=== PATIENT | male | born 1955 | race Caucasian/White ===

== ENCOUNTER → 2018-08-29 | Outpatient (CLI) | payer MEDICARE ==
[~2018-08-29] MED LIST: ASPI1TAB PO; ESCI20TA PO; FOLI400T PO; IRON50TA PO; ISOVUE-370 76% 100ML VIAL (Q9967) As Ordered ONE; LEVO125T4 PO; SIMV20TA2 PO
--- NOTE | 2018-08-29 13:23 | REP ---
Clinical: Chest pain. Pulmonary embolism. Technique: Axial contrast enhanced images from the thoracic inlet to the upper abdomen using pulmonary embolus protocol. 100 ml Isovue 370 intravenous contrast material administered without complication. Findings: Satisfactory enhancement of the pulmonary vasculature is achieved and no filling defects are identified to suggest pulmonary embolus. There is evidence for prior surgery at the right lung base suggesting right lower lobe pneumonectomy and a small loculated right pleural effusion is identified. No acute consolidation, obvious nodule or mass lesion appreciated. No pneumothorax. Mediastinum demonstrates postsurgical changes at the right hilum along with atherosclerotic changes to the thoracic aorta and coronary arteries without aortic aneurysm, dissection or cardiomegaly. No pericardial effusion. No obvious adenopathy. Limited upper abdomen demonstrates normal bilateral adrenal glands. Multiple healed right rib fractures identified. Impression: 1. Evidence for prior right lower lobe resection with postsurgical changes. 2. Small loculated right basilar pleural effusion. 3. No evidence for pulmonary embolus. 4. No adenopathy, consolidation, nodule or mass lesion appreciated. Electronically Signed by Naveen Maldonado MD 08/29/2018 01:14 P
== END ==
LOC: M RAD 12:28
PROVIDERS: ATTEND Internal Medicine Hematology & Oncology
DX: I26.99 Other pulmonary embolism without acute cor pulmonale (principal)
CPT/HCPCS: 71275; Q9967

== ENCOUNTER → 2018-11-20 | Outpatient (REF) | payer MEDICARE ==
[~2018-11-20] MED LIST changes: -ASPI1TAB PO; +ASPI81TA26 PO; -ISOVUE-370 76% 100ML VIAL (Q9967) As Ordered ONE
[2018-11-20 12:57] LABS: BASO # 0.1 10^3/uL (0.0-0.2); EOS # 0.6 10^3/uL (0.0-0.50); EOS % 7.6 % (0.0-3.0); HEMATOCRIT 39.7 % (42.0-52.0); HEMOGLOBIN 13.4 g/dl (13.5-17.5); LYMPH % 25.2 % (24.0-44.0); MEAN CORPUSCULAR HEMOGLOBIN 31.8 pg (27.0-33.0); MEAN CORPUSCULAR HGB CONC 33.8 g/dl (32.0-36.5); MEAN CORPUSCULAR VOLUME 94.1 fl (80.0-96.0); MONO # 0.9 10^3/uL (0.0-0.8); MONO % 11.2 % (0.0-5.0); NEUTROPHILS # 4.3 10^3/uL (1.8-7.7); NEUTROPHILS % 54.5 % (36.0-66.0); PLATELET COUNT, AUTOMATED 273 10^3/uL (150-450); RED BLOOD COUNT 4.22 10^6/uL (4.30-6.10); WHITE BLOOD COUNT 7.9 10^3/uL (4.0-10.0)
[2018-11-20 13:13] LABS: ALBUMIN 3.8 GM/DL (3.2-5.2); ALT/SGPT 33 U/L (12-78); BILIRUBIN,TOTAL 0.3 MG/DL (0.2-1.0); BLOOD UREA NITROGEN 21 MG/DL (7-18); CALCIUM LEVEL 8.6 MG/DL (8.8-10.2); CARBON DIOXIDE LEVEL 28 MEQ/L (21-32); CHLORIDE LEVEL 105 MEQ/L (98-107); CREATININE FOR GFR 1.08 MG/DL (0.70-1.30); GLOMERULAR FILTRATION RATE > 60.0 (>49); GLUCOSE, FASTING 133 MG/DL (70-100); POTASSIUM SERUM 4.3 MEQ/L (3.5-5.1); SODIUM LEVEL 138 MEQ/L (136-145); TOTAL PROTEIN 6.6 GM/DL (6.4-8.2)
== END ==
LOC: M SFHCADAM 10:46
PROVIDERS: ATTEND Physician Assistant
DX: D64.9 Anemia, unspecified (principal); E78.5 Hyperlipidemia, unspecified

== ENCOUNTER → 2018-11-27 | Outpatient (REF) | payer MEDICARE ==
[2018-11-27 13:01] LABS: FOLATE 23.2 NG/ML; FREE T4 1.04 NG/DL (0.76-1.46); PERCENT SATURATION 31.8 % (19.7-50.0); THYROID STIMULATING HORMONE 3.85 uIU/ML (0.358-3.740)
[2018-11-27 14:10] LABS: HEMOGLOBIN A1c 6.4 %
== END ==
LOC: M SFHCADAM 08:06
PROVIDERS: ATTEND Physician Assistant
DX: R73.01 Impaired fasting glucose (principal); E03.9 Hypothyroidism, unspecified; D64.9 Anemia, unspecified
CPT/HCPCS: 82607; 82728; 82746; 83036; 83550; 84439; 84443; G0463

== ENCOUNTER → 2019-03-18 | Outpatient (CLI) | payer MEDICARE ==
[~2019-03-18] MED LIST changes: +ISOVUE-370 76% 100ML VIAL (Q9967) As Ordered ONE
--- NOTE | 2019-03-19 08:22 | REP ---
REASON FOR EXAM: Lung carcinoma. COMPARISON: 08/29/2018 the only prior. CONTRAST: 100 mL Isovue 370. There is right hilar adenopathy status quo. Right hilar postoperative changes are noted status quo. There is a prominent unchanged superior pericardial recess. There are no pleural or pericardial effusions. There is no significant change in the appearance of the imaged upper abdomen. Bone window technique throughout the examination shows no significant change in the appearance of the imaged osseous structures. Evaluation of the lung barone show lung field hyperexpansion with emphysematous changes status quo. There is cylindrical bronchiectasis status quo. Postoperative changes from previous right upper lobe resection noted status quo. No new abnormal nodules, mass, or opacities have developed. IMPRESSION: Essentially stable CT findings as described above. Chronic right basilar changes status quo. No acute disease has developed since the last exam. Electronically Signed by Wyatt Chavez DO 03/19/2019 11:25 A
== END ==
LOC: M RAD 12:18
PROVIDERS: ATTEND Internal Medicine Hematology & Oncology
DX: C34.91 Malignant neoplasm of unspecified part of right bronchus or lung (principal)
CPT/HCPCS: 71260; Q9967

== ENCOUNTER → 2019-04-12 | Outpatient (REF) | payer MEDICARE ==
[~2019-04-12] MED LIST changes: +GABA-843 PO; +IBUP-1022 PO; -ISOVUE-370 76% 100ML VIAL (Q9967) As Ordered ONE; +NEUR100C PO; +PERC5TAB12 PO; -SIMV20TA2 PO; +SIMV20TA22 PO
== END ==
LOC: M SFHCADAM 09:50
DX: R73.01 Impaired fasting glucose (principal); Z53.8 Procedure and treatment not carried out for other reasons

== ENCOUNTER → 2019-04-13 | Outpatient (REF) | payer MEDICARE ==
[~2019-04-13] MED LIST changes: -GABA-843 PO; -IBUP-1022 PO; -NEUR100C PO; -PERC5TAB12 PO; +SIMV20TA2 PO; -SIMV20TA22 PO
[2019-04-13 18:36] LABS: HEMOGLOBIN A1c 4.8 %
== END ==
LOC: M SFHCADAM 12:58
DX: F32.2 Major depressive disorder, single episode, severe without psychotic features (principal); Z79.899 Other long term (current) drug therapy; Z79.82 Long term (current) use of aspirin

== ENCOUNTER 2019-06-13 14:00 | Emergency (ER) | payer MEDICARE ==
[~2019-06-13] VITALS: Ht 172.7 cm; Wt 82.0 kg
[2019-06-13] MEDS ORDERED: NEUR100C PO (14:33)
[2019-06-13 14:41] LABS: BASO # 0.1 10^3/uL (0.0-0.2); BASO % 0.9 % (0.0-1.0); EOS # 0.7 10^3/uL (0.0-0.5); EOS % 8.5 % (0.0-3.0); HEMATOCRIT 42.5 % (42.0-52.0); HEMOGLOBIN 13.7 g/dl (13.5-17.5); LYMPH # 2.2 10^3/uL (1.5-5.0); LYMPH % 28.3 % (24.0-44.0); MEAN CORPUSCULAR HEMOGLOBIN 33.5 pg (27.0-33.0); MEAN CORPUSCULAR HGB CONC 32.2 g/dl (32.0-36.5); MEAN CORPUSCULAR VOLUME 103.9 fl (80.0-96.0); MONO # 0.8 10^3/uL (0.0-0.8); MONO % 10.4 % (0.0-5.0); NEUTROPHILS # 4.1 10^3/uL (1.5-8.5); NEUTROPHILS % 51.5 % (36.0-66.0); PLATELET COUNT, AUTOMATED 264 10^3/uL (150-450); RED BLOOD COUNT 4.09 10^6/uL (4.30-6.10); WHITE BLOOD COUNT 7.9 10^3/uL (4.0-10.0)
[2019-06-13 14:53] LABS: PROTHROMBIN TIME 12.9 SECONDS (11.8-14.0)
[2019-06-13 15:01] LABS: BLOOD UREA NITROGEN 22 MG/DL (7-18); CARBON DIOXIDE LEVEL 28 MEQ/L (21-32); CHLORIDE LEVEL 106 MEQ/L (98-107); CREATININE FOR GFR 1.04 MG/DL (0.70-1.30); GLOMERULAR FILTRATION RATE > 60.0 (>49); GLUCOSE, FASTING 85 MG/DL (70-100); POTASSIUM SERUM 4.1 MEQ/L (3.5-5.1); SODIUM LEVEL 139 MEQ/L (136-145)
[2019-06-13 15:08] LABS: ALBUMIN 4.2 GM/DL (3.2-5.2); ALT/SGPT 29 U/L (12-78); BILIRUBIN,DIRECT < 0.1 MG/DL (0.0-0.2); BILIRUBIN,TOTAL 0.4 MG/DL (0.2-1.0); CK-MB VALUE MASS 1.2 NG/ML (<3.6); CPK CREATINE PHOSPHOKINASE 59 U/L (39-308); LIPASE 109 U/L (73-393); MB/CK RELATIVE INDEX 2.03 (< OR =4); TOTAL PROTEIN 7.3 GM/DL (6.4-8.2); TROPONIN I < 0.02 NG/ML (< 0.10)
[2019-06-13] MEDS ORDERED: ISOVUE-370 76% 100ML VIAL (Q9967) As Ordered ONE (15:09)
--- NOTE | 2019-06-13 16:03 | REP ---
CT pulmonary angiogram: With IV contrast. History: Chest pain. History of lung carcinoma. Comparison studies: Comparison chest CT study March 18, 2019. Contrast dose: 100 mL of Isovue [address] technique: Helical scanning is acquired and overlapping 1.5 mm and contiguous 3 mm axial images are reformatted. In addition, maximum intensity projection and multiplanar re-formation images are generated in sagittal and coronal imaging projections. CT pulmonary angiographic findings: There is good opacification of the pulmonary arterial tree. There is no CT evidence of pulmonary embolus. There is no evidence of filling defect or vessel cutoff. Thoracic aorta shows vascular calcification but no evidence of aneurysm or dissection. There is volume loss in the right hemithorax and the patient is apparently status post right lower lobectomy. There is a tiny quantity of a stable right pleural fluid posteriorly. No hilar or mediastinal mass or adenopathy is observed. No pulmonary nodule or mass lesion is observed. There are post-traumatic changes in the right rib cage. However, in addition, there is a slightly expansile radiolucent lesion in the right posterolateral 9th rib which is a new finding. In addition, there is a 1 cm radiolucent lesion in the lamina of T4 vertebral body. There is a larger lytic destructive lesion in the left transverse process, left pedicle and left lamina at T5. There is a 1 cm lytic lesion in the left pedicle at T6. These lytic bony lesions are consistent with metastatic disease. Impression: No CT evidence of pulmonary embolus. Status post right lower lobectomy. New bony destructive lytic lesions in the skeleton suggestive of skeletal metastasis. These are noted in the T4, T5, T6, and in the right posterolateral 9th rib. Radionuclide bone scan suggested. Electronically Signed by Morales Ba MD 06/13/2019 04:07 P
[2019-06-13] MEDS ORDERED: IBUP-1022 PO (16:53)
[2019-06-13 17:15] VITALS: BP 156/91
--- NOTE | 2019-06-13 18:33 | ECGEPIP ---
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
--- NOTE | 2019-06-17 17:13 | ED PDOC ---
Post-Departure Follow-Up brittany lewis faxed formal report of cta for fu rovertog Meghan Bains MD Jun 17, 2019 17:12
== END 2019-06-13 17:42 | disposition home or self-care (01) ==
LOC: M ED 14:00
DX: M89.9 Disorder of bone, unspecified (principal); Z85.118 Personal history of other malignant neoplasm of bronchus and lung; Z90.2 Acquired absence of lung [part of]; R94.31 Abnormal electrocardiogram [ECG] [EKG]; I10 Essential (primary) hypertension; Z87.891 Personal history of nicotine dependence; Z79.02 Long term (current) use of antithrombotics/antiplatelets; Z79.899 Other long term (current) drug therapy
CPT/HCPCS: 36415; 71275; 80048; 80076; 82550; 82553; 83690; 84484; 85025; 85610; 93005; 93041; 94760; 99285; Q9967

== ENCOUNTER → 2019-06-20 | Outpatient (REF) | payer MEDICARE ==
[~2019-06-20] MED LIST changes: +IBUP-1022 PO; +NEUR100C PO
[2019-06-20 18:15] LABS: FOLATE 9.3 NG/ML
== END ==
LOC: M SFHCADAM 16:00
PROVIDERS: ATTEND Physician Assistant
DX: M89.8X8 Other specified disorders of bone, other site (principal); D75.89 Other specified diseases of blood and blood-forming organs

== ENCOUNTER → 2019-06-26 | Outpatient (CLI) | payer MEDICARE ==
--- NOTE | 2019-06-26 13:58 | REP ---
WHOLE BODY BONE SCAN: Following the administration of 21.9 millicuries of technetium 99m MDP, patient's whole body is administered in the anterior and posterior projections with additional oblique and lateral views obtained. Correlation made with CT angiogram of the chest 05/13/2019. There is focal increased uptake in the region of the posterior elements of T5 on the left consistent with metastatic lesion seen on recent CT exam. Focal increased uptake is seen in the posterolateral right 9th rib consistent with the metastatic lesion seen on the recent CT exam. There is no other compelling scintigraphic evidence of osseous metastases. There is very mild focal increased uptake in the posterolateral right 6th and 7th ribs. Compatible with old rib fractures. Very mild uptake in the region of the left cervical facet joints is compatible with mild arthritic uptake. There also appears to be mild arthritic uptake in the shoulders bilaterally and at the right wrist. Mild linear uptake along the greater trochanter of the proximal right femur likely indicates some degree of tendinobursitis at that location. IMPRESSION: Focal increased uptake in the region of the posterior elements of T5 on the left and in the posterolateral right 9th rib, compatible with metastatic lesions. No other compelling scintigraphic evidence of osseous metastases. Electronically Signed by Marshall Gaffney MD 06/26/2019 02:07 P
== END ==
LOC: M RAD 09:26
PROVIDERS: ATTEND Physician Assistant
DX: M89.8X8 Other specified disorders of bone, other site (principal)
CPT/HCPCS: 78306; A9503

== ENCOUNTER → 2019-07-04 | Outpatient (CLI) | payer MEDICARE ==
[~2019-07-04] MED LIST changes: -SIMV20TA2 PO; +SIMV20TA22 PO
--- NOTE | 2019-07-04 11:37 | RADONC ---
RADIATION ONCOLOGY CONSULTATION NOTE DATE OF SERVICE: 07/04/2019 Mr. Moore is a 63-year-old very pleasant gentleman that is a smoker who initially presented to the emergency room with left flank pain in August of 2017. The concern was that he may have a kidney stone. A CT scan was performed and he was found to have a right lower lung nodule. Biopsy of the lung lesion was consistent with carcinoma of the lung. Subsequently, on January 01, 2018 her underwent right lower lobe lobectomy and right middle lobe lobectomy, and mediastinal lymph node dissection. Pathology showed moderately differentiated adenocarcinoma and pathologically staged [id number], stage IIIA. The patient started chemotherapy with carboplatin and ALIMTA, four cycles every 3 weeks. He did well until recently when he developed pain in the back and the posterior chest. The patient had a CT angio on 06/13/2019 with concern he may have pulmonary embolism (PE) because he has history of PE. CT angio showed no pulmonary embolism status post right lower lobectomy and showed new bony destructive lytic lesion in the skeleton suggestive of skeletal metastases that are noted in the T4, 5, 6 and in the right posterolateral 9th rib. The bone scan was performed on 06/26/2019 which reported focal increased uptake in the region of the posterior element of T5 on the left and in the posterolateral right 9th rib compatible with metastatic lesions. No other evidence of osseous metastasis. PAST MEDICAL HISTORY: Pulmonary embolism (PE) December 2017, s/p Eliquis for 6 months. Hypothyroidism. Anemia. Hyperlipidemia. Depression and anxiety. Chronic back pain. He has been disabled since 2013. Calcific tendinitis of the left shoulder. SURGICAL HISTORY: Includes: Kidney stone removal and stent placement August 2017. Right lower lobe and middle lobe lobectomy January 01, 2018. Carpal tunnel release on the left in 2007. FAMILY HISTORY: The patient was adopted. Patient has one daughter. SOCIAL HISTORY: He is an ex-smoker, quit 35 years ago. He is after 35 years of marriage. Denies alcohol abuse. CURRENT MEDICATIONS:: - simvastatin 20 mg once a day - iron - folic acid - gabapentin 100 mg three capsules twice a day - escitalopram oxalate 20 mg by mouth every morning - levothyroxine sodium 125 mg by mouth daily Medication list reviewed and reconciled. ALLERGIES: He has no known drug allergies. HEALTH MAINTENANCE: He had a colonoscopy and upper endoscopy in 2018. IMAGING STUDIES: See HPI PATHOLOGY: See HPI REVIEW OF SYSTEMS: CONSTITUTIONAL: He denies any recent weight changes, fevers, chills or night sweats. EYES/ENT: Denies blurry vision. No hearing loss. No tinnitus. No sinusitis. Denies dysphagia or mouth sores. RESPIRATORY: Denies wheezing, cough, sputum production or shortness of breath. CARDIOVASCULAR: No chest pain. Denies palpitations, lightheadedness. GASTROINTESTINAL (GI): Denies nausea, vomiting, diarrhea, constipation. No rectal bleeding. GENITOURINARY (): Denies hematuria, dysuria or frequency. MUSCULOSKELETAL: He complains of pain in the back, mostly in the low back. He said he had injections in 2013. PSYCHIATRIC: He said he has some depression with his recent divorce after 35 years of marriage. SKIN: Denies rash or dryness. PHYSICAL EXAMINATION: ECOG 0. HEENT: No thrush. No facial abnormalities. NECK: There are no palpable nodes or masses. CHEST: Clear. No rhonchi, rales or wheezing. CARDIOVASCULAR: No murmurs. Regular rhythm and rate. ABDOMEN: Obese, soft, nontender, nondistended without any palpable masses or organomegaly. : Not examined. EXTREMITIES: There is no swelling or cyanosis or clubbing. However, has nail bites. NEUROLOGICAL: No focal deficits. MUSCULOSKELETAL: There is some tenderness on the right side ribcage, tenderness of the thoracic spine. There is no limitation of movement. ASSESSMENT/RECOMMENDATIONS: Mr. 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 He was treated with right lower lobe and middle lobe lobectomy and followed by chemotherapy with carboplatin and ALIMTA. He has been doing well until recently when he developed pain in the left flank which he thought was a pulmonary embolism (PE). CT angio of the chest was performed and did not show pulmonary embolism (PE), however showed some lytic lesions suspicious for skeletal metastases. A bone scan followed which showed increased uptake in the T5 and the posterolateral right 9th rib. I have discussed with the patient regarding nature of the disease and treatment options. He understands he has metastatic disease most likely lung and his main treatment will be systemic treatment which includes chemotherapy and immunotherapy and radiation therapy has palliative role. Indication of radiation therapy for bone mets include relief of pain,and to prevent cord compression and impending fractures. He has no neurological symptoms and pain is mostly chronic low back with pain scale of 4. Before we proceed I would like to have PET CT and also MRI of T spine and these have been scheduled. MTDD
== END ==
LOC: M ONCR 08:50
PROVIDERS: ATTEND Radiology Radiation Oncology
DX: C79.51 Secondary malignant neoplasm of bone (principal); C34.91 Malignant neoplasm of unspecified part of right bronchus or lung; Z92.21 Personal history of antineoplastic chemotherapy

== ENCOUNTER → 2019-07-08 | Outpatient (CLI) | payer MEDICARE ==
[~2019-07-08] MED LIST changes: +PROHANCE 279.3MG/ML 15ML VIAL (A9576) As Ordered ONE
--- NOTE | 2019-07-08 11:21 | REP ---
MRI thoracic spine: 07/08/2019. Indication: Metastatic lung carcinoma. Comparison: None. Technique: Multiplanar short and long TR sequences of the thoracic spine were performed including post-gadolinium new imaging. New 16 ml IV ProHance were administered. Findings: There is abnormal signal and pathologic gadolinium enhancement within the T4, T5, T6 and T7 vertebral bodies, particularly within the posterior elements on the left. There is minimal tumor extension into the left lateral aspect of the spinal canal without compression of the cord. Recent Schmorl's node is noted within the inferior aspect of T8. There are no pathologic compression fractures. No disc herniations or areas of significant spinal canal / neural foraminal narrowing are present. Please see recent CT report for description of paraspinal soft tissues. There are incompletely evaluated areas of elevated CT signal within C7 and throughout the lumbosacral spine. Metastases are not excluded. Impression: Multifocal metastases of the mid thoracic spine, most prominent at T6 on the left with minimal tumor extension into the spinal canal. There is no cord compression. No pathologic compression fractures. Electronically Signed by Shree Vuong DO 07/08/2019 11:13 A
== END ==
LOC: M RAD 07:03
PROVIDERS: ATTEND Radiology Radiation Oncology
DX: C34.91 Malignant neoplasm of unspecified part of right bronchus or lung (principal)
CPT/HCPCS: 72157; A9576

== ENCOUNTER → 2019-07-10 | Outpatient (CLI) | payer MEDICARE ==
[~2019-07-10] MED LIST changes: -PROHANCE 279.3MG/ML 15ML VIAL (A9576) As Ordered ONE
--- NOTE | 2019-07-11 11:00 | REP ---
PET/CT: History: Restaging right lower lung malignancy. Status post right lower and middle lobectomy 02/2018. Comparisons: Comparison chest CT June 13, 2019. Comparison bone scan June 26, 2019. No comparison PET-CT scan is available. TECHNIQUE: 57 minutes following the intravenous injection of a 8.66 mCi dose of F-18 FDG, three-dimensional PET scintigraphy is acquired from the skull base to the proximal thighs. Triplanar noncontrast CT scanning is acquired through the same anatomic range for attenuation correction, and image registration with scan parameters optimized to minimize radiation exposure to the patient. PET scintigraphy and CT datasets were fused and displayed on a workstation with multiplanar and projection display capability. PET/CT Findings: There is equivocal uptake in normal-sized right subclavicular lymph nodes, maximum S U V 3.06. A right superior mediastinal lymph node shows mildly hypermetabolic uptake, 3.38. This is a 1 cm node. There is a right hilar lymph node which is hypermetabolic with maximum standard uptake value 9.82. There is mildly hypermetabolic uptake in the right pleural space inferiorly and medially in the pleural angle with maximum standard uptake value 4.17. No other thoracic or samia hypermetabolic uptake is seen. No abnormal uptake is seen below the diaphragms. There is metastatic skeletal hypermetabolic uptake in the previously identified skeletal foci as follows with corresponding S U V values: Right T4 lamina, 12.71 Left T5 pedicle and posterior elements, 11.17 Left T6 pedicle, 16.08 The right 9th posterolateral rib, 18.85. No other abnormal skeletal sites are seen. Impression: There is hypermetabolic uptake in the right hilar, right superior mediastinal, and right subclavicular lymph node foci along with an area of increased uptake in the pleural space on the right. In addition there is markedly hypermetabolic skeletal metastatic uptake as previously identified and listed above. Electronically Signed by Morales Ba MD 07/11/2019 10:51 A
== END ==
LOC: M PLARAD 12:59
PROVIDERS: ATTEND Radiology Radiation Oncology
DX: C34.31 Malignant neoplasm of lower lobe, right bronchus or lung (principal)
CPT/HCPCS: 78815; A9552

== ENCOUNTER → 2019-07-30 | Outpatient (RCR) | payer MEDICARE | LOC: M ONCR 07-18 13:48 | PROVIDERS: ATTEND Radiology Radiation Oncology | DX: C79.51 Secondary malignant neoplasm of bone (principal); C34.91 Malignant neoplasm of unspecified part of right bronchus or lung ==

== ENCOUNTER → 2019-08-16 | Outpatient (CLI) | payer MEDICARE ==
[~2019-08-16] MED LIST changes: +GABA-843 PO; +GASTROGRAFIN SOLUTION 30ML (Q9963) As Ordered ONE; +ISOVUE-370 76% 100ML VIAL (Q9967) As Ordered ONE; +PERC5TAB12 PO
--- NOTE | 2019-08-17 11:16 | REP ---
CT CHEST WITH IV CONTRAST: HISTORY: Lung cancer. COMPARISON: Chest CT study, June 13, 2019. Comparison studies from August 29, 2018 and March 18, 2019 are also reviewed. PET-CT, July 10, 2019 is also reviewed. Most recent prior studies demonstrated evidence of skeletal metastatic disease, right hilar and superior mediastinal samia disease. CT CONTRAST DOSE: 100 mL of intravenous Isovue-[address] FINDINGS: The patient is status post right thoracotomy and partial pneumonectomy, apparently right lower lobectomy. There is stable pleural fluid and somewhat irregular pleural thickening and enhancement in the right posterior pleural space where recent PET-CT showed hypermetabolic activity. No ethan mass lesion is observed. No left pleural effusion is noted. No new pulmonary nodule or pulmonary parenchymal mass lesion is observed. There is right hilar adenopathy noted with a 14 x 12 mm node in the right hilus which appears slightly larger than on the August 19, 2018 study. There are scattered small normal-sized mediastinal lymph nodes which appear largely unchanged in size from the prior exam. There is an 8 mm lymph node at the thoracic inlet to the right of the esophagus which showed metabolic uptake on recent PET-CT. No axillary adenopathy is seen. Metastatic skeletal disease again noted. There is an expansile 2.1 cm destructive lesion in the right posterolateral 9th rib which has enlarged since June 13, 2019. There are multiple metastatic foci of varying size in the upper thoracic spine involving T3, T4, T5, and T6. The most extensive disease is at T5 where there is a destructive lesion involving the left lamina, left transverse process, and left pedicle. No definite spinal canal compression. There is involvement of the adjacent posterior rib end, and a very small lesion is seen in the right pedicle at T5. These changes are slightly more prominent. There are new small lesions along the left lateral contour of T4 and the anterior edge of T3. There is a lesion in the right lamina at T4 which has enlarged since the prior study. No other new lesion is seen. IMPRESSION: Some progression seen in skeletal metastatic disease since the most recent prior CT study. Stable lymph nodes size. No significant change in the pleural thickening at the right base. No adrenal lesion. Electronically Signed by Morales Ba MD 08/20/2019 09:54 A
--- NOTE | 2019-08-17 11:18 | REP ---
SOFT-TISSUE CT STUDY OF THE NECK WITH IV CONTRAST: HISTORY: Lung cancer. CT CONTRAST DOSE: 100 mL of intravenous Isovue-370. Comparison is made with PET-CT imaging from 06/19/2019. CT FINDINGS: Parotid and submandibular glands are normal and symmetric. Visualized paranasal sinuses are clear. No intracranial abnormality or intraorbital abnormality is appreciated. There is no evidence of suprahyoid adenopathy. Corresponding with the PET-CT, there are two or three normal-sized right supraclavicular lymph nodes in the area where the PET-CT showed some avidity. The largest of these measures only 5 mm in short-axis dimension. No larger lymph nodes are appreciated. No focal skeletal destructive lesion is appreciated. IMPRESSION: No evidence of mass or adenopathy by CT criteria. Normal-size lymph nodes in the right supraclavicular soft tissues. Electronically Signed by Morales Ba MD 08/17/2019 11:33 A
--- NOTE | 2019-08-17 11:27 | REP ---
CT abdomen with IV and oral contrast: History: Lung cancer. Comparison is made with PET/CT imaging July 10, 2019. CT contrast dose: 100 mL of intravenous Isovue [address] findings: The liver and the spleen are normal in size and homogeneous in texture. There is minimal pleural fluid and moderate pleural thickening in the right posterior pleural space as described on chest CT. No abnormalities noted in the gallbladder or the pancreas. The spleen is homogeneous in texture. Normal adrenal glands are seen bilaterally. The kidneys enhance symmetrically and are morphologically intact. No hydronephrosis or mass lesion is seen. There is evidence of intrarenal nephrolithiasis a lower pole of the left kidney. No retroperitoneal mass is seen. Small normal-sized periaortic lymph nodes are observed. There is left colonic diverticulosis. A right 9th expansile rib metastasis is observed. No other bony destructive skeletal lesion is seen in the field of view of the abdomen CT. Impression: No evidence of intra-abdominal metastatic disease seen. Intrarenal nephrolithiasis left kidney. Electronically Signed by Morales Ba MD 08/17/2019 11:34 A
== END ==
LOC: M RAD 15:39
PROVIDERS: ATTEND Internal Medicine Hematology & Oncology
DX: C34.90 Malignant neoplasm of unspecified part of unspecified bronchus or lung (principal)
CPT/HCPCS: 70491; 71260; 74178; Q9963; Q9967

== ENCOUNTER 2019-08-19 09:42 | Outpatient (RCR) | payer MEDICARE ==
--- NOTE | 2019-08-06 06:52 | RADONC ---
RADIATION ONCOLOGY PROGRESS NOTE DATE: 08/05/2019 CHART #: [id number] Mr. Moore is presently at a dose of 1500 cGy to his thoracic spine from the levels of T3-T8 and is tolerating treatments quite well at this point with no complaints related to his radiation therapy. REVIEW OF SYSTEMS: The patient's review of systems is positive for continued right posterior rib pain as well as some back pain. He is almost out of his Percocet. The patient's review of systems is otherwise noncontributory. Denies nausea, vomiting, fevers, chills, night sweats, diplopia, headaches, anxiety or depression, anorexia, weight loss, visual disturbances, chest pain, urinary or bowel difficulties, bone pain, or neurological problems. PHYSICAL EXAMINATION: The patient's skin is in good condition with no evidence of radiation change present. There is acute tenderness to pressure over the posterior right rib, but otherwise the physical exam is unchanged. I have sent a renewed prescription for Percocet for this patient of 5/325 for 30 pills. I-STOP was checked. I am scheduling the patient for an electron setup for rib treatment as well. In the meantime, radiation to the spine will continue.
--- NOTE | 2019-08-09 08:47 | RADONC ---
RADIATION ONCOLOGY SIMULATION NOTE DATE: 08/08/2019 CHART NUMBER: [id number] Mr. Moore was taken to the linear accelerator today for clinical setup of his right posterior rib field. Setup was accomplished without difficulty or discomfort. Radiation treatment planning is underway and radiation treatments will begin subsequently. An immobilization device was created and will be used throughout the course of treatment. It was created without difficulty or discomfort. I was physically present throughout the course of clinical setup simulation.
--- NOTE | 2019-08-13 08:43 | RADONC ---
RADIATION ONCOLOGY PROGRESS NOTE DATE: 08/12/2019 CHART NUMBER: [id number] PROGRESS NOTE: Mr. Moore has completed his radiation to the spine for a dose of 3000 cGy. He is scheduled to start radiation to his right ribs tomorrow and we are planning 5 fractions of 400 cGy each to the right posterior ribs. The patient presents today reporting that he is doing quite well with no complaints at this time related to his radiation therapy. He continues to have some rib pain, which has not yet been treated. REVIEW OF SYSTEMS: The patient's review of systems is positive for his rib pain and some residual back pain but is otherwise noncontributory. Denies nausea, vomiting, fevers, chills, night sweats, diplopia, headaches, anxiety or depression, anorexia, weight loss, visual disturbances, chest pain, urinary or bowel difficulties, bone pain, or neurological problems. PHYSICAL EXAMINATION: The patient's skin is in good condition with no evidence of radiation change present. There is no moist or dry desquamation. The remainder of his physical exam remains unchanged. Mr. Moore has tolerated his spinal radiation quite well and radiation to the ribs should begin without difficulty.
[~2019-08-19 09:42] MED LIST changes: -GASTROGRAFIN SOLUTION 30ML (Q9963) As Ordered ONE; -ISOVUE-370 76% 100ML VIAL (Q9967) As Ordered ONE
--- NOTE | 2019-08-19 11:48 | RADONC ---
RADIATION ONCOLOGY TREATMENT SUMMARY DATE: 08/19/2019 CHART NUMBER: [id number] DIAGNOSIS: Adenocarcinoma of the right lung. STAGE: IV, metastatic. ECOG PERFORMANCE STATUS: 0. TREATMENT SUMMARY: Mr. Moore is a very pleasant 63-year-old white male with the diagnosis of metastatic adenocarcinoma of the lung who presented to us for consideration of palliative radiation therapy to his thoracic spine and right ribs. We treated the patient to his spine from the levels of T3-T8 for a total dose of 3000 cGy delivered in 10 fractions of 300 cGy each over 14 elapsed days from 07/29/2019 through 08/12/2019. The patient's ribs were treated on the linear accelerator utilizing a 15 MV photon beam via a single posterior field. In addition, we treated the patient to his right posterior ribs for a dose of 2000 cGy delivered in five fractions of 400 cGy each over 6 elapsed days from 08/13/2019 through 08/19/2019. The patient's ribs were treated on a linear accelerator utilizing a 9 MeV electron beam prescribed to the 90% isodose line via en face technique. Mr. Moore tolerated his treatments quite well and was able complete therapy as prescribed without interruption. I have scheduled the patient see me again in 1 month for further followup. He will also continue be followed by his other physicians as well. cc: MD Wei Rucker MD
[2019-08-29] MEDS ORDERED: GABA-1171 PO (08:42)
== END 2019-08-30 ==
LOC: M ONCR 09:42
PROVIDERS: ATTEND Radiology Radiation Oncology
DX: C79.51 Secondary malignant neoplasm of bone (principal); C34.91 Malignant neoplasm of unspecified part of right bronchus or lung

== ENCOUNTER → 2019-08-21 | Outpatient (CLI) | payer MEDICARE ==
--- NOTE | 2019-08-21 19:46 | REPVR ---
PROCEDURE INFORMATION: Exam: MR Head Without and With Contrast Exam date and time: 08/21/2019 7:00 PM Age: 64 years old Clinical indication: Condition or disease; History of cancer (specify primary cancer site): ; Patient HX: H/a, HX lung CA; Additional info: Lung CA; Restaging TECHNIQUE: Imaging protocol: MR of the head without and with intravenous contrast. Contrast material: PROHANCE; Contrast volume: 15 ml; Contrast route: 22G ANGIO; COMPARISON: No relevant prior studies available. FINDINGS: Brain: There is hyperintense signal within the periventricular white matter. There are additional hyperintense foci scattered throughout the white matter and within the violette highly consistent with chronic microvascular disease. DWI images demonstrate no evidence of acute infarct. There is no hemorrhage or extra-axial collection. There is no mass or abnormal enhancement. Ventricles: Normal. No ventriculomegaly. Bones/joints: Unremarkable. Soft tissues: Unremarkable. Sinuses: Normal as visualized. No acute sinusitis. Mastoid air cells: Normal as visualized. No mastoid effusion. Orbits: Unremarkable. IMPRESSION: 1. There is chronic microvascular disease. 2. No evidence of metastatic disease. 3. No acute intracranial lesion or injury. Electronically signed by: Geoff Voss On 08/21/2019 19:45:54 PM
== END ==
LOC: M RAD 17:16
PROVIDERS: ATTEND Internal Medicine Hematology & Oncology
DX: C34.91 Malignant neoplasm of unspecified part of right bronchus or lung (principal)

== ENCOUNTER → 2019-08-26 | Outpatient (CLI) | payer MEDICARE ==
[~2019-08-26] MED LIST changes: +GABA-1171 PO; +LIDOCAINE 1% MDV 20ML VIAL As Ordered ONE
[2019-08-26 13:13] VITALS: BP 162/84
--- NOTE | 2019-08-28 22:27 | REP ---
CT-guided thoracic vertebrae biopsy The procedure is performed by CASPER Steward, under the direct supervision of Dr. Gaffney. The risks and benefits of the procedure were explained to the patient and informed consent was obtained both orally and written. Directly prior to the start of the procedure, a formal timeout was done in the exam room. The T4 vertebral body was localized using CT guidance. Skin was prepped and draped in the usual sterile fashion. 4 ml of 1% lidocaine 10 mg/ml was used as a local anesthetic. Using CT guidance a 19/20 gauge coaxial needle biopsy system was inserted and advanced into the T4 a vertebral mass . 7 core biopsy samples were obtained and sent to the lab. CT images obtained directly after the biopsy show no evidence of hematoma. After the appropriate amount of monitored convalescence the patient was discharged from the department. Reviewed by CASPER Capone 08/26/2019 02:17 P Electronically Signed by Marshall Gaffney MD 08/28/2019 10:18 P
== END ==
LOC: M IRPRO 11:46
PROVIDERS: ATTEND Internal Medicine Hematology & Oncology
DX: C79.89 Secondary malignant neoplasm of other specified sites (principal); C34.90 Malignant neoplasm of unspecified part of unspecified bronchus or lung; F32.9 Major depressive disorder, single episode, unspecified

== ENCOUNTER → 2019-09-18 | Outpatient (CLI) | payer MEDICARE ==
[~2019-09-18] MED LIST changes: -LIDOCAINE 1% MDV 20ML VIAL As Ordered ONE
== END ==
LOC: M ONCR 09:51
PROVIDERS: ATTEND Radiology Radiation Oncology
DX: C34.91 Malignant neoplasm of unspecified part of right bronchus or lung (principal); C79.51 Secondary malignant neoplasm of bone

== ENCOUNTER → 2019-11-01 | Outpatient (REF) | payer MEDICARE ==
[2019-11-01 16:48] LABS: BASO # 0.1 10^3/uL (0.0-0.2); BASO % 0.8 % (0.0-1.0); EOS # 0.8 10^3/uL (0.0-0.5); EOS % 9.6 % (0.0-3.0); HEMATOCRIT 40.8 % (42.0-52.0); HEMOGLOBIN 13.6 g/dl (13.5-17.5); LYMPH % 12.2 % (24.0-44.0); MEAN CORPUSCULAR HEMOGLOBIN 33.3 pg (27.0-33.0); MEAN CORPUSCULAR HGB CONC 33.3 g/dl (32.0-36.5); MEAN CORPUSCULAR VOLUME 99.8 fl (80.0-96.0); MONO # 1.1 10^3/uL (0.0-0.8); MONO % 14.4 % (0.0-5.0); NEUTROPHILS # 4.9 10^3/uL (1.5-8.5); NEUTROPHILS % 62.6 % (36.0-66.0); PLATELET COUNT, AUTOMATED 323 10^3/uL (150-450); RED BLOOD COUNT 4.09 10^6/uL (4.30-6.10); WHITE BLOOD COUNT 7.9 10^3/uL (4.0-10.0)
[2019-11-01 17:08] LABS: ERYTHROCYTE SEDIMENTATION RATE 59 mm/hr (0-20)
[2019-11-01 17:20] LABS: ALT/SGPT 21 U/L (12-78); BILIRUBIN,TOTAL 0.6 MG/DL (0.2-1.0); BLOOD UREA NITROGEN 21 MG/DL (7-18); C REACTIVE PROTEIN QUANTITATIV 0.88 MG/DL (0.00-0.30); CALCIUM LEVEL 9.3 MG/DL (8.8-10.2); CARBON DIOXIDE LEVEL 29 MEQ/L (21-32); CHLORIDE LEVEL 107 MEQ/L (98-107); CREATININE FOR GFR 1.37 MG/DL (0.70-1.30); GLOMERULAR FILTRATION RATE 55.3 (>49); GLUCOSE, FASTING 80 MG/DL (70-100); POTASSIUM SERUM 4.9 MEQ/L (3.5-5.1); RHEUMATOID FACTOR QUANT < 10.0 IU/ML (<15.0); SODIUM LEVEL 138 MEQ/L (136-145); TOTAL PROTEIN 7.5 GM/DL (6.4-8.2); URIC ACID 4.9 MG/DL (3.5-7.2)
[2019-11-05 00:09] LABS: ANA (HEP2) Negative (.)
[2019-11-05 00:09] LABS: Lyme Disease IgG/IgM Antibodie <0.91 ISR (0.00-0.90); Lyme Disease IgM Ab Quantitati <0.80 index (0.00-0.79)
== END ==
LOC: M SFHCADAM 14:50
PROVIDERS: ATTEND Physician Assistant
DX: M25.561 Pain in right knee (principal)

== ENCOUNTER → 2019-11-01 | Outpatient (REF) | payer MEDICARE ==
[2019-11-01 17:37] LABS: MUCIN CLOT TEST 4+ (4+); SOURCE, BODY FLUID GLUCOSE RT KNEE; SOURCE, BODY FLUID URIC ACID RT KNEE; URIC ACID, BODY FLUID 5.5 MG/DL (NOT ESTABLISHED)
[2019-11-01 18:05] LABS: SOURCE, BODY FLUID RT KNEE; SYNOVIAL FLUID COLOR YELLOW (YELLOW)
[2019-11-02 08:14] LABS: CRYSTALS, BODY FLUID CA PYROPHOSPHATE (NONE SEEN); SOURCE, BODY FLUID CRYSTALS RT KNEE
[2019-11-04 08:38] LABS: BODY FLUID RHEUMATOID SCREEN NEGATIVE (NEGATIVE)
== END ==
LOC: M LAB REF 17:05
PROVIDERS: ATTEND Physician Assistant
DX: M25.461 Effusion, right knee (principal)

== ENCOUNTER → 2019-11-01 | Outpatient (CLI) | payer MEDICARE ==
--- NOTE | 2019-11-01 16:19 | REP ---
Right knee series: Five views. History: Acute pain in the right knee. Findings: Five views of the right knee demonstrate vascular calcification and diffuse osteopenia. Clothing artifact is seen over the mid thigh. There is nonarticular spurring at the superior pole of the patella at the quadriceps tendon insertion. Some lateral osteoarthritic patellar spurring is seen on sunrise view. There is subcortical cyst formation in the posterior aspect of the lateral tibial plateau. Chondrocalcinosis is seen in the lateral compartment of the joint. Impression: Mild osteoarthritic changes. Chondrocalcinosis. Diffuse osteoporosis and vascular calcification. No acute bony abnormality. Electronically Signed by Morales Ba MD 11/04/2019 07:50 A
== END ==
LOC: M ADAMS 14:58
PROVIDERS: ATTEND Physician Assistant
DX: M17.11 Unilateral primary osteoarthritis, right knee (principal); M81.0 Age-related osteoporosis without current pathological fracture; M25.461 Effusion, right knee; M25.561 Pain in right knee

== ENCOUNTER → 2019-11-27 | Outpatient (CLI) | payer MEDICARE ==
[~2019-11-27] MED LIST changes: +ISOVUE-370 76% 100ML VIAL As Ordered ONE; +PRED20TA PO; +TRIA0.027 TOP
--- NOTE | 2019-11-27 11:01 | REP ---
CT CHEST WITH IV CONTRAST: TECHNIQUE: Axial contrast enhanced images from the thoracic inlet to the upper abdomen using 100 mL Isovue-370 intravenous contrast material with multiplanar reformations. COMPARISON: 08/16/2019 No new parenchymal opacity is seen bilaterally. There is pleural and parenchymal scarring again seen inferiorly on the right, status post right partial pneumonectomy. There is mild elevation of the right hemidiaphragm and mild shift of the heart and mediastinal structures to the right. No significant axillary, mediastinal or hilar adenopathy is seen. There is a right hilar lymph node which has a short axis dimension of 1 cm which has decreased in size since the prior study, at which time, the short axis dimension was 1.2 cm. The heart is normal in size. There is no pericardial effusion. There is no thoracic aortic aneurysm or dissection. The visualized upper abdominal structures are unchanged. There are diffuse degenerative changes of the spine. There is again evidence of metastatic lesions involving various portions of T3 through T6 vertebral bodies. Since the prior study, there is increased sclerosis and remineralization indicating interval treatment. Similar findings are seen in a lytic lesion in the posterolateral aspect of the right 9th rib and in the left 4th rib near the costovertebral junction. IMPRESSION: A right hilar lymph node has decreased in size since the prior study, currently 10 mm in short axis, previously 12 mm. Otherwise no new lung lesion or evidence of new adenopathy. The previously noted metastatic bone lesions involving T3 through T6, left 4th rib near the costovertebral junction and the right posterolateral 9th rib all demonstrate interval sclerotic change and remineralization indicating interval treatment. No new bone lesion is seen. Electronically Signed by Marshall Gaffney MD 11/27/2019 11:11 A
== END ==
LOC: M RAD 09:00
PROVIDERS: ATTEND Internal Medicine Hematology & Oncology
DX: C34.91 Malignant neoplasm of unspecified part of right bronchus or lung (principal); C79.51 Secondary malignant neoplasm of bone; Z90.2 Acquired absence of lung [part of]
CPT/HCPCS: 71260; Q9967

== ENCOUNTER → 2019-11-29 | Outpatient (CLI) | payer MEDICARE ==
[~2019-11-29] MED LIST changes: -ISOVUE-370 76% 100ML VIAL As Ordered ONE; +PROHANCE 279.3MG/ML 15ML VIAL As Ordered ONE
--- NOTE | 2019-11-29 14:18 | REP ---
MRI BRAIN WITHOUT AND WITH IV CONTRAST: HISTORY: Restaging lung carcinoma. Headaches. Comparison brain MRI study August 26, 2019. The gadolinium enhancement dose is 15 mL of intravenous ProHance. TECHNIQUE: Axial and sagittal imaging planes are utilized for T1- and T2-weighted scans. Sequences include spin-echo, fast spin echo, FLAIR, and diffusion weighted sequences. MRI FINDINGS: No bony calvarial lesion is seen. Craniocervical junction and upper cervical cord are normal in appearance. There is no MR evidence of significant paranasal sinus disease. No intraorbital abnormality is seen. There is a stable subarachnoid cyst in the middle cranial fossa on the left anteriorly unchanged. Diffusion weighted scans show no evidence to suggest acute ischemia or other cause of restricted diffusion. There is multifocal periventricular white matter T2 hyperintense foci consistent with microvascular atherosclerotic change. This is unchanged as well. Postcontrast images show enhancement in normal vasculature. No abnormal intracranial contrast enhancement is seen. There is no evidence of mass, extra-axial fluid collection, infarction or midline shift. IMPRESSION: Small vessel changes again noted. No acute intracranial abnormality. There is no evidence of intracranial metastatic disease. Electronically Signed by Morales Ba MD 11/29/2019 04:17 P
== END ==
LOC: M RAD 10:55
PROVIDERS: ATTEND Internal Medicine Hematology & Oncology
DX: C34.91 Malignant neoplasm of unspecified part of right bronchus or lung (principal); R51 Headache
CPT/HCPCS: 70553; A9576

== ENCOUNTER → 2019-12-03 | Outpatient (CLI) | payer MEDICARE ==
[~2019-12-03] MED LIST changes: -PROHANCE 279.3MG/ML 15ML VIAL As Ordered ONE
[2019-12-03 12:43] LABS: BASO % 0.2 % (0.0-1.0); EOS # 0.2 10^3/uL (0.0-0.5); EOS % 1.8 % (0.0-3.0); HEMATOCRIT 34.2 % (42.0-52.0); HEMOGLOBIN 10.9 g/dl (13.5-17.5); LYMPH # 0.6 10^3/uL (1.5-5.0); LYMPH % 7.7 % (24.0-44.0); MEAN CORPUSCULAR HEMOGLOBIN 34.6 pg (27.0-33.0); MEAN CORPUSCULAR HGB CONC 31.9 g/dl (32.0-36.5); MEAN CORPUSCULAR VOLUME 108.6 fl (80.0-96.0); MONO # 0.6 10^3/uL (0.0-0.8); MONO % 7.5 % (0.0-5.0); NEUTROPHILS # 6.6 10^3/uL (1.5-8.5); NEUTROPHILS % 80.7 % (36.0-66.0); PLATELET COUNT, AUTOMATED 241 10^3/uL (150-450); RED BLOOD COUNT 3.15 10^6/uL (4.30-6.10); WHITE BLOOD COUNT 8.2 10^3/uL (4.0-10.0)
[2019-12-03 13:18] LABS: ALBUMIN 3.1 GM/DL (3.2-5.2); ALT/SGPT 21 U/L (12-78); BILIRUBIN,TOTAL 0.3 MG/DL (0.2-1.0); BLOOD UREA NITROGEN 21 MG/DL (7-18); CALCIUM LEVEL 8.8 MG/DL (8.8-10.2); CARBON DIOXIDE LEVEL 29 MEQ/L (21-32); CHLORIDE LEVEL 105 MEQ/L (98-107); CREATININE FOR GFR 0.79 MG/DL (0.70-1.30); FREE T4 1.27 NG/DL (0.76-1.46); GLOMERULAR FILTRATION RATE > 60.0 (>49); GLUCOSE, FASTING 92 MG/DL (70-100); POTASSIUM SERUM 4.1 MEQ/L (3.5-5.1); SODIUM LEVEL 140 MEQ/L (136-145); THYROID STIMULATING HORMONE 0.144 uIU/ML (0.358-3.740); TOTAL PROTEIN 5.8 GM/DL (6.4-8.2)
== END ==
LOC: M LAB 11:51
PROVIDERS: ATTEND Internal Medicine Hematology & Oncology
DX: C34.91 Malignant neoplasm of unspecified part of right bronchus or lung (principal); C79.51 Secondary malignant neoplasm of bone

== ENCOUNTER → 2019-12-31 | Outpatient (CLI) | payer MEDICARE ==
[~2019-12-31] MED LIST changes: +PRED5PAK2 PO
[2019-12-31 13:49] LABS: BASO # 0.1 10^3/uL (0.0-0.2); BASO % 1.2 % (0.0-1.0); EOS # 0.2 10^3/uL (0.0-0.5); EOS % 2.7 % (0.0-3.0); HEMATOCRIT 40.7 % (42.0-52.0); HEMOGLOBIN 13.5 g/dl (13.5-17.5); LYMPH % 17.5 % (24.0-44.0); MEAN CORPUSCULAR HEMOGLOBIN 34.4 pg (27.0-33.0); MEAN CORPUSCULAR HGB CONC 33.2 g/dl (32.0-36.5); MEAN CORPUSCULAR VOLUME 103.8 fl (80.0-96.0); MONO # 0.7 10^3/uL (0.0-0.8); MONO % 11.4 % (0.0-5.0); NEUTROPHILS # 3.8 10^3/uL (1.5-8.5); NEUTROPHILS % 64.1 % (36.0-66.0); PLATELET COUNT, AUTOMATED 274 10^3/uL (150-450); RED BLOOD COUNT 3.92 10^6/uL (4.30-6.10); WHITE BLOOD COUNT 5.9 10^3/uL (4.0-10.0)
[2019-12-31 14:23] LABS: ALBUMIN 3.3 GM/DL (3.2-5.2); ALT/SGPT 28 U/L (12-78); BILIRUBIN,TOTAL 0.1 MG/DL (0.2-1.0); BLOOD UREA NITROGEN 17 MG/DL (7-18); CALCIUM LEVEL 8.6 MG/DL (8.8-10.2); CARBON DIOXIDE LEVEL 28 MEQ/L (21-32); CHLORIDE LEVEL 109 MEQ/L (98-107); CREATININE FOR GFR 0.86 MG/DL (0.70-1.30); FREE T4 1.62 NG/DL (0.76-1.46); GLOMERULAR FILTRATION RATE > 60.0 (>49); GLUCOSE, FASTING 111 MG/DL (70-100); POTASSIUM SERUM 4.3 MEQ/L (3.5-5.1); SODIUM LEVEL 143 MEQ/L (136-145); THYROID STIMULATING HORMONE 0.237 uIU/ML (0.358-3.740); TOTAL PROTEIN 6.3 GM/DL (6.4-8.2)
== END ==
LOC: M LAB 12:35
PROVIDERS: ATTEND Internal Medicine Hematology & Oncology
DX: C34.90 Malignant neoplasm of unspecified part of unspecified bronchus or lung (principal); Z79.899 Other long term (current) drug therapy

== ENCOUNTER → 2020-01-06 | Outpatient (REF) | payer MEDICARE | LOC: M LAB REF 18:16 | PROVIDERS: ATTEND Dermatology | DX: L30.9 Dermatitis, unspecified (principal) ==

== ENCOUNTER → 2020-01-21 | Outpatient (CLI) | payer MEDICARE ==
[2020-01-21 12:12] LABS: BASO % 0.3 % (0.0-1.0); EOS # 0.1 10^3/uL (0.0-0.5); EOS % 0.8 % (0.0-3.0); HEMATOCRIT 31.5 % (42.0-52.0); HEMOGLOBIN 10.4 g/dl (13.5-17.5); LYMPH # 1.4 10^3/uL (1.5-5.0); LYMPH % 13.5 % (24.0-44.0); MEAN CORPUSCULAR HEMOGLOBIN 36.6 pg (27.0-33.0); MEAN CORPUSCULAR VOLUME 110.9 fl (80.0-96.0); MONO # 0.9 10^3/uL (0.0-0.8); MONO % 8.9 % (0.0-5.0); NEUTROPHILS % 69.5 % (36.0-66.0); PLATELET COUNT, AUTOMATED 253 10^3/uL (150-450); RED BLOOD COUNT 2.84 10^6/uL (4.30-6.10); WHITE BLOOD COUNT 10.1 10^3/uL (4.0-10.0)
[2020-01-21 12:53] LABS: ALBUMIN 3.2 GM/DL (3.2-5.2); ALT/SGPT 20 U/L (12-78); BILIRUBIN,TOTAL 0.8 MG/DL (0.2-1.0); BLOOD UREA NITROGEN 28 MG/DL (7-18); CALCIUM LEVEL 8.1 MG/DL (8.8-10.2); CARBON DIOXIDE LEVEL 28 MEQ/L (21-32); CHLORIDE LEVEL 107 MEQ/L (98-107); CREATININE FOR GFR 0.83 MG/DL (0.70-1.30); FREE T4 1.32 NG/DL (0.76-1.46); GLOMERULAR FILTRATION RATE > 60.0 (>49); GLUCOSE, FASTING 91 MG/DL (70-100); POTASSIUM SERUM 4.1 MEQ/L (3.5-5.1); SODIUM LEVEL 140 MEQ/L (136-145); THYROID STIMULATING HORMONE 0.427 uIU/ML (0.358-3.740); TOTAL PROTEIN 5.7 GM/DL (6.4-8.2)
== END ==
LOC: M LAB 10:59
PROVIDERS: ATTEND Internal Medicine Hematology & Oncology
DX: C34.90 Malignant neoplasm of unspecified part of unspecified bronchus or lung (principal)

== ENCOUNTER → 2020-01-21 | Outpatient (CLI) | payer MEDICARE ==
[2020-01-22 23:07] LABS: ANA (HEP2) Negative (.)
== END ==
LOC: M LAB 11:02
PROVIDERS: ATTEND Dermatology
DX: L27.0 Generalized skin eruption due to drugs and medicaments taken internally (principal)

== ENCOUNTER → 2020-02-03 | Outpatient (REF) | payer MEDICARE ==
[~2020-02-03] MED LIST changes: +AUGM0.05 TOP; +PRED10PA PO; +PRED10TA2 PO; +SYNT100T PO
[2020-02-03 13:00] LABS: BASO % 0.4 % (0.0-1.0); EOS # 0.1 10^3/uL (0.0-0.5); EOS % 0.5 % (0.0-3.0); HEMATOCRIT 30.8 % (42.0-52.0); HEMOGLOBIN 9.8 g/dl (13.5-17.5); LYMPH # 0.8 10^3/uL (1.5-5.0); LYMPH % 8.3 % (24.0-44.0); MEAN CORPUSCULAR HEMOGLOBIN 39.5 pg (27.0-33.0); MEAN CORPUSCULAR HGB CONC 31.8 g/dl (32.0-36.5); MONO % 10.7 % (0.0-5.0); NEUTROPHILS # 7.2 10^3/uL (1.5-8.5); NEUTROPHILS % 78.4 % (36.0-66.0); PLATELET COUNT, AUTOMATED 231 10^3/uL (150-450); RED BLOOD COUNT 2.48 10^6/uL (4.30-6.10); WHITE BLOOD COUNT 9.2 10^3/uL (4.0-10.0)
[2020-02-03 13:12] LABS: MEAN CORPUSCULAR VOLUME 124.2 fl (80.0-96.0)
[2020-02-03 14:36] LABS: ALBUMIN 3.6 GM/DL (3.2-5.2); ALT/SGPT 22 U/L (12-78); BILIRUBIN,TOTAL 0.6 MG/DL (0.2-1.0); BLOOD UREA NITROGEN 20 MG/DL (7-18); CALCIUM LEVEL 9.5 MG/DL (8.8-10.2); CARBON DIOXIDE LEVEL 27 MEQ/L (21-32); CHLORIDE LEVEL 107 MEQ/L (98-107); CREATININE FOR GFR 0.98 MG/DL (0.70-1.30); GLOMERULAR FILTRATION RATE > 60.0 (>49); GLUCOSE, FASTING 94 MG/DL (70-100); POTASSIUM SERUM 4.9 MEQ/L (3.5-5.1); SODIUM LEVEL 140 MEQ/L (136-145); TOTAL PROTEIN 6.4 GM/DL (6.4-8.2)
== END ==
LOC: M LABDRWAD 12:18
PROVIDERS: ATTEND Internal Medicine Medical Oncology
DX: C34.91 Malignant neoplasm of unspecified part of right bronchus or lung (principal)

== ENCOUNTER → 2020-02-05 | Outpatient (CLI) | payer MEDICARE ==
[2020-02-05 13:56] LABS: CORTISOL AM 14.6 UG/DL (4.3-22.4); FREE T4 1.51 NG/DL (0.76-1.46); PERCENT SATURATION 41.8 % (19.7-50.0); THYROID STIMULATING HORMONE 0.282 uIU/ML (0.358-3.740)
== END ==
LOC: M LAB 12:34
PROVIDERS: ATTEND Internal Medicine Medical Oncology
DX: C34.90 Malignant neoplasm of unspecified part of unspecified bronchus or lung (principal); Z79.899 Other long term (current) drug therapy

== ENCOUNTER → 2020-02-28 | Outpatient (CLI) | payer MEDICARE ==
[~2020-02-28] MED LIST changes: +ISOVUE-370 76% 100ML VIAL As Ordered ONE
--- NOTE | 2020-05-05 07:49 | REP ---
Delay in reporting results from hospital computer system malfunction from malware/ ransomware. HISTORY: Restaging of lung carcinoma. COMPARISON: 11/27/19 and 08/29/18 FINDINGS: The patient has a known right lower lobectomy. This is unchanged from both prior studies. There are no lung nodules or masses. This is unchanged. There is a chronic, small loculated pleural effusion in the deep posterior sulcus on the right. This is unchanged. There are no other pleural effusions. There are no infiltrates. There is no interval mediastinal or hilar lymph node enlargement. There is a right hilar node measuring 7.6 mm short axis. This measured 1 cm short axis on 11/27/19. The thoracic aorta is unremarkable. The cardiac size appears normal. There is abundant pericardial mediastinal fat. This is unchanged. In the upper abdomen, there is no mediastinal nodule or mass. The visualized areas of the liver, gallbladder, pancreas and spleen are unremarkable. I suspect there is mild renal cortical scarring of the visualized renal upper poles bilaterally. This is unchanged. Metastatic lesions involving the T3 through T6 vertebral bodies are again identified. There are also skeletal metastases and an expansile lesion of the right 9th rib posterolaterally and in the left 4th rib and 4th vertebral left transverse process. All of these lesions again, demonstrate increasing sclerosis and remineralization compatible with treatment. IMPRESSION: There is a normal size right hilar lymph node that has continued to decrease in size. There are no lung masses or nodules. There are no infiltrates. There is a chronic, stable loculated right pleural effusion in the deep posterior sulcus, unchanged. The metastatic bone lesions again demonstrate sclerosis and mineralization compatible with treatment. No new skeletal lesions are identified. MTDD
== END ==
LOC: M RAD 08:45
PROVIDERS: ATTEND Internal Medicine Hematology & Oncology
DX: C34.90 Malignant neoplasm of unspecified part of unspecified bronchus or lung (principal)
CPT/HCPCS: 71250; Q9967

== ENCOUNTER → 2020-06-02 | Outpatient (CLI) | payer MEDICARE ==
--- NOTE | 2020-06-02 14:06 | REP ---
INDICATION: METASTATIC LUNG CA. COMPARISON: Comparison chest CT study February 28, 2020.. TECHNIQUE: Helical scanning is acquired and 3 mm axial images are re-formatted. Coronal and sagittal MPR images are generated. FINDINGS: There is a small quantity of right pleural fluid at the posterior lung and sulcus with parietal pleural thickening unchanged. There are postoperative changes with volume loss the right hemithorax as before. No lung nodule or mass lesion has developed. There are healed rib fractures noted on the right. There is an expansile sclerotic lesion in the right posterior 9th rib. This is unchanged from comparison study. There are sclerotic metastatic foci in the thoracic spine as previously noted. These are unchanged. No new sclerotic or lytic lesion is seen in the skeleton. Thoracic vertebral body heights are preserved. No hilar or mediastinal mass or adenopathy is observed. No pleural or pericardial effusion is seen. There are however new low-density lesions in the liver which were not seen previously. These range in size up to 12 mm. There 5-6 in number. IMPRESSION: The no evidence of new intrathoracic metastasis. Stable skeletal metastatic foci in the thoracic spine and right ribcage. Postoperative changes right hemithorax. Multiple new liver lesions are seen however. <Electronically signed by Wilber Ba > 06/02/20 [id number]
--- NOTE | 2020-06-02 14:12 | REP ---
INDICATION: METASTATIC LUNG CA. COMPARISON: Comparison CT study abdomen without and with IV contrast August 16, 2019.. TECHNIQUE: Helical scanning is acquired and 3 mm axial images re-formatted. Coronal and sagittal MPR images are generated. The CT contrast enhancement dose is 100 mL of intravenous Isovue 370. FINDINGS: Pleuroparenchymal changes are noted at the right lung base as described in chest CT report. Contrast enhanced CT study of the abdomen and pelvis shows multiple new small low-density nodules in the liver scattered in the left and right lobe compatible with new metastatic lesions. These range in size up to 12 mm. There are 5-6 in number. There is a celiac axis lymph node which is normal in size but a little larger than on the prior CT study of August 16, 2019. This has a 6 mm short axis dimension. No other abnormal upper abdominal at an lymph node is seen. No pancreatic or adrenal lesion is observed. No focal splenic lesion is seen. There are 2 intrarenal calculi in the lower pole of the left kidney without hydronephrosis. The kidneys enhance symmetrically. No renal mass lesion is observed. Vascular calcification is seen in a normal caliber aorta and its branches. There is left colonic diverticulosis without CT evidence of diverticulitis. Seminal vesicles and prostate are unremarkable. Normal appendix is seen in the right lower quadrant. No abdominal wall defect is seen. Bone window settings demonstrate no bony destructive or blastic lesion. IMPRESSION: There are new multifocal liver lesions suggestive of early metastatic disease in the liver. <Electronically signed by Wilber Ba > 06/02/20 [id number]
== END ==
LOC: M RAD 11:10
PROVIDERS: ATTEND Internal Medicine Medical Oncology
DX: C34.90 Malignant neoplasm of unspecified part of unspecified bronchus or lung (principal); K76.89 Other specified diseases of liver; C79.51 Secondary malignant neoplasm of bone
CPT/HCPCS: 71260; 74177; Q9967

== ENCOUNTER 2020-07-29 10:00 | Outpatient (RCR) | payer MEDICARE ==
[~2020-07-29 10:00] MED LIST changes: -ISOVUE-370 76% 100ML VIAL As Ordered ONE; +ONDA8TAB10 PO; +PRED5CON PO; +PROC10TA4 PO
[2020-07-29] MEDS ORDERED: PERC5TAB12 PO (18:13)
[2020-07-29] MEDS ORDERED: XALA0.007 OU (18:13)
[2020-07-29] MEDS ORDERED: GABA-843 PO (18:13)
[2020-07-29] MEDS ORDERED: PRED5TA PO (18:13)
[2020-07-29] MEDS ORDERED: AUGM0.0534 TOP (18:14)
--- NOTE | 2020-08-01 10:53 | IPN ---
PROGRESS NOTE DATE: 08/01/2020 SUBJECTIVE: Morales slowly feels better. He has health care-associated pneumonia, day three of Vancomycin/Meropenem. History of lung cancer for which he sees oncology. He has an appointment on August 03. We have ____ that morning. Overall feels a little stronger than yesterday though he is discouraged about feeling generally weak which I explained to him often occurs with pneumonia as well as the effects of his cancer. PHYSICAL EXAMINATION: VITAL SIGNS: He is afebrile. Blood pressure 130/77. O2 saturation 95% on room air. GENERAL: Alert and conversant, no distress. LUNGS: Clear. HEART: Regular rhythm. ABDOMEN: Soft, nontender. EXTREMITIES: No peripheral edema. IMPRESSION: Healthcare associated pneumonia. PLAN: Continue his current regimen. I expect that he will be stable for discharge on August 03. I will put the orders in for discharge that date tomorrow so that he can be out in time for his oncology appointment.
== END 2020-07-30 ==
LOC: M PT 10:00
PROVIDERS: ATTEND Family Medicine
DX: M54.5 Low back pain (principal)

== ENCOUNTER 2020-07-29 10:38 | Inpatient (IN) | payer MEDICARE ==
[~2020-07-29] VITALS: Ht 172.7 cm; Wt 84.0 kg
[2020-07-29 12:30] LABS: VENOUS BASE EXCESS -0.5 (-2.0-2.0); VENOUS O2 SATURATION 51.9 % (60.0-80.0); VENOUS PARTIAL PRESSURE CO2 33.9 mmHg (38.0-50.0); VENOUS PARTIAL PRESSURE O2 29.1 mmHg (30.0-50.0); VENOUS PH 7.449 UNITS (7.330-7.430); VENOUS STANDARD HCO3 23.1 MEQ/L
[2020-07-29 12:30] LABS: HEMATOCRIT 33.5 % (42.0-52.0); HEMOGLOBIN 10.9 g/dl (13.5-17.5); MEAN CORPUSCULAR HEMOGLOBIN 35.3 pg (27.0-33.0); MEAN CORPUSCULAR HGB CONC 32.5 g/dl (32.0-36.5); MEAN CORPUSCULAR VOLUME 108.4 fl (80.0-96.0); PLATELET COUNT, AUTOMATED 197 10^3/uL (150-450); RED BLOOD COUNT 3.09 10^6/uL (4.30-6.10); WHITE BLOOD COUNT 24.6 10^3/uL (4.0-10.0)
[2020-07-29 12:46] LABS: INR 0.95; PROTHROMBIN TIME 12.9 SECONDS (12.5-14.3)
[2020-07-29 12:47] LABS: ATYPICAL LYMPH 1 % (0-5); LYMPHOCYTES 3 % (16-44); METAMYELOCYTES 4 % (0-0); MONOCYTES 3 % (0-5); MYELOCYTES 2 % (0-0); NEUTROPHILS 86 % (28-66)
[2020-07-29 12:48] LABS: ANISOCYTOSIS 1+; PLATELET ESTIMATE NORMAL (NORMAL)
[2020-07-29 13:11] LABS: ALBUMIN 3.7 GM/DL (3.2-5.2); ALT/SGPT 48 U/L (12-78); BILIRUBIN,DIRECT < 0.1 MG/DL (0.0-0.2); BILIRUBIN,TOTAL 0.2 MG/DL (0.2-1.0); BLOOD UREA NITROGEN 20 MG/DL (7-18); CALCIUM LEVEL 8.9 MG/DL (8.8-10.2); CARBON DIOXIDE LEVEL 24 MEQ/L (21-32); CHLORIDE LEVEL 107 MEQ/L (98-107); CK-MB VALUE MASS < 1.0 NG/ML (<3.6); CPK CREATINE PHOSPHOKINASE 27 U/L (39-308); CREATININE FOR GFR 1.03 MG/DL (0.70-1.30); GLOMERULAR FILTRATION RATE > 60.0 (>49); GLUCOSE, FASTING 116 MG/DL (70-100); NT-PRO BNP 147 PG/ML (<125); POTASSIUM SERUM 3.7 MEQ/L (3.5-5.1); SODIUM LEVEL 141 MEQ/L (136-145); TROPONIN I < 0.02 NG/ML (< 0.10)
--- NOTE | 2020-07-29 14:38 | REP ---
INDICATION: DYSPNEA/COUGH COMPARISON: Chest CT dated 06/02/2020 TECHNIQUE: Portable AP view of the chest FINDINGS: The mediastinum and cardiac silhouette are stable and within normal limits for portable technique. A large right-sided cardiac fat pad is consistent with findings on CT. Chronic changes at the right base along with old right rib fractures are suggested. Subtle superimposed right lower lobe infiltrate cannot be excluded. IMPRESSION: Chronic stable changes. Subtle superimposed right lower lobe infiltrate cannot be excluded. <Electronically signed by Naveen Maldonado > 07/29/20 [id number]
[2020-07-29] MEDS ORDERED: ISOVUE-370 76% 100ML VIAL As Ordered ONE (14:47)
--- NOTE | 2020-07-29 15:19 | REP ---
INDICATION: chest pain, leukocytosis COMPARISON: None. TECHNIQUE: Axial contrast enhanced images from the thoracic inlet to the upper abdomen using pulmonary embolus technique with multiplanar re-formations. 100 ml Isovue 370 intravenous contrast material administered without complication. This CT examination was performed using the following dose reduction techniques: Automated exposure control, adjustment of mA and/or kv according to the patient's size, and use of iterative reconstruction technique. FINDINGS: Satisfactory enhancement of the pulmonary vasculature is achieved and no filling defects are identified to suggest pulmonary embolus. Further evaluation of the mediastinum demonstrates atherosclerotic changes to the thoracic aorta and coronary arteries without aortic aneurysm or dissection. No cardiomegaly or pericardial effusion. Evidence for prior right lobectomy with chronic postsurgical and pleuroparenchymal changes involving the right hemithorax including small right pleural effusion. Diffuse chronic emphysematous changes are also appreciated. Superimposed airspace disease at the right base consistent with acute pneumonia and requires correlation. IMPRESSION: 1. No evidence for pulmonary embolus. 2. Early acute right basilar infiltrate compatible with pneumonia. Correlation and follow-up to resolution recommended. <Electronically signed by Naveen Maldonado > 07/29/20 [id number]
--- NOTE | 2020-07-29 15:28 | REP ---
INDICATION: chest pain, leukocytosis, ruq pain. Patient has a history of metastatic lung carcinoma as well. COMPARISON: Comparison CT study June 02, 2020.. TECHNIQUE: Helical scanning was acquired and 4 mm axial images are re-formatted. Coronal and sagittal MPR images were generated and reviewed. The contrast enhancement dose is 100 mL of intravenous Isovue 370. FINDINGS: Digital preliminary naturopathic doctor radiograph of the abdomen is noncontributory. There is some pleural thickening and a small amount of pleural fluid at the right base. There are 3 or 4 small low-density lesions again noted in the left and right lobes of the liver consistent with early metastatic disease. These are less conspicuous than on the June 02, 2020 study may be improved. No progressive change or new lesion is seen. No abnormality is noted in the gallbladder. Normal adrenal glands are seen. No abnormality is noted in the pancreas. The kidneys enhance symmetrically and appear morphologically intact. There is an intrarenal calculus in the lower pole of the left kidney 4 mm in diameter. This is unchanged. No hydronephrosis is seen. No retroperitoneal mass or adenopathy is observed. Small and large intestinal bowel loops are unremarkable in the upper abdomen. Pelvic CT images demonstrate a normal appendix in the right lower quadrant. There is left colonic diverticulosis in the sigmoid and descending segments of the colon without CT evidence of diverticulitis. Seminal vesicles and prostate and urinary bladder are intact. There is evidence of a small right-sided hydrocele. No abdominal wall defect is appreciated. No bony destructive lesion is seen. IMPRESSION: Recently identified small liver nodules are appears somewhat less conspicuous, question improved. No new lesion is seen. Intrarenal calculus lower pole left kidney 4 mm in diameter without evidence hydronephrosis. Left colonic diverticulosis without CT evidence of diverticulitis. No acute abdominal or pelvic abnormality seen. <Electronically signed by Wilber Ba > 07/29/20 [id number]
[2020-07-29] MEDS ORDERED: AZITHROMYCIN INJ 500 MG, VIAL MATE ADAPTER 1 EACH in D5W 250 ML IV ONE (16:45)
[2020-07-29] MEDS ORDERED: cefTRIAXone SOD 2 GM in D5W MINI-BAG PLUS 50 ML IV ONE (16:45)
--- NOTE | 2020-07-29 17:04 | HPEPDOC ---
[facility] Medical History & Physical Date of Admission Jul 29, 2020 Date of Service: Jul 29, 2020 History and Physical CHIEF COMPLAINT: cough HISTORY OF PRESENT ILLNESS: 65M presents for several day history of worsening cough. States his symptoms initially started with nasal congestion, and progressed to cough productive of clear sputum. He also notes poor appetite. He is currently receiving carboplatin therapy for lung adeno CA, with recent new mets to the liver. His next dose is due next week August 03. He denies chest pain, but notes chest 'discomfort' at the right posterolateral chest. He also notes general malaise and fatigue. PAST MEDICAL HISTORY: adeno CA of the lung with mets to T-spine, ribs s/p RT and currently receiving carboplatin anemia hyperlipidemia PE after lung resection s/p 6 months Eliquis therapy anxiety/depression Graves disease? as per patient PAST SURGICAL HISTORY: right lower lung lobectomy ALLERGIES: Please see below. REVIEW OF SYSTEMS: Negative except as per HPI HOME MEDICATIONS: Please see below. PHYSICAL EXAMINATION: VITAL SIGNS: See below General: NAD, lying comfortably in bed HEENT: NC/AT, EOMI Lungs: CTA B/L Heart: +S1S2, RRR Abd: soft, obese, NT, +BS Ext: trace edema LABORATORY DATA: See below. MICROBIOLOGY: Please see below. ASSESSMENT/PLAN: 65 yo male with PMHx including pulmonary embolism and lung adenoca currently receiving chemotherapy, present for right chest pain, admitted for PNA. #PNA - sputum cx/gram stain pending - IV antibiotics - respiratory panel negative (COVID negative) - IS/acapella #lactic acidosis - as above, secondary to pneumonia #adeno CA of the lung - with mets to T-spine, ribs s/p RT and new mets to the liver as patient - currently receiving carboplatin - next dose due Aug 03 #anemia #hyperlipidemia - simvastatin #PE after lung resection s/p 6 months Eliquis therapy #anxiety/depression #Graves disease? as per patient - synthroid #DVT prophylaxis - lovenox Vital Signs Vital Signs Date Time Temp Pulse Resp B/P (MAP) Pulse Ox O2 Delivery O2 Flow Rate FiO2 07/29/20 15:47 Room Air 07/29/20 15:47 72 97 07/29/20 15:45 129/77 (94) 07/29/20 12:36 18 07/29/20 10:38 98.7 Laboratory Data Labs 24H Laboratory Tests 2 07/29/20 11:43: Immature Granulocyte % (Auto) , Neutrophils (%) (Auto) , Nucleated Red Blood Cells % (auto) 0.6H, Neutrophils 86H, Band Neutrophils 1, Lymphocytes (Manual) 3L, Monocytes (Manual) 3, Metamyelocytes 4H, Myelocytes 2H, Atypical Lymphocytes 1, Anisocytosis 1+, Macrocytosis 2+, Platelet Estimate NORMAL, Prothrombin Time 12.9, Prothromb Time International Ratio 0.95, Anion Gap 10, Glomerular Filtration Rate > 60.0, Lactic Acid Level 3.1*H, Calcium Level 8.9, Total Bilirubin 0.2, Direct Bilirubin < 0.1, Aspartate Amino Transf (AST/SGOT) 22, Alanine Aminotransferase (ALT/SGPT) 48, Alkaline Phosphatase 119H, Total Creatine Kinase 27L, Creatine Kinase MB < 1.0, Creatine Kinase MB Relative Index 3.70, Troponin I < 0.02, KK-Uyr-B-Type Natriuretic Peptide 147H, Total Protein 7.0, Albumin 3.7, Albumin/Globulin Ratio 1.1, Thyroid Stimulating Hormone (TSH) 10.700H 07/29/20 12:00: Blood Gas Bicarbonate Standard 23.1, Venous Blood pH 7.449H, Venous Blood Partial Pressure CO2 33.9L, Venous Blood Partial Pressure O2 29.1L, Venous Blood Total Carbon Dioxide 24.0, Venous Blood HCO3 23.0, Venous Blood Oxygen Saturation 51.9L, Venous Blood Base Excess -0.5 CBC/BMP Laboratory Tests 07/29/20 11:43 Microbiology Microbiology 07/29/20 Respiratory Virus Panel (PCR) ([facility]) - Final, Complete 07/29/20 Blood Culture, Received Pending 07/29/20 Blood Culture, Received Pending Home Medications Scheduled Escitalopram Oxalate (Escitalopram Oxalate) 20 Mg Tab, 20 MG PO DAILY Folic Acid (Folic Acid) 400 Mcg Tab, 400 MCG PO QPM Gabapentin (Gabapentin) 300 Mg Capsule, 300 MG PO BID Latanoprost (Xalatan) 0.005% 2.5ML Drops, 1 DROP OU QHS Levothyroxine Sodium (Synthroid) 100 Mcg Tablet, 100 MCG PO DAILY Prednisone (Prednisone) 5 Mg Tablet, 5 MG PO DAILY Simvastatin (Simvastatin) 20 Mg Tab, 20 MG PO QPM Scheduled PRN Betamethasone/Propylene Glyc (Betamethasone Dp Aug 0.05% Oin) 15 Gm Oint...g., 1 APLCT TOP DAILY PRN for RASH APPLY TO AFFECTED AREAS Ondansetron HCl (Ondansetron HCl) 8 Mg Tablet, 8 MG PO Q12HP PRN for NAUSEA OR VOMITING TAKE ONE TAB BY MOUTH NEEDED FOR NAUSEA/VOMITING Oxycodone HCl/Acetaminophen (Percocet 5-325 mg Tablet) 1 Each Tablet, 1 TAB PO Q6H PRN for PAIN Prochlorperazine Maleate (Prochlorperazine Maleate) 10 Mg Tablet, 10 MG PO Q6H PRN for NAUSEA OR VOMITING TAKE ONE TAB BY MOUTH NEEDED FOR NAUSEA/VOMITING Allergies Coded Allergies: pembrolizumab (Verified Allergy, Intermediate, RASH, 07/29/20) A-FIB/CHADSVASC A-FIB History Current/History of A-Fib/PAF?: No ANGEL BOLANOS MD Jul 29, 2020 17:04
[2020-07-29] MEDS ORDERED: VANCOMYCIN HCL 1,000 MG, VIAL MATE ADAPTER 1 EACH in D5W 250 ML IV SCH (17:45)
[2020-07-29] MEDS ORDERED: GABA-843 PO (18:13)
[2020-07-29] MEDS ORDERED: XALA0.007 OU (18:13)
[2020-07-29] MEDS ORDERED: PRED5TA PO (18:13)
[2020-07-29] MEDS ORDERED: PERC5TAB12 PO (18:13)
[2020-07-29] MEDS ORDERED: AUGM0.0534 TOP (18:14)
[2020-07-29] MEDS ORDERED: ONDANSETRON 4 MG TAB PO PRN (18:30)
[2020-07-29] MEDS ORDERED: PROCHLORPERAZINE 5 MG TAB (S0183) PO PRN (18:30)
[2020-07-29] MEDS ORDERED: NS 1,000 ML IV SCH (19:30)
[2020-07-29] MEDS ORDERED: MEROPENEM INJ 1 GM in IV 1 EA IV ONE (20:30)
[2020-07-29] MEDS: GABAPENTIN 300 MG CAP PO SCH (22:09)
[2020-07-29] MEDS: SIMVASTATIN 20 MG TAB PO SCH (22:09)
[2020-07-29 23:24] VITALS: BP 162/99
[2020-07-29] MEDS: PERCOCET 5MG/325MG TAB PO PRN (23:48)
[2020-07-30 01:09] VITALS: BP 106/58
[2020-07-30] MEDS: LATANOPROST 0.005% OPHTH SOLN 2.5 ML OU SCH ×2 (01:29→21:04)
[2020-07-30] MEDS ORDERED: VANCOMYCIN HCL 750 MG, VIAL MATE ADAPTER 1 EACH in D5W 250 ML IV ONE ×2 (02:00→03:00)
[2020-07-30] MEDS: LEVOTHYROXINE 100MCG TABLET (0.1MG) PO SCH (05:37)
[2020-07-30] MEDS: MEROPENEM INJ 1 GM in IV 1 EA IV SCH ×3 (05:37→21:04)
[2020-07-30 06:00] VITALS: BP 103/56
[2020-07-30] MEDS: PERCOCET 5MG/325MG TAB PO PRN ×2 (06:20→15:51)
[2020-07-30 06:52] LABS: HEMATOCRIT 29.3 % (42.0-52.0); HEMOGLOBIN 9.4 g/dl (13.5-17.5); MEAN CORPUSCULAR HEMOGLOBIN 35.9 pg (27.0-33.0); MEAN CORPUSCULAR HGB CONC 32.1 g/dl (32.0-36.5); MEAN CORPUSCULAR VOLUME 111.8 fl (80.0-96.0); PLATELET COUNT, AUTOMATED 169 10^3/uL (150-450); RED BLOOD COUNT 2.62 10^6/uL (4.30-6.10); WHITE BLOOD COUNT 21.6 10^3/uL (4.0-10.0)
[2020-07-30 07:23] LABS: BLOOD UREA NITROGEN 19 MG/DL (7-18); CALCIUM LEVEL 7.8 MG/DL (8.8-10.2); CARBON DIOXIDE LEVEL 26 MEQ/L (21-32); CHLORIDE LEVEL 108 MEQ/L (98-107); CREATININE FOR GFR 0.88 MG/DL (0.70-1.30); GLOMERULAR FILTRATION RATE > 60.0 (>49); GLUCOSE, FASTING 88 MG/DL (70-100); POTASSIUM SERUM 3.5 MEQ/L (3.5-5.1); SODIUM LEVEL 140 MEQ/L (136-145)
[2020-07-30] MEDS: GABAPENTIN 300 MG CAP PO SCH ×2 (07:59→21:04)
[2020-07-30] MEDS: ESCITALOPRAM OXALATE 10 MG TAB (LEXAPRO) PO SCH (08:00)
[2020-07-30] MEDS: ENOXAPARIN 40MG/0.4ML SYRINGE (J1650 PER 10MG) SC SCH (08:00)
[2020-07-30] MEDS: predniSONE 5 MG TAB PO SCH (08:00)
--- NOTE | 2020-07-30 10:50 | IPN ---
PROGRESS NOTE DATE: 07/29/2020 SUBJECTIVE: Morales is a patient of Viviana Owens in the [place] office admitted with pneumonia. He has a history of lung cancer with metastatic disease on active chemotherapy, PE for which he is on Eliquis, and past history of Grave's disease. He still feels short of breath, weak, and tired. He does not feel much better than he did on admission. OBJECTIVE: VITAL SIGNS: Blood pressure 103/60, pulse rate 85, respiratory rate 18, O2 saturation 98%, temperature 98 degrees. GENERAL APPEARANCE: Alert and conversant, in no distress. HEENT: Unremarkable. LUNGS: Scattered rhonchi and wheezes. HEART: Regular rhythm. ABDOMEN: Soft and nontender. EXTREMITIES: No peripheral edema. LABORATORY DATA: White count 21,000, hemoglobin 9.4, platelets 169,000. Sodium 140, potassium 3.5, BUN 19, creatinine 0.8, glucose 88. Lactic acid is down to 1.8. Respiratory panel was negative for COVID. IMAGING: Angiographic CT of the chest showed right basilar infiltrate. CT of the abdomen and pelvis showed liver nodules are less conspicuous than previous. IMPRESSION AND PLAN: 1. Health care-associated pneumonia. Continue his current antibiotic therapy, which is vancomycin and meropenem. We will follow his white count on a daily basis. He is on his first 24 hours of treatment and I do not think his current fatigue is beyond what would be expected. Continue his prednisone 5 mg daily. 2. Hypothyroidism status post prior treatment for Grave's disease. Continue levothyroxine 100 mcg daily. 3. Hyperlipidemia. Continue simvastatin 20 mg daily. 4. Lung cancer. Continue follow-up with his oncologist. He has metastases to the thoracic spine and ribs. Next chemotherapy dose is due August 03.
[2020-07-30] MEDS: VANCOMYCIN HCL 750 MG, VIAL MATE ADAPTER 1 EACH in D5W 250 ML IV SCH ×2 (10:53→22:44)
--- NOTE | 2020-07-30 10:55 | IPN ---
PROGRESS NOTE ADDENDUM DATE: 07/29/2020 ADDENDUM TO IMPRESSION AND PLAN: Lactic acidosis. This has resolved. Lactic acid is back to normal with antibiotic therapy and fluids.
[2020-07-30] MEDS: VANCOMYCIN HCL 500 MG in D5W MINI-BAG PLUS 100 ML IV SCH ×2 (12:18→23:56)
--- NOTE | 2020-07-30 13:30 | ECGEPIP ---
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
[2020-07-30 14:00] VITALS: BP 107/56
[2020-07-30] MEDS: SIMVASTATIN 20 MG TAB PO SCH (21:04)
[2020-07-30 22:00] VITALS: BP 123/76
[2020-07-31 06:00] VITALS: BP 148/91
[2020-07-31] MEDS: MEROPENEM INJ 1 GM in IV 1 EA IV SCH ×3 (06:39→21:00)
[2020-07-31] MEDS: LEVOTHYROXINE 100MCG TABLET (0.1MG) PO SCH (06:39)
[2020-07-31] MEDS: PERCOCET 5MG/325MG TAB PO PRN ×2 (06:39→20:57)
[2020-07-31] MEDS: ENOXAPARIN 40MG/0.4ML SYRINGE (J1650 PER 10MG) SC SCH (08:15)
[2020-07-31] MEDS: ESCITALOPRAM OXALATE 10 MG TAB (LEXAPRO) PO SCH (08:16)
[2020-07-31] MEDS: predniSONE 5 MG TAB PO SCH (08:16)
[2020-07-31] MEDS: GABAPENTIN 300 MG CAP PO SCH ×2 (08:16→20:57)
--- NOTE | 2020-07-31 09:33 | IPN ---
PROGRESS NOTE DATE: 07/31/2020 SUBJECTIVE: Morales feels better, says he can breathe deeper, is less short of breath, less cough. PHYSICAL EXAMINATION: VITAL SIGNS: Afebrile. Vital signs are stable. GENERAL: Alert and conversant, in no distress. LUNGS: Clear. HEART: Regular rhythm. ABDOMEN: Soft, nontender. EXTREMITIES: No peripheral edema. LABS: White count is 21,000 on steroids, hemoglobin 9.4, platelets 169,000. Electrolytes are still pending. IMPRESSION: 1. Healthcare associated pneumonia, continue Vancomycin and Meropenem, this is day #2 of antibiotics. 2. Hypothyroidism, on levothyroxine. 3. Lung cancer, continue follow-up with Oncology, his next appointment is August 03. I anticipate discharge that morning.
[2020-07-31] MEDS: VANCOMYCIN HCL 750 MG, VIAL MATE ADAPTER 1 EACH in D5W 250 ML IV SCH (11:28)
[2020-07-31 14:00] VITALS: BP 122/75
[2020-07-31] MEDS: SIMVASTATIN 20 MG TAB PO SCH (20:56)
[2020-07-31] MEDS: LATANOPROST 0.005% OPHTH SOLN 2.5 ML OU SCH (20:57)
[2020-07-31 22:00] VITALS: BP 132/77
[2020-08-01] MEDS: LEVOTHYROXINE 100MCG TABLET (0.1MG) PO SCH (05:51)
[2020-08-01] MEDS: MEROPENEM INJ 1 GM in IV 1 EA IV SCH ×3 (05:51→21:05)
[2020-08-01 06:00] VITALS: BP 130/77
[2020-08-01] MEDS: ESCITALOPRAM OXALATE 10 MG TAB (LEXAPRO) PO SCH (08:58)
[2020-08-01] MEDS: predniSONE 5 MG TAB PO SCH (08:58)
[2020-08-01] MEDS: ENOXAPARIN 40MG/0.4ML SYRINGE (J1650 PER 10MG) SC SCH (08:58)
[2020-08-01] MEDS: GABAPENTIN 300 MG CAP PO SCH ×2 (08:58→21:05)
[2020-08-01] MEDS: PERCOCET 5MG/325MG TAB PO PRN ×2 (08:59→16:09)
[2020-08-01 14:00] VITALS: BP 128/71
[2020-08-01] MEDS: SIMVASTATIN 20 MG TAB PO SCH (21:05)
[2020-08-01] MEDS: LATANOPROST 0.005% OPHTH SOLN 2.5 ML OU SCH (21:05)
[2020-08-01 22:00] VITALS: BP 117/77
[2020-08-02] MEDS: PERCOCET 5MG/325MG TAB PO PRN ×3 (03:52→21:58)
[2020-08-02 06:00] VITALS: BP 96/67
[2020-08-02] MEDS: MEROPENEM INJ 1 GM in IV 1 EA IV SCH ×3 (06:04→21:59)
[2020-08-02] MEDS: LEVOTHYROXINE 100MCG TABLET (0.1MG) PO SCH (06:04)
[2020-08-02 06:53] LABS: HEMATOCRIT 32.6 % (42.0-52.0); HEMOGLOBIN 10.5 g/dl (13.5-17.5); MEAN CORPUSCULAR HEMOGLOBIN 35.6 pg (27.0-33.0); MEAN CORPUSCULAR HGB CONC 32.2 g/dl (32.0-36.5); MEAN CORPUSCULAR VOLUME 110.5 fl (80.0-96.0); PLATELET COUNT, AUTOMATED 207 10^3/uL (150-450); RED BLOOD COUNT 2.95 10^6/uL (4.30-6.10); WHITE BLOOD COUNT 14.8 10^3/uL (4.0-10.0)
[2020-08-02 07:21] LABS: BLOOD UREA NITROGEN 14 MG/DL (7-18); CALCIUM LEVEL 8.4 MG/DL (8.8-10.2); CARBON DIOXIDE LEVEL 25 MEQ/L (21-32); CHLORIDE LEVEL 107 MEQ/L (98-107); CREATININE FOR GFR 0.79 MG/DL (0.70-1.30); GLOMERULAR FILTRATION RATE > 60.0 (>49); GLUCOSE, FASTING 89 MG/DL (70-100); SODIUM LEVEL 139 MEQ/L (136-145)
[2020-08-02] MEDS: ESCITALOPRAM OXALATE 10 MG TAB (LEXAPRO) PO SCH (08:45)
[2020-08-02] MEDS: ENOXAPARIN 40MG/0.4ML SYRINGE (J1650 PER 10MG) SC SCH (08:45)
[2020-08-02] MEDS: GABAPENTIN 300 MG CAP PO SCH ×2 (08:45→21:58)
[2020-08-02] MEDS: predniSONE 5 MG TAB PO SCH (08:45)
[2020-08-02] MEDS: predniSONE 20 MG TAB PO SCH (11:02)
[2020-08-02 14:00] VITALS: BP 121/73
--- NOTE | 2020-08-02 16:53 | IPN ---
PROGRESS NOTE DATE: 08/02/2020 SUBJECTIVE: Morales feels well. Blood pressure a little low today. He has not got of bed or done much yet. No chest pain or shortness of breath. He still feels generalized weakness, but feels his pneumonia is improving. He has remains afebrile. Blood pressure 96/67. Lungs clear. Abdomen soft, nontender. No peripheral edema. He has erythematous scaly lesions 2 to 4 mm in size along both forearms. (History of drug rash probably from Keytruda). He saw Dr. Gonzales of dermatology for this, who has him on a slow steroid taper, most recent dermatology appointment was 06/23/2929 LABORATORY: White count 14.8, hemoglobin 10.5, platelets 207. Sodium 130, potassium 3.9, BUN 14. Creatinine 0.7, glucose 89. IMPRESSION: 1. Healthcare associated pneumonia. He is on vancomycin and meropenem. Plan for discharge tomorrow. I will discharge him on Augmentin. He has a chemo treatment tomorrow morning, so I will do his discharge process today to be discharged tomorrow morning prior to rounds, so he can get to his chemo 2. Drug rash. Per patient, when his prednisone dose is tapered down, he has a recurrence of this. He probably would like his prednisone dose increased to 20 mg daily prior to his chemotherapy tomorrow, so will start that today. 3. Lung cancer. Chemotherapy session planned for tomorrow. 4. Hypothyroidism. Continue current dose of levothyroxine.
[2020-08-02] MEDS: SIMVASTATIN 20 MG TAB PO SCH (21:58)
[2020-08-02] MEDS: LATANOPROST 0.005% OPHTH SOLN 2.5 ML OU SCH (21:59)
[2020-08-02 22:00] VITALS: BP 109/66
[2020-08-03] MEDS: MEROPENEM INJ 1 GM in IV 1 EA IV SCH (05:44)
[2020-08-03] MEDS: LEVOTHYROXINE 100MCG TABLET (0.1MG) PO SCH (05:44)
[2020-08-03 06:00] VITALS: BP 121/66
[2020-08-03 07:27] LABS: HEMOGLOBIN 10.3 g/dl (13.5-17.5); MEAN CORPUSCULAR HEMOGLOBIN 35.5 pg (27.0-33.0); MEAN CORPUSCULAR HGB CONC 32.2 g/dl (32.0-36.5); MEAN CORPUSCULAR VOLUME 110.3 fl (80.0-96.0); PLATELET COUNT, AUTOMATED 214 10^3/uL (150-450); WHITE BLOOD COUNT 15.4 10^3/uL (4.0-10.0)
[2020-08-03 07:51] LABS: BLOOD UREA NITROGEN 18 MG/DL (7-18); CALCIUM LEVEL 8.3 MG/DL (8.8-10.2); CARBON DIOXIDE LEVEL 26 MEQ/L (21-32); CHLORIDE LEVEL 107 MEQ/L (98-107); CREATININE FOR GFR 0.79 MG/DL (0.70-1.30); GLOMERULAR FILTRATION RATE > 60.0 (>49); GLUCOSE, FASTING 101 MG/DL (70-100); POTASSIUM SERUM 3.8 MEQ/L (3.5-5.1); SODIUM LEVEL 140 MEQ/L (136-145)
[2020-08-03] MEDS ORDERED: CEFU50TA PO (08:47)
[2020-08-03] MEDS ORDERED: PRED20TA PO (08:47)
[2020-08-03] MEDS: ENOXAPARIN 40MG/0.4ML SYRINGE (J1650 PER 10MG) SC SCH (09:00)
[2020-08-03] MEDS: predniSONE 20 MG TAB PO SCH (09:04)
[2020-08-03] MEDS: GABAPENTIN 300 MG CAP PO SCH (09:04)
[2020-08-03] MEDS: ESCITALOPRAM OXALATE 10 MG TAB (LEXAPRO) PO SCH (09:04)
[2020-08-03] MEDS: PERCOCET 5MG/325MG TAB PO PRN (09:07)
== END 2020-08-03 11:11 | disposition home or self-care (01) | DRG 194 ==
LOC: M ED 10:38 → M ED INP 16:57 → M MSPAV 23:24
PROVIDERS: ADMIT Internal Medicine; ATTEND Family Medicine
DX: J18.9 Pneumonia, unspecified organism (principal); C34.90 Malignant neoplasm of unspecified part of unspecified bronchus or lung; C79.51 Secondary malignant neoplasm of bone; C78.7 Secondary malignant neoplasm of liver and intrahepatic bile duct; E87.2 Acidosis; D64.9 Anemia, unspecified; F41.9 Anxiety disorder, unspecified; F32.9 Major depressive disorder, single episode, unspecified; E78.5 Hyperlipidemia, unspecified; Z79.01 Long term (current) use of anticoagulants; Z86.711 Personal history of pulmonary embolism; E03.9 Hypothyroidism, unspecified; L72.0 Epidermal cyst

== ENCOUNTER → 2020-08-14 | Outpatient (CLI) | payer MEDICARE ==
[~2020-08-14] MED LIST changes: +AUGM0.0534 TOP; +CEFU50TA PO; -ESCI20TA PO; +ESCI20TA16 PO; +GABA-282 PO; -GABA-843 PO; +PRED5TA PO; +PROHANCE 279.3MG/ML 15ML VIAL As Ordered ONE; +PROHANCE 279.3MG/ML 5ML VIAL As Ordered ONE; +XALA0.007 OU
--- NOTE | 2020-08-14 15:22 | REPVR ---
PROCEDURE INFORMATION: Exam: MR Lumbar Spine Without and With Contrast. Exam date and time: 08/14/2020 3:09 PM Age: 65 years old Clinical indication: Low back pain; Additional info: Lumbar spine pain TECHNIQUE: Imaging protocol: Multiplanar magnetic resonance images of the lumbar spine without and with intravenous contrast. Contrast material: PROHANCE; Contrast volume: 16 ml; Contrast route: INTRAVENOUS (IV); COMPARISON: No relevant prior studies available. FINDINGS: Vertebrae: See "Other bones/joints" finding. Spinal epidural space: There is lumbar epidural lipomatosis. Spinal cord: Normal signal. No cord compression. L1-L2: There is disc desiccation. L2-L3: There is disc desiccation. There is facet arthropathy and ligamentum flavum hypertrophy. There is mild spinal canal stenosis. L3-L4: There is disc desiccation. There is mild disc bulging. Disc bulging extends into both neural foramen causing moderate bilateral neural foraminal narrowing. There is facet arthropathy and ligamentum flavum hypertrophy. There is moderate spinal canal stenosis. L4-L5: There is grade 1 anterior spondylolisthesis at L4/5. There is disc space narrowing and desiccation. There are moderate degenerative end plate changes at this level. There is moderate disc bulging. Disc bulging extends into both neural foramen causing moderate bilateral neural foraminal narrowing. There is exuberant bilateral facet arthropathy and ligamentum flavum hypertrophy. There is severe spinal canal stenosis. L5-S1: There is mild retrolisthesis at this level. There is disc desiccation. There is moderate disc bulging. Disc bulging extends into both neural foramen causing mild bilateral neural foraminal narrowing. There is facet arthropathy and ligamentum flavum hypertrophy. There is moderate spinal canal stenosis. Other bones/joints: The bone marrow is diffusely heterogeneous consistent with diffuse osseous metastases in this patient with known lung cancer. There is an intensely enhancing lesion in the right L2 vertebra. Soft tissues: Unremarkable. Other findings: There is congenital spinal canal stenosis which is exacerbated by multilevel degenerative changes. IMPRESSION: 1. There is congenital spinal canal stenosis which is exacerbated by multilevel degenerative changes. 2. Advanced multilevel degenerative changes causing variable degrees of spinal canal and neuroforaminal narrowing as described above. Severe spinal canal stenosis at L4/5. Please correlate with any symptoms referrable to cauda equina syndrome. 3. There is lumbar epidural lipomatosis. 4. The bone marrow is diffusely heterogeneous consistent with diffuse osseous metastases in this patient with known lung cancer. There is an intensely enhancing lesion in the right L2 vertebra. Please correlate clinically. Electronically signed by: Aftab Hubbard On 08/14/2020 15:21:52 PM
== END ==
LOC: M RAD 13:51
PROVIDERS: ATTEND Physician Assistant
DX: D48.0 Neoplasm of uncertain behavior of bone and articular cartilage (principal); M48.061 Spinal stenosis, lumbar region without neurogenic claudication; M43.16 Spondylolisthesis, lumbar region; M51.26 Other intervertebral disc displacement, lumbar region; M51.27 Other intervertebral disc displacement, lumbosacral region; M48.07 Spinal stenosis, lumbosacral region; C34.90 Malignant neoplasm of unspecified part of unspecified bronchus or lung

== ENCOUNTER 2020-08-19 10:00 | Outpatient (RCR) | payer MEDICARE ==
[~2020-08-19 10:00] MED LIST changes: -PROHANCE 279.3MG/ML 15ML VIAL As Ordered ONE; -PROHANCE 279.3MG/ML 5ML VIAL As Ordered ONE
== END 2020-08-30 ==
LOC: M PT 10:00
PROVIDERS: ATTEND Family Medicine
DX: M54.5 Low back pain (principal)

== ENCOUNTER → 2020-09-01 | Outpatient (CLI) | payer MEDICARE ==
--- NOTE | 2020-09-02 00:32 | ECWPNPC ---
PATIENT NAME: ROLAND SMITH : 1955 GENDER: MALE VISIT DATE: 09/01/2020 DISCHARGE DATE: 09/01/20916 VISIT LOCKED DATE TIME: PHYSICIAN: WILMAN OLIVAREZ PHYSICIAN PAGER NO: ACTIVE RESOURCE: WILMAN OLIVAREZ REASON FOR APPOINTMENT 1. BACK PAIN HISTORY OF PRESENT ILLNESS DEPRESSION SCREENING: PHQ-2 (2015 EDITION) LITTLE INTEREST OR PLEASURE IN DOING THINGS?SEVERAL DAYS FEELING DOWN, DEPRESSED, OR HOPELESS?NOT AT ALL TOTAL SCORE1 GENERAL: PLEASANT 65-YEAR-OLD GENTLEMAN BEING REFERRED BY RODRIGO MORENO, PRIMARY CARE FOR EVALUATION OF LOW BACK PAIN. LONG HISTORY OF CHRONIC LOW BACK PAIN. WAS DIAGNOSED WITH SPINAL STENOSIS WITH NEUROGENIC CLAUDICATION IN 2018. 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 CURRENTLY RECEIVING CHEMOTHERAPY WITH THE [facility]. USING PERCOCET 5/325 4 TABLETS A DAY FOR PAIN CONTROL WHICH HE FEELS IS HELPFUL BUT ONLY FOR A SHORT TIME. HE WOULD LIKE TO HAVE US MANAGE HIS PAIN MEDICATIONS. DENIES BOWEL OR BLADDER ISSUES.- - - - - -. FALL RISK SCREENING: SCREENING :NO FALLS REPORTED IN THE LAST YEAR PAIN SCREENING: PATIENT HAS A COMPLAINT OF ACUTE OR CHRONIC PAIN :YES LOCATION OF PAIN:LOW BACK, LEG(S) INTENSITY OF PAIN (SCALE OF 1 TO 10):8 WHAT DOES YOUR PAIN FEEL LIKE:ACHING, SHARP DURATION:CONTINOUS, CONSTANT PAIN IS INCREASED BY:ACTIVITIES PAIN IS DECREASED BY:USE OF PAIN MEDICATIONS TREATMENT/MEDICATIONS USED TO MANAGE PAIN:OPIOIDS LEVEL OF RELIEF FROM PAIN TREATMENTS IN THE PAST:75% PAIN HAS INTERFERED WITH THE FOLLOWING:BATHING/DRESSING, WALKING ABILITY, HOUSEWORK, SLEEP, TRANSPORTATION, TOILETING NURSING NOTE: - - - - - -. PAIN CENTER INTAKE QUESTIONS: DO YOU HAVE A HISTORY OF MRSA? :NO DO YOU TAKE A BLOOD THINNERS? :NO DO YOU HAVE ANY BLEEDING DISORDERS? :NO ANY NEW NUMBNESS OR WEAKNESS IN YOUR LEGS OR ARMS? :YES BOTH ARMS ANY PACEMAKER,DEFIBRILLATOR, OR DORSAL COLUMN STIMULATOR? :NO DO YOU HAVE ANY RASHES OR OPEN SORES? :YES RASH ALL OVER BODY ARE YOU ALLERGIC TO IV DYE? :NO ARE YOU DIABETIC? :NO ANY NEW PROBLEMS WITH YOUR MEDICATIONS? :NO HAVE YOU RECEIVED A VACCINE IN THE PAST 30 DAYS? :NO DO YOU PLAN TO RECEIVE A VACCINE IN THE NEXT 21 DAYS? :NO DO YOU NEED ANY PRESCRIPTION? :YES PAIN MEDICAION DO YOU TAKE ANY IMMUNOSUPPRESSIVE MEDICATIONS? :YES CHEMOTHERAPY, PREDNISONE FOR SMALL NON-CELL LUNG CANCER CURRENT MEDICATIONS TAKING BETAMETHASONE DIPROPIONATE AUG 0.05 % OINTMENT 1 APPLICATION EXTERNALLY 4X A DAY TO AREAS ON BODY (NOT FACE, GROIN, ARMPITS) WITH RASH TAKING FOLIC ACID 400 MCG TABLET 1 TABLET ORALLY ONCE A DAY TAKING OXYCODONE-ACETAMINOPHEN 5-325 MG TABLET 1 TABLET NEEDED ORALLY EVERY 6 HRS NEEDED FOR SEVERE PAIN MDD = 4 TAKING PREDNISONE 20 MG TABLET 1 TABLET ORALLY ONCE A DAY TAKING ONDANSETRON HCL 8 MG TABLET 1 TABLET NEEDED ORALLY EVERY 12 HOURS FOR NAUSEA AND VOMITING TAKING PROCHLORPERAZINE MALEATE 10 MG TABLET 1 TABLET NEEDED ORALLY EVERY 6 HOURS FOR NAUSEA OR VOMITING TAKING LUMIGAN 0.01 % SOLUTION 1 DROP INTO AFFECTED EYE IN THE EVENING OPHTHALMIC ONCE A DAY TAKING LUBRICATING DROPS TAKING CARBOPLATIN 450 MG SOLUTION RECONSTITUTED DIRECTED INTRAVENOUS , NOTES: GIVEN 484MG TAKING PRALATREXATE 40 MG/2ML SOLUTION DIRECTED INTRAVENOUS TAKING LEVOTHYROXINE SODIUM 100 MCG TABLET 1 TABLET IN THE MORNING ON AN EMPTY STOMACH ORALLY ONCE A DAY TAKING ESCITALOPRAM OXALATE 20 MG TABLET 1 TAB ORALLY ONCE A DAY TAKING SIMVASTATIN 20 MG TABLET 1 TABLET IN THE EVENING ORALLY ONCE A DAY TAKING GABAPENTIN 300 MG CAPSULE 1 CAPSULE ORALLY TWICE A DAY MEDICATION LIST REVIEWED AND RECONCILED WITH THE PATIENT PAST MEDICAL HISTORY HYPOTHYROIDISM ANEMIA HGB = 10 04/2018 SECONDARY TO CHEMO HYPERLIPIDEMIA DEPRESSION/ANXIETY - ON LEXAPRO SINCE 2010 CHRONIC RIGHT WRIST PAIN - "CHRONIC BROKEN WRSIT" - LIMITED MOBILITY CHRONIC BACK PAIN - WAS ON DISABILITY SINCE 2012 CALCIFIC TENDONITIS LEFT SHOULDER - S/P STEROID INJECTIONS IN PAST WITH GOOD RESULTS ADENOCARCINOMA LUNG WITH METS TO T-SPINE AND RIB S/P RT - FOLLOWING WITH LOCAL ONCOLOGY - ? RECURRENT LUNG CA VS NEW PRIMARY LUNG CANCER S/P RESECTION 12/2017, 4 ROUNDS CHEMO WITH CARBOPLATIN & PEMETREXED, NO RT PULMONARY EMBOLISM AFTER LUNG RESECTION 12/2017 S/P ELIQUIS X 6 MONTHS ALLERGIES KEYTRUDA: RASH SURGICAL HISTORY KIDNEY STONE REMOVAL/STENT PLACE MENT 08/2017 LOBECTOMY: LUNG LOWER RIGHT 01/01/18 CARPAL TUNNEL RELEASE-LEFT 2007 COLONOSCOPY - POLYP REPEAT DUE IN 04/2016 BIOPSY-SPINE 08/26/2019 CATARACT REMOVAL-RIGHT 04/2020 FAMILY HISTORY FATHER: MOTHER: DAUGHTER(S): ALIVE 1DAUGHTER(S) - HEALTHY. DENIES FAMILY HX OF PANCREATIC CANCER AND MELANOMA. SOCIAL HISTORY GENERAL: TOBACCO USE ARE YOU A:FORMER SMOKER HOW LONG HAS IT BEEN SINCE YOU LAST SMOKED?> 10 YEARS LATEX QUESTIONNAIRE LATEX ALLERGY : HAVE YOU EVER DEVELOPED ANY TYPE OF REACTION AFTER HANDLING LATEX PRODUCTS SUCH RUBBER GLOVES, CONDOMS, DIAPHRAGMS, BALLOONS, SOCKS, OR UNDERWEAR?NO LATEX ALLERGY : HAVE YOU EVER DEVELOPED ANY TYPE OF REACTION DURING OR AFTER DENTAL APPOINTMENT, VAGINAL/RECTAL EXAMINATION, SURGICAL PROCEDURE, OR ANY OTHER EXPOSURE?NO LATEX RISK : HAVE YOU EVER HAD ANY DIFFICULTY BREATHING OR HIVES AFTER EATING OR HANDLING ANY FRUITS, OR VEGETABLES; SUCH KIWI, BANANAS, STONE FRUITS, OR CHESTNUTSNO LATEX RISK : DO YOU HAVE A PREVIOUS PERSONAL HISTORY OF MORE THAN NINE SURGERIES, SPINA BIFIDA, OR REPEATED CATHERIZATIONS? NO LATEX RISK : ARE YOU FREQUENTLY EXPOSED TO LATEX PRODUCTS IN YOUR OCCUPATION?NO DATE ASKED : 09/01/2020 ALCOHOL USE: NO. BMI CARE GOAL FOLLOW-UP ABOVE NORMAL BMI FOLLOW-UPDIETARY MANAGEMENT EDUCATION, GUIDANCE, AND COUNSELING ALCOHOL SCREENING DID YOU HAVE A DRINK CONTAINING ALCOHOL IN THE PAST YEAR?NO POINTS0 INTERPRETATIONNEGATIVE RECREATIONAL DRUG USE DRUG USE?YES VAPES MARIJUANA CAFFEINE CAFFEINE USE?YES 2 CUPS DAILY SEXUAL HX HAD SEX IN THE LAST 12 MONTHS (VAGINAL, ORAL, OR ANAL)?NO HAVE YOU EVER HAD AN STD?NO LANGUAGE LANGUAGES SPOKEN:BHUTANESE LEARNING BARRIERS / SPECIAL NEEDS CHANGE FROM LAST VISIT?NO BARRIERS TO LEARNING?NO HEARING IMPAIRED?NO VISION IMPAIRED?YES :CORRECTIVE LENSES COGNITIVELY IMPAIRED?NO READINESS TO LEARN?YES LEARNING PREFERENCES?NO LEARNING CAPABILITIES PRESENT?YES EMOTIONAL BARRIERS?NO SPECIAL DEVICES?NO PRESS BUCKER NEEDED?NO DOMESTIC VIOLENCE STATUS: DO YOU FEEL SAFE IN YOUR ENVIRONMENT?YES OCCUPATION: RETIRED. DIET: REGULAR. EXERCISE: WALKS. MARITAL STATUS: . OTHERS AT HOME: LIVES WITH UNCLE. REVIEWED WITH PATIENT 01/06/2020 AB. HOSPITALIZATION/MAJOR DIAGNOSTIC PROCEDURE KIDNEY INFECTION 08/2017 SURGERY 01/01- PULMONARY EMBOLISM 01/28/18 LUNG CANCER 2018 PNEUMONIA 07/2020 REVIEW OF SYSTEMS CONSTITUTIONAL: ANY RECENT FEVER NO . CHILLS NO . WEIGHT CHANGE OF UNKNOWN REASONS NO . MUSCULOSKELETAL: ANY UNUSUAL JOINT PAIN OR SWELLING NOT MENTIONED NO . SYSTEMIC LUPUS NO . ANY NEUROMUSCULAR DISORDER NOT MENTIONED NO . LYME DISEASE NO . GASTROENTEROLOGY: ANY NEW CHANGE IN BOWEL CONTROL? NO . HISTORY OF LIVER DISORDER NOT MENTIONED NO . HISTORY OF UNUSUAL ABDOMINAL PAIN OR CRAMPING NOT MENTIONED NO . NO CONSTIPATION. GENITOURINARY: ANY NEW CHANGE IN BLADDER CONTROL? NO . ANY RENAL/KIDNEY CONDITON NOT MENTIONED NO . NEUROLOGY: HISTORY OF TBI NOT MENTIONED NO . OTHER NEW NUMBNESS OR PAIN PATTERNS NOT MENTIONED NO . NEW ONSET DIZZINESS OR NEUROLOGICAL CHANGES NOT MENTIONED NO . HISTORY OF SEVERE HEADACHES NOT MENTIONED NO . HISTORY OF STROKE OR NEUROLOGICAL DISORDER NOT MENTIONED NO . CARDIOLOGY: HEART SURGERY NO . CONGESTIVE HEART FAILURE/FLUID OVERLOAD NOT MENTIONED NO . HISTORY OF CHEST PAIN,IRREGULAR HEART BEAT NOT MENTIONED NO . RESPIRATORY: SHORTNESS OF BREATH ON EXERTION, WHEEZES, UNUSUAL COUGH NOT MENTIONED NO . ENDOCRINOLOGY: ADRENAL GLAND OR THYROID DISORDERS NOT MENTIONED NO . UNUSUAL URINATION, DIZZINESS OR LETHARGY NOT MENTIONED NO . VITAL SIGNS WT 191 LBS, HT 68", BMI 29.04 INDEX, BP 139/75 MM HG, HR 63 /MIN, RR 18 /MIN, TEMP 96.7 F, OXYGEN SAT % 98, SAFE IN ENV? (Y/N) YEST.LINDSAY PATRICK. EXAMINATION GENERAL EXAMINATION: GENERAL AWAKE,ALERT ,PLEASANT . PSYCH AFFECT NORMAL . LUNGS: LUNG LAWSON ARE CLEAR TO AUSCULTATION BILATERALLY. GOOD MOVEMENT OF AIR . HEART: S1, S2 IN A REGULAR RATE AND RHYTHM. NO SIGNIFICANT MURMURS, RUBS OR GALLOPS NOTED . MUSCULOSKELETAL: MUSCLE STRENGTH TESTING 5/5 BILATERAL UPPER/LOWER EXTREMITIES. LUMBAR: PALPATION: + FOR PAIN OVER L/S SPINE. + FOR PAIN OVER L/S PARASPINALS . NEUROLOGIC EXAM: NORMAL SENSATION TO LIGHT TOUCH LOWER EXTREMITIES. ASSESSMENTS SPINAL STENOSIS, LUMBAR REGION WITH NEUROGENIC CLAUDICATION - M48.062 (PRIMARY) CHRONIC PRESCRIPTION OPIATE USE - Z79.891 TREATMENT SPINAL STENOSIS, LUMBAR REGION WITH NEUROGENIC CLAUDICATION STOP OXYCODONE-ACETAMINOPHEN TABLET, 5-325 MG, 1 TABLET NEEDED, ORALLY, EVERY 6 HRS NEEDED FOR SEVERE PAIN MDD = 4 START PERCOCET TABLET, 10-325 MG, 1 TABLET NEEDED, ORALLY, EVERY 6 HRS MDD4, 30 DAYS, 120, REFILLS 0 START COLACE CAPSULE, 100 MG, 1 CAPSULE NEEDED, ORALLY, BID, 30 DAY(S), 60 CAPSULE, REFILLS 2 NOTES: ISTOP REGISTRY REVIEWED AND DEMONSTRATES COMPLLIANCE. , [facility] NARCOTIC AGREEMENT WAS REVIEWED AND SIGNED TODAY BY THE PATIENT. SEE ATTACHED DOCUMENT FOR FULL DETAILS; SPECIFIC ISSUES WERE REVIEWED: 1) KEEP PAIN MEDS IN THEIR ORIGINAL BOTTLES AND ANY WEEKLY PLANNERS ARE TO BE BROUGHT TO THE PAIN CENTER AT EVERY VISIT. 2) THE PATIENT IS NOT TO INCREASE DOSING OR TIMING OF THEIR PAIN MEDICATION WITHOUT SPECIFIC DIRECTION OF THEIR PAIN CENTERPROVIDER (NOT ER OR OTHER PROVIDERS). 3) ALL PAIN MEDS ARE TO BE KEPT SECURED, IN A LOCKED BOX. 4) NO PAIN MEDS ARE TO BE SHARED WITH ANY OTHER PERSON FOR ANY REASON. 5) NO PAIN MEDS MAY BE TAKEN FROM ANY FRIENDS OR RELATIVES FOR ANY REASON 6) NO MEDS OR SUBSTANCES WHICH ARE NOT LEGAL ARE TO BE USED- NO MARIJUANA, NO COCAINE, AMPHETAMINES, HEROIN, OR OTHERS ARE EVER TO BE USED. 7)URINE TESTING IS DONE TO ACCOUNT FOR MEDS AND SUBSTANCES BEING TAKEN AND WILL BE DONE RANDOMLY. , RISKS OF NARCOTIC/OPIOD MEDICATIONS INCLUDES BUT IS NOT LIMITED TO RISK OF DEPENDANCE/DEVELOPMENT OF ADDICTION, MOOD DISTURBANCE AND DEPRESSION, OSTEOPOROSIS, HORMONAL AND LABIDAL CHANGES, RESPIRATORY DEPRESSION AND . PATIENT IS ADVISED NOT TO DRIVE OR DRINK ALCOHOL WHILE ON THESE MEDICATIONS. OTHERS NOTES: LISA KELLY RN BSAN 08/31/20. PROCEDURE CODES FA211 ESTABILISHED PATIENT THE [facility] CHARGE DISPOSITION & COMMUNICATION FOLLOW UP 2 MONTHS (REASON: MEDICATION MANAGEMENT AFTER INITIAL VISIT AND START OF PERCOCET /URINE TOXICOLOGY) ELECTRONICALLY SIGNED BY NORMAN LOZANO ON 09/01/2020 AT 12:13 PM EST DISCLAIMER : THIS IS A VISIT SUMMARY EXTRACTED FROM THE [facility] CHART. IT IS NOT A COPY OF THE [facility] PROGRESS NOTE. MTDD
== END ==
LOC: M PAIN 08:30
PROVIDERS: ATTEND Nurse Practitioner Family
DX: M48.062 Spinal stenosis, lumbar region with neurogenic claudication (principal); G89.29 Other chronic pain; E03.9 Hypothyroidism, unspecified; Z86.59 Personal history of other mental and behavioral disorders; Z86.711 Personal history of pulmonary embolism; Z87.891 Personal history of nicotine dependence; Z88.8 Allergy status to other drugs, medicaments and biological substances; Z79.899 Other long term (current) drug therapy

== ENCOUNTER → 2020-09-01 | Outpatient (CLI) | payer MEDICARE ==
--- NOTE | 2020-09-01 16:08 | RADONC ---
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 He has been receiving carbo/alimta from Dr. Garces with good effect after experiencing course limiting side effects from keytruda (rash, and pseudogout), he has had palliative RT to the T3-8 spine as well as right lateral ribs, 30 Gy in 10 fractions and 20 Gy in 5 fractions, respectively completed 08/19/19. He had a good response to this. In addition he has chronic spinal stenosis for which he has been followed in the interventional pain clinic and by spine surgeons in the past. He has undergone intra-articular injections with good effect. He is seen today at the request of Dr. Garces for consideration of palliative RT to his lumbosacral spine, the current epicenter of his pain and impaired function. Diagnosis/Treatment History Oncologic History Per Dr. Garces's recent note: 1. RLL and RML lobectomy w/ mediastinal LN dissection 01/01/2018 for a pT2aN2 (03/11) adenocarcinoma Rt lung with visceral pleural invasion. Received adjuvant carboplatin/pemetrexed chemotherapy x4 cycles January/2018 to March 2018 treated in [place]. 2. Diagnosed with metastatic lung cancer with skeletal metastases, supraclavicular and pleural metastases . 05/2019 - developed back pain, 06/26/2019 bone scan - increased uptake in T5 posterolateral 9th rib, c/w mets. 07/08/2019 - MRI T-spine - pathological enhancement T4, T5, T6, T7 vertebral bodies w/ minimal tumor extension into left lateral aspect of the spinal canal w/o cord compression. - 07/10/2019 PET scan hypermetabolic uptake Rt lung, Rt superior mediastinal Rt supraclavicular LN w/ increased uptake right pleural space w/ hypermetabolic skeletal uptake T4, left T5. - palliative XRT commenced to spine ended 08/12/2019, Rt rib XRT ended 08/19/2019. - 08/26/2019- T spine mass biopsy showing, metastatic adenocarcinoma c/w lung primary- + TTF-1, napsin A. (By 09/11/2019, received OmniSeq Advance results as follows - PD-L1 TPS - 60%, KRAS mutation positive, negative for ALK, BRAF V600, EGFR mutation, MET, NTRK fusion, ROS1 fusion). 3. Started pembrolizumab immunotherapy 08/[address] chest, 11/27/2019 showing a positive response. Pembrolizumab on hold since 10/2019 for skin rash and anemia workup consistent with hemolytic anemia. 4. CT chest, abdomen and pelvis 06/02/2020 showing new liver metastases. Relevant Data: 08/14/20 MRI LS spine Diffuse osseous metastases in the lumbosacral spine NB enhancing lesion in L2 body L5-S1 with extensive marrow changes c/w metastatic deposits Interval History Reports his main concern is pain in the low back, epicenter around lumbosacral junction, pain has both a strong aching component made worse with walking and standing as well as a radicular component going down the backs of both legs. He has no saddle anesthesia or difficulties with bowel or bladder. He has no recent trauma history. He is working with PT in home. He gets his pain medication thr ough his PCPs office. 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 Allergies / Meds Allergies: Coded Allergies: pembrolizumab (Verified Allergy, Intermediate, RASH, 07/29/20) Home Meds Active Scripts Cefuroxime Axetil (Cefuroxime) 500 Mg Tablet, 500 MG PO BID for 7 Days, #14 TAB Prov:Wei Silverio MD 08/03/20 Prednisone (Prednisone) 20 Mg Tablet, 20 MG PO DAILY for 30 Days, #30 TAB Prov:Wei Silverio MD 08/03/20 Prochlorperazine Maleate (Prochlorperazine Maleate) 10 Mg Tablet, 10 MG PO Q6H PRN for NAUSEA OR VOMITING, #40 TAB 3 Refills TAKE ONE TAB BY MOUTH NEEDED FOR NAUSEA/VOMITING Prov:SKYE GARCES MD 06/15/20 Ondansetron HCl (Ondansetron HCl) 8 Mg Tablet, 8 MG PO Q12HP PRN for NAUSEA OR VOMITING, #40 TAB 2 Refills TAKE ONE TAB BY MOUTH NEEDED FOR NAUSEA/VOMITING Prov:SKYE GARCES MD 06/15/20 Reported Medications Betamethasone/Propylene Glyc (Betamethasone Dp Aug 0.05% Oin) 15 Gm Oint...g., 1 APLCT TOP DAILY PRN for RASH APPLY TO AFFECTED AREAS 07/29/20 Gabapentin (Gabapentin) 300 Mg Capsule, 300 MG PO BID 07/29/20 Oxycodone HCl/Acetaminophen (Percocet 5-325 mg Tablet) 1 Each Tablet, 1 TAB PO Q6H PRN for PAIN 07/29/20 Latanoprost (Xalatan) 0.005% 2.5ML Drops, 1 DROP OU QHS, SHANELLE 07/29/20 Levothyroxine Sodium (Synthroid) 100 Mcg Tablet, 100 MCG PO DAILY 05/15/20 Folic Acid (Folic Acid) 400 Mcg Tab, 400 MCG PO QPM 08/23/18 Escitalopram Oxalate (Escitalopram Oxalate) 20 Mg Tab, 20 MG PO DAILY 08/23/18 Simvastatin (Simvastatin) 20 Mg Tab, 20 MG PO QPM 08/23/18 Review of Systems Review of Systems Constitutional: Reports: Weakness; Denies: Chills, Fever, Night Sweats Eyes: Denies: Pain, Vision change HEENT: Denies: Head Aches Skin: Reports: Rash, Bruising Pulmonary: Denies: Dyspnea, Cough Cardiovascular: Denies: Chest Pain, Palpitations Gastrointestinal: Denies: Nausea, Vomiting, Abdominal Pain, Constipation Genitourinary: Denies: Incontinence, Retention Hematologic: Denies: Bruising Endocrine: Denies: Polydipsia Musculoskeletal: Reports: Back pain, Leg pain; Denies: Neck pain Neurological: Denies: Weakness, Numbness Psych: Reports: Mood Normal Physical Examination Vital Signs Ht 68" Wt 195 lbs BMI 29 T 98 P 75 RR 18 BP 126/75 O2 98% Pain 7 back Fatigue 1 General Exam: Positive: Alert, Cooperative, No Acute Distress Eye Exam: Positive: PERRLA, Other Eye Symptoms (Exophthalmos) ENT EXAM: Positive: Atraumatic, Pharynx Normal Neck Exam: Positive: Supple; Negative: Lymphadenopathy Chest Exam: Positive: Clear to auscultation, Normal air movement Heart Exam: Positive: Rate Normal, Regular Rhythm Abdomen Exam: Positive: Normal bowel sounds, Soft; Negative: Tenderness Extremity Exam: Negative: Edema Skin Exam: Positive: Rash (Purpuric rash diffiuse arms and legs) Neuro Exam: Positive: Normal Gait, Strength at 5/5 X4 ext, Normal Tone, Cranial Nerves 3-12 NL Psych Exam: Positive: Mental status NL Other Physical Findings Exquisite tenderness over LS junction and SI BL. Minimal upper lumbar spine tenderness. No CVA tenderness. Diagnostic and Laboratory Diagnostic Review Radiologic images, relevant labs and pathology reports were personally reviewed and discussed with Mr. Moore. Assessment and Plan Impression Assessment Mr. Moore is a 65 year old male with a history of stage IV NSCLC with numerous s keletal pleural and liver metastases. He has been receiving carbo/alimta from Dr. Garces with good effect after experiencing course limiting side effects from keytruda (rash, and pseudogout), he has had palliative RT to the T3-8 spine as well as right lateral ribs, 30 Gy in 10 fractions and 20 Gy in 5 fractions, respectively completed 08/19/19. He had a good response to this. In addition he has chronic spinal stenosis for which he has been followed in the interventional pain clinic and by spine surgeons in the past. He has undergone intra-articular injections with good effect. He is seen today at the request of Dr. Garces for consideration of palliative RT to his lumbosacral spine, the current epicenter of his pain and impaired function. He has compelling radiographic evidence of both lumbosacral metastases, and also spinal stenosis at the same levels. His acute worsening in pain in recent weeks would suggest at least some contribution from the metastases, therefore it is reasonable to consider palliative RT. As the barone would be large, from L2- Sacrum I would give 30 Gy in 10 fractions. He should tolerate this well. I did explain that RT will not address whatever component of his pain is from the nerve impingement (radiographically it is present, and suggested by his radiculopathy). He wishes to try RT. I reviewed that he may get some transient diarrhea from this but that it should be manageable with Imodium or diet modification. Simulation can occur in the next 1-2 days and treatment can begin 09/07/20. Performance Status ECOG 1 Plan Palliative RT to the lumbosacral spine 30 Gy in 10 fractions Simulation this week Treatment to begin 09/07/20 Mr. Moore was encouraged to call with questions or concerns in the interim period. Total time of (32) minutes was spent preparing for the visit (7), obtaining HPI (10), examining the patient (5), reviewing diagnostic tests (2), discussing management options (3), coordinating care (0), and writing this note (5). RICHY XIONG MD Sep 01, 2020 16:08
== END ==
LOC: M ONCR 12:41
PROVIDERS: ATTEND General Practice
DX: C34.91 Malignant neoplasm of unspecified part of right bronchus or lung (principal); C79.51 Secondary malignant neoplasm of bone; Z87.891 Personal history of nicotine dependence; Z88.8 Allergy status to other drugs, medicaments and biological substances; Z79.899 Other long term (current) drug therapy

== ENCOUNTER 2020-09-19 12:37 | Emergency (ER) | payer MEDICARE ==
[~2020-09-19] VITALS: Ht 172.7 cm; Wt 81.1 kg
[~2020-09-19 12:37] MED LIST changes: +LEXA1TAB2 PO; +OXYC10TA3 PO
[2020-09-19] MEDS ORDERED: ASPIRIN 81 MG CHEW TABLET PO ONE (12:45)
--- NOTE | 2020-09-19 13:16 | REP ---
INDICATION: DYSPNEA/COUGH. COMPARISON: CT angio chest and AP chest 07/29/2020 TECHNIQUE: AP portable upright FINDINGS: The right lung again shows volume loss from prior lobectomy with compensatory hyperinflation of the left lung. Some blunting of the left CP angle and lateral pleural thickening consistent with scar, stable. Healed lateral right rib fractures again seen and unchanged. There is no definite effusion or pneumothorax. I see no dense consolidation. The the right lung base shows some decrease in the markings compared to the previous portable chest suggesting improvement in the patchy airspace disease seen on 07/[address] The heart size is not enlarged the aorta is normal for age airway is intact. Visualized bones show some degenerative changes spine and shoulders. No free air under the diaphragm. IMPRESSION: Postoperative changes in the right hemithorax with volume loss and compensatory hyperinflation of the left lung. Some lateral pleural thickening and scar formation with right lateral rib healed fractures as before. No dense consolidation. Patchy infiltrate on previous studies improved and underlying basilar fibrosis again seen. Heart and mediastinal contours unchanged. No edema. No definite acute finding. <Electronically signed by Boaz Randhawa > 09/19/20 [id number]
[2020-09-19 13:19] LABS: HEMATOCRIT 44.9 % (42.0-52.0); HEMOGLOBIN 14.3 g/dl (13.5-17.5); MEAN CORPUSCULAR HEMOGLOBIN 34.6 pg (27.0-33.0); MEAN CORPUSCULAR HGB CONC 31.8 g/dl (32.0-36.5); MEAN CORPUSCULAR VOLUME 108.7 fl (80.0-96.0); PLATELET COUNT, AUTOMATED 269 10^3/uL (150-450); RED BLOOD COUNT 4.13 10^6/uL (4.30-6.10); WHITE BLOOD COUNT 5.8 10^3/uL (4.0-10.0)
[2020-09-19] MEDS: COMBIVENT RESPIMAT 100-20MCG INHALER 4GM INH SCH ×3 (13:27→13:47)
[2020-09-19 13:28] LABS: INR 0.95; PROTHROMBIN TIME 12.9 SECONDS (12.5-14.3)
[2020-09-19 13:53] LABS: ABG BASE EXCESS -6.6 (-2.0-2.0); ABG O2 SATURATION 98.7 % (95.0-99.0); ABG PARTIAL PRESSURE CO2 25.5 mmHg (35.0-45.0); ABG PARTIAL PRESSURE O2 136.5 mmHg (75.0-100.0); ABG STANDARD HCO3 19.1 MEQ/L (22.0-26.0); ABG TOTAL CO2 16.8 MEQ/L (23.0-31.0); ABG pH (ARTERIAL) 7.415 UNITS (7.350-7.450)
[2020-09-19 13:54] LABS: ALBUMIN 3.8 GM/DL (3.2-5.2); ALT/SGPT 44 U/L (12-78); BILIRUBIN,DIRECT 0.2 MG/DL (0.0-0.2); BILIRUBIN,TOTAL 0.6 MG/DL (0.2-1.0); BLOOD UREA NITROGEN 25 MG/DL (7-18); CALCIUM LEVEL 8.6 MG/DL (8.8-10.2); CARBON DIOXIDE LEVEL 21 MEQ/L (21-32); CHLORIDE LEVEL 100 MEQ/L (98-107); CK-MB VALUE MASS < 1.0 NG/ML (<3.6); CPK CREATINE PHOSPHOKINASE 54 U/L (39-308); CREATININE FOR GFR 1.31 MG/DL (0.70-1.30); GLOMERULAR FILTRATION RATE 58.1 (>49); GLUCOSE, FASTING 162 MG/DL (70-100); MB/CK RELATIVE INDEX 1.85 (< OR =4); POTASSIUM SERUM 4.4 MEQ/L (3.5-5.1); SODIUM LEVEL 136 MEQ/L (136-145); TOTAL PROTEIN 7.6 GM/DL (6.4-8.2); TROPONIN I < 0.02 NG/ML (< 0.10)
[2020-09-19 14:19] LABS: ATYPICAL LYMPH 2 % (0-5); EOSINOPHILS 1 % (0-3); LYMPHOCYTES 9 % (16-44); MONOCYTES 8 % (0-5); NEUTROPHILS 80 % (28-66)
[2020-09-19 14:20] LABS: DOHLE BODIES 1+; PLATELET ESTIMATE NORMAL (NORMAL)
[2020-09-19 14:21] LABS: ANISOCYTOSIS 1+; TOXIC GRANULATION 1+
--- OUTSIDE RECORDS SUMMARY | 2020-09-19 14:32 | CCD ---
Author Author [facility] Organization [facility] Address Unknown Phone Unavailable Care Team Providers Care Digital Imaging Specialist Name Role Phone Dory Ruano Unavailable PROBLEMS Type Condition ICD9-CM Code NPO01-IA Code Onset Dates Condition S tatus W/U Status Risk SNOMED Code Notes Problem Malignant neoplasm of lower lobe of right lung C34 .31 Active confirmed 227031650 Problem Hyperlipidemia, unspecified hyperlipidemia type E7 8.5 Active confirmed 43363873 Problem Major depressive disorder in remission, unspecif ied whether recurrent F32.5 Active confirmed 05647214 Problem History of pulmonary embolism Z86.711 Active confir med 948587135 Problem Anemia, unspecified type D64.9 Active confirmed 340801083 Problem Actinic keratoses L57.0 Active confirmed 40 0843949 Problem Seborrheic keratoses L82.1 Active confirmed 226364282 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 Active confirmed 60650 01 Problem 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 Active confirmed 466928172 Problem Melanocytic nevi of right upper limb, including shoulder D22.61 Active confirmed 592378120 Problem Melanocytic nevi of left upper limb, including shoulder D22.62 Active confirmed 035312929 Problem Lentigines L81.4 Active confirmed 031755867 Problem Melanocytic nevi of trunk D22.5 Active confirmed 565268210 Problem Melanocytic nevi of face D22.30 Active confirmed 917727874 Problem Xerosis cutis L85.3 Active confirmed 805671 00 Problem Post herpetic neuralgia B02.29 Active confirmed 8252611 Problem H/O: lung cancer Z85.118 Active confirmed 42 9421382 Problem Bone metastasis C79.51 Active confirmed 9422 2007 Problem Primary malignant neoplasm of right lung metasta tic to other site C34.91 Active confirmed 16849196 Problem Psoriasis L40.9 Active confirmed 2722574 Problem Other chronic pain G89.29 Active confirmed 8 5128553 Problem Acquired hypothyroidism E03.9 Active confirmed 434638899 Problem Major depressive disorder, s lake episode, severe without psychotic features F32.2 Active confirmed 22629190 Problem Adenocarcinoma of right lung C34.91 Active con firmed 07388869839025646 Problem Macrocytosis D75.89 Active confirmed 9281039 00 Problem Pure hypercholesterolemia E78.00 Active confirmed 004663390 Problem On prednisone therapy Z79.52 Active confirmed 430156957 ALLERGIES Allergen (clinical drug ingredient) Drug/Non Drug Allergy do cumented on EMR Reaction Allergy Type Onset Date Status pembrolizumab Keytruda([facility] Code:[address]-84) Rash Drug Allerg y Active ENCOUNTERS from 1955 to 2020-09-01 Encounter Location Date Provider Diagnosis [address] [place] [address] Jul Dory Ruano Major depressive disorder, single episod e, severe without psychotic features F32.2 IMMUNIZATIONS Vaccine Route Administration Date Status Influenza (18 yrs & older) Flublok IM Intramuscular Apr 30, 2020 Administered Influenza (18 yrs & older) Flublok IM Intramuscular May 16, 2019 Administered SOCIAL HISTORY Tobacco Use: Social History Observation Description Date Details (start date - stop date) Former Smoker Sex Assigned At : Social History Observation Description Sex Assigned At Unknown Audit Question Answer Notes Total Score: 0 Interpretation: Alcohol Education Language: Question Answer Notes Languages spoken: Faroese Domestic Violence: Question Answer Notes Status: Sexual Hx: Question Answer Notes Had sex in the last 12 months (vaginal, oral, or anal)? No Have you ever had an STD? No Drug and Alcohol Question Answer Notes Total Score: 1 Interpretation: Low level Alcohol Screening: Question Answer Notes Did you have a drink containing alcohol in the past year? No Points 0 Interpretation Negative BMI Care Goal Follow-Up Question Answer Notes Above Normal BMI Follow-Up Dietary management educatio n, guidance, and counseling Tobacco Use: Question Answer Notes Are you a: former smoker How long has it been since you last smoked? > 10 years REASON FOR REFERRAL No Information VITAL SIGNS No information MEDICATIONS Medication SIG (Take, Route, Frequency, Duration) Notes Start Da te End Date Status Ondansetron HCl 8 mg 1 tablet as needed Orally ev irckie 12 hours for nausea and vomiting Jul, Active Percocet 10-325 MG 1 tablet as needed Orally every 6 hrs mdd4 fo r 30 Days Aug, Active PRALAtrexate 40 MG/2ML as directed Intravenous Active Lubricating Drops Active CARBOplatin 450 MG as directed Intravenous May, Active Lumigan 0.01 % 1 drop into affected eye in the evening Ophthalm ic Once a day Jul, Active Folic Acid 400 MCG 1 tablet Orally Once a day for 30 day(s) Active Betamethasone Dipropionate Aug 0.05 % 1 application Ex ternally 4x a day to areas on body (not face, groin, armpits) with rash for 30 days Active Levothyroxine Sodium 100 MCG 1 tablet in the morning o n an empty stomach Orally Once a day for 90 days Jan, Active Gabapentin 300 MG 1 capsule Orally twice a day for 90 days Jun, Active Simvastatin 20 MG 1 tablet in the evening Orally Once a day for 90 Active Colace 100 MG 1 capsule as needed Orally bid for 30 day(s) Aug, Active Prochlorperazine Maleate 10 MG 1 tablet as needed Oral ly every 6 hours for nausea or vomiting Jul, Active Escitalopram Oxalate 20 MG 1 tab Orally Once a day for 90 Active PredniSONE 20 MG 1 tablet Orally Once a day for 30 day(s) Jul, Active PROCEDURES No Information RESULTS No Results REASON FOR VISIT zoom MEDICAL (GENERAL) HISTORY Type Description Date Medical History Hypothyroidism Medical History Anemia Hgb = 10 04/2018 secondary to marbella mo Medical History Hyperlipidemia Medical History Depression/Anxiety - on Lexapro since 11 Medical History Chronic right wrist pain - " chronic broken wrsit" - limited mobility Medical History Chronic Back pain - Was on Disability si nce 2012 Medical History Calcific Tendonitis left mallorie ulder - s/p steroid injections in past with good results Medical History Adenocarcinoma lung with met s to T-spine and rib s/p RT - following with local oncology - ? recurrent lung ca vs new primary Medical History Lung Cancer s/p resection 2017, 4 rounds chemo with Carboplatin & Pemetrexed, No RT Medical History Pulmonary Embolism after jacob g resection 12/2017 s/p Eliquis x 6 months Surgical History kidney stone removal/stent place ment 2017 Surgical History lobectomy: lung lower right 01/01/18 Surgical History carpal tunnel release-left 2007 Surgical History Colonoscopy - polyp Repeat due in 2020 1 Surgical History biopsy-spine 08/26/2019 Surgical History cataract removal-right 04/2020 Hospitalization History kidney infection 08/2017 Hospitalization History surgery 01/01- Hospitalization History pulmonary embolism 01/28/18 Hospitalization History lung cancer 2017 Hospitalization History pneumonia 07/2020 Goals Section No Information Health Concerns No Information MEDICAL EQUIPMENT No Information MENTAL STATUS No Information FUNCTIONAL STATUS No Information ASSESSMENTS Encounter Date Diagnosis Assessment Notes Treatment Notes Treatm ent Clinical Notes Jul, Major depressive disorder, s lake episode, severe without psychotic features (ICD-10 - F32.2) oRland was seen for a follow up session, via zoom. Reports symptoms have remained the same. Scheduled for a return session 09/11/2020. PLAN OF TREATMENT Medication Medication Name Sig Start Date Stop Date Colace 100 MG 1 capsule as needed Orally bid for 30 day(s) Aug, Percocet 10-325 MG 1 tablet as needed Orally every 6 hrs md d4 for 30 Days Aug, Treatment Notes Assessment Notes Clinical Notes Major depressive disorder, single episode, severe without ps ychotic features Roland was seen for a follow up session, via zoom. Reports symptoms have remained the same. Scheduled for a return session 09/11/2020. Next Appt Details Provider Name:Dory Ruano, 2020-08 08:00:00 AM, [address] [place] [address], [phone] Provider Name:Kip Gonzales, 2020-08 11:00:00 AM, [address] [place] [address], [address] [place] [address], [phone], Provider Name:Barbara Lugo, 2020-10-30 09 :00:00 AM, [address] [place] [address], [phone], Provider Name:Viviana Silverio, 2020-10 10:15:00 AM, [address] [place] [address], [phone], Insurance Providers Payer Name Payer Address Payer Phone Insured Name Patient Relati onship to Insured Coverage Start Date Coverage End Date MEDICARE Part A and B [address] [facility] [phone] [phone] ROLAND MOORE self MEDICARE COMPLETE [employer] [address] [address] [facility] [phone] ROLAND MOORE self
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
--- OUTSIDE RECORDS SUMMARY | 2020-09-19 14:33 | CCD ---
Author Author [facility] Organization [facility] Address Unknown Phone Unavailable Care Team Providers Care Olap Developer Name Role Phone [facility] Yvette [facility], PA-C Unavailable Unavailabl e Fish, [facility], PA-C Unavailable Unavailabl e Fish, [facility], PA-C Unavailable Unavailabl e Fish, [facility], PA-C Unavailable Unavailabl e Fish, [facility], PA-C Unavailable Unavailabl e Fish, [facility], PA-C Unavailable Unavailabl e Fish, [facility], PA-C Unavailable Unavailabl e Fish, [facility], PA-C Unavailable Unavailabl e Fish, [facility], PA-C Unavailable Unavailabl e Fish, [facility], PA-C Unavailable Unavailabl e Fish, [facility], PA-C Unavailable Unavailabl e Fish, [facility], PA-C Unavailable Unavailabl e Fish, [facility], PA-C Unavailable Unavailabl e Fish, [facility], PA-C Unavailable Unavailabl e Fish, [facility], PA-C Unavailable Unavailabl e Fish, [facility], PA-C Unavailable Unavailabl e Fish, [facility], PA-C Unavailable Unavailabl e Fish, [facility], PA-C Unavailable Unavailabl e Fish, [facility], PA-C Unavailable Unavailabl e Fish, Yvette Florez [facility], PA-C Unavailable Unavailabl e Fish, [facility] Unavailable Unavailabl e Fish, [facility] Unavailable Unavailabl e Fish, [facility] Unavailable Unavailabl e Fish, [facility] Unavailable Unavailabl e Fish, [facility] Unavailable Unavailabl e Fish, [facility] Unavailable Unavailabl e Fish, [facility] Unavailable Unavailabl e Fish, Yvette Florez [facility], PA-C Unavailable Unavailabl e Fish, [facility] Unavailable Unavailabl e Fish, [facility], [facility] Unavailable Unavailabl e Fish, [facility], [facility] Unavailable Unavailabl e Fish, Yvette Florez [facility], PA-C Unavailable Unavailabl e Fish, [facility] Unavailable Unavailabl e Koloms, Marlin MD Unavailable Unavailable Koloms, Marlin MD Unavailable Unavailable Koloms, Marlin MD Unavailable Unavailable Koloms, Marlin MD Unavailable Unavailable Koloms, Marlin MD Unavailable Unavailable Koloms, Marlin MD Unavailable Unavailable Koloms, Marlin MD Unavailable Unavailable Koloms, Marlin MD Unavailable Unavailable Koloms, Marlin MD Unavailable Unavailable Koloms, Marlin MD Unavailable Unavailable Koloms, Marlin MD Unavailable Unavailable Koloms, Marlin MD Unavailable Unavailable Koloms, Marlin MD Unavailable Unavailable Koloms, Marlin MD Unavailable Unavailable Koloms, Marlin MD Unavailable Unavailable Koloms, Marlin MD Unavailable Unavailable Koloms, Marlin MD Unavailable Unavailable Koloms, Marlin MD Unavailable Unavailable Koloms, Marlin MD Unavailable Unavailable Koloms, Marlin MD Unavailable Unavailable Koloms, Marlin MD Unavailable Unavailable Koloms, Marlin MD Unavailable Unavailable Koloms, Marlin MD Unavailable Unavailable Koloms, Marlin MD Unavailable Unavailable Koloms, Marlin MD Unavailable Unavailable Koloms, Marlin MD Unavailable Unavailable Koloms, Marlin MD Unavailable Unavailable Koloms, Marlin MD Unavailable Unavailable NON, PHYSICIAN STAFF Unavailable Unavailable Tahira Lopes PA Unavailable Unavailable Tahira Lopes PA Unavailable Unavailable Tahira Lopes PA Unavailable Unavailable Tahira Lopes PA Unavailable Unavailable Lopes, M Barratt PA Unavailable Unavailable Lopes, M Barratt PA Unavailable Unavailable Lopes, M Barratt PA Unavailable Unavailable Lopes, M Barratt PA Unavailable Unavailable Lopes, M Barratt PA Unavailable Unavailable Lopes, M Barratt PA Unavailable Unavailable Lopes, M Barratt PA Unavailable Unavailable Lopes, M Barratt PA Unavailable Unavailable Lopes, M Barratt PA Unavailable Unavailable Lopes, M Barratt PA Unavailable Unavailable Lopes, M Barratt PA Unavailable Unavailable Lopes, M Barratt PA Unavailable Unavailable Lopes, M Barratt PA Unavailable Unavailable Lopes, M Barratt PA Unavailable Unavailable Lopes, M Barratt PA Unavailable Unavailable Lopes, M Barratt PA Unavailable Unavailable Lopes, M Barratt PA Unavailable Unavailable Lopes, M Barratt PA Unavailable Unavailable Lopes, M Barratt PA Unavailable Unavailable Lopes, M Barratt PA Unavailable Unavailable Lopes, M Barratt PA Unavailable Unavailable Lopes, M Barratt PA Unavailable Unavailable Lopes, M Barratt PA Unavailable Unavailable Re-disclosure Warning The records that you are about to access may contain information from federally-assisted alcohol or drug abuse programs. If such information is present, then the following federally mandated warning applies: This information has been disclosed to you from records protected by federal confidentiality rules (42 CFR part 2). The federal rules prohibit you from making any further disclosure of this information unless further disclosure is expressly permitted by the written consent of the person to whom it pertains or as otherwise permitted by 42 CFR part 2. A general authorization for the release of medical or other information is NOT sufficient for this purpose. The Federal rules restrict any use of the information to criminally investigate or prosecute any alcohol or drug abuse patient.The records that you are about to access may contain highly sensitive health information, the redisclosure of which is protected by Article 27-F of the [facility] Public Health law. If you continue you may have access to information: Regarding HIV / AIDS; Provided by facilities licensed or operated by the [facility] Office of Mental Health; or Provided by the [facility] Office for People With Developmental Disabilities. If such information is present, then the following [facility] mandated warning applies: This information has been disclosed to you from confidential records which are protected by state law. State law prohibits you from making any further disclosure of this information without the specific written consent of the person to whom it pertains, or as otherwise permitted by law. Any unauthorized further disclosure in violation of state law may result in a fine or fdc sentence or both. A general authorization for the release of medical or other information is NOT sufficient authorization for further disc losure. Allergies and Adverse Reactions Type Description Substance Reaction Status Data Source(s ) No Known Food Allergies No Known Food Allergies [facility] No Known Drug Allergies No Known Drug Allergies [facility] Drug Allergy Drug Allergy NKDA MEDENT ([facility], ) Encounters Encounter Providers Location Date Indications Data Source(s ) (TV_Virtual) [facility] [address] [place] [phone] 09/11/2020 12:00:00 AM EST eCW1 ([facility]) Outpatient [address] [facility] [id number] 09/01/2020 12:00:00 AM EST eCW1 ([facility]) Unknown [address] [place] [address] 08/31/2020 12:00:00 AM EST eCW1 ([facility]) (TV_Virtual) [facility] Visit [address] [place] [address] 08/24/2020 12:00:00 AM EST eCW1 ([facility]) Unknown [address] [facility] [id number] 08/19/2020 12:00:00 AM EST eCW1 ([facility]) Office Visit, Est Pt., Level 2 FC [address] [place] [address] 08/12/2020 12:00:00 AM EST eCW1 ([facility]) Unknown [address] [facility] [address] 08/12/2020 12:00:00 AM EST eCW1 ([facility]) Unknown [address] [facility] [facility] [address] 08/04/2020 12:00:00 AM EST eCW1 ([facility]) Outpatient [address] [facility] [address] 08/03/2020 12:00:00 AM EST eCW1 ([facility]) Unknown [address] [facility] [address] 08/03/2020 12:00:00 AM EST eCW1 ([facility]) (TV_Virtual) [facility] Visit [address] [place] [address] 07/14/2020 12:00:00 AM EST eCW1 ([facility]) Office Visit, Est Pt., Level 4 PC [address] 07/03/2020 12:00:00 AM EST eCW1 ([facility]) (TV_Virtual) [facility] Visit [address] [place] [address] 06/29/2020 12:00:00 AM EST eCW1 ([facility]) Office Visit, Est Pt., Level 4 PC [address] [place] [address] 06/23/2020 12:00:00 AM EST eCW1 ([facility]) Outpatient Attender: Marlin Serna MDConsultant: STAFF NON 06/17/2020 07:30:00 AM EST - 06/17/2020 10:47:[address] [facility] Patient discharged. Office Visit, Est Pt., Level 3 PC [address] 06/12/2020 12:00:00 AM EST eCW1 ([facility]) ([facility]) [facility] Scheduled Visit [address] [place], [place] [id number] 06/08/2020 12:00:00 AM EST eCW1 ([facility]) ([facility]) [facility] Scheduled Visit [address] [place], [place] [id number] 05/25/2020 12:00:00 AM EDT eCW1 ([facility]) Outpatient Attender: Marlin Serna MDConsultant: STAFF NON 05/13/2020 08:30:00 AM EDT - 05/13/2020 01:03:[address] [facility] Patient discharged. Outpatient [address] [facility] [id number] 04/30/2020 12:00:00 AM EDT eCW1 ([facility]) ([facility]) [facility] Scheduled Visit [address] [place] [phone] 02/18/2020 12:00:00 AM EDT eCW1 ([facility]) Unknown [address] [place] [phone] 02/10/2020 12:00:00 AM EDT eCW1 ([facility]) ([facility]) [facility] Scheduled Visit [address] [place] [address] 01/17/2020 12:00:00 AM EDT eCW1 ([facility]) (TV_Virtual) [facility] Visit [address] [place] [address] 01/03/2020 12:00:00 AM EDT eCW1 ([facility]) Outpatient Attender: Jewel MORENO Physical Therapy 10:45:00 AM EDT MEDENT ([facility]) [facility] [place] [address] [place] [phone] 12/06/2019 12:00:00 AM EDT eCW1 ([facility]) [facility] [address] [place] [phone] 12/06/2019 12:00:00 AM EDT eCW1 ([facility]) [facility] [address] [facility] [place] [address] 11/22/2019 12:00:00 AM EDT eCW1 ([facility]) [facility] [place] [place] [address] 11/15/2019 12:00:00 AM EDT eCW1 ([facility]) Outpatient Attender: Jewel MORENO Physical Therapy 08:45:00 AM EDT MEDENT ([facility]) Unknown [address] [facility] [address] 11/05/2019 12:00:00 AM EDT eCW1 ([facility]) Outpatient Attender: Vikki WALLACE PA-C Physical Therapy 11/04/2019 10:00:00 AM EDT MEDENT ([facility]) Unknown [address] [facility] [address] 11/02/2019 12:00:00 AM EDT eCW1 ([facility]) Outpatient Attender: Jewel MORENO Physical Therapy 04:00:00 PM EDT MEDENT ([facility]) ([facility]) [facility] Scheduled Visit [address] [place] [address] 11/01/2019 12:00:00 AM EDT eCW1 ([facility]) [facility] [address] [place] [phone] 11/01/2019 12:00:00 AM EDT eCW1 ([facility]) [address] [address] 10/18/2019 12:00:00 AM EDT eCW1 ([facility]) [facility] [address] [place] [address] 10/10/2019 12:00:00 AM EDT eCW1 ([facility]) [address] [address] 10/01/2019 12:00:00 AM EST eCW1 ([facility]) [address] [address] 09/27/2019 12:00:00 AM EST eCW1 ([facility]) [address] [address] 09/09/2019 12:00:00 AM EST eCW1 ([facility]) Outpatient 08/30/2019 12:58:00 PM EST [facility] [place] [address] [place] [address], [place] [address] 08/28/2019 12:00:00 AM EST eCW1 ([facility]) [facility] [address] [facility] [address] 08/27/2019 12:00:00 AM EST eCW1 ([facility]) Outpatient 08/26/2019 01:09:00 PM EST [facility] [address] [place] [address] 08/26/2019 12:00:00 AM EST eCW1 ([facility]) Outpatient 08/22/2019 01:50:00 PM EST [facility] [address] [address] 08/15/2019 12:00:00 AM EST eCW1 ([facility]) [facility] [address] [place] [address], [place] [address] 08/14/2019 12:00:00 AM EST eCW1 ([facility]) [address] [address] 07/30/2019 12:00:00 AM EST eCW1 ([facility]) [facility] [place] [address] [place] [address], [place] [address] 07/29/2019 12:00:00 AM EST eCW1 ([facility]) Immunizations Vaccine Date Status Description Data Source(s) influenza, recombinant, quadrIvalent,injectable, prese rvative free 04/30/2020 01:58:00 PM EDT completed eCW1 ([facility]) influenza, recombinant, quadrIvalent,injectable, prese rvative free 04/30/2020 01:58:00 PM EDT completed eCW1 ([facility]) influenza, recombinant, quadrIvalent,injectable, prese rvative free 04/30/2020 01:58:00 PM EDT completed eCW1 ([facility]) influenza, recombinant, quadrIvalent,injectable, prese rvative free 04/30/2020 01:58:00 PM EDT completed eCW1 ([facility]) influenza, recombinant, quadrIvalent,injectable, prese rvative free 04/30/2020 01:58:00 PM EDT completed eCW1 ([facility]) influenza, recombinant, quadrIvalent,injectable, prese rvative free 04/30/2020 01:58:00 PM EDT completed eCW1 ([facility]) influenza, recombinant, quadrIvalent,injectable, prese rvative free 04/30/2020 01:58:00 PM EDT completed eCW1 ([facility]) influenza, recombinant, quadrIvalent,injectable, prese rvative free 04/30/2020 01:58:00 PM EDT completed eCW1 ([facility]) influenza, recombinant, quadrIvalent,injectable, prese rvative free 04/30/2020 01:58:00 PM EDT completed eCW1 ([facility]) influenza, recombinant, quadrIvalent,injectable, prese rvative free 04/30/2020 01:58:00 PM EDT completed eCW1 ([facility]) influenza, recombinant, quadrIvalent,injectable, prese rvative free 04/30/2020 01:58:00 PM EDT completed eCW1 ([facility]) influenza, recombinant, quadrIvalent,injectable, prese rvative free 04/30/2020 01:58:00 PM EDT completed eCW1 ([facility]) influenza, recombinant, quadrIvalent,injectable, prese rvative free 04/30/2020 01:58:00 PM EDT completed eCW1 ([facility]) influenza, recombinant, quadrIvalent,injectable, prese rvative free 04/30/2020 01:58:00 PM EDT completed eCW1 ([facility]) influenza, recombinant, quadrIvalent,injectable, prese rvative free 04/30/2020 01:58:00 PM EDT completed eCW1 ([facility]) influenza, recombinant, quadrIvalent,injectable, prese rvative free 04/30/2020 01:58:00 PM EDT completed eCW1 ([facility]) influenza, recombinant, quadrIvalent,injectable, prese rvative free 04/30/2020 01:58:00 PM EDT completed eCW1 ([facility]) influenza, recombinant, quadrIvalent,injectable, prese rvative free 04/30/2020 01:58:00 PM EDT completed eCW1 ([facility]) Medications Medication Brand Name Start Date Product Form Dose Route Admi nistrative Instructions Pharmacy Instructions Status Indications Reaction Description Data Source(s) Docusate Sodium 100 MG Oral Capsule [Colace] Colace 100 MG C olace 100 MG 09/01/2020 12:00:00 AM EST 1.0 {capsule_as_needed} active Colace 100 MG eCW1 ([facility]) Acetaminophen 325 MG / Oxycodone Hydroch loride 10 MG Oral Tablet [Percocet] Percocet 10-325 MG Percocet 10-325 MG 09/01/2020 12:00:00 AM EST 1.0 {tablet_as_needed} active Percocet 10-3 25 MG eCW1 ([facility]) Acetaminophen 325 MG / Oxycodone Hydroch loride 10 MG Oral Tablet [Percocet] Percocet 10-325 MG Percocet 10-325 MG 09/01/2020 12:00:00 AM EST 1.0 {tablet_as_needed} active Percocet 10-3 25 MG eCW1 ([facility]) Acetaminophen 325 MG / Oxycodone Hydroch loride 10 MG Oral Tablet [Percocet] Percocet 10-325 MG Percocet 10-325 MG 09/01/2020 12:00:00 AM EST 1.0 {tablet_as_needed} active Percocet 10-3 25 MG eCW1 ([facility]) Docusate Sodium 100 MG Oral Capsule [Colace] Colace 100 MG C olace 100 MG 09/01/2020 12:00:00 AM EST 1.0 {capsule_as_needed} active Colace 100 MG eCW1 ([facility]) Docusate Sodium 100 MG Oral Capsule [Colace] Colace 100 MG C olace 100 MG 09/01/2020 12:00:00 AM EST 1.0 {capsule_as_needed} active Colace 100 MG eCW1 ([facility]) Acetaminophen 325 MG / Oxycodone Hydroch loride 5 MG Oral Tablet Oxycodone- Acetaminophen 5-325 MG Oxycodone-Acetaminophen 5-325 MG 08/04/2020 12:00:00 A M EST 1.0 {tablet_as_needed} active O xycodone-Acetaminophen 5-325 MG eCW1 ([facility]) Acetaminophen 325 MG / Oxycodone Hydroch loride 5 MG Oral Tablet Oxycodone- Acetaminophen 5-325 MG Oxycodone-Acetaminophen 5-325 MG 08/04/2020 12:00:00 A M EST 1.0 {tablet_as_needed} active O xycodone-Acetaminophen 5-325 MG eCW1 ([facility]) Acetaminophen 325 MG / Oxycodone Hydroch loride 5 MG Oral Tablet Oxycodone- Acetaminophen 5-325 MG Oxycodone-Acetaminophen 5-325 MG 08/04/2020 12:00:00 A M EST 1.0 {tablet_as_needed} active O xycodone-Acetaminophen 5-325 MG eCW1 ([facility]) Acetaminophen 325 MG / Oxycodone Hydroch loride 5 MG Oral Tablet Oxycodone- Acetaminophen 5-325 MG Oxycodone-Acetaminophen 5-325 MG 08/04/2020 12:00:00 A M EST 1.0 {tablet_as_needed} active O xycodone-Acetaminophen 5-325 MG eCW1 ([facility]) Acetaminophen 325 MG / Oxycodone Hydroch loride 5 MG Oral Tablet Oxycodone- Acetaminophen 5-325 MG Oxycodone-Acetaminophen 5-325 MG 08/04/2020 12:00:00 A M EST 1.0 {tablet_as_needed} active O xycodone-Acetaminophen 5-325 MG eCW1 ([facility]) Acetaminophen 325 MG / Oxycodone Hydroch loride 5 MG Oral Tablet Oxycodone- Acetaminophen 5-325 MG Oxycodone-Acetaminophen 5-325 MG 08/04/2020 12:00:00 A M EST 1.0 {tablet_as_needed} active O xycodone-Acetaminophen 5-325 MG eCW1 ([facility]) Acetaminophen 325 MG / Oxycodone Hydroch loride 5 MG Oral Tablet Oxycodone- Acetaminophen 5-325 MG Oxycodone-Acetaminophen 5-325 MG 08/04/2020 12:00:00 A M EST 1.0 {tablet_as_needed} active O xycodone-Acetaminophen 5-325 MG eCW1 ([facility]) bimatoprost 0.1 MG/ML Ophthalmic Solution [Lumigan] Reena migan 0.01 % Lumigan 0.01 % 08/03/2020 12:00:00 AM EST 1.0 {drop_into_affected_eye_in_ the_evening} active Lumigan 0.01 % eCW1 ([facility]) Ondansetron 8 MG Oral Tablet Ondansetron HCl 8 mg Ondansetro n HCl 8 mg 08/03/2020 12:00:00 AM EST 1.0 {tablet_as_needed} active Ondansetron HCl 8 mg eCW1 ([facility]) Ondansetron 8 MG Oral Tablet Ondansetron HCl 8 mg Ondansetro n HCl 8 mg 08/03/2020 12:00:00 AM EST 1.0 {tablet_as_needed} active Ondansetron HCl 8 mg eCW1 ([facility]) Prochlorperazine 10 MG Oral Tablet Prochlorperazine Ma leate 10 MG Prochlorperazine Maleate 10 MG 08/03/2020 12:00:00 AM EST 1. 0 {tablet_as_needed} active Prochlorperaz ine Maleate 10 MG eCW1 ([facility]) Prochlorperazine 10 MG Oral Tablet Prochlorperazine Ma leate 10 MG Prochlorperazine Maleate 10 MG 08/03/2020 12:00:00 AM EST 1. 0 {tablet_as_needed} active Prochlorperaz ine Maleate 10 MG eCW1 ([facility]) Prochlorperazine 10 MG Oral Tablet Prochlorperazine Ma leate 10 MG Prochlorperazine Maleate 10 MG 08/03/2020 12:00:00 AM EST 1. 0 {tablet_as_needed} active Prochlorperaz ine Maleate 10 MG eCW1 ([facility]) Prochlorperazine 10 MG Oral Tablet Prochlorperazine Ma leate 10 MG Prochlorperazine Maleate 10 MG 08/03/2020 12:00:00 AM EST 1. 0 {tablet_as_needed} active Prochlorperaz ine Maleate 10 MG eCW1 ([facility]) Ondansetron 8 MG Oral Tablet Ondansetron HCl 8 mg Ondansetro n HCl 8 mg 08/03/2020 12:00:00 AM EST 1.0 {tablet_as_needed} active Ondansetron HCl 8 mg eCW1 ([facility]) Prochlorperazine 10 MG Oral Tablet Prochlorperazine Ma leate 10 MG Prochlorperazine Maleate 10 MG 08/03/2020 12:00:00 AM EST 1. 0 {tablet_as_needed} active Prochlorperaz ine Maleate 10 MG eCW1 ([facility]) bimatoprost 0.1 MG/ML Ophthalmic Solution [Lumigan] Reena migan 0.01 % Lumigan 0.01 % 08/03/2020 12:00:00 AM EST 1.0 {drop_into_affected_eye_in_ the_evening} active Lumigan 0.01 % eCW1 ([facility]) Ondansetron 8 MG Oral Tablet Ondansetron HCl 8 mg Ondansetro n HCl 8 mg 08/03/2020 12:00:00 AM EST 1.0 {tablet_as_needed} active Ondansetron HCl 8 mg eCW1 ([facility]) bimatoprost 0.1 MG/ML Ophthalmic Solution [Lumigan] Reena migan 0.01 % Lumigan 0.01 % 08/03/2020 12:00:00 AM EST 1.0 {drop_into_affected_eye_in_ the_evening} active Lumigan 0.01 % eCW1 ([facility]) Prednisone 20 MG Oral Tablet PredniSONE 20 MG PredniSONE 20 MG 08/03/2020 12:00:00 AM EST 1.0 {tablet} active Pr edniSONE 20 MG eCW1 ([facility]) Prednisone 20 MG Oral Tablet PredniSONE 20 MG PredniSONE 20 MG 08/03/2020 12:00:00 AM EST 1.0 {tablet} active Pr edniSONE 20 MG eCW1 ([facility]) Ondansetron 8 MG Oral Tablet Ondansetron HCl 8 mg Ondansetro n HCl 8 mg 08/03/2020 12:00:00 AM EST 1.0 {tablet_as_needed} active Ondansetron HCl 8 mg eCW1 ([facility]) Prednisone 20 MG Oral Tablet PredniSONE 20 MG PredniSONE 20 MG 08/03/2020 12:00:00 AM EST 1.0 {tablet} active Pr edniSONE 20 MG eCW1 ([facility]) bimatoprost 0.1 MG/ML Ophthalmic Solution [Lumigan] Reena migan 0.01 % Lumigan 0.01 % 08/03/2020 12:00:00 AM EST 1.0 {drop_into_affected_eye_in_ the_evening} active Lumigan 0.01 % eCW1 ([facility]) Prochlorperazine 10 MG Oral Tablet Prochlorperazine Ma leate 10 MG Prochlorperazine Maleate 10 MG 08/03/2020 12:00:00 AM EST 1. 0 {tablet_as_needed} active Prochlorperaz ine Maleate 10 MG eCW1 ([facility]) Prochlorperazine 10 MG Oral Tablet Prochlorperazine Ma leate 10 MG Prochlorperazine Maleate 10 MG 08/03/2020 12:00:00 AM EST 1. 0 {tablet_as_needed} active Prochlorperaz ine Maleate 10 MG eCW1 ([facility]) Prednisone 20 MG Oral Tablet PredniSONE 20 MG PredniSONE 20 MG 08/03/2020 12:00:00 AM EST 1.0 {tablet} active Pr edniSONE 20 MG eCW1 ([facility]) Prednisone 20 MG Oral Tablet PredniSONE 20 MG PredniSONE 20 MG 08/03/2020 12:00:00 AM EST 1.0 {tablet} active Pr edniSONE 20 MG eCW1 ([facility]) Prednisone 20 MG Oral Tablet PredniSONE 20 MG PredniSONE 20 MG 08/03/2020 12:00:00 AM EST 1.0 {tablet} active Pr edniSONE 20 MG eCW1 ([facility]) bimatoprost 0.1 MG/ML Ophthalmic Solution [Lumigan] Reena migan 0.01 % Lumigan 0.01 % 08/03/2020 12:00:00 AM EST 1.0 {drop_into_affected_eye_in_ the_evening} active Lumigan 0.01 % eCW1 ([facility]) Prednisone 20 MG Oral Tablet PredniSONE 20 MG PredniSONE 20 MG 08/03/2020 12:00:00 AM EST 1.0 {tablet} active Pr edniSONE 20 MG eCW1 ([facility]) Ondansetron 8 MG Oral Tablet Ondansetron HCl 8 mg Ondansetro n HCl 8 mg 08/03/2020 12:00:00 AM EST 1.0 {tablet_as_needed} active Ondansetron HCl 8 mg eCW1 ([facility]) Prednisone 20 MG Oral Tablet PredniSONE 20 MG PredniSONE 20 MG 08/03/2020 12:00:00 AM EST 1.0 {tablet} active Pr edniSONE 20 MG eCW1 ([facility]) Prochlorperazine 10 MG Oral Tablet Prochlorperazine Ma leate 10 MG Prochlorperazine Maleate 10 MG 08/03/2020 12:00:00 AM EST 1. 0 {tablet_as_needed} active Prochlorperaz ine Maleate 10 MG eCW1 ([facility]) Ondansetron 8 MG Oral Tablet Ondansetron HCl 8 mg Ondansetro n HCl 8 mg 08/03/2020 12:00:00 AM EST 1.0 {tablet_as_needed} active Ondansetron HCl 8 mg eCW1 ([facility]) Ondansetron 8 MG Oral Tablet Ondansetron HCl 8 mg Ondansetro n HCl 8 mg 08/03/2020 12:00:00 AM EST 1.0 {tablet_as_needed} active Ondansetron HCl 8 mg eCW1 ([facility]) bimatoprost 0.1 MG/ML Ophthalmic Solution [Lumigan] Reena migan 0.01 % Lumigan 0.01 % 08/03/2020 12:00:00 AM EST 1.0 {drop_into_affected_eye_in_ the_evening} active Lumigan 0.01 % eCW1 ([facility]) Cefuroxime 500 MG Oral Tablet Cefuroxime Axetil 500 MG Cefur oxime Axetil 500 MG 08/03/2020 12:00:00 AM EST 1.0 {tablet} active Cefuroxime Axetil 500 MG eCW1 ([facility]) bimatoprost 0.1 MG/ML Ophthalmic Solution [Lumigan] Reena migan 0.01 % Lumigan 0.01 % 08/03/2020 12:00:00 AM EST 1.0 {drop_into_affected_eye_in_ the_evening} active Lumigan 0.01 % eCW1 ([facility]) bimatoprost 0.1 MG/ML Ophthalmic Solution [Lumigan] Reena migan 0.01 % Lumigan 0.01 % 08/03/2020 12:00:00 AM EST 1.0 {drop_into_affected_eye_in_ the_evening} active Lumigan 0.01 % eCW1 ([facility]) gabapentin 300 MG Oral Capsule Gabapentin 300 MG Gabapentin 300 MG 07/03/2020 12:00:00 AM EST 1.0 {capsule} active G abapentin 300 MG eCW1 ([facility]) gabapentin 300 MG Oral Capsule Gabapentin 300 MG Gabapentin 300 MG 07/03/2020 12:00:00 AM EST 1.0 {capsule} active G abapentin 300 MG eCW1 ([facility]) Acetaminophen 325 MG / Oxycodone Hydroch loride 5 MG Oral Tablet Oxycodone- Acetaminophen 5-325 MG Oxycodone-Acetaminophen 5-325 MG 07/03/2020 12:00:00 A M EST 1.0 {tablet_as_needed} active O xycodone-Acetaminophen 5-325 MG eCW1 ([facility]) gabapentin 300 MG Oral Capsule Gabapentin 300 MG Gabapentin 300 MG 07/03/2020 12:00:00 AM EST 1.0 {capsule} active G abapentin 300 MG eCW1 ([facility]) gabapentin 300 MG Oral Capsule Gabapentin 300 MG Gabapentin 300 MG 07/03/2020 12:00:00 AM EST 1.0 {capsule} active G abapentin 300 MG eCW1 ([facility]) gabapentin 300 MG Oral Capsule Gabapentin 300 MG Gabapentin 300 MG 07/03/2020 12:00:00 AM EST 1.0 {capsule} active G abapentin 300 MG eCW1 ([facility]) gabapentin 300 MG Oral Capsule Gabapentin 300 MG Gabapentin 300 MG 07/03/2020 12:00:00 AM EST 1.0 {capsule} active G abapentin 300 MG eCW1 ([facility]) gabapentin 300 MG Oral Capsule Gabapentin 300 MG Gabapentin 300 MG 07/03/2020 12:00:00 AM EST 1.0 {capsule} active G abapentin 300 MG eCW1 ([facility]) gabapentin 300 MG Oral Capsule Gabapentin 300 MG Gabapentin 300 MG 07/03/2020 12:00:00 AM EST 1.0 {capsule} active G abapentin 300 MG eCW1 ([facility]) Acetaminophen 325 MG / Oxycodone Hydroch loride 5 MG Oral Tablet Oxycodone- Acetaminophen 5-325 MG Oxycodone-Acetaminophen 5-325 MG 07/03/2020 12:00:00 A M EST 1.0 {tablet_as_needed} active O xycodone-Acetaminophen 5-325 MG eCW1 ([facility]) gabapentin 300 MG Oral Capsule Gabapentin 300 MG Gabapentin 300 MG 07/03/2020 12:00:00 AM EST 1.0 {capsule} active G abapentin 300 MG eCW1 ([facility]) gabapentin 300 MG Oral Capsule Gabapentin 300 MG Gabapentin 300 MG 07/03/2020 12:00:00 AM EST 1.0 {capsule} active G abapentin 300 MG eCW1 ([facility]) gabapentin 300 MG Oral Capsule Gabapentin 300 MG Gabapentin 300 MG 07/03/2020 12:00:00 AM EST 1.0 {capsule} active G abapentin 300 MG eCW1 ([facility]) gabapentin 300 MG Oral Capsule Gabapentin 300 MG Gabapentin 300 MG 07/03/2020 12:00:00 AM EST 1.0 {capsule} active G abapentin 300 MG eCW1 ([facility]) gabapentin 300 MG Oral Capsule Gabapentin 300 MG Gabapentin 300 MG 07/03/2020 12:00:00 AM EST 1.0 {capsule} active G abapentin 300 MG eCW1 ([facility]) Acetaminophen 325 MG / Oxycodone Hydroch loride 5 MG Oral Tablet Oxycodone- Acetaminophen 5-325 MG Oxycodone-Acetaminophen 5-325 MG 07/03/2020 12:00:00 A M EST 1.0 {tablet_as_needed} active O xycodone-Acetaminophen 5-325 MG eCW1 ([facility]) Acetaminophen 325 MG / Oxycodone Hydroch loride 5 MG Oral Tablet Oxycodone- Acetaminophen 5-325 MG Oxycodone-Acetaminophen 5-325 MG 07/03/2020 12:00:00 A M EST 1.0 {tablet_as_needed} active O xycodone-Acetaminophen 5-325 MG eCW1 ([facility]) gabapentin 300 MG Oral Capsule Gabapentin 300 MG Gabapentin 300 MG 07/03/2020 12:00:00 AM EST 1.0 {capsule} active G abapentin 300 MG eCW1 ([facility]) CARBOplatin 450 MG UNK 06/23/2020 12:00:00 AM EST active CARBOplatin 450 MG eCW1 ([facility]) CARBOplatin 450 MG UNK 06/23/2020 12:00:00 AM EST active CARBOplatin 450 MG eCW1 ([facility]) CARBOplatin 450 MG UNK 06/23/2020 12:00:00 AM EST active CARBOplatin 450 MG eCW1 ([facility]) CARBOplatin 450 MG UNK 06/23/2020 12:00:00 AM EST active CARBOplatin 450 MG eCW1 ([facility]) CARBOplatin 450 MG UNK 06/23/2020 12:00:00 AM EST active CARBOplatin 450 MG eCW1 ([facility]) CARBOplatin 450 MG UNK 06/23/2020 12:00:00 AM EST active CARBOplatin 450 MG eCW1 ([facility]) CARBOplatin 450 MG UNK 06/23/2020 12:00:00 AM EST active CARBOplatin 450 MG eCW1 ([facility]) CARBOplatin 450 MG UNK 06/23/2020 12:00:00 AM EST active CARBOplatin 450 MG eCW1 ([facility]) CARBOplatin 450 MG UNK 06/23/2020 12:00:00 AM EST active CARBOplatin 450 MG eCW1 ([facility]) CARBOplatin 450 MG UNK 06/23/2020 12:00:00 AM EST active CARBOplatin 450 MG eCW1 ([facility]) CARBOplatin 450 MG UNK 06/23/2020 12:00:00 AM EST active CARBOplatin 450 MG eCW1 ([facility]) CARBOplatin 450 MG UNK 06/23/2020 12:00:00 AM EST active CARBOplatin 450 MG eCW1 ([facility]) CARBOplatin 450 MG UNK 06/23/2020 12:00:00 AM EST active CARBOplatin 450 MG eCW1 ([facility]) CARBOplatin 450 MG UNK 06/23/2020 12:00:00 AM EST active CARBOplatin 450 MG eCW1 ([facility]) Levothyroxine Sodium 0.1 MG Oral Tablet Levothyroxine Sodium 100 MCG Levothyroxine Sodium 100 MCG 02/10/2020 12:00:00 AM EDT active Levothyroxine Sodium 100 MCG eCW1 ([facility]) Levothyroxine Sodium 0.1 MG Oral Tablet Levothyroxine Sodium 100 MCG Levothyroxine Sodium 100 MCG 02/10/2020 12:00:00 AM EDT active Levothyroxine Sodium 100 MCG eCW1 ([facility]) Levothyroxine Sodium 0.1 MG Oral Tablet Levothyroxine Sodium 100 MCG Levothyroxine Sodium 100 MCG 02/10/2020 12:00:00 AM EDT active Levothyroxine Sodium 100 MCG eCW1 ([facility]) Levothyroxine Sodium 0.1 MG Oral Tablet Levothyroxine Sodium 100 MCG Levothyroxine Sodium 100 MCG 02/10/2020 12:00:00 AM EDT active Levothyroxine Sodium 100 MCG eCW1 ([facility]) Levothyroxine Sodium 0.1 MG Oral Tablet Levothyroxine Sodium 100 MCG Levothyroxine Sodium 100 MCG 02/10/2020 12:00:00 AM EDT active Levothyroxine Sodium 100 MCG eCW1 ([facility]) Levothyroxine Sodium 0.1 MG Oral Tablet Levothyroxine Sodium 100 MCG Levothyroxine Sodium 100 MCG 02/10/2020 12:00:00 AM EDT active Levothyroxine Sodium 100 MCG eCW1 ([facility]) Levothyroxine Sodium 0.1 MG Oral Tablet Levothyroxine Sodium 100 MCG Levothyroxine Sodium 100 MCG 02/10/2020 12:00:00 AM EDT active Levothyroxine Sodium 100 MCG eCW1 ([facility]) Levothyroxine Sodium 0.1 MG Oral Tablet Levothyroxine Sodium 100 MCG Levothyroxine Sodium 100 MCG 02/10/2020 12:00:00 AM EDT active Levothyroxine Sodium 100 MCG eCW1 ([facility]) Levothyroxine Sodium 0.1 MG Oral Tablet Levothyroxine Sodium 100 MCG Levothyroxine Sodium 100 MCG 02/10/2020 12:00:00 AM EDT active Levothyroxine Sodium 100 MCG eCW1 ([facility]) Levothyroxine Sodium 0.1 MG Oral Tablet Levothyroxine Sodium 100 MCG Levothyroxine Sodium 100 MCG 02/10/2020 12:00:00 AM EDT active Levothyroxine Sodium 100 MCG eCW1 ([facility]) Levothyroxine Sodium 0.1 MG Oral Tablet Levothyroxine Sodium 100 MCG Levothyroxine Sodium 100 MCG 02/10/2020 12:00:00 AM EDT active Levothyroxine Sodium 100 MCG eCW1 ([facility]) Levothyroxine Sodium 0.1 MG Oral Tablet Levothyroxine Sodium 100 MCG Levothyroxine Sodium 100 MCG 02/10/2020 12:00:00 AM EDT active Levothyroxine Sodium 100 MCG eCW1 ([facility]) Levothyroxine Sodium 0.1 MG Oral Tablet Levothyroxine Sodium 100 MCG Levothyroxine Sodium 100 MCG 02/10/2020 12:00:00 AM EDT active Levothyroxine Sodium 100 MCG eCW1 ([facility]) Levothyroxine Sodium 0.1 MG Oral Tablet Levothyroxine Sodium 100 MCG Levothyroxine Sodium 100 MCG 02/10/2020 12:00:00 AM EDT active Levothyroxine Sodium 100 MCG eCW1 ([facility]) Levothyroxine Sodium 0.1 MG Oral Tablet Levothyroxine Sodium 100 MCG Levothyroxine Sodium 100 MCG 02/10/2020 12:00:00 AM EDT active Levothyroxine Sodium 100 MCG eCW1 ([facility]) Levothyroxine Sodium 0.1 MG Oral Tablet Levothyroxine Sodium 100 MCG Levothyroxine Sodium 100 MCG 02/10/2020 12:00:00 AM EDT active Levothyroxine Sodium 100 MCG eCW1 ([facility]) Levothyroxine Sodium 0.1 MG Oral Tablet Levothyroxine Sodium 100 MCG Levothyroxine Sodium 100 MCG 02/10/2020 12:00:00 AM EDT active Levothyroxine Sodium 100 MCG eCW1 ([facility]) Levothyroxine Sodium 0.1 MG Oral Tablet Levothyroxine Sodium 100 MCG Levothyroxine Sodium 100 MCG 02/10/2020 12:00:00 AM EDT active Levothyroxine Sodium 100 MCG eCW1 ([facility]) Levothyroxine Sodium 0.1 MG Oral Tablet Levothyroxine Sodium 100 MCG Levothyroxine Sodium 100 MCG 02/10/2020 12:00:00 AM EDT active Levothyroxine Sodium 100 MCG eCW1 ([facility]) Levothyroxine Sodium 0.1 MG Oral Tablet Levothyroxine Sodium 100 MCG Levothyroxine Sodium 100 MCG 02/10/2020 12:00:00 AM EDT active Levothyroxine Sodium 100 MCG eCW1 ([facility]) Betamethasone 0.0005 MG/MG Augmented Top ical Ointment Betamethasone Dipropionate Aug 0.05 % Betamethasone Dipropionate Aug 0.05 % 01/16/2020 12:00:00 AM EDT 1.0 {application} active Betamethasone Dipropionate Aug 0.05 % eCW1 ([facility]) Betamethasone 0.0005 MG/MG Augmented Top ical Ointment Betamethasone Dipropionate Aug 0.05 % Betamethasone Dipropionate Aug 0.05 % 01/16/2020 12:00:00 AM EDT 1.0 {application} active Betamethasone Dipropionate Aug 0.05 % eCW1 ([facility]) Betamethasone 0.0005 MG/MG Augmented Top ical Ointment Betamethasone Dipropionate Aug 0.05 % Betamethasone Dipropionate Aug 0.05 % 01/16/2020 12:00:00 AM EDT 1.0 {application} active Betamethasone Dipropionate Aug 0.05 % eCW1 ([facility]) Betamethasone 0.0005 MG/MG Augmented Top ical Ointment Betamethasone Dipropionate Aug 0.05 % Betamethasone Dipropionate Feb 0.05 % 01/16/2020 12:00:00 AM EDT 1.0 {application} active Betamethasone Dipropionate Aug 0.05 % eCW1 ([facility]) Betamethasone 0.0005 MG/MG Augmented Top ical Ointment Betamethasone Dipropionate Aug 0.05 % Betamethasone Dipropionate Feb 0.05 % 01/16/2020 12:00:00 AM EDT 1.0 {application} active Betamethasone Dipropionate Aug 0.05 % eCW1 ([facility]) Betamethasone 0.0005 MG/MG Augmented Top ical Ointment Betamethasone Dipropionate Aug 0.05 % Betamethasone Dipropionate Aug 0.05 % 01/16/2020 12:00:00 AM EDT 1.0 {application} active Betamethasone Dipropionate Aug 0.05 % eCW1 ([facility]) Betamethasone 0.0005 MG/MG Augmented Top ical Ointment Betamethasone Dipropionate Aug 0.05 % Betamethasone Dipropionate Aug 0.05 % 01/16/2020 12:00:00 AM EDT 1.0 {application} active Betamethasone Dipropionate Aug 0.05 % eCW1 ([facility]) 5-325 mg 08/16/2019 12:00:00 AM EST tablet 180 TAKE ONE TABLET BY MOUTH EVERY 4 TO 6 HOURS NEEDED FOR PAIN MAXIMUM DAILY DOSE = 12 TAKE ONE TABLET BY MOUTH EVERY 4 TO 6 HOURS NEEDED FOR PAIN MAXIMUM DAILY DOSE = 12 SOLD: 08/16/2019 [facility] 20 mg 08/12/2019 12:00:00 AM EST tablet 90 TAKE ONE TABLET BY MOUTH EVERY EVENING TAKE ONE TABLET BY MOUTH EVERY EVENING SOLD: 08/13/2019 [facility] 125 mcg 08/10/2019 12:00:00 AM EST tablet 90 TAKE ONE TABLET BY MOUTH EVERY MORNING ON EMPTY STOMACH TAKE ONE TABLET BY MOUTH EVERY MORNING O N EMPTY STOMACH SOLD: 08/13/2019 [facility] 5-325 mg 08/05/2019 12:00:00 AM EST tablet 30 TAKE ONE TABLET BY MOUTH EVERY 8 HOURS NEEDED FOR PAIN MAXIMUM DAILY DOSE = 8 TAKE ONE TABLET BY MOUTH EVERY 8 HOURS NEEDED FOR PAIN MAXIMUM DAILY DOSE = 8 SOLD: 08/05/2019 [facility] Acetaminophen 325 MG / Oxycodone Hydroch loride 5 MG Oral Tablet [Percocet] Percocet 5-325 MG Percocet 5-325 MG 07/29/2019 12:00:00 AM EST active 1 tablet as needed eCW1 ([facility]) Acetaminophen 325 MG / Oxycodone Hydroch loride 5 MG Oral Tablet [Percocet] Percocet 5-325 MG Percocet 5-325 MG 07/29/2019 12:00:00 AM EST active 1 tablet as needed eCW1 ([facility]) 5-325 mg 07/29/2019 12:00:00 AM EST tablet 20 TAKE ONE TABLET BY MOUTH EVERY 6 HOURS NEEDED, MAXIMUM DAILY DOSE = 4 TABLETS TAKE ONE TABLET BY MOUTH EVERY 6 HOURS NEEDED, MAXIMUM DAILY DOSE = 4 TABLETS SOLD: 07/29/2019 [email or web address] Acetaminophen 325 MG / Oxycodone Hydroch loride 5 MG Oral Tablet [Percocet] Percocet 5-325 MG Percocet 5-325 MG 07/29/2019 12:00:00 AM EST 1 .0 {tablet_as_needed} suspended Percocet 5- 325 MG eCW1 ([facility]) Acetaminophen 325 MG / Oxycodone Hydroch loride 5 MG Oral Tablet [Percocet] Percocet 5-325 MG Percocet 5-325 MG 07/29/2019 12:00:00 AM EST suspended 1 tablet as needed eCW1 ([facility]) 300 mg 07/20/2019 12:00:00 AM EST capsule 120 TAKE TWO CAPSULES BY MOUTH TWICE A DAY TAKE TWO CAPSULES BY MOUTH TWICE A DAY SOLD: 07/21/2019 [facility] Escitalopram 20 MG Oral Tablet ESCITALOPRAM OXALATE 05/13/2019 1 2:00:00 AM EDT tablet 90 TAKE ONE TABLET BY MOUTH EVERY D AY TAKE ONE TABLET BY MOUTH EVERY DAY SOLD: 08/13/2019 [facility] Insurance Providers Payer name Policy type / Coverage type Policy ID Covered green party ID Covered green party's relationship to [place] Policy [place] Plan Information MEDICARE COMPLETE [id number] SP [id number] MEDICARE [id number] SP [id number] MEDICARE COMPLETE [id number] SP [id number] MEDICARE COMPLETE-[facility] O [id number] S [id number] UNHC MEDICARE COMPLETE - O/P [id number] 18 [id number] MEDICARE COMPLETE [id number] SP [id number] MEDICARE COMPLETE [id number] SP [id number] MEDICARE COMPLETE [id number] SP [id number] MEDICARE COMPLETE [id number] SP [id number] ANS-Medicare Part B [id number] ANSI-Medicare Part B [id number] ANS-Medicare Part B [id number] ANS-Medicare Part B [id number] ANSMedicare Part B [id number] ANSI-Medicare Part B [id number] ANSI-Medicare Part B [id number] ANSI-Medicare Part B [id number] MEDICARE COMPLETE [id number] SP [id number] [facility]-Medicare Part B [id number] Problems, Conditions, and Diagnoses Code Display Name Description Problem Type Effective Dates Data Source(s) G89.29 [id number] Other chronic pain Problem 08/12/2020 12:00: 00 AM EST eCW1 ([facility]) C34.91 [id number] 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 Problem 07/03/2020 12:00:00 AM EST eCW1 ([facility]) Z79.52 [id number] On prednisone therapy Problem 04/30/2020 12: 00:00 AM EDT eCW1 ([facility]) E78.00 [id number] Pure hypercholesterolemia Problem 04/30/2020 12:00:00 AM EDT eCW1 ([facility]) D75.89 [id number] Macrocytosis Problem 08/28/2019 12:00:00 AM EST eCW1 ([facility]) D75.89 [id number] Macrocytosis Problem 08/28/2019 12:00:00 AM EST eCW1 ([facility]) C34.91 [id number] Adenocarcinoma of right lung Problem 08/27/2019 12:00:00 AM EST eCW1 ([facility]) C34.91 [id number] Adenocarcinoma of right lung Problem 08/27/2019 12:00:00 AM EST eCW1 ([facility]) H2512 Age-related nuclear cataract, left eye A ge-related nuclear cataract, left eye Diagnosis 06/17/2020 07:30:00 AM EST [facility] H2511 Age-related nuclear cataract, right eye Age-related nuclear cataract, right eye Diagnosis 05/13/2020 08:30:00 AM EDT [facility] Surgeries/Procedures Procedure Description Date Indications Data Source(s) Immunization: Flublok Quadrivalent (18 years & older) 0.5mL IM (Influenza) 04/30/2020 12:00:00 AM EDT eCW1 ([facility]) PSYTX W PT 45 MINUTES 12/06/2019 12:00:00 AM EDT eCW1 ([facility]) ARTHROCENTESIS ASPIR&/INJECTION MAJOR JT/BURSA 020 12:00:00 AM EDT [facility] ([facility]) ARTHROCENTESIS ASPIR&/INJECTION MAJOR JT/BURSA 020 12:00:00 AM EDT [facility] ([facility]) Office Visit, Est Pt., Level 4 PC 11/01/2019 12:00:00 AM EDT eCW1 ([facility]) Office Visit, Est Pt., Level 2 FC 08/27/2019 12:00:00 AM EST eCW1 ([facility]) Office Visit, Est Pt., Level 3 PC 08/27/2019 12:00:00 AM EST eCW1 ([facility]) Results ID Date Data Source [id number] 07/29/2020 12:00:00 PM EST [facility] Name Value Range Interpretation Code Description Data Kyra rce(s) Supporting Document(s) SARS-CoV-2 (COVID 19) [facility] This lab was ordered by [facility] a nd reported by [facility]. ID Date Data Source [id number] 06/17/2020 10:20:00 [place] [address] OPERATIVE SUMMARYNAME: LUIS WATKINS DATE OF : 1955TTENDING PHYS: Marlin Serna MD DATE: 06/17/20 MR#: [id number] OF PROCEDURE: 06/17/2020PREOPERATIVE DIAGNOSIS: Age-related nuclear cataract, left eye.POSTOPERATIVE DIAGNOSIS: Age-related nuclear cataract, left eye.PROCEDURE PERFORMED: Phacoemulsification of posterior chamber with intraocular lensimplantation left eye.ANESTHESIA: Topical sedation.LENS USED: AUOOTO 20.5 diopters.DETAILS OF PROCEDURE: The eye was prepped and draped in the usual fashion. Lidspeculum was placed in the lid. A stab incision was made to the anterior chamber with asuperblade. 1% non-preserved lidocaine was instilled and viscoelastic instilled. The eye wasrefixated, and a 2.4 mm Keratome made a clear corneal and temporal limbal incision. The lens wasthen hydrodissected, and then it was grooved in two meridians at the phacoemulsification. The lenswas scrapped into four quadrants. Each quadrant was in good phacoemulsification. The remainingcortex was removed with I&A unit. The capsular bag was refilled with viscoelastic and theposterior chamber and intraocular lens were inserted into the capsular bag with no difficulty. Anyremaining viscoelastic was removed with the I&A, and the wound was hydrated and balanced saltand ceftriaxone were instilled. The patient tolerated the procedure well, and went to the recoveryroom in stable condition.DD: Marlin Serna MD 06/17/20 09:55DT: BEHZAD 06/17/20 10:20DS: Marlin Serna MD 06/23/20 15:33 1 Name Value Range Interpretation Code Description Data Kyra rce(s) Supporting Document(s) ID Date Data Source [id number] 06/15/2020 09:11:00 AM EST [facility] Name Value Range Interpretation Code Description Data Kyra rce(s) Supporting Document(s) SARS-CoV-2 (COVID-19) [facility] This lab was ordered by [facility] and reported by [employer] [facility]. ID Date Data Source [id number] 05/13/2020 12:06:00 [place] [address] OPERATIVE SUMMARYNAME: LUIS WATKINS DATE OF : 1955TTENDING PHYS: Marlin Serna MD DATE: 05/13/20 MR#: [id number] OF PROCEDURE: 05/13/2020PREOPERATIVE DIAGNOSIS: Age-related nuclear cataract, right eye.POSTOPERATIVE DIAGNOSIS: Age-related nuclear cataract, right eye.PROCEDURE PERFORMED: Phacoemulsification of posterior chamber with intraocular lensimplantation right eye.ANESTHESIA: Topical sedation.LENS USED: AUOOTO 19.5 diopters.DETAILS OF PROCEDURE: The eye was prepped and draped in the usual fashion. Lidspeculum was placed in the lid. A stab incision was made to the anterior chamber with asuperblade. 1% non-preserved lidocaine was instilled and viscoelastic instilled. The eye wasrefixated, and a 2.4 mm Keratome made a clear corneal and temporal limbal incision. The lens wasthen hydrodissected, and then it was grooved in two meridians at the phacoemulsification. The lenswas scrapped into four quadrants. Each quadrant was in good phacoemulsification. The remainingcortex was removed with I&A unit. The capsular bag was refilled with viscoelastic and theposterior chamber and intraocular lens were inserted into the capsular bag with no difficulty. Anyremaining viscoelastic was removed with the I&A, and the wound was hydrated and balanced saltand ceftriaxone were instilled. The patient tolerated the procedure well, and went to the recoveryroom in stable condition.DD: aMrlin Serna MD 05/13/20 12:01DT: BEHZAD 05/13/20 12:06DS: Marlin Serna MD 06/02/20 13:08 1 Name Value Range Interpretation Code Description Data Kyra rce(s) Supporting Document(s) ID Date Data Source [id number] 05/08/2020 07:50:00 AM EDT [facility] Name Value Range Interpretation Code Description Data Kyra rce(s) Supporting Document(s) SARS-CoV-2 (COVID19) [facility] This lab was ordered by [facility] and reported by [facility]. ID Date Data Source [id number] 11/01/2019 04:30:00 PM EDT [facility] ([facility] Name Value Range Interpretation Code Description Data Kyra rce(s) Supporting Document(s) Source, Body Fluid Mucin Clot Laboratory test result [facility] ([facility]) Mucin Clot Test Laboratory test result [facility] ([facility]) ID Date Data Source [id number] 11/01/2019 04:30:00 PM EDT [facility] ([facility]) Name Value Range Interpretation Code Description Data Kyra rce(s) Supporting Document(s) Body Fluid Rheumatoid Screen Laboratory test result [facility] ([facility]) Source, Body Fluid Ra Laboratory test result [facility] ([facility]) ID Date Data Source [id number] 11/01/2019 04:30:00 PM EDT [facility] ([facility]) Name Value Range Interpretation Code Description Data Kyra rce(s) Supporting Document(s) Uric Acid, Body Fluid 5.5 mg/dL [facility] ( [facility]) Source, Body Fluid Uric Acid Laboratory test result [facility] ([facility]) ID Date Data Source [id number] 11/01/2019 04:30:00 PM EDT MEDENT ([facility]) Name Value Range Interpretation Code Description Data Kyra rce(s) Supporting Document(s) Glucose, Body Fluid 5 mg/dL MEDENT (No [facility]) Source, Body Fluid Glucose Laboratory test result MEDENT ([facility]) ID Date Data Source [id number] 11/01/2019 04:30:00 PM EDT MEDENT ([facility]) Name Value Range Interpretation Code Description Data Kyra rce(s) Supporting Document(s) Source, Body Fluid Crystals Laboratory test result MEDENT ([facility]) Crystals, Body Fluid Laboratory test result MEDENT ([facility]) CA PYROPHOSPHATE ID Date Data Source [id number] 11/01/2019 04:30:00 PM EDT MEDENT ([facility]) Name Value Range Interpretation Code Description Data Kyra rce(s) Supporting Document(s) Source, Body Fluid Laboratory test result MEDENT ([facility]) Appearance, Body Fluid Laboratory test result MEDENT ([facility]) Synovial Fluid Color Laboratory test result MED[facility] ([facility] RBC Body Fluid 2 10 MEDENT ([facility]) WBC Body Fluid 7415 /uL 0-10 MED[facility] ([facility]) BF Mononuclear Cell % 84.2 % 0-0 MEDENT ( [facility]) BF Polymorphonuclear Cell % 15.8 % 0-0 MEDENT ([facility]) ID Date Data Source [id number] 11/01/2019 04:30:00 PM EDT MEDENT ([facility]) Name Value Range Interpretation Code Description Data Kyra rce(s) Supporting Document(s) Gram Stain Laboratory test result MEDENT ([facility]) MANY WBCS NO ORGANISMS SEEN Body Fluid Culture Laboratory test result MEDENT ([facility]) If aerobic or anaerobic growth is detected within the next 7-21 days, an addendum will follow. . . FULL REPORT IN LAB NOTES (eCW and Medent). NO GROWTH AEROBICALLY ID Date Data Source CYCLIC CITRULLINATED PEPTIDE 11/01/2019 12:00:00 AM EDT eCW1 ([facility]) Name Value Range Interpretation Code Description Data Kyra rce(s) Supporting Document(s) 8 0-19 CYCLIC CITRULLINATED PEPTIDE e CW1 ([facility]) ID Date Data Source AMARJIT TITER & PATTERN 11/01/2019 12:00:00 AM EDT eCW1 ([facility]) Name Value Range Interpretation Code Description Data Kyra rce(s) Supporting Document(s) Negative . AMARJIT (HEP2) eCW1 (Replaced by [facility]) ID Date Data Source ERYTHROCYTE SEDIMENTATION RATE 11/01/2019 12:00:00 AM EDT eC W1 ([facility]) Name Value Range Interpretation Code Description Data Kyra rce(s) Supporting Document(s) 59 0-20 ERYTHROCYTE SEDIMENTATION RATE eCW1 ([facility]) ID Date Data Source C REACTIVE PROTEIN QUANTITATIV (At [facility]) 11/01/2019 12:00 :00 AM EDT eCW1 ([facility]) Name Value Range Interpretation Code Description Data Kyra rce(s) Supporting Document(s) 0.88 0.00-0.30 C REACTIVE PROTEIN QUANTI TATIV eCW1 ([facility]) ID Date Data Source Comprehensive Metabolic Profile (CMP) 11/01/2019 12:00:00 AM EDT eCW1 ([facility]) Name Value Range Interpretation Code Description Data Kyra rce(s) Supporting Document(s) 80 70-100 GLUCOSE, FASTING eCW1 ([facility]) 1.37 0.70-1.30 CREATININE FOR GFR eCW1 ([facility]) 55.3 >49 GLOMERULAR FILTRATION RATE eCW 1 ([facility]) 21 7-18 BLOOD UREA NITROGEN eCW1 ([facility]) 4.9 3.5-5.1 POTASSIUM SERUM eCW1 ([facility]) 107 98-107 CHLORIDE LEVEL eCW1 ([facility]) 29 21-32 CARBON DIOXIDE LEVEL eCW1 ([facility]) 138 136-145 SODIUM LEVEL eCW1 ([facility]) 14 7-37 AST/SGOT eCW1 ([facility]) 9.3 8.8-10.2 CALCIUM LEVEL eCW1 ([facility]) 21 12-78 ALT/SGPT eCW1 ([facility]) 91 45-117 ALKALINE PHOSPHATASE eCW1 ([facility]) 4.0 3.2-5.2 ALBUMIN eCW1 ([facility]) 1.14 1.00-1.93 ALBUMIN/GLOBULIN RATIO eCW1 ([facility]) 0.6 0.2-1.0 BILIRUBIN,TOTAL eCW1 ([facility]) 7.5 6.4-8.2 TOTAL PROTEIN eCW1 ([facility]) ID Date Data Source URIC ACID 11/01/2019 12:00:00 AM EDT eCW1 ([facility]) Name Value Range Interpretation Code Description Data Kyra rce(s) Supporting Document(s) 4.9 3.5-7.2 URIC ACID eCW1 ([facility]) ID Date Data Source RHEUMATOID FACTOR QUANT 11/01/2019 12:00:00 AM EDT eCW1 ([facility]) Name Value Range Interpretation Code Description Data Kyra rce(s) Supporting Document(s) < 10.0 <15.0 RHEUMATOID FACTOR QUANT eCW1 ( [facility]) ID Date Data Source CBC with Differential 11/01/2019 12:00:00 AM EDT eCW1 ([facility]) Name Value Range Interpretation Code Description Data Kyra rce(s) Supporting Document(s) 7.9 4.0-10.0 WHITE BLOOD COUNT eCW1 ([facility]) 40.8 42.0-52.0 HEMATOCRIT eCW1 (Replaced by [facility]) 4.09 4.30-6.10 RED BLOOD COUNT eCW1 ([facility]) 13.6 13.5-17.5 HEMOGLOBIN eCW1 (Replaced by [facility]) 99.8 80.0-96.0 MEAN CORPUSCULAR VOLUME e CW1 ([facility]) 33.3 32.0-36.5 MEAN CORPUSCULAR HGB CONC eCW1 ([facility]) 14.4 11.5-14.5 RED CELL DISTRIBUTION WID TH eCW1 ([facility]) 33.3 27.0-33.0 MEAN CORPUSCULAR HEMOGLOB IN eCW1 ([facility]) 62.6 36.0-66.0 NEUTROPHILS % eCW1 ([facility]) 323 150-450 PLATELET COUNT, AUTOMATED eCW1 ([facility]) 12.2 24.0-44.0 LYMPH % eCW1 ([facility]) 4.9 1.5-8.5 NEUTROPHILS # eCW1 ([facility]) 0.8 0.0-1.0 BASO % eCW1 ([facility]) 9.6 0.0-3.0 EOS % eCW1 ([facility]) 14.4 0.0-5.0 MONO % eCW1 ([facility]) 1.1 0.0-0.8 MONO # eCW1 ([facility]) 0.8 0.0-0.5 EOS # eCW1 ([facility]) 1.0 1.5-5.0 LYMPH # eCW1 ([facility]) 0.1 0.0-0.2 BASO # eCW1 ([facility]) Procedure Social History Code Duration Value Status Description Data Source(s ) Smoking 09/01/2020 12:00:00 AM EST Former Smoker completed Former Smoker eCW1 ([facility]) Smoking 09/01/2020 12:00:00 AM EST Former Smoker completed Former Smoker eCW1 ([facility]) Smoking 09/01/2020 12:00:00 AM EST Former Smoker completed Former Smoker eCW1 ([facility]) Smoking 08/31/2020 12:00:00 AM EST Former Smoker completed Former Smoker eCW1 ([facility]) Smoking 08/12/2020 12:00:00 AM EST Former Smoker completed Former Smoker eCW1 ([facility]) Smoking 08/12/2020 12:00:00 AM EST Former Smoker completed Former Smoker eCW1 ([facility]) Smoking 08/12/2020 12:00:00 AM EST Former Smoker completed Former Smoker eCW1 ([facility]) Smoking 07/03/2020 12:00:00 AM EST Former Smoker completed Former Smoker eCW1 ([facility]) Smoking 07/03/2020 12:00:00 AM EST Former Smoker completed Former Smoker eCW1 ([facility]) Smoking 07/03/2020 12:00:00 AM EST Former Smoker completed Former Smoker eCW1 ([facility]) Smoking 07/03/2020 12:00:00 AM EST Former Smoker completed Former Smoker eCW1 ([facility]) Smoking 07/03/2020 12:00:00 AM EST Former Smoker completed Former Smoker eCW1 ([facility]) Smoking 07/03/2020 12:00:00 AM EST Former Smoker completed Former Smoker eCW1 ([facility]) Smoking 07/03/2020 12:00:00 AM EST Former Smoker completed Former Smoker eCW1 ([facility]) Smoking 06/12/2020 12:00:00 AM EST Former Smoker completed Former Smoker eCW1 ([facility]) Smoking 06/12/2020 12:00:00 AM EST Former Smoker completed Former Smoker eCW1 ([facility]) Smoking 04/30/2020 12:00:00 AM EDT Former Smoker completed Former Smoker eCW1 ([facility]) Smoking 04/30/2020 12:00:00 AM EDT Former Smoker completed Former Smoker eCW1 ([facility]) Smoking 01/16/2020 12:00:00 AM EDT Former Smoker completed Former Smoker eCW1 ([facility]) Smoking 01/16/2020 12:00:00 AM EDT Former Smoker completed Former Smoker eCW1 ([facility]) Smoking 01/16/2020 12:00:00 AM EDT Former Smoker completed Former Smoker eCW1 ([facility]) Smoking 11/01/2019 12:00:00 AM EDT Former Smoker completed Former Smoker eCW1 ([facility]) Vital Signs ID Date Data Source UNK Name Value Range Interpretation Code Description Data Source(s) Diastolic blood pressure 75 mm[Hg] 75 mm[Hg] eCW1 ([facility]) Systolic blood pressure 139 mm[Hg] 139 mm[Hg] e CW1 ([facility]) Body temperature 96.7 [degF] 96.7 [degF] eCW1 ( [facility]) Respiratory rate 18 /min 18 /min eCW1 ([facility]) Heart rate 63 /min 63 /min eCW1 ([facility]) Body mass index (BMI) [Ratio] 29.04 kg/m2 29.04 kg/m2 eCW1 ([facility]) Body height [in_i] eCW1 ([facility]) Body weight 191 [lb_av] 191 [lb_av] eCW1 ([facility]) Diastolic blood pressure 80 mm[Hg] 80 mm[Hg] eCW1 ([facility]) Systolic blood pressure 120 mm[Hg] 120 mm[Hg] e CW1 ([facility]) Body temperature 98.7 [degF] 98.7 [degF] eCW1 ( [facility]) Respiratory rate 18 /min 18 /min eCW1 ([facility]) Heart rate 89 /min 89 /min eCW1 ([facility]) Body mass index (BMI) [Ratio] 28.95 kg/m2 28.95 kg/m2 eCW1 ([facility]) Body height [in_i] eCW1 ([facility]) Body weight 190.4 [lb_av] 190.4 [lb_av] eCW1 ([facility]) Diastolic blood pressure 80 mm[Hg] 80 mm[Hg] eCW1 ([facility]) Systolic blood pressure 120 mm[Hg] 120 mm[Hg] e CW1 ([facility]) Body temperature 97.9 [degF] 97.9 [degF] eCW1 ( [facility]) Respiratory rate 18 /min 18 /min eCW1 ([facility]) Heart rate 90 /min 90 /min eCW1 ([facility]) Body mass index (BMI) [Ratio] 30.04 kg/m2 30.04 kg/m2 W1 ([facility]) Body height [in_i] eCW1 ([facility]) Body weight 197.6 [lb_av] 197.6 [lb_av] eCW1 ([facility]) Diastolic blood pressure 78 mm[Hg] 78 mm[Hg] eCW1 ([facility]) Systolic blood pressure 128 mm[Hg] 128 mm[Hg] e CW1 ([facility]) Body mass index (BMI) [Ratio] 29.43 kg/m2 29.43 kg/m2 W1 ([facility]) Body height [in_i] eCW1 ([facility]) Body weight 193.6 [lb_av] 193.6 [lb_av] eCW1 ([facility]) Diastolic blood pressure 80 mm[Hg] 80 mm[Hg] eCW1 ([facility]) Systolic blood pressure 120 mm[Hg] 120 mm[Hg] e CW1 ([facility]) Body temperature 97.3 [degF] 97.3 [degF] eCW1 ( [facility]) Respiratory rate 18 /min 18 /min eCW1 ([facility]) Heart rate 86 /min 86 /min eCW1 ([facility]) Body mass index (BMI) [Ratio] 30.25 kg/m2 30.25 kg/m2 eCW1 ([facility]) Body height [in_i] eCW1 ([facility]) Body weight 199 [lb_av] 199 [lb_av] eCW1 ([facility]) Diastolic blood pressure 74 mm[Hg] 74 mm[Hg] eCW1 ([facility]) Systolic blood pressure 126 mm[Hg] 126 mm[Hg] e CW1 ([facility]) Body temperature 98.6 [degF] 98.6 [degF] eCW1 ( [facility]) Respiratory rate 18 /min 18 /min eCW1 ([facility]) Heart rate 75 /min 75 /min eCW1 ([facility]) Body mass index (BMI) [Ratio] 28.76 kg/m2 28.76 kg/m2 W1 ([facility]) Body height [in_i] eCW1 ([facility]) Body weight 189.2 [lb_av] 189.2 [lb_av] eCW1 ([facility]) Body weight 78.473 kg 78.473 kg MEDENT ([facility], ) Body mass index (BMI) [Ratio] 26.3 kg/m2 26.3 k g/m2 MEDENT ([facility] ) Body weight 173.00 [lb_av] 173.00 [lb_av] MEDEN T ([facility], ) Body height 68 [in_i] 68 [in_i] MEDENT ([facility], ) 5'8" Diastolic blood pressure 74 mm[Hg] 74 mm[Hg] MEDENT ([facility], ) Systolic blood pressure 138 mm[Hg] 138 mm[Hg] M EDENT ([facility], ) Diastolic blood pressure 68 mm[Hg] 68 mm[Hg] eCW1 ([facility]) Systolic blood pressure 110 mm[Hg] 110 mm[Hg] e CW1 ([facility]) Body temperature 97.4 [degF] 97.4 [degF] eCW1 ( [facility]) Respiratory rate 18 /min 18 /min eCW1 ([facility]) Heart rate 87 /min 87 /min eCW1 ([facility]) Body mass index (BMI) [Ratio] 25.91 kg/m2 25.91 kg/m2 eCW1 ([facility]) Body height [in_us] eCW1 ([facility]) Body weight Measured 170.4 [lb_av] 170.4 [lb_av ] eCW1 ([facility]) Diastolic blood pressure 70 mm[Hg] 70 mm[Hg] eCW1 ([facility]) Systolic blood pressure 120 mm[Hg] 120 mm[Hg] e CW1 ([facility]) Body temperature 96.9 [degF] 96.9 [degF] eCW1 ( [facility]) Respiratory rate 18 /min 18 /min eCW1 ([facility]) Heart rate 97 /min 97 /min eCW1 ([facility]) Body mass index (BMI) [Ratio] 27.00 kg/m2 27.00 kg/m2 W1 ([facility]) Body height [in_us] eCW1 ([facility]) Body weight Measured 177.6 [lb_av] 177.6 [lb_av ] eCW1 ([facility]) ID Date Data Source [id number] 06/23/2020 03:34:01 PM [facility] Name Value Range Interpretation Code Description Data Source(s) WEIGHT RECORDED 188.00 pounds 188.00 pounds [facility] Height 68 Inches 068 Inches [facility] ID Date Data Source [id number] 06/17/2020 08:01:47 AM EST [facility] Name Value Range Interpretation Code Description Data Source(s) WEIGHT RECORDED 188.00 pounds 188.00 pounds [facility] Height 68 Inches 068 Inches [facility] Patient Treatment Plan of Care Planned Activity Planned Date Details Description Data Source (s) Docusate Sodium 100 MG Oral Capsule [Colace] 09/01/2020 12:00:00 AM EST eCW1 ([facility]) Acetaminophen 325 MG / Oxycodone Hydrochloride 10 MG O ral Tablet [Percocet] 09/01/2020 12:00:00 AM EST eCW1 ([facility]) Docusate Sodium 100 MG Oral Capsule [Colace] 09/01/2020 12:00:00 AM EST eCW1 ([facility]) Acetaminophen 325 MG / Oxycodone Hydrochloride 10 MG O ral Tablet [Percocet] 09/01/2020 12:00:00 AM EST eCW1 ([facility]) Docusate Sodium 100 MG Oral Capsule [Colace] 09/01/2020 12:00:00 AM EST eCW1 ([facility]) Acetaminophen 325 MG / Oxycodone Hydrochloride 10 MG O ral Tablet [Percocet] 09/01/2020 12:00:00 AM EST eCW1 ([facility]) Acetaminophen 325 MG / Oxycodone Hydrochloride 5 MG Or al Tablet 08/04/2020 12:00:00 AM EST eCW1 ([facility]) Acetaminophen 325 MG / Oxycodone Hydrochloride 5 MG Or al Tablet 08/04/2020 12:00:00 AM EST eCW1 ([facility]) gabapentin 300 MG Oral Capsule 07/03/2020 12:00:00 AM EST eCW1 ([facility]) gabapentin 300 MG Oral Capsule 07/03/2020 12:00:00 AM EST eCW1 ([facility]) Acetaminophen 325 MG / Oxycodone Hydrochloride 5 MG Or al Tablet 07/03/2020 12:00:00 AM EST eCW1 ([facility]) gabapentin 300 MG Oral Capsule 07/03/2020 12:00:00 AM EST eCW1 ([facility]) Acetaminophen 325 MG / Oxycodone Hydrochloride 5 MG Or al Tablet 07/03/2020 12:00:00 AM EST eCW1 ([facility]) gabapentin 300 MG Oral Capsule 07/03/2020 12:00:00 AM EST eCW1 ([facility]) Acetaminophen 325 MG / Oxycodone Hydrochloride 5 MG Or al Tablet 07/03/2020 12:00:00 AM EST eCW1 ([facility]) gabapentin 300 MG Oral Capsule 07/03/2020 12:00:00 AM EST eCW1 ([facility]) Acetaminophen 325 MG / Oxycodone Hydrochloride 5 MG Or al Tablet 07/03/2020 12:00:00 AM EST eCW1 ([facility]) gabapentin 300 MG Oral Capsule 07/03/2020 12:00:00 AM EST eCW1 ([facility]) gabapentin 300 MG Oral Capsule 07/03/2020 12:00:00 AM EST eCW1 ([facility]) gabapentin 300 MG Oral Capsule 07/03/2020 12:00:00 AM EST eCW1 ([facility]) gabapentin 300 MG Oral Capsule 07/03/2020 12:00:00 AM EST eCW1 ([facility]) Levothyroxine Sodium 0.1 MG Oral Tablet 02/10/2020 12:00:00 AM EDT eCW1 ([facility]) Levothyroxine Sodium 0.1 MG Oral Tablet 02/10/2020 12:00:00 AM EDT eCW1 ([facility]) Levothyroxine Sodium 0.1 MG Oral Tablet 02/10/2020 12:00:00 AM EDT eCW1 ([facility]) Levothyroxine Sodium 0.1 MG Oral Tablet 02/10/2020 12:00:00 AM EDT eCW1 ([facility]) Levothyroxine Sodium 0.1 MG Oral Tablet 02/10/2020 12:00:00 AM EDT eCW1 ([facility]) Betamethasone 0.0005 MG/MG Augmented Topical Ointment 01/16/2020 12:00:00 AM EDT eCW1 ([facility]) Betamethasone 0.0005 MG/MG Augmented Topical Ointment 01/16/2020 12:00:00 AM EDT eCW1 ([facility]) Betamethasone 0.0005 MG/MG Augmented Topical Ointment 01/16/2020 12:00:00 AM EDT eCW1 ([facility]) Acetaminophen 325 MG / Oxycodone Hydrochloride 5 MG Or al Tablet [Percocet] 07/29/2019 12:00:00 AM EST eCW1 ([facility])
--- OUTSIDE RECORDS SUMMARY | 2020-09-19 14:33 | CCD ---
Author Author [facility] Organization [facility] Address Unknown Phone Unavailable Care Team Providers Care Clinical Tech Name Role Phone Viviana Silverio Unavailable PROBLEMS Type Condition ICD9-CM Code [id number] Code Onset Dates Condition S tatus SNOMED Code Notes Problem Major depressive disorder in remission, unspecif ied whether recurrent F32.5 Active 94415922 Problem Malignant neoplasm of lower lobe of right lung C34 .31 Active 785799129 Problem Anemia, unspecified type D64.9 Active 5377092 00 Problem Hyperlipidemia, unspecified hyperlipidemia type E7 8.5 Active 27420162 Problem Seborrheic keratoses L82.1 Active 084736713 Problem Melanocytic nevi of face D22.30 Active 5062001 04 Problem 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 Active 070962 008 Problem Major depressive disorder, [place] episode, severe without psychotic features F32.2 Active 55251031 Problem Lentigines L81.4 Active 982991244 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 Active 2608716 Problem Melanocytic nevi of left upper limb, including shoulder D22.62 Active 206901618 Problem Xerosis cutis L85.3 Active 59314521 Problem Melanocytic nevi of trunk D22.5 Active 278790 002 Problem Melanocytic nevi of right upper limb, including shoulder D22.61 Active 681007623 Problem Actinic keratoses L57.0 Active 623225814 Problem Post herpetic neuralgia B02.29 Active 6823152 Problem H/O: lung cancer Z85.118 Active 061878116 Problem On prednisone therapy Z79.52 Active 210945258 Problem Acquired hypothyroidism E03.9 Active 59248302 2 Problem Primary malignant neoplasm of right lung metasta tic to other site C34.91 Active 96423464 Problem History of pulmonary embolism Z86.711 Active 16 6178748 Problem Psoriasis L40.9 Active 8024252 Problem Bone metastasis C79.51 Active 40032497 Problem Adenocarcinoma of right lung C34.91 Active 159 57019170486206 Problem Macrocytosis D75.89 Active 256448034 Problem Pure hypercholesterolemia E78.00 Active 952900 004 ALLERGIES Allergen (clinical drug ingredient) Drug/Non Drug Allergy do cumented on EMR Reaction Allergy Type Onset Date Status pembrolizumab Keytruda([facility] Code:[address]-63) Rash Drug Allerg y Active ENCOUNTERS from 1955 to 2020-08-04 Encounter Location Date Provider Diagnosis [facility] [address] [place] [address] Jul, Reg jessi Silverio Lumbar spine pain M54.5 IMMUNIZATIONS Vaccine Route Administration Date Status Influenza [...] Education Language: Question Answer Notes Languages spoken: Yemeni Domestic Violence: Question Answer Notes Status: Sexual [...] Information RESULTS No Results REASON FOR VISIT oxycodone MEDICAL (GENERAL) HISTORY Type Description Date Medical [...] Treatment Notes Treatm ent Clinical Notes Jul, Lumbar spine pain (ICD-10 - M54.5) PLAN OF TREATMENT Medication Medication Name Sig Start Date Stop Date Gabapentin 300 MG 1 capsule Orally twice a day for 30 day(s) Jun, Oxycodone-Acetaminophen 5-325 MG 1 tablet as needed Or ally every 6 hrs as needed for severe pain MDD = 4 for 30 days Jul, Next Appt Details Provider Name:Viviana Esperanzalillirandal, 2020-07 01:30:00 PM, [address], [address], Provider Name:Dory Ruano, 2020-07 08:00:00 AM, [address], [address] Provider Name:Kip Gonzales, 2020-08 11:00:00 AM, [address] [facility], [address], [place], [address], Insurance Providers Payer Name Payer Address Payer Phone Insured Name Patient Relati onship to Insured Coverage Start Date Coverage End Date MEDICARE COMPLETE [facility] [address] [address] [place] [id number] ROLAND MOORE self
[2020-09-19] MEDS ORDERED: PROAAER10 INH (14:37)
[2020-09-19 14:42] VITALS: BP 112/72
--- NOTE | 2020-09-19 20:53 | ECGEPIP ---
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
== END 2020-09-19 15:03 | disposition home or self-care (01) ==
LOC: EDBD 12:37 → M ED 12:37 → EDSEX 12:37 → M ED 15:03
DX: J45.909 Unspecified asthma, uncomplicated (principal); J98.01 Acute bronchospasm; R00.0 Tachycardia, unspecified; R50.9 Fever, unspecified; C34.90 Malignant neoplasm of unspecified part of unspecified bronchus or lung; C79.51 Secondary malignant neoplasm of bone; C78.7 Secondary malignant neoplasm of liver and intrahepatic bile duct; E05.01 Thyrotoxicosis with diffuse goiter with thyrotoxic crisis or storm; Z88.8 Allergy status to other drugs, medicaments and biological substances; Z79.899 Other long term (current) drug therapy

== ENCOUNTER → 2020-09-23 | Outpatient (CLI) | payer MEDICARE ==
[~2020-09-23] MED LIST changes: -FOLI400T PO; +FOLI400T13 PO; +GASTROGRAFIN SOLUTION 30ML (Q9963) As Ordered ONE; +ISOVUE-370 76% 100ML VIAL As Ordered ONE; +PROAAER10 INH
--- NOTE | 2020-09-23 20:12 | REP ---
INDICATION: LUNG CA. COMPARISON: AP chest 09/19/2020, CT angio 07/29/2020 TECHNIQUE: Bolus 100 mL Isovue 370 scanning through the chest with coronal and sagittal reconstructions provided. FINDINGS: The left lung is well inflated and without infiltrate, effusion, pleural thickening, calcified pleural plaque, pulmonary nodule or parenchymal mass. The right lung again shows some volume loss. There are surgical clips from prior lobectomy about the right hilum. Chronic pleuroparenchymal change in the deep sulcus in the right lower lung zone. Patchy infiltrates seen in the right lower lobe lung zone on the previous study are largely resolved with some minimal residual fibrotic changes. Prominent right epicardial fat pad again noted. No new nodule or mass in the right lung. Heart size not enlarged no pericardial thickening or effusion. There is some coronary artery calcifications. Thoracic aorta shows atherosclerotic calcifications at the arch but no aneurysm or dissection. There is no pathologic sized mediastinal, hilar, axillary or supraclavicular adenopathy. Bone windows show the sternum, manubrium, medial clavicles, visualized portions of scapulae, humeral heads and left ribs are unremarkable. Posterolateral right 9th rib along with posterior elements of the T5 vertebral level the T6 pedicle on the left in the T4 through T7 vertebral bodies with static scattered areas of sclerosis, all suspicious for bony metastatic disease and unchanged from previous studies. IMPRESSION: Postoperative changes from prior lobectomy in the right hemithorax with volume loss, chronic pleuroparenchymal changes but interval near complete clearing of patchy right lower lung zone infiltrates seen on the previous study of 07/29/2020. Some fibrotic change in the paramediastinal right lower lung zone persists. No new nodules or masses. Left lung remained clear. No mediastinal or hilar adenopathy. Sclerotic posterolateral right 9th rib and multiple vertebral bodies and posterior elements from T4 through T7 representing stable sclerotic metastatic bone disease. <Electronically signed by Boaz Randhawa > 09/23/202007
--- NOTE | 2020-09-23 20:27 | REP ---
INDICATION: LUNG CA. COMPARISON: 07/29/2020 TECHNIQUE: Oral Gastrografin mixture per our bowel contrast protocol as well as bolus 100 mL Isovue 370 scanning through the abdomen pelvis with both coronal and sagittal reconstructions. Delayed images through the liver than obtained. FINDINGS: CT abdomen: Chronic pleuroparenchymal unchanges in the right base after lobectomy and stable. No hiatal hernia stomach filled with retained food and some oral contrast the liver again shows multiple low-density lesions a peripherally in the right and left lobes. I believe there are more in number although size is not increased these are best seen when viewed with a narrow liver windows on the equilibrium phase. There is no hepatosplenomegaly, focal splenic lesion or adjacent ascites. Elevation of the diaphragm with volume loss from the prior lobectomy again noted. Gallbladder without calcified stone or mass. Adrenal glands are normal. Kidneys show lobation. They show symmetric function without mass, cyst or hydronephrosis. No perinephric edema. There is a tiny nonobstructing calculus in the lower pole calyx on the left, unchanged. Ureters show normal course to the bladder without dilatation or stone. Small bowel loops in the upper abdomen are unremarkable. Stool and gas in the abdominal portion of the colon with some scattered diverticula in the left colon without signs of diverticulitis. Lung window review of all CT slices shows no perforation or free air in the abdomen or pelvis. Bone windows show lumbar lower thoracic spine with some degenerative changes but no destructive lesion. Posterolateral right 9th rib again shows a sclerotic expansile lesion stable. CT pelvis: Bony sacrum was without acute finding the SI joints show sclerosis on the iliac margins suggesting some sacroiliitis. There are degenerative changes and subchondral cysts in both hips and joint space narrowing with rim osteophytes in the acetabular roof and femoral heads. No sclerotic destructive lesion.9 the distal left colon and sigmoid show diffuse diverticulosis and muscular hypertrophy without diverticulitis or colitis no ascites in the abdomen or pelvis no free air in the pelvis small bowel loops contrast filled without dilatation. No inflammatory changes about the cecum appendix seen and normal. No ventral or inguinal hernia nor pathologic sized inguinal adenopathy No pelvic lymphadenopathy. Bladder without mass or wall thickening. There is a urachal remnant without a mass. No abnormal calcifications in the bladder and distal ureters. Pelvic phleboliths are present IMPRESSION: Multiple small liver nodules scattered in both lobes which have increased somewhat in number but not size since the previous study on 07/29/2020. No hepatomegaly, splenomegaly, ascites or other acute finding in the upper abdomen. Nonobstructing small calculus lower pole left kidney unchanged. Diverticulosis left colon and sigmoid without diverticulitis. <Electronically signed by Boaz Randhawa > 09/23/202022
== END ==
LOC: M RAD 15:00
PROVIDERS: ATTEND Internal Medicine Medical Oncology
DX: C34.91 Malignant neoplasm of unspecified part of right bronchus or lung (principal); N20.0 Calculus of kidney; K57.30 Diverticulosis of large intestine without perforation or abscess without bleeding
CPT/HCPCS: 71260; 74177; G0463; Q9963; Q9967

== ENCOUNTER 2020-09-25 07:51 | Outpatient (RCR) | payer MEDICARE ==
[~2020-09-25 07:51] MED LIST changes: -GASTROGRAFIN SOLUTION 30ML (Q9963) As Ordered ONE; -ISOVUE-370 76% 100ML VIAL As Ordered ONE
== END 2020-09-27 ==
LOC: M ONCR 07:51
PROVIDERS: ATTEND General Practice
DX: C79.51 Secondary malignant neoplasm of bone (principal)

== ENCOUNTER 2020-10-02 07:54 | Outpatient (RCR) | payer MEDICARE ==
[2020-10-05] MEDS ORDERED: PRED5TA PO (11:52)
[2020-10-26] MEDS ORDERED: PRED5TA PO (10:11)
== END 2020-10-28 ==
LOC: M ONCR 07:54
PROVIDERS: ATTEND General Practice
DX: C79.51 Secondary malignant neoplasm of bone (principal); C34.91 Malignant neoplasm of unspecified part of right bronchus or lung

== ENCOUNTER 2020-10-05 10:22 | Emergency (ER) | payer MEDICARE ==
[~2020-10-05] VITALS: Ht 172.7 cm; Wt 80.0 kg
[2020-10-05] MEDS ORDERED: NS 1,000 ML IV SCH (10:37)
[2020-10-05] MEDS ORDERED: ONDANSETRON 4MG/2ML VIAL IV ONE (10:45)
[2020-10-05 11:09] LABS: BASO # 0.1 10^3/uL (0.0-0.2); BASO % 0.7 % (0.0-1.0); EOS # 0.1 10^3/uL (0.0-0.5); EOS % 0.5 % (0.0-3.0); HEMATOCRIT 34.2 % (42.0-52.0); HEMOGLOBIN 11.1 g/dl (13.5-17.5); LYMPH # 0.4 10^3/uL (1.5-5.0); LYMPH % 3.4 % (24.0-44.0); MEAN CORPUSCULAR HEMOGLOBIN 34.8 pg (27.0-33.0); MEAN CORPUSCULAR HGB CONC 32.5 g/dl (32.0-36.5); MEAN CORPUSCULAR VOLUME 107.2 fl (80.0-96.0); MONO # 1.1 10^3/uL (0.0-0.8); MONO % 9.3 % (2.0-8.0); NEUTROPHILS % 81.6 % (36.0-66.0); PLATELET COUNT, AUTOMATED 164 10^3/uL (150-450); RED BLOOD COUNT 3.19 10^6/uL (4.30-6.10); WHITE BLOOD COUNT 12.2 10^3/uL (4.0-10.0)
[2020-10-05] MEDS: MORPHINE 2 MG/ML 1ML VIAL (J2270) IV PRN ×2 (11:11→11:48)
[2020-10-05 11:19] LABS: INR 1.01; PROTHROMBIN TIME 13.5 SECONDS (12.5-14.3)
[2020-10-05 11:40] LABS: ALBUMIN 3.6 GM/DL (3.2-5.2); ALT/SGPT 26 U/L (12-78); BILIRUBIN,DIRECT 0.1 MG/DL (0.0-0.2); BILIRUBIN,TOTAL 0.3 MG/DL (0.2-1.0); CK-MB VALUE MASS < 1.0 NG/ML (<3.6); CPK CREATINE PHOSPHOKINASE 49 U/L (39-308); LIPASE 42 U/L (73-393); MB/CK RELATIVE INDEX 2.04 (< OR =4); TOTAL PROTEIN 7.2 GM/DL (6.4-8.2); TROPONIN I < 0.02 NG/ML (< 0.10)
--- NOTE | 2020-10-05 11:48 | REP ---
INDICATION: sob COMPARISON: 09/19/2020 TECHNIQUE: Portable AP view of the chest FINDINGS: Elevation to the right hemidiaphragm and chronic right basilar changes along with chronic changes to the lateral right lower ribs and surgical clips in the right mediastinum remain stable. Bilateral aerated lung barone are clear. No acute consolidation. Visualized cardiac silhouette is normal. IMPRESSION: Chronic stable changes related to prior right sided surgery. No new acute process appreciated by radiographic evaluation. <Electronically signed by Naveen Maldonado > 10/05/20 [id number]
[2020-10-05] MEDS ORDERED: PRED5TA PO (11:52)
[2020-10-05] MEDS ORDERED: ISOVUE-370 76% 100ML VIAL As Ordered ONE (11:54)
--- NOTE | 2020-10-05 12:22 | REP ---
INDICATION: CP/SOB/cancer h/o PE COMPARISON: 09/23/2020 TECHNIQUE: Axial contrast enhanced images from the thoracic inlet to the upper abdomen using pulmonary embolus technique with multiplanar re-formations. 75 ml Isovue 370 intravenous contrast material administered without complication. This CT examination was performed using the following dose reduction techniques: Automated exposure control, adjustment of mA and/or kv according to the patient's size, and use of iterative reconstruction technique. FINDINGS: Satisfactory enhancement of the pulmonary vasculature is achieved and no filling defects are identified to suggest pulmonary embolus. Thoracic aorta again demonstrates atherosclerotic changes without aneurysm or dissection. Heart demonstrates atherosclerotic changes to the coronary arteries without cardiomegaly or pericardial effusion. Patient is again noted to be status post partial right lung resection with stable postsurgical changes including small chronic right pleural effusion. Diffuse bilateral chronic emphysematous changes, bronchiectasis and scattered scarring again noted bilaterally. There is a new subpleural nodular opacity measuring 15 mm along the medial aspect of the left lower lobe with surrounding new mild ground-glass opacities (series 402 images 38-60) which warrants further investigation/follow-up. IMPRESSION: 1. No evidence for pulmonary embolus. 2. New 15 mm nodular opacity along the medial apical left lower lobe with adjacent ground-glass opacities should be correlated clinically and requires short-term follow-up. 3. Diffuse chronic stable changes. <Electronically signed by Naveen Maldonado > 10/05/20 [id number]
--- NOTE | 2020-10-05 12:29 | REP ---
INDICATION: abd pain/diarrhea. COMPARISON: 09/23/2020 TECHNIQUE: Axial contrast-enhanced images from the lung bases to the pubic symphysis using 100 cc Isovue 370 intravenous contrast material. Coronal and sagittal reformations obtained. This CT examination was performed using the following dose reduction techniques: Automated exposure control, adjustment of mA and/or kv according to the patient's size, and the use of iterative reconstruction technique. FINDINGS: The liver demonstrates a somewhat heterogeneous mottled enhancement pattern primarily involving the left lobe with subtle underlying scattered suspicious low-density lesions measuring up to approximately 13 mm and malignancy/metastatic disease is of concern. Spleen, pancreas, gallbladder, bilateral adrenal glands are normal. The kidneys demonstrate stable age-related cortical thinning and 3 mm nonobstructing left renal calculus without acute perinephric stranding or hydronephrosis. The enteric system is without bowel obstruction or perforation. Normal terminal ileum and appendix identified in the right lower quadrant. Mucosal thickening along the transverse colon likely secondary to collapsed appearance related to peristalsis and less likely acute process. Scattered colonic diverticula noted without acute diverticulitis. Pelvis demonstrates normal bladder and stable prostate/seminal vesicles. Small fat containing inguinal hernias noted and unchanged. No ascites. No free air. No focal solid mass lesion. No significant adenopathy. Atherosclerotic changes to the aorta and vasculature noted without aneurysm or dissection. Osseous structures demonstrate degenerative changes. IMPRESSION: 1. Somewhat heterogeneous/mottled appearance to the liver parenchyma with small very subtle scattered low-density areas up to 13 mm. These findings may represent underlying metastatic disease and warrant further investigation/follow-up. 2. Presumed peristalsis and collapse to the transverse colon less likely representing acute focal colitis. Scattered diverticulosis noted without acute diverticulitis. 3. No further acute abdominopelvic pathology appreciated. Specifically, no ascites, focal inflammatory stranding, adenopathy or free air. <Electronically signed by Naveen Maldonado > 10/05/20 [id number]
[2020-10-05 13:53] LABS: RSV AMPLIFICATION NEGATIVE (NEGATIVE)
[2020-10-05 14:50] VITALS: BP 144/79
--- NOTE | 2020-10-05 16:01 | ECGEPIP ---
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
--- NOTE | 2020-10-06 10:18 | ED PDOC ---
Post-Departure Follow-Up ct chest and ct abd/p faxed to [facility] for fu Meghan Horn MD Oct 06, 2020 10:18
== END 2020-10-05 15:00 | disposition home or self-care (01) ==
LOC: M ED 10:22
DX: C34.91 Malignant neoplasm of unspecified part of right bronchus or lung (principal); C79.51 Secondary malignant neoplasm of bone; R93.2 Abnormal findings on diagnostic imaging of liver and biliary tract; R53.83 Other fatigue; R10.30 Lower abdominal pain, unspecified; K57.30 Diverticulosis of large intestine without perforation or abscess without bleeding; R19.7 Diarrhea, unspecified; R07.9 Chest pain, unspecified; R06.02 Shortness of breath; I25.10 Atherosclerotic heart disease of native coronary artery without angina pectoris; E78.5 Hyperlipidemia, unspecified; E03.9 Hypothyroidism, unspecified; Z87.891 Personal history of nicotine dependence; Z88.8 Allergy status to other drugs, medicaments and biological substances; Z79.899 Other long term (current) drug therapy

== ENCOUNTER 2020-10-30 09:08 | Inpatient (IN) | payer MEDICARE ==
[~2020-10-30] VITALS: Ht 172.7 cm; Wt 121.6 kg
[2020-10-30] MEDS ORDERED: NS 1,000 ML IV ONE ×2 (09:25→10:55)
[2020-10-30] MEDS ORDERED: MORPHINE 4 MG/ML 1ML VIAL/SYRINGE (J2270) IV PRN (09:25)
[2020-10-30] MEDS: COMBIVENT RESPIMAT 100-20MCG INHALER 4GM INH SCH ×3 (09:33→10:31)
[2020-10-30] MEDS ORDERED: ONDANSETRON 4MG/2ML VIAL IV ONE (10:00)
[2020-10-30 10:08] LABS: BASO % 0.3 % (0.0-1.0); EOS % 10.2 % (0.0-3.0); HEMATOCRIT 34.9 % (42.0-52.0); HEMOGLOBIN 11.5 g/dl (13.5-17.5); LYMPH # 0.7 10^3/uL (1.5-5.0); MEAN CORPUSCULAR HEMOGLOBIN 35.7 pg (27.0-33.0); MEAN CORPUSCULAR VOLUME 108.4 fl (80.0-96.0); MONO # 1.1 10^3/uL (0.0-0.8); MONO % 11.6 % (2.0-8.0); NEUTROPHILS # 6.7 10^3/uL (1.5-8.5); NEUTROPHILS % 70.3 % (36.0-66.0); RED BLOOD COUNT 3.22 10^6/uL (4.30-6.10); WHITE BLOOD COUNT 9.6 10^3/uL (4.0-10.0)
--- NOTE | 2020-10-30 10:10 | REP ---
INDICATION: sob. COMPARISON: CT and AP chest 10/05/2020 TECHNIQUE: AP portable upright FINDINGS: Single view again shows volume loss the right hemithorax with the changes of lobectomy. Some lateral of pleural thickening inferior right chest wall and scarring. Left lung well inflated and grossly clear. The opacities in the superior segment of the left lower lobe on previous CT would be obscured by their paraspinal location on portable chest. Cardiac silhouette unchanged. The aorta is mildly tortuous without gross aneurysm. Airway intact. No left effusion. Pneumothorax. Bones unchanged. IMPRESSION: 1. Status post right lobectomy with volume loss and the right hemithorax, some compensatory hyperinflation of the left lung but no acute radiographic finding today. Please recall that the apical segment left lower lobe parenchymal findings on previous CT were not visible radiographically and again today would not be visible if still present. Chronic changes in the right lung postoperatively are stable. No pneumothorax, pneumomediastinum, gross evidence of effusion or acute infiltrates visible. 2. Cardiomediastinal silhouette unchanged. Bones without new findings. <Electronically signed by Boaz Randhawa > 10/30/20 [id number]
[2020-10-30 10:17] LABS: INR 1.04; PROTHROMBIN TIME 13.8 SECONDS (12.5-14.3)
[2020-10-30 10:18] LABS: PARTIAL THROMBOPLASTIN TIME 30.1 SECONDS (24.2-38.5)
[2020-10-30 10:26] LABS: PLATELET COUNT, AUTOMATED 61 10^3/uL (150-450)
[2020-10-30 10:56] LABS: ALBUMIN 3.7 GM/DL (3.2-5.2); ALT/SGPT 21 U/L (12-78); BILIRUBIN,TOTAL 0.5 MG/DL (0.2-1.0); BLOOD UREA NITROGEN 18 MG/DL (7-18); CALCIUM LEVEL 8.1 MG/DL (8.8-10.2); CARBON DIOXIDE LEVEL 18 MEQ/L (21-32); CHLORIDE LEVEL 100 MEQ/L (98-107); CK-MB VALUE MASS 1.3 NG/ML (<3.6); CPK CREATINE PHOSPHOKINASE 52 U/L (39-308); CREATININE FOR GFR 1.09 MG/DL (0.70-1.30); GLOMERULAR FILTRATION RATE > 60.0 (>49); GLUCOSE, FASTING 158 MG/DL (70-100); LDH LACTATE DEHYDROGENASE 346 U/L (87-241); MAGNESIUM LEVEL 1.7 MG/DL (1.8-2.4); NT-PRO BNP 295 PG/ML (<125); POTASSIUM SERUM 3.6 MEQ/L (3.5-5.1); SODIUM LEVEL 135 MEQ/L (136-145); TOTAL PROTEIN 7.2 GM/DL (6.4-8.2); TROPONIN I < 0.02 NG/ML (< 0.10)
[2020-10-30] MEDS ORDERED: cefTRIAXone SOD 1 GM in D5W MINI-BAG PLUS 50 ML IV ONE (11:10)
[2020-10-30] MEDS ORDERED: ISOVUE-370 76% 100ML VIAL As Ordered ONE (11:18)
[2020-10-30] MEDS ORDERED: MAG SULF 1GM/100ML (MAG RUN) 1 GM in IV 1 EA IV ONE (11:55)
[2020-10-30] MEDS ORDERED: CALC-211 PO (12:00)
[2020-10-30] MEDS ORDERED: AZITHROMYCIN INJ 500 MG, VIAL MATE ADAPTER 1 EACH in NS 250 ML IV ONE (12:00)
[2020-10-30] MEDS ORDERED: PIME1CRE TOP (12:00)
--- NOTE | 2020-10-30 12:48 | REP ---
INDICATION: sob, cancer. COMPARISON: Chest CT dated 09/23/2020. TECHNIQUE: Chest CT with IV contrast, CT angiography. FINDINGS: According to the film file the patient has had right upper lobectomy and right middle lobectomy for carcinoma. There are no emboli in the pulmonary trunk or central pulmonary arteries. There are no emboli in the pulmonary artery lobe or segment branches. There are no infiltrates. There is a small right pleural effusion, unchanged from 09/23/2020. There is a small focal zone of parenchymal thickening posteromedially in the remaining right lung, unchanged, atelectasis versus scarring. There are no lung masses or nodules. There are numerous small bulla throughout the lung barone bilaterally. Bronchiectasis is again noted, unchanged. The thoracic aorta is unremarkable except for occasional calcified atheroma. Cardiac size is normal. There is no pericardial effusion. There is abundant pericardial fat. The visualized upper abdominal structures are unremarkable. There is no adrenal mass. Blastic skeletal metastases are again identified in the thoracic spine, unchanged.. IMPRESSION: There are no pulmonary emboli. There is a small right pleural effusion, unchanged from the prior study. There is a small focal zone of interstitial thickening posteromedially in the right lung, unchanged, atelectasis versus scarring. Numerous small bulla are seen scattered throughout the lung barone bilaterally, unchanged. Bronchiectasis is again noted, unchanged. Blastic skeletal metastases are again identified in the thoracic spine, unchanged. <Electronically signed by Marshall Alejandra > 10/30/20 [id number]
--- NOTE | 2020-10-30 13:22 | ECGEPIP ---
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
[2020-10-30] MEDS ORDERED: PROCHLORPERAZINE 5 MG TAB (S0183) PO PRN (13:30)
[2020-10-30 15:54] VITALS: BP 124/69
[2020-10-30] MEDS: PERCOCET 5MG/325MG TAB PO PRN ×2 (16:10→23:26)
[2020-10-30] MEDS: LR 1,000 ML IV SCH ×2 (16:21→23:21)
--- NOTE | 2020-10-30 19:07 | HPEPDOC ---
[facility] Medical History & Physical Date of Admission Oct 30, 2020 Date of Service: Oct 30, 2020 Primary Care Physician: RODRIGO PARK PA-C Attending Physician: PAGE GREEN DO History and Physical CHIEF COMPLAINT: Fatigue, exhaustion HISTORY OF PRESENT ILLNESS: Patient a past medical history of lung cancer status post lobectomy, radiation, and chemotherapy. This was diagnosed in 2018, and he has been undergoing chemotherapy and radiation since that time area he did miss his most recent dose of chemotherapy because of low platelets, and that was going to be rescheduled. This morning he was going to his usual pain clinic appointment when he was feeling very fatigued and exhausted and essentially collapsed in their office this morning. He was sent to the emergency department for further evaluation. After further questioning he reports that he has been feeling somewhat ill over the past few days with decreased appetite, nausea, and he did vomit a few days ago. He does report that he has had diarrhea for the past few days as well. He has been trying to keep up with oral intake of fluids, but has not been eating much otherwise. 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 Denies alcohol use. History of marijuana use FAMILY HISTORY: Significant/pertinent family history REVIEW OF SYSTEMS: Constitutional: Patient admits to having had some fevers and chills over the past few days, and perhaps 1-2 days ago he did have a low-grade fever of approximately 100-101 degrees F. Denies night sweats or unexplained weight loss. HEENT: Patient denies blurred or double vision, transient visual disturbances, postnasal drip, epistaxis, sore throat, difficulty chewing or swallowing food. Cardiovascular: Patient denies chest discomfort/pain, palpitations, exertional dyspnea, orthopnea, edema of the extremities, claudication. Respiratory: Patient denies dyspnea, wheezing, cough, hemoptysis, sputum production. Gastrointestinal: Patient admits to nausea, only one episode of vomiting, diarrhea. Denies constipation, abdominal pain, melena, hematochezia, hematemesis, jaundice. PHYSICAL EXAMINATION: General: Awake, alert, he does not appear to be any acute distress at this time. HEENT: Head normocephalic atraumatic, conjunctiva are pink, sclera are nonicteric, buccal mucosa is pink and moist with no lesions in the oropharynx. Hearing is grossly intact to conversation. Respiratory: Diminished lung sounds on the right in the location of his lobect david. Otherwise, clear to auscultation throughout the remainder of his lung barone with no wheezes, rales, or rhonchi. Cardiovascular: Regular rate and rhythm, with no rubs, gallops, or murmur. Abdomen: Soft, nontender, nondistended, no hepatosplenomegaly appreciated. Bowel sounds present. Extremities: 2+ pulses in the radial and dorsalis pedis bilaterally. No evidence of clubbing or cyanosis. IMAGING: Chest x-ray and CT of the chest were performed in the emergency department. He does have a small right pleural effusion which is unchanged from his prior study. He does have some chronic changes from his lobectomy, bronchiectasis is again noted, unchanged. But there is no indication of an acute etiology for his symptoms. Please see report for full details. ASSESSMENT/PLAN: Fatigue, exhaustion, collapse -Likely secondary to decreased oral intake, chemotherapy, and recent diarrhea -Admit to MedSurg. IV fluids. Pro calcitonin is positive, therefore will start him with empiric ciprofloxacin. GI panel ordered and is currently pending. Respiratory panel is negative. -Patient only has one point on Qsofa score for tachypnea. Hypomagnesemia -Given Mag [place] in the emergency room. We will continue to monitor. 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 Vital Signs Vital Signs Date Time Temp Pulse Resp B/P (MAP) Pulse Ox O2 Delivery O2 Flow Rate FiO2 10/30/20 16:40 16 Room Air 10/30/20 15:54 98.2 84 124/69 (87) 98 Laboratory Data Labs 24H Laboratory Tests 2 10/30/20 09:43: POC pH (Misc Panel) 7.403, POC Base Excess (Misc Panel) -12.0L, POC Saturated Percent O2 (Misc) 97, POC pO2 (Misc Panel) 90.0, POC pCO2 (Misc Panel) 20.9L, POC HCO3 (Misc Panel) 13.0L, POC Total CO2 (Misc Panel) 14.0L 10/30/20 09:45: Immature Granulocyte % (Auto) 0.6, Neutrophils (%) (Auto) 70.3H, Lymphocytes (%) (Auto) 7.0L, Monocytes (%) (Auto) 11.6H, Eosinophils (%) (Auto) 10.2H, Basophils (%) (Auto) 0.3, Neutrophils # (Auto) 6.7, Lymphocytes # (Auto) 0.7L, Monocytes # (Auto) 1.1H, Eosinophils # (Auto) 1.0H, Basophils # (Auto) 0.0, Nucleated Red Blood Cells % (auto) 0.0, Immature Platelet Fraction 5.6, Prothrombin Time 13.8, Prothromb Time International Ratio 1.04, Activated Partial Thromboplast Time 30.1, Anion Gap 17H, Glomerular Filtration Rate > 60.0, Lactic Acid Level 3.5*H, Calcium Level 8.1L, Magnesium Level 1.7L, Total Bilirubin 0.5, Aspartate Amino Transf (AST/SGOT) 20, Alanine Aminotransferase (ALT/SGPT) 21, Alkaline Phosphatase 104, Lactate Dehydrogenase 346H, Total Creatine Kinase 52, Creatine Kinase MB 1.3, Creatine Kinase MB Relative Index 2.50, Troponin I < 0.02, AU-Mbt-D-Type Natriuretic Peptide 295H, Total Protein 7.2, Albumin 3.7, Albumin/ Globulin Ratio 1.1 10/30/20 12:06: Urine Color YELLOW, Urine Appearance HAZY, Urine pH 6.0, Urine Specific [place] 1.015, Urine Protein 2+H, Urine Glucose (UA) NEGATIVE, Urine Ketones 2+H, Urine Blood 1+H, Urine Nitrite NEGATIVE, Urine Bilirubin NEGATIVE, Urine Urobilinogen 0.2, Urine Leukocyte Esterase NEGATIVE, Urine WBC (Auto) 6H, Urine RBC (Auto) 3, Urine Hyaline Casts (Auto) 1, Urine Bacteria (Auto) NEGATIVE, Urine Squamous Epithelial Cells 0, Urine Mucus (Auto) SMALL, Urine Sperm (Auto) 10/30/20 14:25: Procalcitonin 0.63 10/30/20 16:00: Lactic Acid Followup at 4 Hours 2.4*H CBC/BMP Laboratory Tests 10/30/20 09:45 Microbiology Microbiology 10/30/20 Blood Culture, Received Pending 10/30/20 Respiratory Virus Panel (PCR) ([facility]) - Final, Complete 10/30/20 Blood Culture, Received Pending Home Medications Scheduled Calcium Carbonate (Calcium) 600 Mg Tablet, 600 MG PO QPM Escitalopram Oxalate (Lexapro) 20 Mg Tablet, 20 MG PO DAILY Folic Acid (Folic Acid) 400 Mcg Tab, 400 MCG PO QPM Gabapentin (Gabapentin) 300 Mg Capsule, 300 MG PO BID Latanoprost (Xalatan) 0.005% 2.5ML Drops, 1 DROP OU QHS Levothyroxine Sodium (Synthroid) 100 Mcg Tablet, 100 MCG PO DAILY Pimecrolimus (Pimecrolimus) 30 Gm Cream..g., 1 APPLIC TOP BID APPLY TO AFFECTED AREAS ON LEGS, BACK, SHOULDERS, AND ARMS Prednisone (Prednisone) 5 Mg Tablet, 2 TAB PO DAILY Simvastatin (Simvastatin) 20 Mg Tab, 20 MG PO QPM Scheduled PRN Oxycodone HCl/Acetaminophen (Oxycodone-Acetaminophen 10-325) 1 Each Tablet, 1 TAB PO QID PRN for PAIN Prochlorperazine Maleate (Prochlorperazine Maleate) 10 Mg Tablet, 10 MG PO Q6H PRN for NAUSEA OR VOMITING TAKE ONE TAB BY MOUTH NEEDED FOR NAUSEA/VOMITING Allergies Coded Allergies: pembrolizumab (Verified Allergy, Intermediate, RASH, 07/29/20) A-FIB/CHADSVASC A-FIB History Current/History of A-Fib/PAF?: No PAGE GREEN DO Oct 30, 2020 19:07
[2020-10-30] MEDS: LATANOPROST 0.005% OPHTH SOLN 2.5 ML OU SCH (20:11)
[2020-10-30] MEDS: GABAPENTIN 300 MG CAP PO SCH (20:11)
[2020-10-30] MEDS: SIMVASTATIN 20 MG TAB PO SCH (20:11)
[2020-10-30] MEDS: CIPROFLOXACIN 500MG TABLET PO SCH (20:11)
[2020-10-30] MEDS: CALCIUM CARBONATE 500 MG CHEW U/D PO SCH (20:11)
[2020-10-30] MEDS: FOLIC ACID 1 MG TAB PO SCH (20:11)
[2020-10-30 22:00] VITALS: BP 117/65
[2020-10-31] MEDS: PERCOCET 5MG/325MG TAB PO PRN ×3 (05:55→20:23)
[2020-10-31] MEDS: CIPROFLOXACIN 500MG TABLET PO SCH (05:55)
[2020-10-31] MEDS: LR 1,000 ML IV SCH ×2 (05:56→09:19)
[2020-10-31 06:00] VITALS: BP 135/69
[2020-10-31] MEDS ORDERED: LEVOTHYROXINE 100MCG TABLET (0.1MG) PO SCH (06:00)
[2020-10-31 07:08] LABS: HEMATOCRIT 26.3 % (42.0-52.0); MEAN CORPUSCULAR HEMOGLOBIN 35.6 pg (27.0-33.0); MEAN CORPUSCULAR HGB CONC 32.3 g/dl (32.0-36.5); RED BLOOD COUNT 2.39 10^6/uL (4.30-6.10); WHITE BLOOD COUNT 6.6 10^3/uL (4.0-10.0)
[2020-10-31 07:25] LABS: BLOOD UREA NITROGEN 12 MG/DL (7-18); CARBON DIOXIDE LEVEL 24 MEQ/L (21-32); CHLORIDE LEVEL 105 MEQ/L (98-107); CREATININE FOR GFR 0.66 MG/DL (0.70-1.30); GLOMERULAR FILTRATION RATE > 60.0 (>49); GLUCOSE, FASTING 77 MG/DL (70-100); MAGNESIUM LEVEL 1.7 MG/DL (1.8-2.4); POTASSIUM SERUM 3.6 MEQ/L (3.5-5.1); SODIUM LEVEL 136 MEQ/L (136-145)
[2020-10-31 07:37] LABS: PLATELET COUNT, AUTOMATED 47 10^3/uL (150-450)
[2020-10-31 07:38] LABS: HEMOGLOBIN 8.5 g/dl (13.5-17.5)
[2020-10-31] MEDS ORDERED: ENOXAPARIN 40MG/0.4ML SYRINGE (J1650 PER 10MG) SC SCH (09:00)
[2020-10-31] MEDS: ESCITALOPRAM OXALATE 10 MG TAB (LEXAPRO) PO SCH (09:18)
[2020-10-31] MEDS: GABAPENTIN 300 MG CAP PO SCH ×2 (09:19→20:22)
[2020-10-31] MEDS: predniSONE 10 MG TAB PO SCH (09:19)
[2020-10-31] MEDS ORDERED: MAG SULF 1GM/100ML (MAG RUN) 1 GM in IV 1 EA IV ONE (11:00)
[2020-10-31 11:10] LABS: HEMATOCRIT 24.9 % (42.0-52.0); HEMOGLOBIN 8.2 g/dl (13.5-17.5)
[2020-10-31] MEDS ORDERED: LEVOTHYROXINE 50MCG TABLET (0.05MG) PO ONE (11:15)
[2020-10-31 14:00] VITALS: BP 121/67
--- NOTE | 2020-10-31 19:28 | IPNPDOC ---
Text Note Date of Service The patient was seen on 10/31/20. NOTE Hospitalist Progress Note Subjective: The patient reports that he is still feeling quite fatigued, his nausea has improved and he is now tolerating oral intake, no vomiting. He did have a bowel movement this morning which was formed but still soft. Objective: General: Awake, alert, oriented 3. Not in any acute distress. HEENT: Head normocephalic, atraumatic, sclera are nonicteric. Hearing is grossly intact to conversation. Respiratory: Clear to auscultation bilaterally with no wheezes, rales, or rhonchi. Cardiovascular: Regular rate and rhythm, with no rubs, gallops, or murmur. Abdomen: Soft, nontender, nondistended, no hepatosplenomegaly appreciated. Bowel sounds present. Extremities: 2+ pulses in the radial and dorsalis pedis bilaterally. No evidence of clubbing or cyanosis. Assessment/Plan: Fatigue, exhaustion, collapse -Likely secondary to decreased oral intake, chemotherapy, and recent diarrhea - Clinically does appear to be improving, GI and respiratory panel negative, stools are more formed now, no fevers, white count is normal, will discontinue empiric antibiotic at this time. Hypothyroidism -Repeat TSH is 27 - Will give an additional 50 MCG of levothyroxine such that he will get 150 MCG today. Patient reports that he had been on 112 MCG daily for many years which was appropriate for him, and this was just recently reduced down to 100 MCG daily perhaps 4-6 months ago, which would correspond with his mildly elevated TSH in June 2020, which was higher than his usual baseline. It is suspected that hypothyroidism is a significant contributing factor to his current symptomatology. -He does not fit the criteria for myxedema crisis, he does not have hypothermia, hypotension, hypoventilation, does not have hyponatremia or hypoglycemia, and certainly does not have altered mental status at this time. -His hypothyroidism is because decades ago he had Graves' disease which was treated with radioactive iodine, and his thyroid was effectively destroyed. He has been on levothyroxine since that time. Anemia - This was initially suspected to be due to chemotherapy, which still may be true. Nevertheless, his TSH is found to be elevated, and hypothyroidism can also cause a macrocytic anemia, and would also fit his current clinical picture. -Continue to monitor, transfuse if patient drops below 8 - He did have a significant drop in his H&H from 11.5 to 8.5, however repeat testing is stable 6 hours later. Fecal occult is negative for blood. Will continue to monitor closely. This is perhaps dilutional secondary to fluid resuscitation as WBCs, hemoglobin, and platelets have all dropped to some degree. Hypomagnesemia -Still low today, will give another [place]. Continue to monitor. 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 Thrombocytopenia -Continue to monitor, likely secondary to chemotherapy DVT prophylaxis -Teds and sequentials VS,Fishbone, I+O VS, Fishbone, I+O Laboratory Tests 10/31/20 05:38 10/31/20 10:52 Vital Signs Date Time Temp Pulse Resp B/P (MAP) Pulse Ox O2 Delivery O2 Flow Rate FiO2 10/31/20 14:40 99.8 10/31/20 14:00 99 18 121/67 (85) 91 Room Air I&O- Last 24 Hours up to 6 AM 10/31/20 05:59 Intake Total 4690 ml Output Total 0 ml Balance 4690 ml PAGE GREEN DO Oct 31, 2020 19:27
[2020-10-31 19:40] LABS: HEMATOCRIT 25.4 % (42.0-52.0); HEMOGLOBIN 8.2 g/dl (13.5-17.5)
[2020-10-31] MEDS: FOLIC ACID 1 MG TAB PO SCH (20:22)
[2020-10-31] MEDS: SIMVASTATIN 20 MG TAB PO SCH (20:22)
[2020-10-31] MEDS: CALCIUM CARBONATE 500 MG CHEW U/D PO SCH (20:22)
[2020-10-31] MEDS: LATANOPROST 0.005% OPHTH SOLN 2.5 ML OU SCH (20:23)
[2020-10-31 22:00] VITALS: BP 138/73
[2020-11-01] MEDS: LEVOTHYROXINE 125MCG TABLET (0.125MG) PO SCH (05:49)
[2020-11-01] MEDS: PERCOCET 5MG/325MG TAB PO PRN ×3 (05:49→22:01)
[2020-11-01 06:00] VITALS: BP 105/70
[2020-11-01 06:28] LABS: MEAN CORPUSCULAR HEMOGLOBIN 34.8 pg (27.0-33.0); MEAN CORPUSCULAR VOLUME 108.7 fl (80.0-96.0); WHITE BLOOD COUNT 4.8 10^3/uL (4.0-10.0)
[2020-11-01 06:31] LABS: PLATELET COUNT, AUTOMATED 49 10^3/uL (150-450)
[2020-11-01 06:59] LABS: BLOOD UREA NITROGEN 10 MG/DL (7-18); CALCIUM LEVEL 7.4 MG/DL (8.8-10.2); CARBON DIOXIDE LEVEL 26 MEQ/L (21-32); CHLORIDE LEVEL 107 MEQ/L (98-107); CREATININE FOR GFR 0.72 MG/DL (0.70-1.30); GLOMERULAR FILTRATION RATE > 60.0 (>49); GLUCOSE, FASTING 81 MG/DL (70-100); MAGNESIUM LEVEL 1.9 MG/DL (1.8-2.4); POTASSIUM SERUM 3.8 MEQ/L (3.5-5.1); SODIUM LEVEL 141 MEQ/L (136-145)
[2020-11-01] MEDS: ESCITALOPRAM OXALATE 10 MG TAB (LEXAPRO) PO SCH (09:40)
[2020-11-01] MEDS: GABAPENTIN 300 MG CAP PO SCH ×2 (09:40→22:00)
[2020-11-01] MEDS: predniSONE 10 MG TAB PO SCH (09:40)
[2020-11-01] MEDS: PIPERACILLIN/TAZOBACTAM SOD 3.375 GM in D5W MINI-BAG PLUS 50 ML IV SCH ×3 (09:41→22:00)
[2020-11-01] MEDS: NS 1,000 ML IV SCH ×2 (09:41→21:55)
[2020-11-01 12:29] LABS: HEMATOCRIT 24.7 % (42.0-52.0)
[2020-11-01 14:00] VITALS: BP 128/75
--- NOTE | 2020-11-01 15:55 | IPNPDOC ---
Text Note Date of Service The patient was seen on 11/01/20. NOTE Hospitalist Progress Note Subjective: The patient actually reports that he is feeling somewhat better today. His stools continue to be soft but formed. He does not feel as lightheaded as he had previously. Nevertheless, he did spike a fever of 100.4 yesterday Objective: General: Awake, alert, oriented 3. Not in any acute distress. HEENT: Head normocephalic, atraumatic, sclera are nonicteric. Hearing is grossly intact to conversation. Respiratory: Clear to auscultation bilaterally with no wheezes, rales, or rhonchi. Cardiovascular: Regular rate and rhythm, with no rubs, gallops, or murmur. Abdomen: Soft, nontender, nondistended, no hepatosplenomegaly appreciated. Bowel sounds present. Extremities: 2+ pulses in the radial and dorsalis pedis bilaterally. No evidence of clubbing or cyanosis. Assessment/Plan: Fatigue, exhaustion, collapse -Likely secondary to decreased oral intake, chemotherapy, and recent diarrhea - May also be secondary to hypothyroidism - Additionally, patient spiked a fever yesterday, and although all investigations have not yielded an infectious etiology, will switch him over to Zosyn for more broad coverage. - Fluids will be resumed -Urinalysis and a second set of blood cultures has been ordered. - Will order an a.m. serum cortisol level for tomorrow just to rule out adrenal insufficiency Hypothyroidism -Repeat TSH is 27 - Continue levothyroxine 112 MCG daily -He does not fit the criteria for myxedema crisis, he does not have hypothermia, hypotension, hypoventilation, does not have hyponatremia or hypoglycemia, and certainly does not have altered mental status at this time. -His hypothyroidism is because decades ago he had Graves' disease which was treated with radioactive iodine, and his thyroid was effectively destroyed. He has been on levothyroxine since that time. Anemia - This was initially suspected to be due to chemotherapy, which still may be true. Nevertheless, his TSH is found to be elevated, and hypothyroidism can also cause a macrocytic anemia, and would also fit his current clinical picture. -Continue to monitor, transfuse if patient drops below 8 - Fecal occult is negative for blood. Will continue to monitor closely. -Reticulocyte index 0.9, anything less than 2 would indicate inadequate bone marrow response. Most likely causes in his case would be chemotherapy or hypothyroidism. Hypomagnesemia -Resolved. Continue to monitor. 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 Thrombocytopenia -Continue to monitor, likely secondary to chemotherapy DVT prophylaxis -Teds and sequentials VS,Fishbone, I+O VS, Fishbone, I+O Laboratory Tests 10/31/20 19:35 11/01/20 05:49 11/01/20 12:02 Vital Signs Date Time Temp Pulse Resp B/P (MAP) Pulse Ox O2 Delivery O2 Flow Rate FiO2 11/01/20 14:12 16 Room Air 11/01/20 14:00 98.4 83 128/75 (92) 99 I&O- Last 24 Hours up to 6 AM 11/01/20 06:00 Intake Total 2640 ml Balance 2640 ml PAGE GREEN DO Nov 01, 2020 15:55
[2020-11-01 18:17] LABS: APPEARANCE, URINE CLEAR (CLEAR); BACTERIA, URINE AUTO NEGATIVE (NEGATIVE); BILIRUBIN, URINE AUTO NEGATIVE (NEGATIVE); BLOOD, URINE BLOOD NEGATIVE (NEGATIVE); COLOR, URINE STRAW (YELLOW); GLUCOSE, URINE (UA) AUTO NEGATIVE (NEGATIVE); KETONE, URINE AUTO 1+ mg/dL (NEGATIVE); LEUKOCYTE ESTERASE, URINE AUTO NEGATIVE (NEGATIVE); NITRITE, URINE AUTO NEGATIVE (NEGATIVE); PROTEIN, URINE AUTO NEGATIVE (NEGATIVE); RBC, URINE AUTO 1 /HPF (0-3); SPECIFIC GRAVITY URINE AUTO 1.014 (1.002-1.035); SQUAMOUS EPITHELIAL CELL UR AU 0 /HPF (0-6); UROBILINOGEN, URINE AUTO 0.2 mg/dL (0.0-2.0); WBC, URINE AUTO 1 /HPF (0-3)
[2020-11-01 22:00] VITALS: BP 134/72
[2020-11-01] MEDS: FOLIC ACID 1 MG TAB PO SCH (22:00)
[2020-11-01] MEDS: CALCIUM CARBONATE 500 MG CHEW U/D PO SCH (22:00)
[2020-11-01] MEDS: SIMVASTATIN 20 MG TAB PO SCH (22:00)
[2020-11-01] MEDS: LATANOPROST 0.005% OPHTH SOLN 2.5 ML OU SCH (22:00)
[2020-11-02] MEDS: PIPERACILLIN/TAZOBACTAM SOD 3.375 GM in D5W MINI-BAG PLUS 50 ML IV SCH ×4 (02:24→20:58)
[2020-11-02] MEDS: NS 1,000 ML IV SCH (04:00)
[2020-11-02 06:00] VITALS: BP 132/77
[2020-11-02 06:06] LABS: HEMATOCRIT 26.1 % (42.0-52.0); HEMOGLOBIN 8.6 g/dl (13.5-17.5); MEAN CORPUSCULAR HEMOGLOBIN 35.4 pg (27.0-33.0); MEAN CORPUSCULAR VOLUME 107.4 fl (80.0-96.0); RED BLOOD COUNT 2.43 10^6/uL (4.30-6.10); WHITE BLOOD COUNT 4.7 10^3/uL (4.0-10.0)
[2020-11-02 06:11] LABS: PLATELET COUNT, AUTOMATED 52 10^3/uL (150-450)
[2020-11-02] MEDS: LEVOTHYROXINE 125MCG TABLET (0.125MG) PO SCH (06:20)
[2020-11-02] MEDS: PERCOCET 5MG/325MG TAB PO PRN ×3 (06:22→21:05)
[2020-11-02 06:32] LABS: BLOOD UREA NITROGEN 10 MG/DL (7-18); CALCIUM LEVEL 8.2 MG/DL (8.8-10.2); CARBON DIOXIDE LEVEL 23 MEQ/L (21-32); CHLORIDE LEVEL 108 MEQ/L (98-107); CREATININE FOR GFR 0.73 MG/DL (0.70-1.30); GLOMERULAR FILTRATION RATE > 60.0 (>49); GLUCOSE, FASTING 93 MG/DL (70-100); MAGNESIUM LEVEL 1.6 MG/DL (1.8-2.4); POTASSIUM SERUM 3.3 MEQ/L (3.5-5.1); SODIUM LEVEL 140 MEQ/L (136-145)
[2020-11-02] MEDS ORDERED: POTASSIUM CHLORIDE 10 MEQ SR TABLET PO ONE (07:40)
[2020-11-02] MEDS ORDERED: MAG SULF 1GM/100ML (MAG RUN) 1 GM in IV 1 EA IV ONE (08:00)
[2020-11-02] MEDS: ESCITALOPRAM OXALATE 10 MG TAB (LEXAPRO) PO SCH (08:59)
[2020-11-02] MEDS: predniSONE 10 MG TAB PO SCH (09:00)
[2020-11-02] MEDS: GABAPENTIN 300 MG CAP PO SCH ×2 (09:00→20:58)
[2020-11-02 11:50] LABS: FOLATE > 24.0 NG/ML (>5.4)
[2020-11-02 12:55] LABS: VITAMIN B12 LEVEL 1294 PG/ML (247-911)
[2020-11-02 14:00] VITALS: BP 121/71
--- NOTE | 2020-11-02 16:38 | IPNPDOC ---
Text Note Date of Service The patient was seen on 11/02/20. NOTE Hospitalist Progress Note Subjective: No fevers overnight. Clinically the patient reports that he is feeling a little bit more fatigued today. He is tolerating oral intake better, and his stools are more formed, but overall he is just not feeling well. Objective: General: Awake, alert, oriented 3. Not in any acute distress. HEENT: Head normocephalic, atraumatic, sclera are nonicteric. Hearing is grossly intact to conversation. Respiratory: Clear to auscultation bilaterally with no wheezes, rales, or rhonchi. Cardiovascular: Regular rate and rhythm, with no rubs, gallops, or murmur. Abdomen: Soft, nontender, nondistended, no hepatosplenomegaly appreciated. Bowel sounds present. Extremities: 2+ pulses in the radial and dorsalis pedis bilaterally. No evidence of clubbing or cyanosis. Assessment/Plan: Fatigue, exhaustion, collapse -Likely secondary to decreased oral intake, chemotherapy, hypothyroidism and recent diarrhea - Continue Zosyn for empiric coverage in light of recent fevers and elevated WBC. - Fluids will be discontinued since he is tolerating oral intake better at this time -Urinalysis and a second set of blood cultures were negative for infectious etiology - In the unlikely event that he may have adrenal insufficiency and a.m. cortisol level was ordered and is still pending Hypothyroidism -Repeat TSH is 27 - Continue levothyroxine 112 MCG daily (increased from home dose of 100 MCG daily). -He does not fit the criteria for myxedema crisis, he does not have hypothermia, hypotension, hypoventilation, does not have hyponatremia or hypoglycemia, and certainly does not have altered mental status at this time. -His hypothyroidism is because decades ago he had Graves' disease which was treated with radioactive iodine, and his thyroid was effectively destroyed. He has been on levothyroxine since that time. He had been on 112 MCG daily for many years, and then this was recently reduced approximately 3-5 months ago. Anemia - Likely multifactorial and secondary to chemotherapy and hypothyroidism -Improved today -Continue to monitor, transfuse if patient drops below 8 - Fecal occult is negative for blood x2. Will continue to monitor closely. -Reticulocyte index 0.9, anything less than 2 would indicate inadequate bone marrow response. Most likely causes in his case would be chemotherapy or hypothyroidism. 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 Thrombocytopenia -Continue to monitor, likely secondary to chemotherapy DVT prophylaxis -Teds and sequentials DISPOSITION: -If he is clinically feeling better, would anticipate discharge within the next 24-48 hours. -Although an infectious etiology could not be discovered, when his antibiotics were discontinued he did spike a fever and clinically deteriorated. Would recommend switching him over to an oral antibiotic on discharge. Most likely etiology would be GI, given his clinical presentation. VS,Fishbone, I+O VS, Fishbone, I+O Laboratory Tests 11/01/20 12:02 11/02/20 05:28 Vital Signs Date Time Temp Pulse Resp B/P (MAP) Pulse Ox O2 Delivery O2 Flow Rate FiO2 11/02/20 06:53 16 11/02/20 06:00 97.6 75 132/77 (95) 95 Room Air I&O- Last 24 Hours up to 6 AM 11/02/20 05:59 Intake Total 4535 ml Output Total 0 ml Balance 4535 ml PAGE GREEN DO Nov 02, 2020 07:45
[2020-11-02] MEDS: CALCIUM CARBONATE 500 MG CHEW U/D PO SCH (20:58)
[2020-11-02] MEDS: FOLIC ACID 1 MG TAB PO SCH (20:58)
[2020-11-02] MEDS: LATANOPROST 0.005% OPHTH SOLN 2.5 ML OU SCH (20:58)
[2020-11-02] MEDS: SIMVASTATIN 20 MG TAB PO SCH (20:58)
[2020-11-02 22:00] VITALS: BP 139/86
[2020-11-03] MEDS: PIPERACILLIN/TAZOBACTAM SOD 3.375 GM in D5W MINI-BAG PLUS 50 ML IV SCH ×2 (02:29→09:18)
[2020-11-03] MEDS: LEVOTHYROXINE 125MCG TABLET (0.125MG) PO SCH (05:42)
[2020-11-03 06:00] VITALS: BP 138/85
[2020-11-03 06:30] LABS: HEMATOCRIT 27.3 % (42.0-52.0); MEAN CORPUSCULAR HEMOGLOBIN 35.4 pg (27.0-33.0); MEAN CORPUSCULAR VOLUME 107.5 fl (80.0-96.0); RED BLOOD COUNT 2.54 10^6/uL (4.30-6.10); WHITE BLOOD COUNT 4.9 10^3/uL (4.0-10.0)
[2020-11-03 06:37] LABS: PLATELET COUNT, AUTOMATED 52 10^3/uL (150-450)
[2020-11-03 06:49] LABS: BLOOD UREA NITROGEN 10 MG/DL (7-18); CALCIUM LEVEL 8.7 MG/DL (8.8-10.2); CARBON DIOXIDE LEVEL 26 MEQ/L (21-32); CHLORIDE LEVEL 106 MEQ/L (98-107); CREATININE FOR GFR 0.69 MG/DL (0.70-1.30); GLOMERULAR FILTRATION RATE > 60.0 (>49); GLUCOSE, FASTING 86 MG/DL (70-100); MAGNESIUM LEVEL 1.3 MG/DL (1.8-2.4); POTASSIUM SERUM 3.6 MEQ/L (3.5-5.1); SODIUM LEVEL 139 MEQ/L (136-145)
[2020-11-03] MEDS: MAG SULF 1GM/100ML (MAG RUN) 1 GM in IV 1 EA IV SCH ×4 (07:55→12:54)
[2020-11-03] MEDS: GABAPENTIN 300 MG CAP PO SCH (08:02)
[2020-11-03] MEDS: predniSONE 10 MG TAB PO SCH (08:02)
[2020-11-03] MEDS: ESCITALOPRAM OXALATE 10 MG TAB (LEXAPRO) PO SCH (08:02)
[2020-11-03] MEDS: PERCOCET 5MG/325MG TAB PO PRN (08:03)
[2020-11-03] MEDS ORDERED: LEVO125T4 PO (10:15)
[2020-11-03] MEDS ORDERED: AUGM875T28 PO (10:15)
--- NOTE | 2020-11-03 23:33 | DS.PDOC ---
Discharge Summary General Date of Admission Oct 31, 2020 at 20:29 Date of Discharge Nov 03, 2020 Discharge Summary PROCEDURES PERFORMED DURING STAY: None ADMITTING DIAGNOSES: 1. Syncope 2/2 fatigue and dehydration 2. Hypomagnesemia 3. Hypothyroidism 4. Anemia 2/2 chemotherapy 5. Hyperlipidemia 6. Depression 7. Chronic back pain and wrist pain 8. 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 Syncope 2/2 fatigue and dehydration 2. Hypomagnesemia 3. Hypothyroidism 4. Anemia 2/2 chemotherapy 5. Hyperlipidemia 6. Depression 7. Chronic back pain and wrist pain 8. 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 HISTORY OF PRESENT ILLNESS: Mr. Moore is a 65 year old male with adenocarcinoma of the lung s/p lung resection, radiation, and currently undergoing chemotherapy who presents to the ED for syncope in the pain clinic office. He had not been feeling well the past few days. He has been having decreased appetite and nausea. He also had nausea and vomiting. Due to his poor oral intake, he was not able to keep up with oral hydration. He did got to pain clinic, but in the office, he collapsed due to fatigue and exhaustion. He was brought to the ED for further evaluation. In the ED, work up was significant for lactic acidosis and TSH of 27. Patient was given IV fluids and started on IV antibiotics. HOSPITAL COURSE: The following day, he was feeling better. IV antibiotics were as there was no empiric source. Later that afternoon, he developed a fever of 100.4. Antibiotics were broadened. Afterwards he was afebrile for more than 48 hours. Today, patient the patient was tolerating orals better and stools were improving. Given his clinic presentation, he may have had a GI source of infection. He would be sent home with a course of PO antibiotics. In addition, his levothyroxine was increased due to elevated TSH DISCHARGE MEDICATIONS: Please see below. ALLERGIES: Please see below. PHYSICAL EXAMINATION ON DISCHARGE: VITAL SIGNS: Please see below. GENERAL: Comfortable, in no apparent distress HEENT: Head normocephalic, atraumatic CARDIOVASCULAR EXAMINATION: Regular rate and rhythm RESPIRATORY EXAMINATION: Lungs clear to auscultation bilaterally ABDOMINAL EXAMINATION: Normal bowel sounds EXTREMITIES: No pitting edema bilaterally NEUROLOGICAL EXAMINATION: CN 3-12 grossly intact PSYCHIATRIC EXAMINATION: Normal mood and affect LABORATORY DATA: Please see below. IMAGING: Radiologist interpretation CTA Chest There are no pulmonary emboli. There is a small right pleural effusion, unchanged from the prior study. There is a small focal zone of interstitial thickening posteromedially in the right lung, unchanged, atelectasis versus scarring. Numerous small bulla are seen scattered throughout the lung barone bilaterally, unchanged. Bronchiectasis is again noted, unchanged. Blastic skeletal metastases are again identified in the thoracic spine, unchanged PROGNOSIS: Good ACTIVITY: As tolerated. Walk with a walker DIET: As tolerated DISCHARGE PLAN: Home DISPOSITION: Home, Self-Care. DISCHARGE INSTRUCTIONS: 1. Follow up with your PCP within 1 week DISCHARGE CONDITION: Stable. Total time spent on discharge planning, discharge summary, and medication reconciliation: 40 minutes Vital Signs/I&Os Vital Signs Date Time Temp Pulse Resp B/P (MAP) Pulse Ox O2 Delivery O2 Flow Rate FiO2 11/03/20 08:33 17 Room Air 11/03/20 06:00 97.5 81 138/85 (102) 96 I&O- Last 24 Hours up to 6 AM 11/03/20 06:00 Intake Total 2260 ml Balance 2260 ml Laboratory Data Labs 24H Laboratory Tests 2 11/03/20 05:30: Nucleated Red Blood Cells % (auto) 0.0, Immature Platelet Fraction 5.7, Anion Gap 7L, Glomerular Filtration Rate > 60.0, Calcium Level 8.7L, Magnesium Level 1.3L CBC/BMP Laboratory Tests 11/03/20 05:30 Microbiology Microbiology 11/01/20 Stool Occult Blood (STACEY) - Final, Complete 11/01/20 Blood Culture - Preliminary, Resulted No Growth after 48 hours. All Specime... 11/01/20 Blood Culture - Preliminary, Resulted No Growth after 48 hours. All Specime... 10/31/20 Stool Occult Blood (STACEY) - Final, Complete 10/30/20 Gastrointestinal Tract Panel (PCR) - Final, Complete 10/30/20 Blood Culture - Preliminary, Resulted No Growth after 72 hours. All specime... 10/30/20 Respiratory Virus Panel (PCR) (STACEY) - Final, Complete 10/30/20 Blood Culture - Preliminary, Resulted No Growth after 72 hours. All specime... Discharge Medications Scheduled Amoxicillin/Potassium Clav (Augmentin 875-125 Tablet) 1 Each Tablet, 1 TAB PO BID Calcium Carbonate (Calcium) 600 Mg Tablet, 600 MG PO QPM, (Reported) Escitalopram Oxalate (Lexapro) 20 Mg Tablet, 20 MG PO DAILY, (Reported) Folic Acid (Folic Acid) 400 Mcg Tab, 400 MCG PO QPM Gabapentin (Gabapentin) 300 Mg Capsule, 300 MG PO BID, (Reported) Latanoprost (Xalatan) 0.005% 2.5ML Drops, 1 DROP OU QHS, (Reported) Levothyroxine Sodium (Levothyroxine Sodium) 125 Mcg Tablet, 125 MCG PO DAILY@06 Pimecrolimus (Pimecrolimus) 30 Gm Cream..g., 1 APPLIC TOP BID, (Reported) APPLY TO AFFECTED AREAS ON LEGS, BACK, SHOULDERS, AND ARMS Prednisone (Prednisone) 5 Mg Tablet, 2 TAB PO DAILY Simvastatin (Simvastatin) 20 Mg Tab, 20 MG PO QPM, (Reported) Scheduled PRN Oxycodone HCl/Acetaminophen (Oxycodone-Acetaminophen 10-325) 1 Each Tablet, 1 TAB PO QID PRN for PAIN, (Reported) Prochlorperazine Maleate (Prochlorperazine Maleate) 10 Mg Tablet, 10 MG PO Q6H PRN for NAUSEA OR VOMITING TAKE ONE TAB BY MOUTH NEEDED FOR NAUSEA/VOMITING Allergies Coded Allergies: pembrolizumab (Verified Allergy, Intermediate, RASH, 07/29/20) MAL BEYER DO Nov 03, 2020 23:33
== END 2020-11-03 14:25 | disposition home or self-care (01) | DRG 392 ==
LOC: M ED 09:08 → M ED INP 09:09 → ENRESERV 14:55 → M MSPAV 15:49 → OBSVTOIN 10-31 20:29
PROVIDERS: ADMIT Neuromusculoskeletal Medicine & OMM; ATTEND Internal Medicine
DX: R19.7 Diarrhea, unspecified (principal); C34.91 Malignant neoplasm of unspecified part of right bronchus or lung; C79.51 Secondary malignant neoplasm of bone; E83.42 Hypomagnesemia; E03.9 Hypothyroidism, unspecified; D53.9 Nutritional anemia, unspecified; D64.81 Anemia due to antineoplastic chemotherapy; E78.5 Hyperlipidemia, unspecified; Z90.2 Acquired absence of lung [part of]; Z92.3 Personal history of irradiation; Z92.21 Personal history of antineoplastic chemotherapy; F32.9 Major depressive disorder, single episode, unspecified; F41.9 Anxiety disorder, unspecified; M54.9 Dorsalgia, unspecified; G89.29 Other chronic pain; Z86.711 Personal history of pulmonary embolism; Z96.0 Presence of urogenital implants; Z98.41 Cataract extraction status, right eye; Z87.891 Personal history of nicotine dependence; Z79.899 Other long term (current) drug therapy; Z88.8 Allergy status to other drugs, medicaments and biological substances; D69.59 Other secondary thrombocytopenia

== ENCOUNTER → 2020-11-11 | Outpatient (REF) | payer MEDICARE ==
[~2020-11-11] MED LIST changes: +ALBU8.5H; +AUGM875T28 PO; +CALC-211 PO; +CIPR-249 PO; +COVI100V IM; +PIME1CRE TOP
[2020-11-11 13:34] LABS: BASO # 0.1 10^3/uL (0.0-0.2); BASO % 0.9 % (0.0-1.0); EOS # 0.5 10^3/uL (0.0-0.5); EOS % 8.5 % (0.0-3.0); LYMPH # 0.5 10^3/uL (1.5-5.0); LYMPH % 9.6 % (24.0-44.0); MEAN CORPUSCULAR HGB CONC 32.1 g/dl (32.0-36.5); MONO % 18.4 % (2.0-8.0); NEUTROPHILS # 3.5 10^3/uL (1.5-8.5); NEUTROPHILS % 62.1 % (36.0-66.0); PLATELET COUNT, AUTOMATED 79 10^3/uL (150-450); WHITE BLOOD COUNT 5.6 10^3/uL (4.0-10.0)
[2020-11-11 17:25] LABS: ALBUMIN 3.6 GM/DL (3.2-5.2); ALT/SGPT 25 U/L (12-78); BILIRUBIN,TOTAL 0.3 MG/DL (0.2-1.0); BLOOD UREA NITROGEN 32 MG/DL (7-18); CALCIUM LEVEL 9.5 MG/DL (8.8-10.2); CARBON DIOXIDE LEVEL 29 MEQ/L (21-32); CHLORIDE LEVEL 107 MEQ/L (98-107); CREATININE FOR GFR 0.87 MG/DL (0.70-1.30); GLOMERULAR FILTRATION RATE > 60.0 (>49); GLUCOSE, FASTING 93 MG/DL (70-100); MAGNESIUM LEVEL 1.7 MG/DL (1.8-2.4); POTASSIUM SERUM 4.3 MEQ/L (3.5-5.1); SODIUM LEVEL 142 MEQ/L (136-145); TOTAL PROTEIN 6.6 GM/DL (6.4-8.2)
== END ==
LOC: M SFHCADAM 10:53
PROVIDERS: ATTEND Physician Assistant
DX: E83.42 Hypomagnesemia (principal); D69.6 Thrombocytopenia, unspecified; F32.2 Major depressive disorder, single episode, severe without psychotic features
CPT/HCPCS: 80053; 83735; 85025; 85049; 85055; 90834; G0463

== ENCOUNTER 2020-11-29 12:38 | Emergency (ER) | payer MEDICARE ==
[~2020-11-29] VITALS: Ht 172.7 cm; Wt 81.8 kg
[~2020-11-29 12:38] MED LIST changes: -ALBU8.5H; -CIPR-249 PO
[2020-11-29] MEDS ORDERED: ALBU8.5H (12:56)
[2020-11-29] MEDS ORDERED: NS 1,000 ML IV ONE (13:05)
[2020-11-29] MEDS ORDERED: ONDANSETRON 4MG/2ML VIAL IV ONE (13:05)
[2020-11-29 13:56] LABS: HEMATOCRIT 25.3 % (42.0-52.0); HEMOGLOBIN 8.1 g/dl (13.5-17.5); MEAN CORPUSCULAR HEMOGLOBIN 35.4 pg (27.0-33.0); MEAN CORPUSCULAR VOLUME 110.5 fl (80.0-96.0); RED BLOOD COUNT 2.29 10^6/uL (4.30-6.10); WHITE BLOOD COUNT 1.3 10^3/uL (4.0-10.0)
[2020-11-29 14:08] LABS: INR 1.06
[2020-11-29 14:09] LABS: PARTIAL THROMBOPLASTIN TIME 27.8 SECONDS (24.2-38.5)
[2020-11-29] MEDS: MORPHINE 4 MG/ML 1ML VIAL/SYRINGE (J2270) IV PRN ×2 (14:26→16:24)
[2020-11-29 14:29] LABS: ALBUMIN 3.4 GM/DL (3.2-5.2); ALT/SGPT 23 U/L (12-78); BILIRUBIN,DIRECT 0.1 MG/DL (0.0-0.2); BILIRUBIN,TOTAL 0.5 MG/DL (0.2-1.0); BLOOD UREA NITROGEN 27 MG/DL (7-18); CALCIUM LEVEL 7.8 MG/DL (8.8-10.2); CARBON DIOXIDE LEVEL 21 MEQ/L (21-32); CHLORIDE LEVEL 102 MEQ/L (98-107); CK-MB VALUE MASS < 1.0 NG/ML (<3.6); CPK CREATINE PHOSPHOKINASE 56 U/L (39-308); CREATININE FOR GFR 0.96 MG/DL (0.70-1.30); GLOMERULAR FILTRATION RATE > 60.0 (>49); GLUCOSE, FASTING 102 MG/DL (70-100); LIPASE 17 U/L (73-393); MB/CK RELATIVE INDEX 1.79 (< OR =4); POTASSIUM SERUM 3.7 MEQ/L (3.5-5.1); SODIUM LEVEL 136 MEQ/L (136-145); TOTAL PROTEIN 6.8 GM/DL (6.4-8.2); TROPONIN I 0.05 NG/ML (< 0.10)
[2020-11-29 14:34] LABS: PLATELET COUNT, AUTOMATED 31 10^3/uL (150-450)
[2020-11-29 14:40] LABS: ATYPICAL LYMPH 1 % (0-5); BASOPHILS 2 % (0-1); EOSINOPHILS 6 % (0-3); LYMPHOCYTES 19 % (16-44); NEUTROPHILS 69 % (28-66)
[2020-11-29 14:41] LABS: PLATELET ESTIMATE MARKED DECREASE (NORMAL)
[2020-11-29 14:43] LABS: ANISOCYTOSIS 1+; DOHLE BODIES 1+
[2020-11-29] MEDS ORDERED: ISOVUE-370 76% 100ML VIAL As Ordered ONE (14:56)
--- NOTE | 2020-11-29 15:29 | REP ---
INDICATION: right sided abdominal pain. COMPARISON: 10/05/2020 TECHNIQUE: Axial contrast-enhanced images from the lung bases to the pubic symphysis using 100 cc Isovue 370 intravenous contrast material. Coronal and sagittal reformations obtained. This CT examination was performed using the following dose reduction techniques: Automated exposure control, adjustment of mA and/or kv according to the patient's size, and the use of iterative reconstruction technique. FINDINGS: Liver demonstrates innumerable low-density lesions consistent with metastatic disease and possibly increased from prior examination. Spleen, pancreas, gallbladder, bilateral adrenal glands are normal. Kidneys demonstrate stable chronic atrophic changes along with 2-3 mm nonobstructing left renal calculi. The enteric system is without obstruction or acute inflammatory process. Normal terminal ileum and appendix are identified in the right lower quadrant. Sigmoid diverticula noted without acute diverticulitis. Pelvis demonstrates normal bladder and age-appropriate prostate/seminal vesicles along with small fat containing inguinal hernias (left greater than right). No ascites. No free air. No adenopathy. Atherosclerotic changes to the aorta and vasculature noted without aneurysm or dissection. Visualized lung bases demonstrate chronic changes and there appears to be a 9 mm nodule in the medial right lung base possibly reflecting metastatic focus along with small pleural reaction. IMPRESSION: 1. Hepatic hypodensities most compatible with metastatic disease which may be slightly increased as compared with prior examination. 2. Small nonobstructing left renal calculi up to 3 mm. 3. Sigmoid diverticula without acute diverticulitis. 4. No further acute abdominopelvic pathology appreciated. 5. Possible new 9 mm metastatic focus at the right lung base. <Electronically signed by Naveen Maldonado > 11/29/20 [id number]
[2020-11-29] MEDS ORDERED: FILGRASTIM 480 MCG/0.8 ML SYRINGE (J1442) SC STA (17:07)
[2020-11-29] MEDS ORDERED: CIPROFLOXACIN 500MG TABLET PO ONE (17:10)
[2020-11-29] MEDS ORDERED: CIPR-249 PO (18:33)
[2020-11-29 18:43] VITALS: BP 121/69
--- NOTE | 2020-11-29 19:42 | ECGEPIP ---
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
--- NOTE | 2020-11-30 06:48 | ED PDOC ---
Post-Departure Follow-Up ct abd/p faxed to degar lewis and dr waddell for fu Meghan Horn MD November 30, 2020 06:48
== END 2020-11-29 18:45 | disposition home or self-care (01) ==
LOC: M ED 12:38
DX: D70.9 Neutropenia, unspecified (principal); C34.91 Malignant neoplasm of unspecified part of right bronchus or lung; C79.51 Secondary malignant neoplasm of bone; C78.7 Secondary malignant neoplasm of liver and intrahepatic bile duct; C78.2 Secondary malignant neoplasm of pleura; N20.0 Calculus of kidney; K57.30 Diverticulosis of large intestine without perforation or abscess without bleeding; E78.5 Hyperlipidemia, unspecified; Z79.899 Other long term (current) drug therapy
CPT/HCPCS: 74177; 80048; 80076; 81001; 82550; 82553; 83605; 83690; 84484; 85025; 85049; 85055; 85610; 85730; 87040; 93005; 93041; 96361; 96372; 96374; 96375; 99285; J1442; J2270; J2405; Q9967

== ENCOUNTER 2020-12-04 16:42 | Emergency (ER) | payer MEDICARE ==
[~2020-12-04] VITALS: Ht 172.7 cm; Wt 80.6 kg
[~2020-12-04 16:42] MED LIST changes: +ALBU8.5H INH; +CIPR-249 PO
--- NOTE | 2020-12-04 19:22 | ECGEPIP ---
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
[2020-12-04 19:52] LABS: CK-MB VALUE MASS 1.1 NG/ML (<3.6); CPK CREATINE PHOSPHOKINASE 32 U/L (39-308); MB/CK RELATIVE INDEX 3.44 (< OR =4); TROPONIN I < 0.02 NG/ML (< 0.10)
[2020-12-04] MEDS ORDERED: FOLI400T5 PO (20:57)
[2020-12-04] MEDS ORDERED: PRED10TA2 PO (20:57)
[2020-12-04] MEDS ORDERED: LEVO125T4 PO (20:57)
[2020-12-04] MEDS ORDERED: CIPR-249 PO (20:57)
[2020-12-04 22:35] VITALS: BP 134/77
[2020-12-04 22:50] VITALS: BP 150/80
[2020-12-04 23:20] VITALS: BP 140/77
[2020-12-04 23:35] VITALS: BP 138/72
[2020-12-04 23:55] VITALS: BP 142/68
[2020-12-05 00:14] VITALS: BP 143/78
[2020-12-05 00:29] VITALS: BP 136/75
[2020-12-05 00:59] VITALS: BP 145/85
[2020-12-05 01:15] VITALS: BP 142/66
[2020-12-05 02:15] VITALS: BP 135/75
== END 2020-12-05 02:30 | disposition home or self-care (01) ==
LOC: M ED 16:42
DX: D61.818 Other pancytopenia (principal); R53.1 Weakness; Z79.51 Long term (current) use of inhaled steroids; Z79.891 Long term (current) use of opiate analgesic; Z87.442 Personal history of urinary calculi; Z88.8 Allergy status to other drugs, medicaments and biological substances; Z90.2 Acquired absence of lung [part of]
CPT/HCPCS: 36430; 82550; 82553; 84484; 86850; 86900; 86901; 86920; 87798; 93005; 93041; 94760; 99285; P9034

== ENCOUNTER → 2020-12-08 | Outpatient (CLI) | payer MEDICARE ==
[~2020-12-08] MED LIST changes: +FOLI400T5 PO
--- NOTE | 2020-12-10 01:13 | ECWPNPC ---
PATIENT NAME: ROLAND SMITH : 1955 GENDER: MALE VISIT DATE: 12/08/2020 DISCHARGE DATE: 12/08/20 1025 VISIT LOCKED DATE TIME: PHYSICIAN: WILMAN OLIVAREZ PHYSICIAN PAGER NO: ACTIVE RESOURCE: WILMAN OLIVAREZ REASON FOR APPOINTMENT 1. MEDICATION MANAGEMENT AFTER INITIAL VISIT AND START OF PERCOCET 10/325/URINE TOXICOLOGY HISTORY OF PRESENT ILLNESS GENERAL: HERE FOR 3 MONTH FOLLOW-UP AND MEDICATION MANAGEMENT FOR CHRONIC PAIN ASSOCIATED WITH METASTATIC LUNG CA. CURRENTLY USING PERCOCET 10/325 4 TIMES DAILY WITH IMPROVEMENT IN HIS PAIN AND ABILITY TO TOLERATE ACTIVITIES. HAS BEEN HAVING SOME SIDE EFFECTS WITH CHEMOTHERAPY. DID HAVE TO HAVE A TRANSFUSION OF PLATELETS LAST WEEK. OVERALL FEELING BETTER TODAY. REPORTING NORMAL BOWEL MOVEMENTS. REPORTING NORMAL URINATION. IS NOT TAKING COLACE HE DOESN'T FEEL HE NEEDS IT HIS BOWELS HAVE BEEN FINE. CHIEF AREA OF PAIN IS LOWER BACK. -. FALL RISK SCREENING: SCREENING : NO FALLS REPORTED IN THE LAST YEAR, ONE FALL THIS YEAR 12/03/[address] TO A [employer] APPOINTMENT, HURT HIS HEAD DID GO TO THE ER. PAIN SCREENING: PATIENT HAS A COMPLAINT OF ACUTE OR CHRONIC PAIN :YES LOCATION OF PAIN:LOW BACK INTENSITY OF PAIN (SCALE OF 1 TO 10):8 WHAT DOES YOUR PAIN FEEL LIKE:ACHING, SHARP DURATION:CONTINOUS, CONSTANT, ALL DAY PAIN IS INCREASED BY:ACTIVITIES, PROLONGED STANDING PAIN IS DECREASED BY:USE OF PAIN MEDICATIONS NURSING NOTE: -. PAIN CENTER INTAKE QUESTIONS: DO YOU HAVE A HISTORY OF MRSA? :NO DO YOU TAKE A BLOOD THINNERS? :NO DO YOU HAVE ANY BLEEDING DISORDERS? :YES PATIENT STATED THAT HE LOW PLATE COUNT ANY NEW NUMBNESS OR WEAKNESS IN YOUR LEGS OR ARMS? :YES BOTH ARMS ANY PACEMAKER,DEFIBRILLATOR, OR DORSAL COLUMN STIMULATOR? :NO DO YOU HAVE ANY RASHES OR OPEN SORES? :YES RASH ALL OVER BODY ARE YOU ALLERGIC TO IV DYE? :NO ARE YOU DIABETIC? :NO ANY NEW PROBLEMS WITH YOUR MEDICATIONS? :NO HAVE YOU RECEIVED A VACCINE IN THE PAST 30 DAYS? :NO 2ND COVID SHOT 11/21/2020 DO YOU PLAN TO RECEIVE A VACCINE IN THE NEXT 21 DAYS? :NO DO YOU NEED ANY PRESCRIPTION? :NO DO YOU TAKE ANY IMMUNOSUPPRESSIVE MEDICATIONS? :YES CHEMOTHERAPY, PREDNISONE FOR SMALL NON-CELL LUNG CANCER CURRENT MEDICATIONS TAKING FOLIC ACID 400 MCG TABLET 1 TABLET ORALLY ONCE A DAY TAKING ONDANSETRON HCL 8 MG TABLET 1 TABLET NEEDED ORALLY EVERY 12 HOURS FOR NAUSEA AND VOMITING TAKING PROCHLORPERAZINE MALEATE 10 MG TABLET 1 TABLET NEEDED ORALLY EVERY 6 HOURS FOR NAUSEA OR VOMITING TAKING LUMIGAN 0.01 % SOLUTION 1 DROP INTO AFFECTED EYE IN THE EVENING OPHTHALMIC ONCE A DAY TAKING LUBRICATING DROPS TAKING CARBOPLATIN 450 MG SOLUTION RECONSTITUTED DIRECTED INTRAVENOUS , NOTES: GIVEN 484MG TAKING PRALATREXATE 40 MG/2ML SOLUTION DIRECTED INTRAVENOUS TAKING ESCITALOPRAM OXALATE 20 MG TABLET 1 TAB ORALLY ONCE A DAY TAKING SIMVASTATIN 20 MG TABLET 1 TABLET IN THE EVENING ORALLY ONCE A DAY TAKING GABAPENTIN 300 MG CAPSULE 1 CAPSULE ORALLY TWICE A DAY TAKING COLACE 100 MG CAPSULE 1 CAPSULE NEEDED ORALLY BID TAKING ALBUTEROL SULFATE HFA TAKING PIMECROLIMUS 1 % CREAM 1 APPLICATION TO AFFECTED AREAS ON BACK, LEGS, SHOULDERS, ARMS EXTERNALLY TWICE A DAY TAKING MUCINEX 600 MG TABLET EXTENDED RELEASE 12 HOUR 1 TABLET NEEDED ORALLY EVERY 12 HRS TAKING VENTOLIN HFA 108 (90 BASE) MCG/ACT AEROSOL SOLUTION 1 PUFF NEEDED INHALATION EVERY 4 HRS NEEDED FOR SHORTNESS OF BREATH TAKING PREDNISONE 10 MG TABLET 1 ORALLY ONCE A DAY TAKING CALCIUM 600 MG TABLET 1 TABLET WITH MEALS ORALLY ONCE A DAY TAKING LEVOTHYROXINE SODIUM 125 MCG TABLET 1 TABLET IN THE MORNING ON AN EMPTY STOMACH ORALLY ONCE A DAY TAKING PERCOCET 10-325 MG TABLET 1 TABLET NEEDED ORALLY EVERY 6 HRS MDD4 NOT-TAKING BETAMETHASONE DIPROPIONATE AUG 0.05 % OINTMENT 1 APPLICATION EXTERNALLY NEEDED (NOT FACE, GROIN, ARMPITS) WITH RASH MEDICATION LIST REVIEWED AND RECONCILED WITH THE PATIENT PAST MEDICAL HISTORY HYPOTHYROIDISM ANEMIA HGB = 10 04/2018 SECONDARY TO CHEMO HYPERLIPIDEMIA DEPRESSION/ANXIETY - ON LEXAPRO SINCE 2010 CHRONIC RIGHT WRIST PAIN - "CHRONIC BROKEN WRSIT" - LIMITED MOBILITY CHRONIC BACK PAIN - WAS ON DISABILITY SINCE 2012 CALCIFIC TENDONITIS LEFT SHOULDER - S/P STEROID INJECTIONS IN PAST WITH GOOD RESULTS ADENOCARCINOMA LUNG WITH METS TO T-SPINE AND RIB S/P RT - FOLLOWING WITH LOCAL ONCOLOGY - ? RECURRENT LUNG CA VS NEW PRIMARY LUNG CANCER S/P RESECTION 12/2017, 4 ROUNDS CHEMO WITH CARBOPLATIN & PEMETREXED, NO RT PULMONARY EMBOLISM AFTER LUNG RESECTION 12/2017 S/P ELIQUIS X 6 MONTHS DRUG RASH FROM [facility] - TREATED WITH PREDNISONE MCC STARTING 09/2019 - PRESENT (10/2020) ALLERGIES KEYTRUDA: RASH - SIDE EFFECTS SURGICAL HISTORY KIDNEY STONE REMOVAL/STENT PLACE MENT 08/2017 LOBECTOMY: LUNG LOWER RIGHT 01/01/18 CARPAL TUNNEL RELEASE-LEFT 2007 COLONOSCOPY - POLYP REPEAT DUE IN 04/2016 BIOPSY-SPINE 08/26/2019 CATARACT REMOVAL-RIGHT 04/2020 SOCIAL HISTORY GENERAL: TOBACCO USE ARE YOU A:FORMER SMOKER HOW LONG HAS IT BEEN SINCE YOU LAST SMOKED?> 10 YEARS LATEX QUESTIONNAIRE LATEX ALLERGY : HAVE YOU EVER DEVELOPED ANY TYPE OF REACTION AFTER HANDLING LATEX PRODUCTS SUCH RUBBER GLOVES, CONDOMS, DIAPHRAGMS, BALLOONS, SOCKS, OR UNDERWEAR?NO LATEX ALLERGY : HAVE YOU EVER DEVELOPED ANY TYPE OF REACTION DURING OR AFTER DENTAL APPOINTMENT, VAGINAL/RECTAL EXAMINATION, SURGICAL PROCEDURE, OR ANY OTHER EXPOSURE?NO LATEX RISK : HAVE YOU EVER HAD ANY DIFFICULTY BREATHING OR HIVES AFTER EATING OR HANDLING ANY FRUITS, OR VEGETABLES; SUCH KIWI, BANANAS, STONE FRUITS, OR CHESTNUTSNO LATEX RISK : DO YOU HAVE A PREVIOUS PERSONAL HISTORY OF MORE THAN NINE SURGERIES, SPINA BIFIDA, OR REPEATED CATHERIZATIONS? NO LATEX RISK : ARE YOU FREQUENTLY EXPOSED TO LATEX PRODUCTS IN YOUR OCCUPATION?NO DATE ASKED : 12/08/2020 ALCOHOL USE: NO. BMI CARE GOAL FOLLOW-UP ABOVE NORMAL BMI FOLLOW-UPDIETARY MANAGEMENT EDUCATION, GUIDANCE, AND COUNSELING ALCOHOL SCREENING DID YOU HAVE A DRINK CONTAINING ALCOHOL IN THE PAST YEAR?NO POINTS0 INTERPRETATIONNEGATIVE RECREATIONAL DRUG USE DRUG USE?YES VAPES MARIJUANA CAFFEINE CAFFEINE USE?YES 2 CUPS DAILY SEXUAL HX HAD SEX IN THE LAST 12 MONTHS (VAGINAL, ORAL, OR ANAL)?NO HAVE YOU EVER HAD AN STD?NO LANGUAGE LANGUAGES SPOKEN:SURINAMESE LEARNING BARRIERS / SPECIAL NEEDS CHANGE FROM LAST VISIT?NO BARRIERS TO LEARNING?NO HEARING IMPAIRED?NO VISION IMPAIRED?YES COGNITIVELY IMPAIRED?NO :CORRECTIVE LENSES READINESS TO LEARN?YES LEARNING PREFERENCES?NO LEARNING CAPABILITIES PRESENT?YES EMOTIONAL BARRIERS?NO SPECIAL DEVICES?NO RATE SETTER NEEDED?NO DOMESTIC VIOLENCE STATUS: DO YOU FEEL SAFE IN YOUR ENVIRONMENT?YES OCCUPATION: RETIRED. DIET: REGULAR. EXERCISE: WALKS. MARITAL STATUS: . OTHERS AT HOME: LIVES WITH UNCLE. REVIEWED WITH PATIENT 01/06/2020 AB. HOSPITALIZATION/MAJOR DIAGNOSTIC PROCEDURE KIDNEY INFECTION 08/2017 SURGERY 01/01- PULMONARY EMBOLISM 01/28/18 LUNG CANCER 2018 PNEUMONIA 07/2020 LOW BLOOD CELL COUNTS 10/2020 REVIEW OF SYSTEMS CONSTITUTIONAL: ANY RECENT FEVER NO . CHILLS NO . WEIGHT CHANGE OF UNKNOWN REASONS NO . GASTROENTEROLOGY: NEW UNEXPLAINABLE CHANGES IN BOWEL CONTROL NO . CONSTIPATION NO . GENITOURINARY: ANY NEW CHANGE IN BLADDER CONTROL? NO . NEUROLOGY: NEW ONSET DIZZINESS OR NEUROLOGICAL CHANGES NOT MENTIONED NO . NEW NUMBNESS OR PAIN PATTERNS NOT MENTIONED AND PERTINENT TO TODAY'S VISIT NO . CARDIOLOGY: NEW CHEST PRESSURE NO . PATIENT DENIES NO . RESPIRATORY: UNEXPLAINABLE COUGH NO . NEW SHORTNESS OF BREATH NO . VITAL SIGNS WT 177.8 LBS, HT 68", BMI 27.03 INDEX, BP 116/56 MM HG, HR 104 /MIN, RR 18 /MIN, TEMP 97.0 F, OXYGEN SAT % 98%, NA INITIALS AW 0953. EXAMINATION GENERAL EXAMINATION: GENERALAWAKE,ALERT ,PLEASANT . PSYCHAFFECT NORMAL . LUNGS:LUNG LAWSON ARE CLEAR TO AUSCULTATION BILATERALLY. GOOD MOVEMENT OF AIR . HEART:S1, S2 IN A REGULAR RATE AND RHYTHM. NO SIGNIFICANT MURMURS, RUBS OR GALLOPS NOTED . ASSESSMENTS SPINAL STENOSIS, LUMBAR REGION WITH NEUROGENIC CLAUDICATION - M48.062 (PRIMARY) MALIGNANT NEOPLASM OF LOWER LOBE OF RIGHT LUNG - C34.31 MCC (CURRENT) USE OF OPIATE ANALGESIC - Z79.891 TREATMENT SPINAL STENOSIS, LUMBAR REGION WITH NEUROGENIC CLAUDICATION CONTINUE PERCOCET TABLET, 10-325 MG, 1 TABLET NEEDED, ORALLY, EVERY 6 HRS MDD4 LAB: URINE TEST [facility] 12/08/2020 10:23:05 AM > LAST DOSE: PERCOCET 12/08/2020 @8AM NOTES: PATIENT WAS ADVISED TO CONTINUE PERCOCET 10/325 EVERY 4-6 HOURS NEEDED WITH MAXIMUM DAILY DOSE OF 4 TABLETS. ADVISED TO CALL US WITH ANY PROBLEMS WITH PAIN CONTROL. ISTOP REVIEWED , RISKS OF NARCOTIC/OPIOD MEDICATIONS INCLUDES BUT IS NOT LIMITED TO RISK OF DEPENDANCE/DEVELOPMENT OF ADDICTION, MOOD DISTURBANCE AND DEPRESSION, OSTEOPOROSIS, HORMONAL AND LABIDAL CHANGES, RESPIRATORY DEPRESSION AND . PATIENT IS ADVISED NOT TO DRIVE OR DRINK ALCOHOL WHILE ON THESE MEDICATIONS. PROCEDURE CODES FA211 ESTABILISHED PATIENT FORMERLY [facility] CHARGE DISPOSITION & COMMUNICATION FOLLOW UP 3 MONTHS (REASON: MEDICATION MANAGEMENT/REVIEW URINE TOXICOLOGY DONE AT 12/08/2020 VISIT) ELECTRONICALLY SIGNED BY NORMAN LOZANO ON 12/09/2020 AT 01:48 PM EDT DISCLAIMER : THIS IS A VISIT SUMMARY EXTRACTED FROM THE [email or web address] CHART. IT IS NOT A COPY OF THE [email or web address] PROGRESS NOTE. JAZZY
== END ==
LOC: M PAIN 09:45
PROVIDERS: ATTEND Nurse Practitioner Family
DX: M48.062 Spinal stenosis, lumbar region with neurogenic claudication (principal); C34.31 Malignant neoplasm of lower lobe, right bronchus or lung; G89.29 Other chronic pain; E03.9 Hypothyroidism, unspecified; Z86.59 Personal history of other mental and behavioral disorders; Z86.711 Personal history of pulmonary embolism; Z87.891 Personal history of nicotine dependence; Z88.8 Allergy status to other drugs, medicaments and biological substances; Z79.899 Other long term (current) drug therapy

== ENCOUNTER 2020-12-21 12:34 | Emergency (ER) | payer MEDICARE ==
[~2020-12-21] VITALS: Ht 172.7 cm; Wt 81.8 kg
[~2020-12-21 12:34] MED LIST changes: -PROHANCE 279.3MG/ML 15ML VIAL As Ordered ONE; -PROHANCE 279.3MG/ML 5ML VIAL As Ordered ONE
[2020-12-21 13:35] LABS: BASO # 0.1 10^3/uL (0.0-0.2); BASO % 0.5 % (0.0-1.0); EOS # 0.1 10^3/uL (0.0-0.5); EOS % 0.7 % (0.0-3.0); HEMATOCRIT 29.1 % (42.0-52.0); HEMOGLOBIN 9.5 g/dl (13.5-17.5); LYMPH # 0.5 10^3/uL (1.5-5.0); LYMPH % 4.2 % (24.0-44.0); MEAN CORPUSCULAR HGB CONC 32.6 g/dl (32.0-36.5); MONO # 1.2 10^3/uL (0.0-0.8); MONO % 10.9 % (2.0-8.0); NEUTROPHILS # 8.7 10^3/uL (1.5-8.5); NEUTROPHILS % 79.7 % (36.0-66.0); PLATELET COUNT, AUTOMATED 134 10^3/uL (150-450); RED BLOOD COUNT 2.88 10^6/uL (4.30-6.10); WHITE BLOOD COUNT 10.9 10^3/uL (4.0-10.0)
[2020-12-21 13:50] LABS: INR 1.03; PROTHROMBIN TIME 13.7 SECONDS (12.5-14.3)
--- NOTE | 2020-12-21 13:51 | REP ---
INDICATION: CVA COMPARISON: 10/30/2020 TECHNIQUE: Portable AP view of the chest FINDINGS: The mediastinum and cardiac silhouette are stable and within normal limits for portable technique. The lung barone again demonstrate pleuroparenchymal changes in the right hemithorax suggesting chronic change although small to moderate pleural effusion and right basilar atelectasis cannot definitively be excluded. Left hemithorax is well aerated and clear. IMPRESSION: Relatively stable findings involving the right hemithorax. Subtle right lower lobe atelectasis and effusion cannot definitively be excluded <Electronically signed by Naveen Maldonado > 12/21/20 [id number]
[2020-12-21 14:02] LABS: BLOOD UREA NITROGEN 36 MG/DL (7-18); CARBON DIOXIDE LEVEL 25 MEQ/L (21-32); CHLORIDE LEVEL 105 MEQ/L (98-107); CK-MB VALUE MASS < 1.0 NG/ML (<3.6); CPK CREATINE PHOSPHOKINASE 45 U/L (39-308); CREATININE FOR GFR 1.29 MG/DL (0.70-1.30); GLOMERULAR FILTRATION RATE 59.1 (>49); GLUCOSE, FASTING 116 MG/DL (70-100); MB/CK RELATIVE INDEX 2.22 (< OR =4); POTASSIUM SERUM 4.9 MEQ/L (3.5-5.1); SODIUM LEVEL 138 MEQ/L (136-145); TROPONIN I < 0.02 NG/ML (< 0.10)
[2020-12-21] MEDS ORDERED: ASPI81TA26 PO (14:19)
[2020-12-21 14:30] VITALS: BP 133/76
--- NOTE | 2020-12-21 20:18 | ECGEPIP ---
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
--- NOTE | 2020-12-23 08:45 | ED PDOC ---
Post-Departure Follow-Up cxr-p formal report faxed to edgar [facility] for fu Meghan Horn MD December 23, 2020 08:45
== END 2020-12-21 14:39 | disposition home or self-care (01) ==
LOC: M ED 12:34
DX: G45.9 Transient cerebral ischemic attack, unspecified (principal); R93.0 Abnormal findings on diagnostic imaging of skull and head, not elsewhere classified; R25.9 Unspecified abnormal involuntary movements; C34.91 Malignant neoplasm of unspecified part of right bronchus or lung; C79.51 Secondary malignant neoplasm of bone; C78.7 Secondary malignant neoplasm of liver and intrahepatic bile duct; C78.2 Secondary malignant neoplasm of pleura; M48.061 Spinal stenosis, lumbar region without neurogenic claudication; E78.5 Hyperlipidemia, unspecified; I25.10 Atherosclerotic heart disease of native coronary artery without angina pectoris; E03.9 Hypothyroidism, unspecified; D69.6 Thrombocytopenia, unspecified; D64.9 Anemia, unspecified; F33.9 Major depressive disorder, recurrent, unspecified; Z86.711 Personal history of pulmonary embolism; Z79.899 Other long term (current) drug therapy; Z88.8 Allergy status to other drugs, medicaments and biological substances
CPT/HCPCS: 36415; 70553; 71045; 80048; 82550; 82553; 84484; 85025; 85610; 85730; 86850; 86900; 86901; 93005; 93041; 94760; 99284; A9576

== ENCOUNTER → 2020-12-21 | Outpatient (CLI) | payer MEDICARE ==
[~2020-12-21] MED LIST changes: +PROHANCE 279.3MG/ML 15ML VIAL As Ordered ONE; +PROHANCE 279.3MG/ML 5ML VIAL As Ordered ONE
--- NOTE | 2020-12-21 11:18 | REPVR ---
PROCEDURE INFORMATION: Exam: MR Head Without and With Contrast Exam date and time: 12/21/2020 10:53 AM Age: 65 years old Clinical indication: Weakness, extremity; Left; Additional info: Involuntary movement of lt arm TECHNIQUE: Imaging protocol: MR of the head without and with intravenous contrast. Contrast material: PROHANCE; Contrast volume: 16 ml; Contrast route: INTRAVENOUS (IV); COMPARISON: MRI-Brain W/O FOLL BY WITH 11/29/2019 11:44 AM FINDINGS: Brain: There is stable left anterior temporal arachnoid cyst. The ventricles and sulci are proportionally enlarged, consistent with volume loss / atrophy. There is T2 prolongation in the violette and cerebral white matter, consistent with microvascular disease. Gaffney white differentiation is intact. Diffusion weighted images show 3 areas of restricted diffusion in the right superior frontal lobe measuring between 5 mm and 9 mm. There is no mass effect or midline shift. There is no acute intracranial hemorrhage. There are no acute extra-axial fluid collections. Cerebral ventricles: Normal. No ventriculomegaly. Bones/joints: Unremarkable as visualized. Paranasal sinuses: Normal as visualized. No acute sinusitis. Mastoid air cells: No significant mastoid effusion. Orbital cavity: Unremarkable. Soft tissues: Unremarkable as visualized. Other vasculature: Flow voids in main vascular structures are visualized. There is no abnormal leptomeningeal or parenchymal contrast enhancement. IMPRESSION: 1. Three areas of restricted diffusion consistent with acute to subacute age infarcts in right frontal lobe. 2. Atrophy and microvascular disease. Electronically signed by: Vikki Ruggiero On 12/21/2020 11:18:06 AM
== END ==
LOC: M RAD 09:50
PROVIDERS: ATTEND Internal Medicine Medical Oncology
DX: R93.0 Abnormal findings on diagnostic imaging of skull and head, not elsewhere classified (principal); R25.9 Unspecified abnormal involuntary movements

== ENCOUNTER → 2020-12-29 | Outpatient (CLI) | payer MEDICARE ==
[~2020-12-29] MED LIST changes: +GASTROGRAFIN SOLUTION 30ML (Q9963) As Ordered ONE; +ISOVUE-370 76% 100ML VIAL As Ordered ONE
--- NOTE | 2020-12-29 14:02 | REP ---
INDICATION: LUNG CA COMPARISON: Multiple examinations dating through 08/16/2019 TECHNIQUE: Axial contrast enhanced images from the thoracic inlet to the upper abdomen with coronal and sagittal reformations using 100 ml Isovue 370 intravenous contrast material. This CT examination was performed using the following dose reduction techniques: Automated exposure control, adjustment of mA and/or kv according to the patient's size, and use of iterative reconstruction technique. FINDINGS: Chronic postsurgical pleuroparenchymal changes involving the right hemithorax. Aerated lung barone are otherwise clear. No acute consolidation, nodule or mass. No acute effusion. No pneumothorax. Tracheobronchial tree is patent. No axillary, hilar, or mediastinal adenopathy. Mediastinum demonstrates stable atherosclerotic changes to the thoracic aorta and coronary arteries without aortic aneurysm/dissection or cardiomegaly. No pericardial effusion. Musculoskeletal structures demonstrate stable sclerotic metastases in multiple thoracic vertebral bodies and old healed right rib fractures. Limited upper abdomen again demonstrates innumerable hypodense hepatic min metastatic. Bilateral adrenal glands are normal. IMPRESSION: 1. Chronic postsurgical changes involving the right hemithorax. No acute mediastinal or pleuroparenchymal process. 2. Skeletal and hepatic metastases similar to most recent prior examination dated 11/29/2020. <Electronically signed by Naveen Maldonado > 12/29/20 1152
--- NOTE | 2020-12-29 14:10 | REP ---
INDICATION: LUNG CA. COMPARISON: 11/29/2020, 09/23/2020 TECHNIQUE: Axial contrast-enhanced images from the lung bases to the pubic symphysis using oral and 100 cc Isovue 370 intravenous contrast material. Coronal and sagittal reformations obtained. This CT examination was performed using the following dose reduction techniques: Automated exposure control, adjustment of mA and/or kv according to the patient's size, and the use of iterative reconstruction technique. FINDINGS: Liver demonstrates progressive increased hepatic hypodense metastatic lesions as compared with most recent prior examinations. Spleen, pancreas, gallbladder, bilateral adrenal glands and kidneys are normal. There is no evidence for bowel obstruction or acute inflammatory process. Normal terminal ileum and appendix are identified in the right lower quadrant. Sigmoid diverticulosis noted without acute diverticulitis. Pelvis demonstrates normal bladder and age-appropriate prostate/seminal vesicles. Small fat/fluid containing left and right inguinal hernias noted. No ascites. No free air. No intraperitoneal or retroperitoneal adenopathy. Abdominal aorta and vasculature appear normal. Musculoskeletal structures are intact and without acute osseous abnormality. IMPRESSION: Hepatic metastases appear increased in size and number. No further acute abdominopelvic pathology appreciated. Diverticulosis without acute diverticulitis. No ascites, focal inflammatory stranding, or adenopathy. <Electronically signed by Naveen Maldonado > 12/29/20 [id number]
== END ==
LOC: M RAD 11:34
PROVIDERS: ATTEND Internal Medicine Medical Oncology
DX: C34.91 Malignant neoplasm of unspecified part of right bronchus or lung (principal)
CPT/HCPCS: 71260; 74177; Q9963; Q9967

== ENCOUNTER 2021-01-18 11:08 | Inpatient (IN) | payer MEDICARE ==
[~2021-01-18] VITALS: Ht 172.7 cm; Wt 76.1 kg
[~2021-01-18 11:08] MED LIST changes: +ATOR40TA75 PO; -GASTROGRAFIN SOLUTION 30ML (Q9963) As Ordered ONE; -ISOVUE-370 76% 100ML VIAL As Ordered ONE
[2021-01-18] MEDS ORDERED: NS 1,000 ML IV ONE (12:45)
[2021-01-18 13:00] LABS: BASO # 0.1 10^3/uL (0.0-0.2); BASO % 0.4 % (0.0-1.0); EOS # 0.3 10^3/uL (0.0-0.5); EOS % 1.9 % (0.0-3.0); HEMATOCRIT 31.6 % (42.0-52.0); HEMOGLOBIN 10.4 g/dl (13.5-17.5); LYMPH # 0.5 10^3/uL (1.5-5.0); LYMPH % 2.9 % (24.0-44.0); MEAN CORPUSCULAR HEMOGLOBIN 33.3 pg (27.0-33.0); MEAN CORPUSCULAR HGB CONC 32.9 g/dl (32.0-36.5); MEAN CORPUSCULAR VOLUME 101.3 fl (80.0-96.0); MONO # 1.8 10^3/uL (0.0-0.8); MONO % 9.9 % (2.0-8.0); NEUTROPHILS # 15.1 10^3/uL (1.5-8.5); PLATELET COUNT, AUTOMATED 134 10^3/uL (150-450); RED BLOOD COUNT 3.12 10^6/uL (4.30-6.10)
[2021-01-18] MEDS ORDERED: ONDANSETRON 4MG/2ML VIAL IV ONE (13:00)
--- NOTE | 2021-01-18 13:26 | REP ---
INDICATION: SOB/abdominal discomfort. COMPARISON: Chest 12/21/2020. TECHNIQUE: Supine and erect views of the abdomen, frontal view chest. FINDINGS: There is no evidence of free intraperitoneal air. There is no evidence of bowel obstruction. No significantly dilated bowel loops are seen. There are vascular calcifications and phleboliths in the pelvis. There appear to be 2 tiny subcentimeter calculi in the lower pole of the left kidney. There are degenerative changes of the spine and hips. Sclerotic lesion is again noted of the right 9th rib posterolaterally. There is again elevation of the right hemidiaphragm with blunting of the right costophrenic angle unchanged. No new infiltrate is seen in either lung. The heart and mediastinum are unremarkable and unchanged. IMPRESSION: Chronic changes as discussed in detail above. No definite acute abnormality. <Electronically signed by Marshall Gaffney > 01/18/21 [id number]
[2021-01-18 13:27] LABS: WHITE BLOOD COUNT 18.2 10^3/uL (4.0-10.0)
[2021-01-18 13:47] LABS: ALBUMIN 3.5 GM/DL (3.2-5.2); ALT/SGPT 27 U/L (12-78); BILIRUBIN,DIRECT 0.1 MG/DL (0.0-0.2); BILIRUBIN,TOTAL 0.7 MG/DL (0.2-1.0); BLOOD UREA NITROGEN 10 MG/DL (7-18); CALCIUM LEVEL 8.6 MG/DL (8.8-10.2); CARBON DIOXIDE LEVEL 22 MEQ/L (21-32); CHLORIDE LEVEL 102 MEQ/L (98-107); CK-MB VALUE MASS < 1.0 NG/ML (<3.6); CPK CREATINE PHOSPHOKINASE 209 U/L (39-308); GLOMERULAR FILTRATION RATE > 60.0 (>49); GLUCOSE, FASTING 120 MG/DL (70-100); MB/CK RELATIVE INDEX 0.48 (< OR =4); POTASSIUM SERUM 4.5 MEQ/L (3.5-5.1); SODIUM LEVEL 137 MEQ/L (136-145); TOTAL PROTEIN 7.1 GM/DL (6.4-8.2); TROPONIN I < 0.02 NG/ML (< 0.10)
--- NOTE | 2021-01-18 15:43 | ECGEPIP ---
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
[2021-01-18] MEDS ORDERED: PRED5TA PO (17:33)
[2021-01-18 17:50] LABS: RSV AMPLIFICATION NEGATIVE (NEGATIVE)
[2021-01-18] MEDS ORDERED: MOM 30ML SUSPENSION UDC PO PRN (18:35)
[2021-01-18] MEDS ORDERED: MAALOX 30 ML SUSP *UDC PO PRN (18:35)
--- NOTE | 2021-01-18 19:20 | HPEPDOC ---
[facility] Medical History & Physical Date of Admission Jan 18, 2021 Date of Service: Jan 18, 2021 History and Physical CHIEF COMPLAINT: Nausea and vomiting HISTORY OF PRESENT ILLNESS: 65-year-old male history of metastatic lung cancer status post lobectomy radiation and chemotherapy area initially diagnosed in 2018. Has not had chemotherapy for the past 2 weeks. He's had a history of low platelets. He presents to the emergency department because of uncontrolled nausea and vomiting last evening. He endorses that he ran out of his Zofran at home. He's had a poor appetite without much by mouth intake. He endorses subjective fevers no chills. He received Zofran and his symptoms of nausea and vomiting completely resolved. He was going to be discharged home however feels weak to be able to go home since he lives by himself and is worried he is going to fall. It was also noted that he has an elevated white count but pulses are obtained. Patient will be admitted for cytosis possible underlying infection and weakness. PAST MEDICAL/SURGICAL HISTORY: Metastatic lung cancer adenocarcinoma with metastasis to the thoracic spine and ribs status post lung resection and radiation and ongoing chemotherapy last 2 weeks ago. History of pulmonary embolism after lung resection completed a six-month course of eliquis Anxiety and depression Anemia secondary to chemotherapy Hypothyroidism Chronic back pain Carpal tunnel release Right cataract surgery Spine biopsy 2019 Kidney stone removal and stent placement 2017 SOCIAL HISTORY: Denies alcohol use Denies tobacco use currently endorses quitting smoking more than 10 years ago Denies illicit drug use other than occasional cannabis use FAMILY HISTORY: Reviewed and none contributory to this admission ALLERGIES: Please see below. REVIEW OF SYSTEMS: 10 point review of systems complete all negative otherwise stated in HPI HOME MEDICATIONS: Please see below. PHYSICAL EXAMINATION: Constitutional: Awake and alert, in no apparent distress ENT: Sclera are clear. Mucosa is dry Respiratory: Lungs diminished breath sounds bilaterally. No respiratory distress. Cardiovascular: RRR S1 and S2 are normal Gastrointestinal: Abdomen is soft, non distended, non tender, BS present. Musculoskeletal: No lower extremity edema. Neurologic: No focal neurological deficit. Mental Status: A&O x3 LABORATORY DATA: See below. IMAGING: See chart MICROBIOLOGY: Please see below. ASSESSMENT 65-year-old male history of metastatic lung cancer presents due to nausea and vomiting because he ran out of his Zofran at home. Symptoms resolved but he was unable to go home due to weakness he is sometimes leukocytosis unknown if there is an underlying infection. Admitted for further workup and management. # Uncontrolled nausea and vomiting: Now resolved after Zofran. Had run out. Continue home medications. # Leukocytosis: Hold on antibiotics for now. Follow-up calcitonin. Had leukocytosis on last admission. Could be reactive from dehydration. IV fluids. Follow-up chest x-ray and urinalysis. Follow-up blood cultures. # Metastatic lung cancer: Continue daily prednisone and inhalers as needed. Follow-up with oncologist. # Anxiety and depression: Continue home medications # Hypothyroidism: Continue levothyroxine. TSH elevated. Follow-up free T4. # Weakness: PT/OT consult. May need placement. # Hyperlipidemia: Continue statin # DVT prophylaxis: Lovenox. Monitor platelets closely A Yousef Hospitalist Vital Signs Vital Signs Date Time Temp Pulse Resp B/P (MAP) Pulse Ox O2 Delivery O2 Flow Rate FiO2 01/18/21 18:31 99.5 01/18/21 18:23 68 16 98 01/18/21 18:15 142/76 (98) 01/18/21 11:09 Room Air Laboratory Data Labs 24H Laboratory Tests 2 01/18/21 12:47: Immature Granulocyte % (Auto) 1.9, Neutrophils (%) (Auto) 83.0H, Lymphocytes (%) (Auto) 2.9L, Monocytes (%) (Auto) 9.9H, Eosinophils (%) (Auto) 1.9, Basophils (%) (Auto) 0.4, Neutrophils # (Auto) 15.1H, Lymphocytes # (Auto) 0.5L, Monocytes # (Auto) 1.8H, Eosinophils # (Auto) 0.3, Basophils # (Auto) 0.1, Nucleated Red Blood Cells % (auto) 0.0, Anion Gap 13, Glomerular Filtration Rate > 60.0, Calcium Level 8.6L, Total Bilirubin 0.7, Direct Bilirubin 0.1, Aspartate Amino Transf (AST/SGOT) 41H, Alanine Aminotransferase (ALT/SGPT) 27, Alkaline Phosphatase 160H, Total Creatine Kinase 209, Creatine Kinase MB < 1.0, Creatine Kinase MB Relative Index 0.48, Troponin I < 0.02, Total Protein 7.1, Albumin 3.5, Albumin/Globulin Ratio 1.0, Thyroid Stimulating Hormone (TSH) 12.900H 01/18/21 16:56: Coronavirus (COVID-19)(PCR) NEGATIVE, Influenza Type A (RT-PCR) NEGATIVE, Influenza Type B (RT-PCR) NEGATIVE, Respiratory Syncytial Virus (PCR) NEGATIVE CBC/BMP Laboratory Tests 01/18/21 12:47 Microbiology Microbiology 01/18/21 Blood Culture, Received Pending 01/18/21 Blood Culture, Received Pending Home Medications Scheduled Atorvastatin Calcium (Atorvastatin Calcium) 40 Mg Tablet, 40 MG PO DAILY Calcium Carbonate (Calcium) 600 Mg Tablet, 600 MG PO QPM Escitalopram Oxalate (Lexapro) 20 Mg Tablet, 20 MG PO DAILY Folic Acid (Folic Acid) 0.4 Mg Tablet, 400 MCG PO DAILY Gabapentin (Gabapentin) 300 Mg Capsule, 300 MG PO BID Latanoprost (Xalatan) 0.005% 2.5ML Drops, 1 DROP OU QHS Levothyroxine Sodium (Levothyroxine Sodium) 125 Mcg Tablet, 125 MCG PO DAILY Pimecrolimus (Pimecrolimus) 30 Gm Cream..g., 1 APPLIC TOP BID APPLY TO AFFECTED AREAS ON LEGS, BACK, SHOULDERS, AND ARMS Prednisone (Prednisone) 5 Mg Tablet, 5 MG PO DAILY Scheduled PRN Albuterol Sulfate (Albuterol Sulfate Hfa) 8.5 Gm Hfa.aer.ad, 2 PUFF INH Q4H PRN for SOB/WHEEZING Oxycodone HCl/Acetaminophen (Oxycodone-Acetaminophen 10-325) 1 Each Tablet, 1 TAB PO QID PRN for PAIN Allergies Coded Allergies: pembrolizumab (Verified Allergy, Intermediate, RASH, 07/29/20) A-FIB/CHADSVASC A-FIB History Current/History of A-Fib/PAF?: No IDA CHANEL MD Jan 18, 2021 19:20
[2021-01-18 19:31] LABS: FREE T4 1.07 NG/DL (0.76-1.46)
[2021-01-18] MEDS: PERCOCET 5MG/325MG TAB PO PRN (20:26)
[2021-01-18] MEDS: LATANOPROST 0.005% OPHTH SOLN 2.5 ML OU SCH (21:00)
[2021-01-18] MEDS: NS 1,000 ML IV SCH (21:10)
[2021-01-18] MEDS: DOCUSATE SODIUM 100MG CAPSULE PO SCH (21:11)
[2021-01-18] MEDS: GABAPENTIN 300 MG CAP PO SCH (21:11)
[2021-01-18 21:50] VITALS: BP 135/76
[2021-01-19 06:00] VITALS: BP 136/75
[2021-01-19] MEDS: LEVOTHYROXINE 125MCG TABLET (0.125MG) PO SCH (06:12)
[2021-01-19] MEDS: NS 1,000 ML IV SCH ×2 (06:12→16:27)
[2021-01-19] MEDS: PERCOCET 5MG/325MG TAB PO PRN ×3 (06:16→20:24)
[2021-01-19 06:32] LABS: HEMATOCRIT 27.9 % (42.0-52.0); HEMOGLOBIN 9.2 g/dl (13.5-17.5); MEAN CORPUSCULAR HEMOGLOBIN 33.2 pg (27.0-33.0); MEAN CORPUSCULAR VOLUME 100.7 fl (80.0-96.0); PLATELET COUNT, AUTOMATED 131 10^3/uL (150-450); RED BLOOD COUNT 2.77 10^6/uL (4.30-6.10); WHITE BLOOD COUNT 15.2 10^3/uL (4.0-10.0)
[2021-01-19 06:56] LABS: BLOOD UREA NITROGEN 8 MG/DL (7-18); CALCIUM LEVEL 7.5 MG/DL (8.8-10.2); CARBON DIOXIDE LEVEL 26 MEQ/L (21-32); CHLORIDE LEVEL 109 MEQ/L (98-107); CREATININE FOR GFR 0.66 MG/DL (0.70-1.30); GLOMERULAR FILTRATION RATE > 60.0 (>49); GLUCOSE, FASTING 78 MG/DL (70-100); MAGNESIUM LEVEL 1.3 MG/DL (1.8-2.4); SODIUM LEVEL 142 MEQ/L (136-145)
[2021-01-19] MEDS: DOCUSATE SODIUM 100MG CAPSULE PO SCH ×3 (09:00→20:23)
[2021-01-19] MEDS: ESCITALOPRAM OXALATE 10 MG TAB (LEXAPRO) PO SCH (09:24)
[2021-01-19] MEDS: ENOXAPARIN 40MG/0.4ML SYRINGE (J1650 PER 10MG) SC SCH (09:24)
[2021-01-19] MEDS: ATORVASTATIN 20 MG TAB PO SCH (09:24)
[2021-01-19] MEDS: predniSONE 5 MG TAB PO SCH (09:24)
[2021-01-19] MEDS: GABAPENTIN 300 MG CAP PO SCH ×2 (09:24→20:23)
[2021-01-19] MEDS: MAG SULF 1GM/100ML (MAG RUN) 1 GM in IV 1 EA IV SCH ×2 (10:06→11:39)
[2021-01-19 14:00] VITALS: BP 116/66
--- NOTE | 2021-01-19 15:13 | IPN ---
PROGRESS NOTE DATE: 01/19/2021 SUBJECTIVE: The patient complains of severe weakness today and had episodes of diarrhea yesterday. GI panel is still pending. Magnesium is 1.3. No nausea or vomiting this morning. No fever or chills, no cough, shortness of breath, chest pain, pressure, tightness, lightheadedness or dizziness. OBJECTIVE: VITAL SIGNS: Temperature 98.4, pulse 71, respiratory rate 18, blood pressure 136/75, 97% on room air. GENERAL: Awake, alert, oriented to person, place and time. LUNGS: No respiratory distress or use of respiratory accessory muscles. Diminished, no wheezing or rales. HEART: S1, S2, sinus rhythm. ABDOMEN: Soft, nontender, non-distended. Positive bowel sounds. EXTREMITIES: No cyanosis, clubbing or pitting edema. LABORATORY DATA: Microbiology and imaging studies have been reviewed. ASSESSMENT AND PLAN: This is a 65-year-old male with history of metastatic lung adenocarcinoma to the thoracic spine and ribs, status post resection, radiation, undergoing chemotherapy with last chemo about two weeks ago, currently on his 6th cycle, history of PE after lung resection, on Eliquis, anxiety, depression, presented due to intractable nausea and vomiting and generalized weakness. The patient was found to have leukocytosis, admitted for possible infection, currently with decreasing white count, procalcitonin is 0.18. Antibiotics were not continued. CURRENT ISSUES: 1. Chemotherapy induced nausea, vomiting. 2. Possible gastroenteritis. 3. Reactive leukocytosis. 4. Hypomagnesemia. 5. Diarrhea, most likely chemotherapy-induced. 6. Anemia of chronic disease versus chemotherapy-induced anemia due to myelosuppression. 7. Elevated TSH with normal free T4 most likely sick euthyroid. 8. History of metastatic lung cancer, adenocarcinoma with metastasis to thoracic spine and ribs, status post resection, radiation and ongoing chemotherapy. 9. History of pulmonary embolism after lung resection. 10. Anxiety. 11. Depression. 12. Hypothyroidism. 13. Chronic back pain. 14. History of kidney stones and stent placement with kidney stone extraction. PLAN: The patient is slightly improved but still requiring electrolyte supplementation. Will continue with supportive care for now with antiemetics, magnesium supplements, continue on all other home medications and IV fluids, DVT prophylaxis. PT consulted. JAZZY
[2021-01-19] MEDS: LATANOPROST 0.005% OPHTH SOLN 2.5 ML OU SCH (20:23)
[2021-01-19 22:00] VITALS: BP 114/54
[2021-01-20] MEDS: ONDANSETRON 4MG/2ML VIAL IV PRN ×2 (03:49→09:05)
[2021-01-20] MEDS: LEVOTHYROXINE 125MCG TABLET (0.125MG) PO SCH (06:16)
[2021-01-20 06:17] VITALS: BP 116/70
[2021-01-20] MEDS: ALBUTEROL 90 MCG/ACT 8GM HFA INHALER INH PRN (06:30)
[2021-01-20] MEDS: DOCUSATE SODIUM 100MG CAPSULE PO SCH ×3 (09:00→20:55)
[2021-01-20] MEDS: ENOXAPARIN 40MG/0.4ML SYRINGE (J1650 PER 10MG) SC SCH (09:05)
[2021-01-20] MEDS: predniSONE 5 MG TAB PO SCH (09:07)
[2021-01-20] MEDS: ESCITALOPRAM OXALATE 10 MG TAB (LEXAPRO) PO SCH (09:07)
[2021-01-20] MEDS: PERCOCET 5MG/325MG TAB PO PRN ×2 (09:07→20:54)
[2021-01-20] MEDS: GABAPENTIN 300 MG CAP PO SCH ×2 (09:07→20:53)
[2021-01-20] MEDS: ATORVASTATIN 20 MG TAB PO SCH (09:08)
--- NOTE | 2021-01-20 10:42 | IPNPDOC ---
Date Seen The patient was seen on 01/20/21. Progress Note SUBJECTIVE: large volume diarrhea this morning w c/o fatigue, weakness, slight lightheadedness denies palpitations , fever, or brbpr. c/o decreased appetite OBJECTIVE: VITAL SIGNS: GENERAL: Awake, alert, oriented to person, place and time. HEENT: slight pallor no icterus no JVD LUNGS: No respiratory distress or use of respiratory accessory muscles. Diminished, no wheezing or rales. HEART: S1, S2, sinus rhythm. ABDOMEN: Soft, nontender, non-distended. Positive bowel sounds.no hsm EXTREMITIES: No cyanosis, clubbing or pitting edema. LABORATORY DATA: Microbiology and imaging studies have been reviewed. ASSESSMENT AND PLAN: This is a 65-year-old male with history of metastatic lung adenocarcinoma to the thoracic spine and ribs, status post resection, radiation, undergoing chemotherapy with last chemo about two weeks ago, currently on his 6th cycle, history of PE after lung resection, on Eliquis, anxiety, depression, presented due to intractable nausea and vomiting and generalized weakness. The patient was found to have leukocytosis, admitted for possible infection, currently with decreasing white count, procalcitonin is 0.18. Antibiotics were not continued. CURRENT ISSUES: 1. Chemotherapy induced nausea, vomiting. 2. Possible gastroenteritis. 3. Reactive leukocytosis. 4. Hypomagnesemia. 5. Diarrhea, most likely chemotherapy-induced. 6. Anemia of chronic disease versus chemotherapy-induced anemia due to myelosuppression. 7. Elevated TSH with normal free T4 most likely sick euthyroid. 8. History of metastatic lung cancer, adenocarcinoma with metastasis to thoracic spine and ribs, status post resection, radiation and ongoing chemotherapy. 9. History of pulmonary embolism after lung resection. 10. Anxiety. 11. Depression. 12. Hypothyroidism. 13. Chronic back pain. 14. History of kidney stones and stent placement with kidney stone extraction. PLAN: continue IVFluids, scheduled antiemetics. serial bmp and mg and supplement electrolytes accordingly . send gi panel. no empiric abx. afebrile. continue all other home meds. VS, I&O, 24H, Fishbone Vital Signs/I&O Vital Signs Date Time Temp Pulse Resp B/P (MAP) Pulse Ox O2 Delivery O2 Flow Rate FiO2 01/20/21 09:40 16 6/23/21 06:17 98.7 68 116/70 (54) 97 Room Air I&O- Last 24 Hours up to 6 AM 01/20/21 06:00 Intake Total 2350 ml Output Total 0 ml Balance 2350 ml Laboratory Data 24H LABS Laboratory Tests 2 01/19/21 19:10: Magnesium Level 1.8 Microbiology Microbiology 01/20/21 Gastrointestinal Tract Panel (PCR), Received Pending 01/18/21 Blood Culture - Preliminary, Resulted No growth after 24 hours . All specim... 01/18/21 Blood Culture - Preliminary, Resulted No growth after 24 hours . All specim... SIMONA HALE MD Jan 20, 2021 10:42
[2021-01-20] MEDS: NS 1,000 ML IV SCH (10:55)
[2021-01-20 11:33] LABS: BASO # 0.1 10^3/uL (0.0-0.2); BASO % 0.6 % (0.0-1.0); EOS % 7.3 % (0.0-3.0); HEMATOCRIT 26.6 % (42.0-52.0); HEMOGLOBIN 8.6 g/dl (13.5-17.5); LYMPH # 0.5 10^3/uL (1.5-5.0); LYMPH % 3.9 % (24.0-44.0); MEAN CORPUSCULAR HEMOGLOBIN 33.1 pg (27.0-33.0); MEAN CORPUSCULAR HGB CONC 32.3 g/dl (32.0-36.5); MEAN CORPUSCULAR VOLUME 102.3 fl (80.0-96.0); MONO # 1.7 10^3/uL (0.0-0.8); MONO % 13.2 % (2.0-8.0); NEUTROPHILS # 9.6 10^3/uL (1.5-8.5); NEUTROPHILS % 73.2 % (36.0-66.0); PLATELET COUNT, AUTOMATED 140 10^3/uL (150-450)
[2021-01-20 11:38] LABS: WHITE BLOOD COUNT 13.1 10^3/uL (4.0-10.0)
[2021-01-20] MEDS: VANCOMYCIN ORAL SOL 250MG/5ML ORAL SYRINGE PO SCH ×2 (12:00→18:19)
[2021-01-20 12:15] LABS: ALBUMIN 2.9 GM/DL (3.2-5.2); ALT/SGPT 28 U/L (12-78); BILIRUBIN,DIRECT < 0.1 MG/DL (0.0-0.2); BILIRUBIN,TOTAL 0.2 MG/DL (0.2-1.0); BLOOD UREA NITROGEN 7 MG/DL (7-18); CALCIUM LEVEL 6.9 MG/DL (8.8-10.2); CARBON DIOXIDE LEVEL 25 MEQ/L (21-32); CHLORIDE LEVEL 109 MEQ/L (98-107); CREATININE FOR GFR 0.62 MG/DL (0.70-1.30); GLOMERULAR FILTRATION RATE > 60.0 (>49); GLUCOSE, FASTING 136 MG/DL (70-100); MAGNESIUM LEVEL 1.8 MG/DL (1.8-2.4); POTASSIUM SERUM 3.9 MEQ/L (3.5-5.1); SODIUM LEVEL 139 MEQ/L (136-145); TOTAL PROTEIN 5.7 GM/DL (6.4-8.2)
[2021-01-20] MEDS: GASTROGRAFIN SOLUTION 30ML PO SCH ×2 (12:58→13:36)
[2021-01-20] MEDS: PROMETHAZINE INJ 25 MG/ML VIAL (J2550) IV SCH ×2 (13:36→18:19)
[2021-01-20 14:00] VITALS: BP 139/75
--- NOTE | 2021-01-20 15:03 | REP ---
INDICATION: n/v/abd distention. COMPARISON: 12/29/2020 a contrast-enhanced exam TECHNIQUE: Limited noncontrast enhanced standard helical technique without intravenous contrast. Oral bowel preparatory contrast was administered prior to the exam. FINDINGS: The lung bases are essentially unchanged compared to prior CT examination the chest of 12/29/2020. There is chronic right basilar pleural thickening. Limited evaluation of the solid intra-abdominal organs and gallbladder again shows numerous low-density hepatic lesions. The gallbladder, pancreas, adrenal glands, and kidneys are essentially unchanged. Tiny non-obstructing left nephroliths are noted but obscured on the prior exam secondary to intravenous contrast administration. There is no significant change in appearance of the abdominal aorta or para-regions. There is no significant change in appearance of the bowel loops or the mesenteries. There is no evidence of free fluid or free air. Bone window technique throughout the exam shows no change in appearance of the imaged osseous structures. Mixed density lesion is again seen involving the posterior right 9th rib. IMPRESSION: 1. Tiny non-obstructing left nephroliths. 2. No evidence of acute intra-abdominal or intrapelvic disease. 3. Known hepatic metastasis. 4. Other findings as described above. <Electronically signed by Wyatt Chavez > 01/20/21 [id number]
[2021-01-20] MEDS: LATANOPROST 0.005% OPHTH SOLN 2.5 ML OU SCH (20:53)
[2021-01-20 22:00] VITALS: BP 107/63
[2021-01-21] VITALS (11 sets, daily range): BP systolic 115–168; BP diastolic 65–71
[2021-01-21] MEDS: NS 1,000 ML IV SCH ×3 (00:32→16:45)
[2021-01-21] MEDS: VANCOMYCIN ORAL SOL 250MG/5ML ORAL SYRINGE PO SCH ×5 (00:32→23:43)
[2021-01-21] MEDS: PROMETHAZINE INJ 25 MG/ML VIAL (J2550) IV SCH ×4 (02:27→18:06)
[2021-01-21] MEDS: ALBUTEROL 90 MCG/ACT 8GM HFA INHALER INH PRN (03:12)
[2021-01-21] MEDS: LEVOTHYROXINE 125MCG TABLET (0.125MG) PO SCH (06:17)
[2021-01-21] MEDS: DOCUSATE SODIUM 100MG CAPSULE PO SCH ×2 (07:19→10:20)
[2021-01-21] MEDS ORDERED: SIMETHICONE 80MG CHEW TAB PO PRN (09:20)
[2021-01-21] MEDS ORDERED: SIMETHICONE 80MG CHEW TAB PO ONE (09:20)
[2021-01-21] MEDS ORDERED: diphenhydrAMINE 25MG CAP PO ONE (09:20)
[2021-01-21] MEDS ORDERED: ACETAMINOPHEN TAB 650MG DOSE (2X325MG) PO ONE (09:20)
[2021-01-21] MEDS: ESCITALOPRAM OXALATE 10 MG TAB (LEXAPRO) PO SCH (10:20)
[2021-01-21] MEDS: predniSONE 5 MG TAB PO SCH (10:20)
[2021-01-21] MEDS: GABAPENTIN 300 MG CAP PO SCH ×2 (10:20→21:01)
[2021-01-21] MEDS: ATORVASTATIN 20 MG TAB PO SCH (10:21)
[2021-01-21] MEDS: ENOXAPARIN 40MG/0.4ML SYRINGE (J1650 PER 10MG) SC SCH (10:21)
[2021-01-21] MEDS: PERCOCET 5MG/325MG TAB PO PRN ×2 (10:25→21:02)
--- NOTE | 2021-01-21 10:53 | IPNPDOC ---
Date Seen The patient was seen on 01/21/21. Progress Note SUBJECTIVE: large volume diarrhea this morning w c/o fatigue, weakness, slight lightheadedness denies palpitations , fever, or brbpr. c/o decreased appetite SUBJECTIVE: Patient complains of bloating increased abdominal distention and gas he has had voluminous bowel movement this morning to so far. no fever chills still tolerating his diet. Patient was too weak yesterday and could not ambulate well OBJECTIVE: VITAL SIGNS: See below GENERAL: Awake, alert, oriented to person, place and time. No distress HEENT: slight pallor no icterus no JVD no carotid bruit LUNGS: No respiratory distress or use of respiratory accessory muscles. Diminished, no wheezing or rales. HEART: S1, S2, sinus rhythm. No murmurs noted ABDOMEN: Soft, nontender, non-distended. Positive bowel sounds.no hsm EXTREMITIES: No cyanosis, clubbing or pitting edema. LABORATORY DATA: Microbiology and imaging studies have been reviewed. ASSESSMENT AND PLAN: This is a 65-year-old male with history of metastatic lung adenocarcinoma to the thoracic spine and ribs, status post resection, radiation, undergoing chemotherapy with last chemo about two weeks ago, currently on his 6th cycle, history of PE after lung resection, on Eliquis, anxiety, depression, presented due to intractable nausea and vomiting and generalized weakness. The patient was found to have leukocytosis, admitted for possible infection, currently with decreasing white count, procalcitonin is 0.18. Antibiotics were not continued. CURRENT ISSUES: 1. Intractable nausea vomiting -secondary to C. difficile colitis -antiemetics provided -IV fluids for supportive care - electrolytes are being monitored and supplemented as needed 2. C. difficile colitis present on hospital admission -Vanco 125 mg every 6 hourly for 10 days -Bacid AC at bedtime -Monitor for toxic megacolon or worsening abdominal distention and lactic acidosis -Supportive care with IV fluids electrolyte replacement and antiemetics 3. Reactive leukocytosis. -Due to C. difficile colitis 4. Hypomagnesemia. Supplemented 5. Debility -Due to immunocompromise state as well as C. difficile colitis -PT OT consulted 6. Symptomatic anemia -chronic disease versus chemotherapy-induced anemia due to myelosuppression. -Transfused 2 units RBCs today due to symptomatic anemia with complaints of fatigue generalized weakness And exertional dyspnea -We will check H&H this evening 7. Elevated TSH with normal free T4 most likely sick euthyroid. 8. History of metastatic lung cancer, adenocarcinoma with metastasis to thoracic spine and ribs, status post resection, radiation and ongoing chemotherapy. 9. History of pulmonary embolism after lung resection. 10. Anxiety. 11. Depression. 12. Hypothyroidism. 13. Chronic back pain. 14. History of kidney stones and stent placement with kidney stone extraction. Disposition continue supportive care 2-3 more days inpatient care needed VS, I&O, 24H, Fishbone Vital Signs/I&O Vital Signs Date Time Temp Pulse Resp B/P (MAP) Pulse Ox O2 Delivery O2 Flow Rate FiO2 01/21/21 10:25 16 01/21/21 10:24 72 143/76 01/21/21 06:00 97.2 96 Room Air I&O- Last 24 Hours up to 6 AM 01/21/21 06:00 Intake Total 690 ml Output Total 0 ml Balance 690 ml Laboratory Data Microbiology Microbiology 01/20/21 Gastrointestinal Tract Panel (PCR) - Final, Complete Plesiomonas Shigelloides Ap Clostridium Difficile A/B 01/18/21 Blood Culture - Preliminary, Resulted No Growth after 48 hours. All Specime... 01/18/21 Blood Culture - Preliminary, Resulted No Growth after 48 hours. All Specime... SIMONA HALE MD Jan 21, 2021 10:53
[2021-01-21] MEDS: LACTOBACILLUS ACIDOPHILUS CAP (BACID) PO SCH ×2 (13:33→17:18)
[2021-01-21] MEDS: LATANOPROST 0.005% OPHTH SOLN 2.5 ML OU SCH (21:02)
[2021-01-22 00:44] VITALS: BP 124/70
[2021-01-22 01:40] VITALS: BP 132/85
[2021-01-22] MEDS: PROMETHAZINE INJ 25 MG/ML VIAL (J2550) IV SCH ×2 (01:46→06:03)
[2021-01-22 02:40] VITALS: BP 140/79
[2021-01-22] MEDS: NS 1,000 ML IV SCH (03:07)
[2021-01-22 03:26] LABS: HEMOGLOBIN 11.9 g/dl (13.5-17.5)
[2021-01-22 06:00] VITALS: BP 131/85
[2021-01-22] MEDS: VANCOMYCIN ORAL SOL 250MG/5ML ORAL SYRINGE PO SCH ×2 (06:03→12:47)
[2021-01-22] MEDS: LEVOTHYROXINE 125MCG TABLET (0.125MG) PO SCH (06:03)
[2021-01-22] MEDS: LACTOBACILLUS ACIDOPHILUS CAP (BACID) PO SCH ×2 (08:57→12:47)
[2021-01-22] MEDS: ESCITALOPRAM OXALATE 10 MG TAB (LEXAPRO) PO SCH (08:57)
[2021-01-22] MEDS: ATORVASTATIN 20 MG TAB PO SCH (08:58)
[2021-01-22] MEDS: predniSONE 5 MG TAB PO SCH (08:58)
[2021-01-22] MEDS: GABAPENTIN 300 MG CAP PO SCH (08:58)
[2021-01-22] MEDS: DOCUSATE SODIUM 100MG CAPSULE PO SCH (08:58)
[2021-01-22] MEDS: ENOXAPARIN 40MG/0.4ML SYRINGE (J1650 PER 10MG) SC SCH (08:58)
[2021-01-22 09:01] VITALS: BP 132/77
[2021-01-22] MEDS: PERCOCET 5MG/325MG TAB PO PRN (09:06)
[2021-01-22] MEDS ORDERED: BACI1CAP PO (09:53)
[2021-01-22] MEDS ORDERED: VANC125C3 PO (09:53)
--- NOTE | 2021-01-22 13:18 | DSES ---
DISCHARGE SUMMARY DATE OF ADMISSION: 01/18/2021 DATE OF DISCHARGE: 01/22/2021 PRIMARY DISCHARGE DIAGNOSIS: 1. Clostridium difficile colitis present on hospital admission. 2. Intractable nausea and vomiting secondary to C. Diff colitis. 3. Reactive leukocytosis. 4. Hypomagnesemia. 5. Symptomatic anemia secondary to myelosuppression from chemotherapy. 6. Elevated TSH most likely euthyroid sick syndrome. 7. Metastatic lung cancer, adenocarcinoma to thoracic spine and ribs, status post resection, radiation with ongoing chemotherapy. 8. History of PE after lung resection. 9. Anxiety/depression. 10.Hypothyroidism. 11.Chronic back pain. 12.History of kidney stones and stent placement with stone extraction. DISCHARGE MEDICATIONS: 1. Vancomycin 125 mg q.i.d. to complete a 10 day course, 9 more days as an outpatient. 2. Bacid one tablet a.c. h.s. 3. Albuterol two puffs q. 4 hours as needed. 4. Atorvastatin 40 daily. 5. Calcium carbonate 600 q. p.m. 6. Lexapro 20 daily. 7. Folic acid 400 mcg daily. 8. Gabapentin 300 b.i.d. 9. Xalatan one drop OU q.h.s. 10.Synthroid 125 mcg daily. 11.Percocet one tablet q.i.d. as needed. 12.Primecrolimus topically b.i.d. 13.Prednisone 5 mg daily. DISCHARGE INSTRUCTIONS: Follow-up with primary care physician within five days to one week of discharge. Medical Oncology follow-up within one week. HOSPITAL COURSE: This is a 65-year-old male undergoing chemotherapy. Last chemo was two weeks ago, presents with intractable nausea, vomiting, abdominal pain and diarrhea. He was found to have C. Diff colitis. The patient was seen via Physical Therapy. The patient was treated with Vancomycin with decrease in bowel movements to three to four bowel movements a day from six to eight previously, leukocytosis improved. He had electrolytes supplemented. He worked with Physical Therapy. Due to symptomatic anemia with complaints of generalized weakness and decreasing hemoglobin without overt GI bleed, the patient was transfused 2 units of red blood cells from 8.6 to 11.9 with resolution of the symptoms. PHYSICAL EXAMINATION ON DISCHARGE: VITAL SIGNS: Temperature 98.4, pulse 75, respiratory rate 21, blood pressure 131/85, 96% on room air. GENERAL: Patient is awake, alert and oriented to person, place and time answering questions appropriately. LUNGS: Clear to auscultation. No wheezing, rales or rhonchi. ABDOMEN: Soft, slightly distended. No rebound or guarding. EXTREMITIES: No cyanosis or clubbing. LABORATORY DATA: White count 13, hemoglobin 11.9, hematocrit 36, platelet count 140,000. Sodium 139, potassium 3.9, chloride 109, bicarbonate 25, BUN 7, creatinine is 0.62, glucose of 136. GI panel, Clostridium difficile and blood cultures negative. IMAGING STUDIES: Please see chart. TIME SPENT ON DISCHARGE: 30 minutes MTDD
== END 2021-01-22 13:00 | disposition home health service (06) | DRG 372 ==
LOC: M ED 11:08 → M ED INP 18:52 → ENRESERV 21:01 → M MS5PR 21:45
PROVIDERS: ADMIT Family Medicine; ATTEND General Practice
PROC: 30233N1 Transfusion of Nonautologous Red Blood Cells into Peripheral Vein, Percutaneous Approach (ICD-10-PCS; principal; 2021-01-21)
DX: A04.72 Enterocolitis due to Clostridium difficile, not specified as recurrent (principal); C34.90 Malignant neoplasm of unspecified part of unspecified bronchus or lung; C79.51 Secondary malignant neoplasm of bone; R11.2 Nausea with vomiting, unspecified; E83.42 Hypomagnesemia; F41.9 Anxiety disorder, unspecified; F32.9 Major depressive disorder, single episode, unspecified; E03.9 Hypothyroidism, unspecified; M54.5 Low back pain; Z92.3 Personal history of irradiation; Z92.21 Personal history of antineoplastic chemotherapy; Z87.442 Personal history of urinary calculi; D64.81 Anemia due to antineoplastic chemotherapy; D72.829 Elevated white blood cell count, unspecified; Z79.899 Other long term (current) drug therapy; Z98.41 Cataract extraction status, right eye; Z87.891 Personal history of nicotine dependence; E78.5 Hyperlipidemia, unspecified; Z86.711 Personal history of pulmonary embolism

== ENCOUNTER 2021-01-25 15:02 | Inpatient (IN) | payer MEDICARE ==
[~2021-01-25] VITALS: Ht 172.7 cm; Wt 74.7 kg
[~2021-01-25 15:02] MED LIST changes: +BACI1CAP PO; +VANC125C3 PO
[2021-01-25] MEDS ORDERED: PROC10TA4 PO ×2 (15:29→22:02)
[2021-01-25] MEDS ORDERED: ASPI81TA26 PO (15:29)
[2021-01-25 17:23] LABS: BASO # 0.1 10^3/uL (0.0-0.2); BASO % 0.3 % (0.0-1.0); EOS # 0.9 10^3/uL (0.0-0.5); HEMATOCRIT 36.8 % (42.0-52.0); HEMOGLOBIN 12.3 g/dl (13.5-17.5); LYMPH # 0.3 10^3/uL (1.5-5.0); LYMPH % 1.8 % (24.0-44.0); MEAN CORPUSCULAR HGB CONC 33.4 g/dl (32.0-36.5); MEAN CORPUSCULAR VOLUME 98.7 fl (80.0-96.0); MONO # 1.5 10^3/uL (0.0-0.8); MONO % 8.6 % (2.0-8.0); NEUTROPHILS # 14.8 10^3/uL (1.5-8.5); NEUTROPHILS % 83.3 % (36.0-66.0); PLATELET COUNT, AUTOMATED 161 10^3/uL (150-450); RED BLOOD COUNT 3.73 10^6/uL (4.30-6.10)
[2021-01-25 17:51] LABS: ALBUMIN 3.4 GM/DL (3.2-5.2); BILIRUBIN,DIRECT 0.2 MG/DL (0.0-0.2); BILIRUBIN,TOTAL 0.5 MG/DL (0.2-1.0); MB/CK RELATIVE INDEX 2.78 (< OR =4); TROPONIN I 0.49 NG/ML (< 0.10)
[2021-01-25] MEDS ORDERED: NS 1,000 ML IV ONE (17:55)
[2021-01-25 18:06] LABS: WHITE BLOOD COUNT 17.8 10^3/uL (4.0-10.0)
[2021-01-25] MEDS ORDERED: ISOVUE-370 76% 100ML VIAL As Ordered ONE (19:08)
[2021-01-25 19:50] LABS: CK-MB VALUE MASS 1.8 NG/ML (<3.6); MB/CK RELATIVE INDEX 3.05 (< OR =4); TROPONIN I 0.47 NG/ML (< 0.10)
[2021-01-25 19:58] LABS: RSV AMPLIFICATION NEGATIVE (NEGATIVE)
[2021-01-25] MEDS: DOCUSATE SODIUM 100MG CAPSULE PO SCH (21:00)
--- NOTE | 2021-01-25 21:00 | REPVR ---
PROCEDURE INFORMATION: Exam: CT Abdomen And Pelvis With Contrast Exam date and time: 01/25/2021 7:15 PM Age: 65 years old Clinical indication: Abdominal pain; Localized; Right; Additional info: Right abd pain TECHNIQUE: Imaging protocol: Computed tomography of the abdomen and pelvis with contrast. Radiation optimization: All CT scans at this facility use at least one of these dose optimization techniques: automated exposure control; mA and/or kV adjustment per patient size (includes targeted exams where dose is matched to clinical indication); or iterative reconstruction. Contrast material: ISOVUE 370; Contrast volume: 100 ml; Contrast route: INTRAVENOUS (IV); COMPARISON: CT ABD/PEL W/PO CONTRAST ONLY 01/20/2021 2:38 PM FINDINGS: Pleural spaces: Pleuroparenchymal scarring is again seen postoperative bed right infrahilar region as well as surgical clips and pleural thickening posteriorly at the right lung base. Mediastinal space: There appears to be thickening of the distal esophagus. Liver: Multiple hepatic metastases are again seen with many of the lesions appearing confluent a both examinations therefore is difficult to determine if there has been progression or regression. Gallbladder and bile ducts: The gallbladder is unremarkable. Pancreas: Pancreas appears atrophic. Spleen: The spleen is unremarkable. Adrenal glands: The adrenal glands are unremarkable. Kidneys and ureters: The kidneys are unremarkable other than a punctate calcifications on the left. Stomach and bowel: There is no evidence of intestinal obstruction. Diverticulosis without evidence of diverticulitis. Appendix: The appendix is fluid filled and measures 6.6 mm in width which is upper limits of normal. There is no periappendiceal inflammation. Intraperitoneal space: Unremarkable. No free air. No significant fluid collection. Vasculature: There is no evidence of an infrarenal abdominal aortic aneurysm. There is moderate to severe atherosclerotic calcification. Lymph nodes: Unremarkable. No enlarged lymph nodes. Urinary bladder: The bladder is unremarkable. Reproductive: Unremarkable as visualized. Bones/joints: There is expansile sclerotic lesion posterior aspect right 9th rib. There is a partially lytic lesion involving the left symphysis pubis. Diffuse skeletal degeneration. Soft tissues: Fat containing inguinal hernias. IMPRESSION: Diffuse liver metastases. Electronically signed by: Allyn Wick On 01/25/2021 20:59:59 PM
[2021-01-25] MEDS ORDERED: VANC125C3 PO (21:55)
[2021-01-25] MEDS ORDERED: ASPI-161 PO (21:57)
[2021-01-25] MEDS ORDERED: BIMA01SOL OU (21:57)
--- NOTE | 2021-01-25 22:46 | ECGEPIP ---
[facility] - ED Test Date: 2021-01-25 Pat Name: ROLAND SMITH Department: Room: - Gender: Male Manager Pe: HC : 1955 Requested By: Jenna Adler Order Number: [id number] Reading MD: Saji Pinon Measurements Intervals [place] Rate: 82 P: 69 SD: 132 QRS: 31 QRSD: 80 T: 60 QT: 398 QTc: 464 Interpretive Statements Normal sinus rhythm Low voltage QRS Nonspecific ST-T wave abnormalities Similar to tracing done 01-18-21 Electronically Signed on 01-25-2021 22:46:49 EDT by Saji Pnion
[2021-01-25] MEDS ORDERED: ASPIRIN 325 MG TAB PO ONE (22:50)
[2021-01-25] MEDS: CARVedilol 12.5 MG TAB PO SCH (23:07)
[2021-01-25] MEDS: ENOXAPARIN 100MG/1ML SYRINGE (J1650 PER 10MG) SC SCH (23:12)
--- NOTE | 2021-01-25 23:49 | HPEPDOC ---
[facility] Medical History & Physical Date of Admission Jan 25, 2021 Date of Service: Jan 25, 2021 History and Physical CHIEF COMPLAINT: RUQ abdominal pain HISTORY OF PRESENT ILLNESS: Patient is a pleasant 65-year-old male with a past medical history of metastatic lung cancer to the thoracic spine, ribs and liver, recently diagnosed with clostridium difficile during admission between 01/18 until 01/22 for intractable nausea and vomiting, history of PE after lung resection, history of anxiety, depression, hypothyroidism, chronic back pain, history kidney stones and stent placement with stone extraction. Patient presents to the ER with persistent loose stools with associated fever and chills despite treatment with vancomycin [by mouth] was made to complete a 10 day course with 9 days left. As outpatient, as well as worsening right upper quadrant pain. Patient denies chest pain, palpitations, headache, seizures. Patient states that he has been compliant with vancomycin by mouth and takes it every 6 hours. Patient afebrile on arrival, normotensive without tachycardia or hypoxia on Toprol leukocytosis of 17.8 (increased from prior of 13.1 on DC), hemoglobin 12. Cr 0.7. NSR on EKG without ischemic changes. Found to have troponin of 0.47, and 0.45 on repeat. I had a discussion with the patient regarding his elevated troponin and risk for possible acute coronary syndrome. I further discussed with Dr. Cheema s opinion on management and possible transfer. Angiography would likely not prolong patients life expectancy given his advanced metastatic lung disease. Dr. Cheema believes medical management is appropriate in this case. I discussed with the patient, who remains chest pain free. He wishes to remain at [facility] for medical management and not to proceed with transfer for angiography. PAST MEDICAL HISTORY: C diff colitis diagnosed on 01/18/21 Metastatic lung cancer adenocarcinoma with metastasis to the thoracic spine and ribs status post lung resection and radiation and ongoing chemotherapy last 2 weeks ago. History of pulmonary embolism after lung resection completed a six-month course of eliquis Anxiety and depression Anemia secondary to chemotherapy Hypothyroidism Chronic back pain PAST SURGICAL HISTORY: Carpal tunnel release Right cataract surgery Spine biopsy 2019 Kidney stone removal and stent placement 2017 SOCIAL HISTORY: Denies alcohol use Denies tobacco use currently endorses quitting smoking more than 10 years ago Denies illicit drug use other than occasional cannabis use ALLERGIES: Please see below. REVIEW OF SYSTEMS: 10 point ROS was conducted, relevant findings are in HPI HOME MEDICATIONS: Please see below. PHYSICAL EXAMINATION: VITAL SIGNS: please see below General: NAD, comfortable, pale deconditioned male HEENT: PERRLA, EOMI, sclerae clear Neck: supple, normal ROM, no JVD Respiratory: lungs CTAB, no wheeze, no rales, no crackles CVS: RRR, normal S1, S2, no murmurs Abdo: profound tenderness to palpation of RUQ, diffuse tenderness to palpation across abdomen, soft, non distended,non peritonitic Extremities: no edema, pulses 2+ MSK: no joint deformities, normal ROM Neuro: no focal neuro deficits, moving all 4 extremities, CN2-12 intact. Strength 5/5 in all 4 extremities. No nystagmus. Psych: calm, cooperative, AAO x 3 LABORATORY DATA: See below. IMAGING: CT abdo pelvis with IV contrast (01/25/21): FINDINGS: Pleural spaces: Pleuroparenchymal scarring is again seen postoperative bed right infrahilar region as well as surgical clips and pleural thickening posteriorly at the right lung base. Mediastinal space: There appears to be thickening of the distal esophagus. Liver: Multiple hepatic metastases are again seen with many of the lesions appearing confluent a both examinations therefore is difficult to determine if there has been progression or regression. Gallbladder and bile ducts: The gallbladder is unremarkable. Pancreas: Pancreas appears atrophic. Spleen: The spleen is unremarkable. Adrenal glands: The adrenal glands are unremarkable. Kidneys and ureters: The kidneys are unremarkable other than a punctate calcifications on the left. Stomach and bowel: There is no evidence of intestinal obstruction. Diverticulosis without evidence of diverticulitis. Appendix: The appendix is fluid filled and measures 6.6 mm in width which is upper limits of normal. There is no periappendiceal inflammation. Intraperitoneal space: Unremarkable. No free air. No significant fluid collection. Vasculature: There is no evidence of an infrarenal abdominal aortic aneurysm. There is moderate to severe atherosclerotic calcification. Lymph nodes: Unremarkable. No enlarged lymph nodes. Urinary bladder: The bladder is unremarkable. Reproductive: Unremarkable as visualized. Bones/joints: There is expansile sclerotic lesion posterior aspect right 9th rib. There is a partially lytic lesion involving the left symphysis pubis. Diffuse skeletal degeneration. Soft tissues: Fat containing inguinal hernias. IMPRESSION: Diffuse liver metastases. MICROBIOLOGY: Please see below. ASSESSMENT:65-year-old male history of metastatic lung cancer recently diagnosed with C. difficile colitis on previous admission on 01/18/21. Returns with persistent watery diarrhea and worsening right upper quadrant pain. CT showing numerous metastases to liver. Patient was found to have elevated troponins, downtrending without chest pain and normal sinus rhythm on EKG without ischemic changes. PLAN: #Elevated troponin 2/2 possible NSTEMI vs Type II NH. - no chest pain, no ischemic changes on EKG - Consult placed with Dr. Lara, recommendations are greatly appreciated. Life expectancy will likely not be prolonged with angiography given advance metastatic lung ca - ptient decided for medical management and not to transfer to PCI facility - per Dr. Deni marcum, start ASA, full dose lovenox. Not to start Plavix at this time so as to lower risk of bleeding - will start on carvedilol and Lisinopril - 2D echo ordered - cycle cardiac enzymes - repeat EKG ordered for the morning. #hx of C diff colitis with persistent diarrhea and nausea - patient taking PO vancomycin since 01/22/21, without improvement in symptoms - will switch to dificid - advance diet as tolerate, will start on full liquid - will order Zofran, IVF at 100 cc/hr # Metastatic lung cancer: - Continue daily prednisone and inhalers as needed. - f/u with Dr. Sorto # Anxiety and depression: -Continue home medications # Hypothyroidism: -Continue levothyroxine. # Hyperlipidemia: -Continue statin #deconditioning -Ordered PT evaluation # DVT prophylaxis: therapeutic Lovenox. Monitor platelets closely Dispo: admission expect to last > 2 midnights Vital Signs Vital Signs Date Time Temp Pulse Resp B/P (MAP) Pulse Ox O2 Delivery O2 Flow Rate FiO2 01/25/21 23:07 147/70 01/25/21 23:07 77 01/25/21 21:45 97 Room Air 01/25/21 19:02 20 01/25/21 15:03 97.7 Laboratory Data Labs 24H Laboratory Tests 2 01/25/21 16:45: Immature Granulocyte % (Auto) 1.0, Neutrophils (%) (Auto) 83.3H, Lymphocytes (%) (Auto) 1.8L, Monocytes (%) (Auto) 8.6H, Eosinophils (%) (Auto) 5.0H, Basophils (%) (Auto) 0.3, Neutrophils # (Auto) 14.8H, Lymphocytes # (Auto) 0.3L, Monocytes # (Auto) 1.5H, Eosinophils # (Auto) 0.9H, Basophils # (Auto) 0.1, Nucleated Red Blood Cells % (auto) 0.0, Total Bilirubin 0.5, Direct Bilirubin 0.2, Aspartate Amino Transf (AST/SGOT) 42H, Alanine Aminotransferase (ALT/SGPT) 39, Alkaline Phosphatase 156H, Total Creatine Kinase 72, Creatine Kinase MB 2.0, Creatine Kinase MB Relative Index 2.78, Troponin I 0.49H, Total Protein 7.0, Albumin 3.4, Albumin/Globulin Ratio 0.9, Lipase 23L 01/25/21 17:15: POC Glucose (Misc Panel) 110H, POC Sodium (Misc Panel) 138, POC Potassium (Misc Panel) 4.3, POC Chloride (Misc Panel) 99, POC Total CO2 (Misc Panel) 24.0, POC Blood Urea Nitrogen (Misc Panel 19, POC Ionized Calcium (Misc Panel) 4.3L, POC Creatinine (Misc Panel) 0.7, POC Hematocrit (Misc Panel) 39.0 01/25/21 18:58: Coronavirus (COVID-19)(PCR) NEGATIVE, Influenza Type A (RT-PCR) NEGATIVE, Influenza Type B (RT-PCR) NEGATIVE, Respiratory Syncytial Virus (PCR) NEGATIVE 01/25/21 19:12: Total Creatine Kinase 59, Creatine Kinase MB 1.8, Creatine Kinase MB Relative Index 3.05, Troponin I 0.47H 01/25/21 23:00: Troponin I 0.50H CBC/BMP Laboratory Tests 01/25/21 16:45 Home Medications Scheduled Aspirin (Aspirin EC) 81 Mg Tablet.dr, 81 MG PO DAILY Atorvastatin Calcium (Atorvastatin Calcium) 40 Mg Tablet, 40 MG PO DAILY Bimatoprost (Lumigan) 0.01% 2.5ML Drops, 1 DROP OU QHS Calcium Carbonate (Calcium) 600 Mg Tablet, 600 MG PO QPM TAKES AROUND DINNERTIME Escitalopram Oxalate (Lexapro) 20 Mg Tablet, 20 MG PO DAILY Folic Acid (Folic Acid) 0.4 Mg Tablet, 400 MCG PO DAILY Gabapentin (Gabapentin) 300 Mg Capsule, 300 MG PO BID Levothyroxine Sodium (Levothyroxine Sodium) 125 Mcg Tablet, 125 MCG PO DAILY Pimecrolimus (Pimecrolimus) 30 Gm Cream..g., 1 DOSE TOP BID APPLY TO AFFECTED AREAS ON LEGS, BACK, SHOULDERS, AND ARMS Prednisone (Prednisone) 5 Mg Tablet, 5 MG PO DAILY Vancomycin Hcl (Vancomycin HCl) 125 Mg Capsule, 125 MG PO Q6H STARTED ON 01/22/21 Scheduled PRN Albuterol Sulfate (Albuterol Sulfate Hfa) 8.5 Gm Hfa.aer.ad, 2 PUFF INH Q4H PRN for SOB/WHEEZING Oxycodone HCl/Acetaminophen (Oxycodone-Acetaminophen 10-325) 1 Each Tablet, 1 TAB PO QID PRN for PAIN Prochlorperazine Maleate (Prochlorperazine Maleate) 10 Mg Tablet, 10 MG PO Q6H PRN for NAUSEA OR VOMITING Allergies Coded Allergies: pembrolizumab (Verified Allergy, Intermediate, RASH, 07/29/20) A-FIB/CHADSVASC A-FIB History Current/History of A-Fib/PAF?: No JASON FIGUEREDO MD Jan 25, 2021 23:49
[2021-01-25] MEDS ORDERED: MAALOX 30 ML SUSP *UDC PO PRN (23:50)
[2021-01-25] MEDS ORDERED: MOM 30ML SUSPENSION UDC PO PRN (23:50)
[2021-01-25] MEDS ORDERED: ACETAMINOPHEN TAB 650MG DOSE (2X325MG) PO PRN (23:50)
[2021-01-26] MEDS ORDERED: PROCHLORPERAZINE 5 MG TAB (S0183) PO PRN
[2021-01-26] MEDS ORDERED: ALBUTEROL 90 MCG/ACT 8GM HFA INHALER INH PRN
[2021-01-26] MEDS: GABAPENTIN 300 MG CAP PO SCH ×3 (01:43→20:09)
[2021-01-26 04:05] VITALS: BP 101/56
[2021-01-26] MEDS: FIDAXOMICIN 200 MG TAB (DIFICID) PO SCH ×3 (04:13→20:08)
[2021-01-26] MEDS: oxyCODONE 5MG TAB PO PRN ×3 (04:14→20:10)
[2021-01-26] MEDS: LEVOTHYROXINE 125MCG TABLET (0.125MG) PO SCH (05:50)
[2021-01-26 06:16] LABS: BASO # 0.1 10^3/uL (0.0-0.2); BASO % 0.5 % (0.0-1.0); EOS # 1.8 10^3/uL (0.0-0.5); EOS % 13.3 % (0.0-3.0); HEMATOCRIT 32.9 % (42.0-52.0); HEMOGLOBIN 10.8 g/dl (13.5-17.5); LYMPH # 0.5 10^3/uL (1.5-5.0); LYMPH % 3.7 % (24.0-44.0); MEAN CORPUSCULAR HGB CONC 32.8 g/dl (32.0-36.5); MEAN CORPUSCULAR VOLUME 97.6 fl (80.0-96.0); MONO # 1.7 10^3/uL (0.0-0.8); MONO % 12.6 % (2.0-8.0); NEUTROPHILS # 9.1 10^3/uL (1.5-8.5); PLATELET COUNT, AUTOMATED 159 10^3/uL (150-450); RED BLOOD COUNT 3.37 10^6/uL (4.30-6.10)
[2021-01-26 06:18] LABS: WHITE BLOOD COUNT 13.3 10^3/uL (4.0-10.0)
[2021-01-26 06:35] LABS: ALBUMIN 2.7 GM/DL (3.2-5.2); ALT/SGPT 36 U/L (12-78); BILIRUBIN,TOTAL 0.3 MG/DL (0.2-1.0); BLOOD UREA NITROGEN 16 MG/DL (7-18); CARBON DIOXIDE LEVEL 23 MEQ/L (21-32); CHLORIDE LEVEL 106 MEQ/L (98-107); CHOLESTEROL LEVEL 140 MG/DL (<200); CHOLESTEROL RISK RATIO 2.456 (<5); CREATININE FOR GFR 0.63 MG/DL (0.70-1.30); GLOMERULAR FILTRATION RATE > 60.0 (>49); GLUCOSE, FASTING 76 MG/DL (70-100); HDL CHOLESTEROL 57 MG/DL (>40); LDL CHOLESTEROL 61 MG/DL (<100); MAGNESIUM LEVEL 1.6 MG/DL (1.8-2.4); NON-HDL-C 83 MG/DL; POTASSIUM SERUM 3.6 MEQ/L (3.5-5.1); SODIUM LEVEL 138 MEQ/L (136-145); TOTAL PROTEIN 6.4 GM/DL (6.4-8.2); TRIGLYCERIDES LEVEL 108 MG/DL (<150); TROPONIN I 0.43 NG/ML (< 0.10)
[2021-01-26 08:00] VITALS: BP 103/58
[2021-01-26] MEDS: CARVedilol 12.5 MG TAB PO SCH ×2 (09:00→20:09)
[2021-01-26] MEDS: DOCUSATE SODIUM 100MG CAPSULE PO SCH ×2 (09:00→21:00)
--- NOTE | 2021-01-26 09:16 | CR ---
CONSULTATION DATE: 01/26/2021 REFERRING PHYSICIAN: Jai Luke MD INDICATION: Elevated troponin. HISTORY OF PRESENT ILLNESS: Mr. Moore is a very pleasant, 65-year-old man who has a multitude of medical problems, dominant of which is metastatic adenocarcinoma of the lung. It was initially diagnosed in 2018. He underwent right middle and lower lobe lobectomy but subsequent rib and thoracic spine vertebral metastases were detected by radiation and eventually a liver metastases were detected as well and he is currently undergoing chemotherapy with Cisplatin and Alimta. He was just discharged from our facility on Monday after treatment for C. diff colitis. He was home only for a few days and initially felt better but then the abdominal discomfort, right upper quadrant pain and anorexia came back and when his visiting nurse came to see him, she convinced him that he should go back to hospital. In ER evaluation besides others, troponin was drawn and it was elevated around 0.5 without appreciable trend. At no point patient had any chest discomfort. He does report that he recalls having some chest tightness approximately a month or six weeks ago but none recently. The decision was made to admit the patient for further management in the hospital. The patient tells me this morning that he had a relatively good night. He did not have any discomfort throughout the night and his abdominal discomfort has improved some. He also reported that he feels somewhat hungry this morning which is . He denies any prior history of coronary artery disease or similar problems. At his baseline, he gets short of breath with more strenuous activity but activities of daily living are typically limited on account of generalized weakness. There is no history of any typical anginal symptoms. He denies any palpitations, dizziness, near/syncope. PAST MEDICAL HISTORY: 1. Lung adenocarcinoma as outlined above. 2. C. diff colitis with recent diagnosis on January 18. 3. History of pulmonary embolism after thoracic surgery in 2018 followed by six months of anticoagulation. 4. Depression. 5. Hypothyroidism as a consequence of treatment for Graves disease. 6. Neck pain. 7. Patient denies any history of hypertension or dyslipidemia. SURGICAL HISTORY: 1. Right upper and middle lobectomy in 2018. 2. Cataract surgery. 3. Carpal tunnel release. 4. Spine biopsy. 5. Kidney stone removal and stent placement in 2018. SOCIAL HISTORY: The patient lives alone. He has a daughter. 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 There is a remote history of smoking but no recent alcohol or tobacco. FAMILY HISTORY: No longer relevant. REVIEW OF SYSTEMS: He denies any recent ethan fever that he can recall since discharge home. He has had diarrhea, yesterday only two semiliquid bowel movements but prior to that, typically a lot more than that. He has had abdominal pain, no vomiting, no chest pain, no palpitations, no shortness of breath. He does admit to significant weight loss in the last several months even though he has hard time quantifying it. No peripheral edema. He has generalized weakness and needs a walker for ambulation. He denies any blood in his stools. The rest of review of systems is negative or otherwise per HPI. PHYSICAL EXAMINATION: Mr. Moore is a 65-year-old man who appears approximately his age. To my surprise, he looks relatively well. He does not appear chronically ill, either. Last sets of vital signs: Blood pressure 101/56. He is afebrile. Saturation is 98% on room air and heart rate has been from 50-70 sinus rhythm. Weight was recorded at 76.3 kilograms. He is alert, oriented and appropriate. I do not appreciate JVP elevation. There are no carotid bruits. Lungs are clear bilaterally without wheezing, crackles or rhonchi. Heart exam reveals regular rhythm without gallop, rub or murmur. Abdomen is diffusely tender but no obvious guarding. Bowel sounds are hyperactive. Extremities are free of edema. Peripheral pulses are easily palpable on both lower extremities. Neurologically, his speech is intact. He is alert and oriented and he does not demonstrate any obvious focal weakness. He easily moves all four extremities. I did not do any formal testing of sensitivity or deep tendon reflexes. LABORATORIES: As of this morning, WBC count is 13.3, hemoglobin 10.9, hematocrit 32.9 and platelet count 159,000. Basic metabolic panel is normal but for a low of magnesium of 1.6. Liver function tests, transaminases are normal. Alkaline phosphatase is only mildly elevated at 143. CK and CK-MB have been negative. He has numerous troponins drawn by now. They are all around 0.5 without appreciable trend. Albumin is 0.7. Lipid panel, total cholesterol 140, LDL 61, HDL 57. He has two EKGs, one from yesterday evening and one from this morning, both of which demonstrate sinus rhythm without any appreciable ST-T abnormalities or evidence for old myocardial infarction. He had CT of the abdomen and chest that confirms presence of known metastatic disease to the liver and changes compatible with prior lung surgery. ASSESSMENT AND PLAN: Mr. Moore is a 65-year-old man with a prior history of cardiovascular disease who presents with symptoms of abdominal pain, diarrhea, right upper quadrant pain likely due to combination of C. diff colitis with known metastatic adenocarcinoma of the lungs to the liver. I do not know what this elevated troponin actually indicates. He does not have any symptoms related to it and there are no ischemic abnormalities on EKG. I suspect that this is most likely a type 2 event related to either cytokine release, less likely to chemotherapy because the last was about a month ago. I do believe that we should continue purely supportive management. He received aspirin. I would recommend 48 to 72 hours of anticoagulation and then aspirin only. Obviously should he have evidence for bleeding then the anticoagulation needs to be discontinued. I would obtain one more troponin in 24 hours but I do not believe there will be any appreciable trend. Provided there will be no clinical complications, I do not plan any further evaluation in this matter. Unfortunately his life expectancy is determined by vitally metastatic lung adenocarcinoma. Advise supportive therapy in the form of beta yinka, GOYO inhibitor and statin has been already employed. I would be somewhat cautious considering his low blood pressure and relative bradycardia. Otherwise, I do not have any specific recommendations regarding his further management.
[2021-01-26 09:33] LABS: HEMOGLOBIN A1c 5.9 %
[2021-01-26] MEDS: ASPIRIN 81MG ENTERIC TABLET PO SCH (10:20)
[2021-01-26] MEDS: ESCITALOPRAM OXALATE 10 MG TAB (LEXAPRO) PO SCH (10:21)
[2021-01-26] MEDS: ENOXAPARIN 100MG/1ML SYRINGE (J1650 PER 10MG) SC SCH ×2 (10:21)
[2021-01-26] MEDS: ATORVASTATIN 20 MG TAB PO SCH (10:21)
[2021-01-26] MEDS: predniSONE 5 MG TAB PO SCH (10:21)
--- NOTE | 2021-01-26 10:44 | IPNPDOC ---
Text Note Date of Service The patient was seen on 01/26/21. NOTE Subjective: Patient is a 65-year-old male with a PMHx of Metastatic Lung Adenocarcinoma (to Thoracic spine, ribs & Liver), Recent C. diff colitis (Dx 12/30 1), Hx of PE after lung resection, Hypothyroidism, Anxiety / Depression, Chronic back pain, Hx of Nephrolithiasis (s/p stent and stone extraction), who presented to the emergency room with complaints of diarrhea associated with fevers and chills. Patient has been given vancomycin orally; however has failed. Patient has been admitted to the hospital service for further evaluation and treatment. Upon arrival, patient had a troponin elevation of 0.47 and cardiology has been called on consultation. Patient was seen and examined at the bedside. Patient denies any chest pain, palpitations or any significant cough. He does report some shortness of breath with exertion. Denies any nausea, vomiting. Does report some abdominal pain occurring mostly in the right upper portion reports that his last bowel movement was yesterday. Denies any urinary discomfort. Objective: Vitals (See below) General: Lying in bed, appears comfortable, AAOx3 HEENT: NC, AT CVS: RRR, +S1S2 Lungs: Fair air entry b/l, -w/r/r Abdomen: Soft, nondistended, tenderness, more pronounced at right upper quadrant Extremities: No evidence of edema, - Calf tenderness Imaging: CT abdomen / pelvis 01/25: Diffuse liver metastases. Assessment and plan: Elevated troponin - possibly 2/2 NSTEMI, possibly 2/2 demand ischemia (Type II [place]) - Clinically patient does not express any chest pain, shortness breath, palpitations - EKG was reviewed without any evidence of ischemic changes - Troponin trend has remained stable - ECHO pending - c/w Telemetry - c/w ASA, Atorvastatin, Carvedilol, Lisinopril and Lovenox therapeutic - Patient had opted for medical management and not to transfer to PCI facility on arrival - Cardiology has been consulted; appreciate their input Diarrhea - likely 2/2 C. diff colitis - Diarrhea was present on arrival with a recent diagnosis of C. difficile colitis on 01/20 - Patient reports that his last bowel movement was yesterday in the emergency room - Currently patient remains hemodynamically stable and afebrile - Leukocytosis is improving - Patient has failed vancomycin PO therapy - c/w Fidaxomicin (Day #1) Hypomagnesemia - Will supplement Metastatic lung adenocarcinoma - Dx 2018 - Patient had a lung resection past and had developed a pulmonary embolism - Has received chemotherapy - Patient follows with Dr. Sorto as an outpatient for oncology; patient reports that he is going to start any therapy relatively soon Chronic COPD - No evidence of exacerbation - c/w Prednisone and inhaled therapy as ordered Anxiety and depression - c/w Escitalopram Neuropathy - c/w Gabapentin Hypothyroidism - c/w Levothyroxine DLP - c/w Atorvastatin Deconditioning - c/w PT and OT DVT prophylaxis - c/w therapeutic Lovenox Disposition: - Awaiting clinical improvement VS,Tamiko, I+O VS, Tamiko I+O Laboratory Tests 01/25/21 16:45 01/26/21 05:56 Vital Signs Date Time Temp Pulse Resp B/P (MAP) Pulse Ox O2 Delivery O2 Flow Rate FiO2 01/26/21 10:20 18 Room Air 01/26/21 08:00 97.3 54 103/58 (73) 97 I&O- Last 24 Hours up to 6 AM 01/26/21 06:00 Intake Total 1150 ml Output Total 0 ml Balance 1150 ml TRIP ROWE MD Jan 26, 2021 10:44
[2021-01-26 12:00] VITALS: BP 108/58
[2021-01-26] MEDS: MAG SULF 1GM/100ML (MAG RUN) 1 GM in IV 1 EA IV SCH ×2 (12:18→13:49)
[2021-01-26 16:00] VITALS: BP 107/57
--- NOTE | 2021-01-26 17:36 | ECGEPIP ---
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
[2021-01-26 20:00] VITALS: BP 147/67
[2021-01-27 00:03] VITALS: BP 103/59
[2021-01-27 04:00] VITALS: BP 123/65
[2021-01-27 05:11] LABS: BASO # 0.1 10^3/uL (0.0-0.2); BASO % 0.8 % (0.0-1.0); EOS # 2.5 10^3/uL (0.0-0.5); HEMATOCRIT 34.2 % (42.0-52.0); HEMOGLOBIN 11.1 g/dl (13.5-17.5); LYMPH # 0.7 10^3/uL (1.5-5.0); LYMPH % 5.6 % (24.0-44.0); MEAN CORPUSCULAR HEMOGLOBIN 31.7 pg (27.0-33.0); MEAN CORPUSCULAR HGB CONC 32.5 g/dl (32.0-36.5); MEAN CORPUSCULAR VOLUME 97.7 fl (80.0-96.0); MONO # 1.5 10^3/uL (0.0-0.8); MONO % 13.1 % (2.0-8.0); NEUTROPHILS # 6.8 10^3/uL (1.5-8.5); NEUTROPHILS % 58.1 % (36.0-66.0); PLATELET COUNT, AUTOMATED 165 10^3/uL (150-450)
[2021-01-27] MEDS: LEVOTHYROXINE 125MCG TABLET (0.125MG) PO SCH (05:28)
[2021-01-27 05:30] LABS: BLOOD UREA NITROGEN 20 MG/DL (7-18); CALCIUM LEVEL 8.3 MG/DL (8.8-10.2); CARBON DIOXIDE LEVEL 24 MEQ/L (21-32); CHLORIDE LEVEL 108 MEQ/L (98-107); CREATININE FOR GFR 0.65 MG/DL (0.70-1.30); GLOMERULAR FILTRATION RATE > 60.0 (>49); GLUCOSE, FASTING 78 MG/DL (70-100); SODIUM LEVEL 138 MEQ/L (136-145)
[2021-01-27 05:42] LABS: EOS % 21.5 % (0.0-3.0); WHITE BLOOD COUNT 11.7 10^3/uL (4.0-10.0)
--- NOTE | 2021-01-27 06:48 | ECHO ---
ECHOCARDIOGRAM DATE OF PROCEDURE: 01/26/2021 Age: 65 Gender: Male Height: 68 inches Weight: 163 pounds Body surface area: 1.88 PATIENT LOCATION: Inpatient PCU, Room 3213. REFERRING PHYSICIAN: Jai Luke MD. INDICATION: Indeterminate troponin I and abnormal EKG. MEASUREMENTS: 2D Measurements: RV 3.2 cm LV 5.0 cm Septum 1.1 cm Posterior wall 1.1 cm Aortic Root 3.5 cm LA 3.8 cm LVEF 70% Doppler Measurements: AV 0.98 m/s LVOT 0.9 m/s LVOT diameter 2.0 cm MV-E 77, A 78, E/A ratio 1 Early mitral deceleration time 222 msec E prime medial 6.3, A prime medial 7.5, E prime lateral 7.9 Average E/E prime ratio 10.8/PCWP 15.3 mmHg PV 0.8 m/s Pulmonary artery acceleration time 123 msec PASP 26 mmHg IVC 1.5 cm COMMENTS: Normal sinus rhythm without intraventricular conduction disturbance. M-mode and two-dimensional echocardiography was performed with pulse, continuous wave, color flow, and tissue Doppler studies. Normal left ventricular size and wall thickness and hyperkinetic wall motion. Left atrial size upper limits of normal with Doppler evidence of a degree of impaired LV diastolic dysfunction, but currently normal estimated mean left atrial pressure. Normal right heart chamber sizes and motion and estimated pulmonary arterial pressure. Normal IVC size and collapse against an elevated central venous pressure. Normal aortic dimensions. Normal appearing and functioning valvular structures. No apparent intracardiac mass or pericardial effusion. MTDD
[2021-01-27] MEDS: DOCUSATE SODIUM 100MG CAPSULE PO SCH (08:54)
[2021-01-27 09:00] VITALS: BP 120/72
[2021-01-27] MEDS: CARVedilol 12.5 MG TAB PO SCH (09:00)
[2021-01-27] MEDS: predniSONE 5 MG TAB PO SCH (09:13)
[2021-01-27] MEDS: ASPIRIN 81MG ENTERIC TABLET PO SCH (09:13)
[2021-01-27] MEDS: GABAPENTIN 300 MG CAP PO SCH (09:13)
[2021-01-27] MEDS: ATORVASTATIN 20 MG TAB PO SCH (09:13)
[2021-01-27] MEDS: ESCITALOPRAM OXALATE 10 MG TAB (LEXAPRO) PO SCH (09:13)
[2021-01-27] MEDS: FIDAXOMICIN 200 MG TAB (DIFICID) PO SCH (09:13)
[2021-01-27] MEDS ORDERED: LISI10TA22 PO (09:14)
[2021-01-27] MEDS ORDERED: FIDA200TA PO (09:14)
[2021-01-27] MEDS ORDERED: CARV12.5 PO (09:14)
[2021-01-27] MEDS: oxyCODONE 5MG TAB PO PRN (09:25)
[2021-01-27] MEDS: ENOXAPARIN 100MG/1ML SYRINGE (J1650 PER 10MG) SC SCH (11:00)
--- NOTE | 2021-01-27 13:29 | DS.PDOC ---
Discharge Summary General Date of Admission Jan 25, 2021 at 15:03 Date of Discharge 01/27/2021 Discharge Summary PROCEDURES PERFORMED DURING STAY: [None]. ADMITTING DIAGNOSES / DISCHARGE DIAGNOSES: Elevated troponin - possibly 2/2 NSTEMI, possibly 2/2 demand ischemia (Type II AR) Diarrhea - likely 2/2 C. diff colitis s/p Hypomagnesemia Metastatic lung adenocarcinoma Chronic COPD Anxiety and depression Neuropathy Hypothyroidism DLP Deconditioning DVT prophylaxis COMPLICATIONS/CHIEF COMPLAINT: Diarrhea HISTORY OF PRESENT ILLNESS: Patient is a 65-year-old male with a PMHx of Metastatic Lung Adenocarcinoma (to Thoracic spine, ribs & Liver), Recent C. diff colitis (Dx 01/18), Hx of PE after lung resection, Hypothyroidism, Anxiety / Depression, Chronic back pain, Hx of Nephrolithiasis (s/p stent and stone extraction), who presented to the emergency room with complaints of diarrhea associated with fevers and chills. Patient has been given vancomycin orally; however has failed. Patient has been admitted to the hospital service for further evaluation and treatment. Upon arrival, patient had a troponin elevation of 0.47 and cardiology has been called on consultation. Patient was seen and examined at the bedside. Patient reports that he is feeling relatively fine. Denies any diarrhea today or overnight. Denies any chest pain, shortness breath, palpitations, nausea, vomiting, abdominal pain, or urinary discomfort. HOSPITAL COURSE: Elevated troponin - possibly 2/2 NSTEMI, possibly 2/2 demand ischemia (Type II AR) - Again. Patient is not experiencing any chest pain, shortness of breath or palpitations - EKG was reviewed without any evidence of ischemic changes - Troponin trend has improved - c/w Telemetry - c/w ASA, Atorvastatin, Carvedilol, Lisinopril; Patient has refused additional Lovenox therapeutic - Patient had opted for medical management and not to transfer to PCI facility on arrival - Cardiology has been consulted; appreciate their input - Will have outpatient follow-up with cardiology within the next 7 days Diarrhea - likely 2/2 C. diff colitis - Diarrhea was present on arrival with a recent diagnosis of C. difficile colitis on 01/20 - Patient had 3 bowel movements yesterday but were relatively loose and not watery - Does not experience any diarrhea overnight, or today - Remains hemodynamically stable and afebrile - Leukocytosis continues to improve - Patient has failed vancomycin PO therapy - c/w Fidaxomicin (Day #2); will complete therapy as an outpatient s/p Hypomagnesemia Metastatic lung adenocarcinoma - Dx 2018 - Patient had a lung resection past and had developed a pulmonary embolism - Has received chemotherapy - Patient follows with Dr. Sorto as an outpatient for oncology; patient reports that he is going to start any therapy relatively soon Chronic COPD - No evidence of exacerbation - c/w Prednisone and inhaled therapy as ordered Anxiety and depression - c/w Escitalopram Neuropathy - c/w Gabapentin Hypothyroidism - s/p Hyperthyroidism and radioactive ablation - c/w Levothyroxine DLP - c/w Atorvastatin Deconditioning - c/w PT and OT; cleared for discharge home DVT prophylaxis - Was on therapeutic Lovenox DISCHARGE MEDICATIONS: Please see below. ALLERGIES: Please see below. PHYSICAL EXAMINATION ON DISCHARGE: Vitals (See below) General: She is laying in bed, appears to be comfortable, not in any acute d istress, is awake and alert, oriented 3 HEENT: NC, AT CVS: +S1S2 Lungs: Fair air entry b/l, no evidence of wheezing, rales or rhonchi Abdomen: Abdomen again is soft without any distention. Mild tenderness right upper quadrant Extremities: LE are without edema, - Calf tenderness LABORATORY DATA: Please see below. IMAGING: CT abdomen / pelvis 01/25: Diffuse liver metastases. ACTIVITY: [As tolerated]. DISCHARGE PLAN: Follow-up with primary care provider within the next 7 days Follow up with cardiology within the next 7 days Remain compliant with treatment plan and medications Return to the ER if you experience any problems DISPOSITION: Home with services DISCHARGE CONDITION: [Stable]. TIME SPENT ON DISCHARGE: 35 minutes. Vital Signs/I&Os Vital Signs Date Time Temp Pulse Resp B/P (MAP) Pulse Ox O2 Delivery O2 Flow Rate FiO2 01/27/21 09:55 16 Room Air 01/27/21 09:00 97.7 59 120/72 (88) 98 I&O- Last 24 Hours up to 6 AM 01/27/21 05:59 Intake Total 1330 ml Output Total 0 ml Balance 1330 ml Laboratory Data Labs 24H Laboratory Tests 2 01/26/21 14:19: Troponin I 0.34#H 01/27/21 04:45: Immature Granulocyte % (Auto) 0.9, Neutrophils (%) (Auto) 58.1, Lymphocytes (%) (Auto) 5.6L, Monocytes (%) (Auto) 13.1H, Eosinophils (%) (Auto) 21.5H, Basophils (%) (Auto) 0.8, Neutrophils # (Auto) 6.8, Lymphocytes # (Auto) 0.7L, Monocytes # (Auto) 1.5H, Eosinophils # (Auto) 2.5H, Basophils # (Auto) 0.1, Nucleated Red Blood Cells % (auto) 0.0, Anion Gap 6L, Glomerular Filtration Rate > 60.0, Calcium Level 8.3L, Magnesium Level 2.0 CBC/BMP Laboratory Tests 01/27/21 04:45 Discharge Medications Scheduled Aspirin (Aspirin EC) 81 Mg Tablet.dr, 81 MG PO DAILY, (Reported) Atorvastatin Calcium (Atorvastatin Calcium) 40 Mg Tablet, 40 MG PO DAILY, (Reported) Bimatoprost (Lumigan) 0.01% 2.5ML Drops, 1 DROP OU QHS, (Reported) Calcium Carbonate (Calcium) 600 Mg Tablet, 600 MG PO QPM, (Reported) TAKES AROUND DINNERTIME Carvedilol (Carvedilol) 12.5 Mg Tablet, 25 MG PO BID Escitalopram Oxalate (Lexapro) 20 Mg Tablet, 20 MG PO DAILY, (Reported) Fidaxomicin (Dificid) 200 Mg Tablet, 200 MG PO BID Folic Acid (Folic Acid) 0.4 Mg Tablet, 400 MCG PO DAILY, (Reported) Gabapentin (Gabapentin) 300 Mg Capsule, 300 MG PO BID, (Reported) Levothyroxine Sodium (Levothyroxine Sodium) 125 Mcg Tablet, 125 MCG PO DAILY, (Reported) Lisinopril (Lisinopril) 10 Mg Tablet, 10 MG PO DAILY Pimecrolimus (Pimecrolimus) 30 Gm Cream..g., 1 DOSE TOP BID, (Reported) APPLY TO AFFECTED AREAS ON LEGS, BACK, SHOULDERS, AND ARMS Prednisone (Prednisone) 5 Mg Tablet, 5 MG PO DAILY, (Reported) Scheduled PRN Albuterol Sulfate (Albuterol Sulfate Hfa) 8.5 Gm Hfa.aer.ad, 2 PUFF INH Q4H PRN for SOB/WHEEZING, (Reported) Oxycodone HCl/Acetaminophen (Oxycodone-Acetaminophen 10-325) 1 Each Tablet, 1 TAB PO QID PRN for PAIN, (Reported) Prochlorperazine Maleate (Prochlorperazine Maleate) 10 Mg Tablet, 10 MG PO Q6H PRN for NAUSEA OR VOMITING, (Reported) Allergies Coded Allergies: pembrolizumab (Verified Allergy, Intermediate, RASH, 07/29/20) TRIP ROWE MD Jan 27, 2021 13:29
== END 2021-01-27 14:07 | disposition home health service (06) | DRG 371 ==
LOC: M ED 15:02 → M ED INP 15:03 → ENRESERV 01-26 00:53 → M PCU 01-26 01:14
PROVIDERS: ADMIT Family Medicine; ATTEND Internal Medicine
DX: A04.72 Enterocolitis due to Clostridium difficile, not specified as recurrent (principal); I21.A1 Myocardial infarction type 2; C34.90 Malignant neoplasm of unspecified part of unspecified bronchus or lung; C79.51 Secondary malignant neoplasm of bone; C78.7 Secondary malignant neoplasm of liver and intrahepatic bile duct; E83.42 Hypomagnesemia; E03.9 Hypothyroidism, unspecified; G62.9 Polyneuropathy, unspecified; J44.9 Chronic obstructive pulmonary disease, unspecified; F41.9 Anxiety disorder, unspecified; F32.9 Major depressive disorder, single episode, unspecified; Z87.442 Personal history of urinary calculi; Z79.899 Other long term (current) drug therapy; Z79.82 Long term (current) use of aspirin; Z88.8 Allergy status to other drugs, medicaments and biological substances; Z98.41 Cataract extraction status, right eye; Z79.52 Long term (current) use of systemic steroids

== ENCOUNTER 2021-02-25 14:30 | Emergency (ER) | payer MEDICARE ==
[~2021-02-25] VITALS: Ht 172.7 cm; Wt 73.3 kg
[~2021-02-25 14:30] MED LIST changes: +ASPI-161 PO; +BIMA01SOL OU; +CARV12.5 PO; +FIDA200TA PO; +LISI10TA22 PO; +ONDA-84 PO; -ONDA8TAB10 PO; +PRED1TABL PO; -PROC10TA4 PO; +PROC10TA5 PO
[2021-02-25 15:27] LABS: BASO % 0.2 % (0.0-1.0); EOS # 0.7 10^3/uL (0.0-0.5); EOS % 4.2 % (0.0-3.0); HEMATOCRIT 36.8 % (42.0-52.0); HEMOGLOBIN 12.2 g/dl (13.5-17.5); LYMPH # 0.5 10^3/uL (1.5-5.0); LYMPH % 2.7 % (24.0-44.0); MEAN CORPUSCULAR HEMOGLOBIN 32.8 pg (27.0-33.0); MEAN CORPUSCULAR HGB CONC 33.2 g/dl (32.0-36.5); MEAN CORPUSCULAR VOLUME 98.9 fl (80.0-96.0); MONO # 1.4 10^3/uL (0.0-0.8); MONO % 7.9 % (2.0-8.0); NEUTROPHILS # 14.5 10^3/uL (1.5-8.5); NEUTROPHILS % 84.4 % (36.0-66.0); RED BLOOD COUNT 3.72 10^6/uL (4.30-6.10); WHITE BLOOD COUNT 17.2 10^3/uL (4.0-10.0)
[2021-02-25 16:01] LABS: PLATELET COUNT, AUTOMATED 59 10^3/uL (150-450)
[2021-02-25 16:06] LABS: ALBUMIN 3.3 GM/DL (3.2-5.2); ALT/SGPT 104 U/L (12-78); BILIRUBIN,DIRECT < 0.1 MG/DL (0.0-0.2); LIPASE 16 U/L (73-393); TOTAL PROTEIN 7.1 GM/DL (6.4-8.2)
[2021-02-25] MEDS ORDERED: NS 1,000 ML IV ONE (18:10)
[2021-02-25] MEDS ORDERED: PERCOCET 5MG/325MG TAB PO ONE (18:45)
[2021-02-25 21:23] VITALS: BP 117/65
== END 2021-02-25 21:36 | disposition home or self-care (01) ==
LOC: M ED 14:30
DX: E86.0 Dehydration (principal); R53.1 Weakness; R10.11 Right upper quadrant pain; I51.7 Cardiomegaly; C34.91 Malignant neoplasm of unspecified part of right bronchus or lung; C78.7 Secondary malignant neoplasm of liver and intrahepatic bile duct; E03.9 Hypothyroidism, unspecified; E78.5 Hyperlipidemia, unspecified; Z86.711 Personal history of pulmonary embolism; J45.909 Unspecified asthma, uncomplicated; F33.9 Major depressive disorder, recurrent, unspecified; Z88.0 Allergy status to penicillin; Z79.82 Long term (current) use of aspirin; Z79.899 Other long term (current) drug therapy

== ENCOUNTER 2021-03-03 14:56 | Inpatient (IN) | payer MEDICARE ==
[~2021-03-03] VITALS: Ht 172.7 cm; Wt 80.0 kg
[~2021-03-03 14:56] MED LIST changes: -ONDA-84 PO; +ONDA8TAB10 PO; +PROC10TA4 PO; -PROC10TA5 PO
[2021-03-03] MEDS ORDERED: NS 1,000 ML IV ONE (17:05)
[2021-03-03 17:25] LABS: BASO # 0.1 10^3/uL (0.0-0.2); BASO % 0.4 % (0.0-1.0); EOS # 1.6 10^3/uL (0.0-0.5); EOS % 9.6 % (0.0-3.0); HEMATOCRIT 35.7 % (42.0-52.0); HEMOGLOBIN 11.7 g/dl (13.5-17.5); LYMPH # 0.5 10^3/uL (1.5-5.0); LYMPH % 3.4 % (24.0-44.0); MEAN CORPUSCULAR HGB CONC 32.8 g/dl (32.0-36.5); MEAN CORPUSCULAR VOLUME 100.6 fl (80.0-96.0); MONO # 1.2 10^3/uL (0.0-0.8); MONO % 7.4 % (2.0-8.0); NEUTROPHILS # 12.7 10^3/uL (1.5-8.5); NEUTROPHILS % 78.8 % (36.0-66.0); RED BLOOD COUNT 3.55 10^6/uL (4.30-6.10); WHITE BLOOD COUNT 16.1 10^3/uL (4.0-10.0)
[2021-03-03 17:31] LABS: PLATELET COUNT, AUTOMATED 48 10^3/uL (150-450)
[2021-03-03 17:45] LABS: ALBUMIN 2.9 GM/DL (3.2-5.2); ALT/SGPT 40 U/L (12-78); BILIRUBIN,DIRECT 0.3 MG/DL (0.0-0.2); BILIRUBIN,TOTAL 0.7 MG/DL (0.2-1.0); BLOOD UREA NITROGEN 16 MG/DL (7-18); CALCIUM LEVEL 7.9 MG/DL (8.8-10.2); CARBON DIOXIDE LEVEL 23 MEQ/L (21-32); CHLORIDE LEVEL 102 MEQ/L (98-107); CREATININE FOR GFR 0.68 MG/DL (0.70-1.30); GLOMERULAR FILTRATION RATE > 60.0 (>49); GLUCOSE, FASTING 64 MG/DL (70-100); LIPASE 25 U/L (73-393); POTASSIUM SERUM 4.2 MEQ/L (3.5-5.1); SODIUM LEVEL 137 MEQ/L (136-145); TOTAL PROTEIN 6.6 GM/DL (6.4-8.2)
[2021-03-03 18:01] LABS: CK-MB VALUE MASS < 1.0 NG/ML (<3.6); CPK CREATINE PHOSPHOKINASE 25 U/L (39-308); TROPONIN I < 0.02 NG/ML (< 0.10)
--- NOTE | 2021-03-03 18:07 | REP ---
INDICATION: nausea. COMPARISON: 02/25/2021. TECHNIQUE: Single portable AP view of the chest was performed. FINDINGS: There is no acute infiltrate or pulmonary edema. Lungs are clear. The heart is enlarged. The mediastinal silhouette is unremarkable and unchanged. There is mild elevation of the right hemidiaphragm with chronic pleural thickening on the right unchanged. There are old right rib fractures. IMPRESSION: No acute pulmonary disease. <Electronically signed by Marshall Gaffney > 03/03/21 [id number]
[2021-03-03] MEDS ORDERED: DEXTROSE 50% 50 ML SYRINGE IV STA (18:18)
[2021-03-03] MEDS ORDERED: ISOVUE-370 76% 100ML VIAL As Ordered ONE (18:21)
--- NOTE | 2021-03-03 19:21 | ECGEPIP ---
[facility] - ED Test Date: 2021-03-03 Pat Name: ROLAND SMITH Department: Room: - Gender: Male Fuse Spooler: BERNADINE : 1955 Requested By: Meghan Bains Order Number: [id number] Reading MD: Meghan Bains Measurements Intervals [place] Rate: 56 P: -14 AL: 112 QRS: 3 QRSD: 72 T: 60 QT: 466 QTc: 449 Interpretive Statements Sinus bradycardia Nonspecific ST T wave changes 02/25/[address] T wave changes Electronically Signed on 03-03-2021 19:21:01 EDT by Meghan Bains
[2021-03-03 19:29] LABS: RSV AMPLIFICATION NEGATIVE (NEGATIVE)
--- NOTE | 2021-03-03 19:36 | REPVR ---
PROCEDURE INFORMATION: Exam: CT Abdomen And Pelvis With Contrast Exam date and time: 03/03/2021 6:43 PM Age: 65 years old Clinical indication: Abdominal pain TECHNIQUE: Imaging protocol: Computed tomography of the abdomen and pelvis with contrast. Radiation optimization: All CT scans at this facility use at least one of these dose optimization techniques: automated exposure control; mA and/or kV adjustment per patient size (includes targeted exams where dose is matched to clinical indication); or iterative reconstruction. Contrast material: ISOVUE 370; Contrast volume: 100 ml; Contrast route: INTRAVENOUS (IV); COMPARISON: CT ABD/PEL W/IV CONTRAST ONLY 01/25/2021 7:08 PM FINDINGS: Lungs: Chronic parenchymal infiltrate medial basal segment right lower lobe. Pleural spaces: Loculated right pleural effusion, stable. Heart: Small pericardial effusion. Mediastinal space: Persistent dilatation and wall thickening of the distal esophagus. Liver: Progressive metastatic disease demonstrated in the liver with increasing size of pre-existing metastasis as well as numerous new lesions demonstrated. Many lesions demonstrate peripheral enhancement. Gallbladder and bile ducts: Normal. No calcified stones. No ductal dilation. Pancreas: There is diffuse pancreatic atrophy. Spleen: Normal. No splenomegaly. Adrenal glands: Normal. No mass. Kidneys and ureters: Nonobstructive calculi lower pole left kidney. Stomach and bowel: Moderate diverticulosis is present in the distal colon. No diverticulitis. Appendix: No evidence of appendicitis. Intraperitoneal space: There is a small amount of free intraperitoneal fluid present. Vasculature: The aortoiliac vessels demonstrate moderate atherosclerotic calcification. Lymph nodes: Unremarkable. No enlarged lymph nodes. Urinary bladder: Unremarkable as visualized. Reproductive: The prostate gland demonstrates mild hyperplasia. Bones/joints: Severe central spinal stenosis L3-L4 and L4-L5. Bulging annulus L5-S1. Soft tissues: Bilateral inguinal hernias without incarceration. Other findings: Postoperative changes demonstrated in the right infrahilar region. IMPRESSION: 1. Progressive metastatic disease to the liver. 2. There is diffuse pancreatic atrophy. 3. Nonobstructive calculi lower pole left kidney. 4. There is a small amount of free intraperitoneal fluid present. 5. Moderate diverticulosis is present in the distal colon. No diverticulitis. 6. Mild prostatic hyperplasia. 7. Persistent dilatation and wall thickening of the distal esophagus. Electronically signed by: Pascual Young On 03/03/2021 19:35:31 PM
[2021-03-03] MEDS ORDERED: CARV12.5 PO (19:52)
[2021-03-03] MEDS ORDERED: BACITAB PO (19:52)
[2021-03-03] MEDS ORDERED: HOME MED LIST COMPLETE! XX SCH (19:55)
[2021-03-03] MEDS: ATORVASTATIN 20 MG TAB PO SCH (21:00)
[2021-03-03] MEDS: GABAPENTIN 300 MG CAP PO SCH (21:00)
[2021-03-03] MEDS: FIDAXOMICIN 200 MG TAB (DIFICID) PO SCH (21:00)
[2021-03-03] MEDS ORDERED: ACETAMINOPHEN TAB 650MG DOSE (2X325MG) PO PRN (22:10)
[2021-03-03] MEDS ORDERED: ALBUTEROL 90 MCG/ACT 8GM HFA INHALER INH PRN (22:10)
[2021-03-03] MEDS ORDERED: PROCHLORPERAZINE 5 MG TAB (S0183) PO PRN (22:10)
[2021-03-03] MEDS ORDERED: MAALOX 30 ML SUSP *UDC PO PRN (22:10)
[2021-03-03] MEDS ORDERED: MOM 30ML SUSPENSION UDC PO PRN (22:10)
--- NOTE | 2021-03-03 22:28 | HPEPDOC ---
[facility] Medical History & Physical Date of Admission Mar 03, 2021 Date of Service: Mar 03, 2021 History and Physical CHIEF COMPLAINT: diarrhea, abdominal pain HISTORY OF PRESENT ILLNESS: Mr. Moore is a pleasant 65-year-old male with a past medical history of metastatic lung cancer, pulmonary embolism, recurrent C. difficile colitis, anxiety, depression, chronic back pain. Recently had admitted for an STEMI as well as C. difficile colitis. He returns with a 2 day history of intractable nausea and vomiting with reduced by mouth intake as well as left lower quadrant abdominal pain and nonbloody diarrhea. He also complains of productive cough for past week with subjective fevers and chills. During past admission, he felt better after a course of treatment with Dificid. He lives alone, uses a walker to ambulate. Denies any recent falling. Patient has not had chemotherapy in approximately one month. She has had trouble with follow-up. She found to have leukocytosis of 16.1. Hemoglobin 11.7. Platelets 48. CT abdomen a pelvis with IV contrast showing progressive metastatic disease to the liver without evidence for colitis. Given patient's history of recurrent C. difficile colitis. Will be started on Dificid admitted to hospitalist service for the management of failure to thrive as well as reduced by mouth intake. PAST MEDICAL HISTORY: C diff colitis diagnosed on 01/18/21 Metastatic lung cancer adenocarcinoma with metastasis to the thoracic spine and ribs status post lung resection and radiation and ongoing chemotherapy last 2 weeks ago. History of pulmonary embolism after lung resection completed a six-month course of eliquis Anxiety and depression Anemia secondary to chemotherapy Hypothyroidism Chronic back pain PAST SURGICAL HISTORY: Carpal tunnel release Right cataract surgery Spine biopsy 2019 Kidney stone removal and stent placement 2017 SOCIAL HISTORY: Denies alcohol use Denies tobacco use currently endorses quitting smoking more than 10 years ago Denies illicit drug use other than occasional cannabis use ALLERGIES: Please see below. FAMILY HISTORY: reviewed with patient, did not provide pertinent family history ALLERGIES: Please see below. REVIEW OF SYSTEMS: 10 point ROS conducted, relevant findings are noted in HPI. HOME MEDICATIONS: Please see below. PHYSICAL EXAMINATION: VITAL SIGNS: please see below General: NAD, comfortable HEENT: PERRLA, EOMI, sclerae clear Neck: supple, normal ROM, no JVD Respiratory: lungs CTAB, no wheeze, no rales, no crackles CVS: RRR, normal S1, S2, no murmurs Abdo: Abdomen tender to palpation in the left lower quadrant. Nondistended. No rebound tenderness, no guarding. Extremities: no edema, pulses 2+ MSK: no joint deformities, normal ROM Neuro: no focal neuro deficits, moving all 4 extremities, CN2-12 intact. Strength 5/5 in all 4 extremities. No nystagmus. Psych: calm, cooperative, AAO x 3 LABORATORY DATA: See below. IMAGING: CT abdo pelvis w IV contrast (03/03/21): 1. Progressive metastatic disease to the liver. 2. There is diffuse pancreatic atrophy. 3. Nonobstructive calculi lower pole left kidney. 4. There is a small amount of free intraperitoneal fluid present. 5. Moderate diverticulosis is present in the distal colon. No diverticulitis. 6. Mild prostatic hyperplasia. 7. Persistent dilatation and wall thickening of the distal esophagus. CXR (03/03/21): No acute pulmonary disease. MICROBIOLOGY: Please see below. ASSESSMENT: Mr. Moore is a pleasant 65-year-old male with a past medical history of metastatic lung cancer, pulmonary embolism, recurrent C. difficile colitis, anxiety, depression, chronic back pain. Recently had admitted for an STEMI as well as C. difficile colitis. He returns with a 2 day history of intractable nausea and vomiting with reduced by mouth intake as well as left lower quadrant abdominal pain and nonbloody diarrhea. During past admission, he felt better after a course of treatment with Dificid. He lives alone, uses a walker to ambulate. Denies any recent falling. Patient has not had chemotherapy in approximately one month. She has had trouble with follow-up. She found to have leukocytosis of 16.1. Hemoglobin 11.7. Platelets 48. CT abdomen and pelvis with IV contrast showing progressive metastatic disease to the liver without evidence for colitis. Given patient's history of recurrent C. difficile colitis. Will be started on Dificid admitted to hospitalist service for the management of failure to thrive as well as reduced by mouth intake. . PLAN: #hx of C diff colitis with persistent diarrhea, nausea and vomiting - last tested positive 01/25/21 - responded well to dificid, and had failed PO vancomycin therapy in past - start dificic 200 mg BID x 10 days - ordered GI panel - zofran prn # Metastatic lung cancer: - patient last seen in oncology clinic on 02/11/21 - plan was to DC prednisone after taper, reports still taking - per oncology notes, plan was to start chemotherapy after DC of prednisone - f/u with Dr. Sorto, for further planning as to chemotherapy, prognostication - resume pain regimen #CAP - patient c/o green sputum x 1 weeks with subjective fevers and chills - check sputum cx, legionella, strep ag urine - check blood cultures - start zosyn #Thrombocytopenia - PLT 48, worsened, appears to be below baseline - in setting of metastatic lung Ca, chemotherapy in past - will avoid DVT chemoppx #Hx of NSTEMI/Type 2 [place] - c/w cardioprotective medications. # Anxiety and depression: -Continue home medications # Hypothyroidism: -Continue levothyroxine. # Hyperlipidemia: -Continue statin #deconditioning/failure to thrive -Ordered PT/OT eval Dispo: pending clinical improvement. Wishes for FULL CODE. Vital Signs Vital Signs Date Time Temp Pulse Resp B/P (MAP) Pulse Ox O2 Delivery O2 Flow Rate FiO2 03/03/21 22:18 97.7 63 18 99 Room Air 03/03/21 22:15 139/62 (87) Laboratory Data Labs 24H Laboratory Tests 2 03/03/21 17:05: Immature Granulocyte % (Auto) 0.4, Neutrophils (%) (Auto) 78.8H, Lymphocytes (%) (Auto) 3.4L, Monocytes (%) (Auto) 7.4, Eosinophils (%) (Auto) 9.6H, Basophils (%) (Auto) 0.4, Neutrophils # (Auto) 12.7H, Lymphocytes # (Auto) 0.5L, Monocytes # (Auto) 1.2H, Eosinophils # (Auto) 1.6H, Basophils # (Auto) 0.1, Nucleated Red Blood Cells % (auto) 0.0, Immature Platelet Fraction 9.1, Anion Gap 12, Glomeru lar Filtration Rate > 60.0, Calcium Level 7.9L, Total Bilirubin 0.7, Direct Bilirubin 0.3H, Aspartate Amino Transf (AST/SGOT) 36, Alanine Aminotransferase (ALT/SGPT) 40, Alkaline Phosphatase 380H, Total Creatine Kinase 25L, Creatine Kinase MB < 1.0, Creatine Kinase MB Relative Index 4.00, Troponin I < 0.02, Total Protein 6.6, Albumin 2.9L, Albumin/Globulin Ratio 0.8, Lipase 25L 03/03/21 18:36: Coronavirus (COVID-19)(PCR) NEGATIVE, Influenza Type A (RT-PCR) NEGATIVE, Influenza Type B (RT-PCR) NEGATIVE, Respiratory Syncytial Virus (PCR) NEGATIVE 03/03/21 19:16: Bedside Glucose (Misc Panel) 155H 03/03/21 19:20: Urine Color YELLOW, Urine Appearance CLEAR, Urine pH 5.0, Urine Specific [place] 1.029, Urine Protein 1+H, Urine Glucose (UA) 3+H, Urine Ketones 2+H, Urine Blood NEGATIVE, Urine Nitrite NEGATIVE, Urine Bilirubin NEGATIVE, Urine Urobilinogen 0.2, Urine Leukocyte Esterase NEGATIVE, Urine WBC (Auto) 3, Urine RBC (Auto) 1, Urine Hyaline Casts (Auto) 4, Urine Bacteria (Auto) NEGATIVE, Urine Squamous Epithelial Cells 0, Urine Mucus (Auto) SMALL, Urine Sperm (Auto) CBC/BMP Laboratory Tests 03/03/21 17:05 Microbiology Microbiology 03/03/21 Blood Culture, Received Pending 03/03/21 Blood Culture, Received Pending Home Medications Scheduled Aspirin (Aspirin EC) 81 Mg Tablet.dr, 81 MG PO DAILY Atorvastatin Calcium (Atorvastatin Calcium) 40 Mg Tablet, 40 MG PO QHS Bimatoprost (Lumigan) 0.01% 2.5ML Drops, 1 DROP OU QHS Calcium Carbonate (Calcium) 600 Mg Tablet, 600 MG PO QPM TAKES AROUND DINNERTIME Carvedilol (Carvedilol) 12.5 Mg Tablet, 12.5 MG PO BID Escitalopram Oxalate (Lexapro) 20 Mg Tablet, 20 MG PO DAILY Folic Acid (Folic Acid) 0.4 Mg Tablet, 400 MCG PO DAILY Gabapentin (Gabapentin) 300 Mg Capsule, 300 MG PO BID L.acidoph/L.bulg/B.bif/S.therm (Bacid Caplet) 1 Each Tablet, 1 TAB PO ACHS Levothyroxine Sodium (Levothyroxine Sodium) 125 Mcg Tablet, 125 MCG PO DAILY Pimecrolimus (Pimecrolimus) 30 Gm Cream..g., 1 DOSE TOP BID APPLY TO AFFECTED AREAS ON LEGS, BACK, SHOULDERS, AND ARMS Prednisone (Prednisone) 5 Mg Tablet, 5 MG PO DAILY Scheduled PRN Albuterol Sulfate (Albuterol Sulfate Hfa) 8.5 Gm Hfa.aer.ad, 2 PUFF INH Q4H PRN for SOB/WHEEZING Ondansetron HCl (Ondansetron HCl) 8 Mg Tablet, 8 MG PO Q12HP PRN for NAUSEA OR VOMITING Oxycodone HCl/Acetaminophen (Oxycodone-Acetaminophen 10-325) 1 Each Tablet, 1 TAB PO QID PRN for PAIN Prochlorperazine Maleate (Prochlorperazine Maleate) 10 Mg Tablet, 10 MG PO Q6H PRN for NAUSEA OR VOMITING Allergies Coded Allergies: pembrolizumab (Verified Allergy, Intermediate, RASH, 07/29/20) A-FIB/CHADSVASC A-FIB History Current/History of A-Fib/PAF?: No JASON FIGUEREDO MD Mar 03, 2021 22:28
[2021-03-03] MEDS: CARVedilol 12.5 MG TAB PO SCH (22:40)
[2021-03-03] MEDS: ONDANSETRON 4 MG TAB PO PRN (22:53)
[2021-03-03] MEDS: PERCOCET 5MG/325MG TAB PO PRN (22:53)
[2021-03-03 23:10] LABS: C REACTIVE PROTEIN QUANTITATIV 8.48 MG/DL (0.00-0.30)
[2021-03-04] MEDS ORDERED: PIPERACILLIN/TAZOBACTAM SOD 4.5 GM in D5W MINI-BAG PLUS 50 ML IV ONE ×2
[2021-03-04 00:02] VITALS: BP 106/57
[2021-03-04] MEDS: LEVOTHYROXINE 125MCG TABLET (0.125MG) PO SCH (05:40)
[2021-03-04 06:00] VITALS: BP 101/58
[2021-03-04] MEDS ORDERED: PIPERACILLIN/TAZOBACTAM SOD 4.5 GM in D5W MINI-BAG PLUS 50 ML IV SCH (06:00)
[2021-03-04 07:52] VITALS: BP 90/48
[2021-03-04] MEDS: CARVedilol 12.5 MG TAB PO SCH ×2 (08:09→20:58)
[2021-03-04] MEDS: FOLIC ACID 1 MG TAB PO SCH (08:54)
[2021-03-04] MEDS: LACTOBACILLUS ACIDOPHILUS CAP (BACID) PO SCH ×4 (08:54→20:58)
[2021-03-04] MEDS: POLYVINYL ALCOHOL OPHTH SOLN 15 ML(LIQUITEARS) OU SCH ×3 (08:54→20:58)
[2021-03-04] MEDS: ASPIRIN 81MG ENTERIC TABLET PO SCH (08:54)
[2021-03-04] MEDS: ESCITALOPRAM OXALATE 10 MG TAB (LEXAPRO) PO SCH (08:54)
[2021-03-04] MEDS: GABAPENTIN 300 MG CAP PO SCH ×2 (08:54→20:58)
[2021-03-04] MEDS: predniSONE 5 MG TAB PO SCH (08:54)
[2021-03-04] MEDS: FIDAXOMICIN 200 MG TAB (DIFICID) PO SCH ×2 (08:54→20:57)
[2021-03-04] MEDS: DOCUSATE SODIUM 100MG CAPSULE PO SCH ×2 (08:55→20:56)
[2021-03-04] MEDS ORDERED: ENOXAPARIN 40MG/0.4ML SYRINGE (J1650 PER 10MG) SC SCH (09:00)
[2021-03-04] MEDS: PERCOCET 5MG/325MG TAB PO PRN ×2 (09:02→18:41)
--- NOTE | 2021-03-04 10:22 | IPNPDOC ---
Text Note Date of Service The patient was seen on 03/04/21. NOTE Subjective: Patient seen and examined at bedside. No acute overnight events reported. No new medical complaints this morning. PHYSICAL EXAMINATION: VITAL SIGNS: please see below General: NAD, comfortable HEENT: PERRLA, EOMI, sclerae clear Neck: supple, normal ROM, no JVD Respiratory: lungs CTA b/l CVS: RRR, normal S1, S2, no murmurs Abdo: non tender. Nondistended. No rebound tenderness, no guarding. Extremities: no edema, pulses 2+ MSK: no joint deformities, normal ROM Neuro: no focal neuro deficits, moving all 4 extremities, CN2-12 intact. Strength 5/5 in all 4 extremities. No nystagmus. Psych: calm, cooperative, AAO x 3 A/P: 65-year-old male with PMHx including metastatic lung cancer, PE, recurrent C. difficile colitis, anxiety/depression, chronic back pain. Recently admitted for STEMI as well as C. difficile colitis. He returns with a 2 day history of intractable nausea and vomiting with reduced by mouth intake as well as left lower quadrant abdominal pain and nonbloody diarrhea. During past admission, he felt better after a course of treatment with Dificid. Patient has not had chemotherapy in approximately one month. He has had trouble with follow-up. #hx of C diff colitis with persistent diarrhea, nausea and vomiting - last tested positive 01/25/21 - responded well to dificid, and had failed PO vancomycin therapy in past - start dificic 200 mg BID x 10 days, IV fluids - ordered GI panel, CDiff PCR - zofran prn # Metastatic lung cancer: - patient last seen in oncology clinic on 02/11/21 - plan was to DC prednisone after taper, reports still taking - per oncology notes, plan was to start chemotherapy after DC of prednisone - f/u with Dr. Sorto, for further planning as to chemotherapy, prognostication - resume pain regimen #CAP? - check sputum cx, legionella, strep ag urine, respiratory panel, procal - check blood cultures #Thrombocytopenia - PLT 48, worsened, appears to be below baseline - in setting of metastatic lung Ca, chemotherapy in past - will avoid DVT chemoppx #Hx of NSTEMI/Type 2 [place] - c/w cardioprotective medications. # Anxiety and depression: -Continue home medications # Hypothyroidism: -Continue levothyroxine. # Hyperlipidemia: -Continue statin #deconditioning/failure to thrive -Ordered PT/OT eval Dispo: pending clinical improvement. Wishes for FULL CODE. VS,Fishbone, I+O VS, Fishbone, I+O Laboratory Tests 03/03/21 17:05 Vital Signs Date Time Temp Pulse Resp B/P (MAP) Pulse Ox O2 Delivery O2 Flow Rate FiO2 03/04/21 09:51 18 03/04/21 08:09 90/48 03/04/21 06:00 98.0 57 95 Room Air I&O- Last 24 Hours up to 6 AM 03/04/21 06:00 Intake Total 1050 ml Balance 1050 ml ANGEL BOLANOS MD Mar 04, 2021 10:22
[2021-03-04] MEDS: NS 1,000 ML IV SCH ×2 (11:16→20:55)
[2021-03-04 14:00] VITALS: BP 127/60
[2021-03-04] MEDS: ONDANSETRON 4 MG TAB PO PRN (18:40)
[2021-03-04] MEDS: ATORVASTATIN 20 MG TAB PO SCH (20:57)
[2021-03-04 22:00] VITALS: BP 128/61
[2021-03-05] MEDS: PERCOCET 5MG/325MG TAB PO PRN ×3 (05:33→21:21)
[2021-03-05] MEDS: LEVOTHYROXINE 125MCG TABLET (0.125MG) PO SCH (05:33)
[2021-03-05] MEDS: NS 1,000 ML IV SCH ×2 (05:34→14:12)
[2021-03-05 06:00] VITALS: BP_SYST 128; BP_DIAS 61; BP_DIAS 72
[2021-03-05 06:47] LABS: BASO # 0.1 10^3/uL (0.0-0.2); BASO % 0.4 % (0.0-1.0); EOS # 1.1 10^3/uL (0.0-0.5); EOS % 6.8 % (0.0-3.0); HEMATOCRIT 33.1 % (42.0-52.0); HEMOGLOBIN 11.2 g/dl (13.5-17.5); LYMPH # 0.5 10^3/uL (1.5-5.0); LYMPH % 3.1 % (24.0-44.0); MEAN CORPUSCULAR HEMOGLOBIN 33.4 pg (27.0-33.0); MEAN CORPUSCULAR HGB CONC 33.8 g/dl (32.0-36.5); MEAN CORPUSCULAR VOLUME 98.8 fl (80.0-96.0); MONO # 1.5 10^3/uL (0.0-0.8); MONO % 8.9 % (2.0-8.0); NEUTROPHILS # 13.3 10^3/uL (1.5-8.5); NEUTROPHILS % 80.1 % (36.0-66.0); RED BLOOD COUNT 3.35 10^6/uL (4.30-6.10)
[2021-03-05 06:51] LABS: PLATELET COUNT, AUTOMATED 45 10^3/uL (150-450); WHITE BLOOD COUNT 16.6 10^3/uL (4.0-10.0)
[2021-03-05 07:14] LABS: ALBUMIN 2.8 GM/DL (3.2-5.2); ALT/SGPT 47 U/L (12-78); BILIRUBIN,TOTAL 0.6 MG/DL (0.2-1.0); BLOOD UREA NITROGEN 12 MG/DL (7-18); CALCIUM LEVEL 7.2 MG/DL (8.8-10.2); CARBON DIOXIDE LEVEL 20 MEQ/L (21-32); CHLORIDE LEVEL 108 MEQ/L (98-107); CREATININE FOR GFR 0.63 MG/DL (0.70-1.30); GLOMERULAR FILTRATION RATE > 60.0 (>49); GLUCOSE, FASTING 87 MG/DL (70-100); POTASSIUM SERUM 3.8 MEQ/L (3.5-5.1); SODIUM LEVEL 137 MEQ/L (136-145); TOTAL PROTEIN 5.7 GM/DL (6.4-8.2)
[2021-03-05] MEDS: CARVedilol 12.5 MG TAB PO SCH ×2 (09:00→21:21)
[2021-03-05] MEDS: FIDAXOMICIN 200 MG TAB (DIFICID) PO SCH ×2 (09:27→21:20)
[2021-03-05] MEDS: FOLIC ACID 1 MG TAB PO SCH (09:27)
[2021-03-05] MEDS: ASPIRIN 81MG ENTERIC TABLET PO SCH (09:27)
[2021-03-05] MEDS: LACTOBACILLUS ACIDOPHILUS CAP (BACID) PO SCH ×4 (09:27→21:20)
[2021-03-05] MEDS: POLYVINYL ALCOHOL OPHTH SOLN 15 ML(LIQUITEARS) OU SCH ×3 (09:27→21:22)
[2021-03-05] MEDS: ESCITALOPRAM OXALATE 10 MG TAB (LEXAPRO) PO SCH (09:27)
[2021-03-05] MEDS: predniSONE 5 MG TAB PO SCH (09:27)
[2021-03-05] MEDS: GABAPENTIN 300 MG CAP PO SCH ×2 (09:27→21:17)
[2021-03-05] MEDS: ONDANSETRON 4 MG TAB PO PRN ×2 (09:28→21:20)
[2021-03-05 14:00] VITALS: BP 122/60
[2021-03-05] MEDS: ATORVASTATIN 20 MG TAB PO SCH (21:17)
[2021-03-05 21:19] VITALS: BP 121/68
[2021-03-05 22:00] VITALS: BP 121/68
[2021-03-06] MEDS: NS 1,000 ML IV SCH (00:16)
[2021-03-06 06:00] VITALS: BP 158/75
[2021-03-06] MEDS: PERCOCET 5MG/325MG TAB PO PRN ×3 (06:32→21:26)
[2021-03-06] MEDS: LEVOTHYROXINE 125MCG TABLET (0.125MG) PO SCH (06:32)
--- NOTE | 2021-03-06 08:21 | IPNPDOC ---
Text Note Date of Service The patient was seen on 03/05/21. NOTE Subjective: Patient seen at bedside. No acute overnight events reported. No new medical complaints this morning. PHYSICAL EXAMINATION: VITAL SIGNS: please see below General: NAD, comfortable HEENT: PERRLA, EOMI, sclerae clear Neck: supple, normal ROM, no JVD Respiratory: lungs CTA b/l CVS: RRR, normal S1, S2, no murmurs Abdo: non tender. Nondistended. No rebound tenderness, no guarding. Extremities: no edema, pulses 2+ MSK: no joint deformities, normal ROM Neuro: no focal neuro deficits Psych: calm, cooperative, AAO x 3 A/P: 65-year-old male with PMHx including metastatic lung cancer, PE, recurrent C. difficile colitis, anxiety/depression, chronic back pain. Recently admitted for STEMI as well as C. difficile colitis. He returns with a 2 day history of intractable nausea and vomiting with reduced by mouth intake as well as left lower quadrant abdominal pain and nonbloody diarrhea. During past admission, he felt better after a course of treatment with Dificid. Patient has not had marbella motherapy in approximately one month. He has had trouble with follow-up. #C diff colitis with persistent diarrhea, nausea and vomiting - last tested positive 01/25/21 - responded well to dificid, and had failed PO vancomycin therapy in past - start dificic 200 mg BID x 10 days, IV fluids - zofran prn # Metastatic lung cancer: - patient last seen in oncology clinic on 02/11/21 - plan was to DC prednisone after taper, reports still taking - per oncology notes, plan was to start chemotherapy after DC of prednisone - f/u with Dr. Sorto, for further planning as to chemotherapy, prognostication - resume pain regimen #CAP? #Thrombocytopenia - PLT 48, worsened, appears to be below baseline - in setting of metastatic lung Ca, chemotherapy in past - will avoid DVT chemoppx #Hx of NSTEMI/Type 2 MD - c/w cardioprotective medications. # Anxiety and depression: -Continue home medications # Hypothyroidism: -Continue levothyroxine. # Hyperlipidemia: -Continue statin #deconditioning/failure to thrive -Ordered PT/OT eval Dispo: pending clinical improvement. VS,Fishbone, I+O VS, Fishbone, I+O Vital Signs Date Time Temp Pulse Resp B/P (MAP) Pulse Ox O2 Delivery O2 Flow Rate FiO2 03/06/21 06:32 16 03/06/21 06:00 98.7 63 158/75 (102) 92 Room Air I&O- Last 24 Hours up to 6 AM 03/06/21 06:00 Intake Total 1860 ml Balance 1860 ml ANGEL BOLANOS MD Mar 06, 2021 08:21
--- NOTE | 2021-03-06 08:26 | IPNPDOC ---
Text Note Date of Service The patient was seen on 03/06/21. NOTE Subjective: Patient seen at bedside. No acute overnight events reported. No new medical complaints this morning. He is concerned about going home and getting sick again. PHYSICAL EXAMINATION: VITAL SIGNS: please see below General: NAD, comfortable HEENT: NC/AT, EOMI Respiratory: lungs CTA b/l CVS: RRR, normal S1, S2, no murmurs Abdo: non tender. Nondistended. No rebound tenderness, no guarding. Extremities: no edema, pulses 2+ MSK: no joint deformities, normal ROM Neuro: no focal neuro deficits Psych: calm, cooperative, AAO x 3 A/P: 65-year-old male with PMHx including metastatic lung cancer, PE, recurrent C. difficile colitis, anxiety/depression, chronic back pain. Recently admitted for STEMI as well as C. difficile colitis. He returns with a 2 day history of i ntractable nausea and vomiting with reduced by mouth intake as well as left lower quadrant abdominal pain and nonbloody diarrhea. During past admission, he felt better after a course of treatment with Dificid. Patient has not had chemotherapy in approximately one month. He has had trouble with follow-up. #recurrent C diff colitis with persistent diarrhea, nausea and vomiting - last tested positive 01/25/21 - responded well to dificid, and had failed PO vancomycin therapy in past - dificid 200 mg BID x 10 days, IV fluids - zofran prn # Metastatic lung cancer: - patient last seen in oncology clinic on 02/11/21 - plan was to DC prednisone after taper, reports still taking at home - per oncology notes, plan was to start chemotherapy after DC of prednisone - f/u with Dr. Sorto, for further planning as to chemotherapy, prognostication - resume pain regimen #CAP? - sputum cx, respiratory panel WNL - check legionella, strep ag urine - procal elevated - in setting of CDiff - blood cultures NTD #Thrombocytopenia - PLT 48, worsened, appears to be below baseline - in setting of metastatic lung Ca, chemotherapy in past - will avoid DVT chemoppx - no active bleeding - continue to trend #Hx of NSTEMI/Type 2 OK - c/w cardioprotective medications. # Anxiety and depression: -Continue home medications # Hypothyroidism: -Continue levothyroxine. # Hyperlipidemia: -Continue statin #deconditioning/failure to thrive -Ordered PT/OT eval Dispo: pending clinical improvement. VS,Fishbone, I+O VS, Fishbone, I+O Vital Signs Date Time Temp Pulse Resp B/P (MAP) Pulse Ox O2 Delivery O2 Flow Rate FiO2 03/06/21 06:32 16 03/06/21 06:00 98.7 63 158/75 (102) 92 Room Air I&O- Last 24 Hours up to 6 AM 03/06/21 06:00 Intake Total 1860 ml Balance 1860 ml ANGEL BOLANOS MD Mar 06, 2021 08:25
[2021-03-06] MEDS: FOLIC ACID 1 MG TAB PO SCH (09:39)
[2021-03-06] MEDS: CARVedilol 12.5 MG TAB PO SCH ×2 (09:41→21:27)
[2021-03-06] MEDS: ASPIRIN 81MG ENTERIC TABLET PO SCH (09:42)
[2021-03-06] MEDS: GABAPENTIN 300 MG CAP PO SCH ×2 (09:42→21:27)
[2021-03-06] MEDS: FIDAXOMICIN 200 MG TAB (DIFICID) PO SCH ×2 (09:42→21:26)
[2021-03-06] MEDS: ESCITALOPRAM OXALATE 10 MG TAB (LEXAPRO) PO SCH (09:42)
[2021-03-06] MEDS: LACTOBACILLUS ACIDOPHILUS CAP (BACID) PO SCH ×4 (09:42→21:27)
[2021-03-06] MEDS: POLYVINYL ALCOHOL OPHTH SOLN 15 ML(LIQUITEARS) OU SCH ×3 (09:43→21:27)
[2021-03-06] MEDS: ONDANSETRON 4 MG TAB PO PRN ×2 (10:02→22:42)
[2021-03-06 10:38] LABS: HEMATOCRIT 27.8 % (42.0-52.0); HEMOGLOBIN 9.3 g/dl (13.5-17.5); MEAN CORPUSCULAR HEMOGLOBIN 33.7 pg (27.0-33.0); MEAN CORPUSCULAR HGB CONC 33.5 g/dl (32.0-36.5); MEAN CORPUSCULAR VOLUME 100.7 fl (80.0-96.0); RED BLOOD COUNT 2.76 10^6/uL (4.30-6.10); WHITE BLOOD COUNT 13.1 10^3/uL (4.0-10.0)
[2021-03-06 10:41] LABS: PLATELET COUNT, AUTOMATED 27 10^3/uL (150-450)
[2021-03-06 11:04] LABS: ALBUMIN 2.4 GM/DL (3.2-5.2); ALT/SGPT 50 U/L (12-78); BILIRUBIN,TOTAL 0.4 MG/DL (0.2-1.0); BLOOD UREA NITROGEN 9 MG/DL (7-18); CALCIUM LEVEL 6.9 MG/DL (8.8-10.2); CARBON DIOXIDE LEVEL 23 MEQ/L (21-32); CHLORIDE LEVEL 110 MEQ/L (98-107); CREATININE FOR GFR 0.62 MG/DL (0.70-1.30); GLOMERULAR FILTRATION RATE > 60.0 (>49); GLUCOSE, FASTING 121 MG/DL (70-100); POTASSIUM SERUM 3.4 MEQ/L (3.5-5.1); SODIUM LEVEL 139 MEQ/L (136-145); TOTAL PROTEIN 5.1 GM/DL (6.4-8.2)
[2021-03-06 14:00] VITALS: BP 102/62
[2021-03-06] MEDS: ATORVASTATIN 20 MG TAB PO SCH (21:25)
[2021-03-06 22:00] VITALS: BP 105/58
[2021-03-07] MEDS: PERCOCET 5MG/325MG TAB PO PRN ×3 (04:04→17:59)
[2021-03-07] MEDS: ONDANSETRON 4 MG TAB PO PRN (05:15)
[2021-03-07] MEDS: LEVOTHYROXINE 125MCG TABLET (0.125MG) PO SCH (05:15)
[2021-03-07 06:00] VITALS: BP 107/58
[2021-03-07 06:08] LABS: HEMATOCRIT 30.8 % (42.0-52.0); HEMOGLOBIN 10.3 g/dl (13.5-17.5); MEAN CORPUSCULAR HEMOGLOBIN 33.8 pg (27.0-33.0); MEAN CORPUSCULAR HGB CONC 33.4 g/dl (32.0-36.5); RED BLOOD COUNT 3.05 10^6/uL (4.30-6.10); WHITE BLOOD COUNT 12.6 10^3/uL (4.0-10.0)
[2021-03-07 06:45] LABS: BLOOD UREA NITROGEN 11 MG/DL (7-18); CALCIUM LEVEL 7.9 MG/DL (8.8-10.2); CARBON DIOXIDE LEVEL 26 MEQ/L (21-32); CHLORIDE LEVEL 109 MEQ/L (98-107); GLOMERULAR FILTRATION RATE > 60.0 (>49); GLUCOSE, FASTING 77 MG/DL (70-100); POTASSIUM SERUM 4.2 MEQ/L (3.5-5.1); SODIUM LEVEL 141 MEQ/L (136-145)
[2021-03-07 06:47] LABS: PLTBLUE- EDTA FREE MACHINE 24 10^3/uL (172-450)
[2021-03-07 06:48] LABS: PLATELET COUNT, AUTOMATED 27 10^3/uL (150-450)
[2021-03-07 07:39] LABS: PLTBLUE- EDTA FREE CALC 26 K/mm3 (172-450)
[2021-03-07] MEDS: FOLIC ACID 1 MG TAB PO SCH (07:57)
[2021-03-07] MEDS: ESCITALOPRAM OXALATE 10 MG TAB (LEXAPRO) PO SCH (07:57)
[2021-03-07] MEDS: GABAPENTIN 300 MG CAP PO SCH ×2 (07:58→19:51)
[2021-03-07] MEDS: ASPIRIN 81MG ENTERIC TABLET PO SCH (07:58)
[2021-03-07] MEDS: FIDAXOMICIN 200 MG TAB (DIFICID) PO SCH ×2 (07:58→19:51)
[2021-03-07] MEDS: LACTOBACILLUS ACIDOPHILUS CAP (BACID) PO SCH ×4 (07:58→19:51)
[2021-03-07] MEDS: CARVedilol 12.5 MG TAB PO SCH ×2 (08:00→19:52)
[2021-03-07] MEDS: POLYVINYL ALCOHOL OPHTH SOLN 15 ML(LIQUITEARS) OU SCH ×3 (08:01→19:53)
--- NOTE | 2021-03-07 10:48 | IPNPDOC ---
Text Note Date of Service The patient was seen on 03/07/21. NOTE Subjective: Patient seen at bedside. No acute overnight events reported. No new medical complaints this morning. PHYSICAL EXAMINATION: VITAL SIGNS: please see below General: NAD, comfortable HEENT: NC/AT, EOMI Respiratory: lungs CTA b/l CVS: RRR, normal S1, S2, no murmurs Abdo: non tender. Nondistended Extremities: no edema, pulses 2+ MSK: no joint deformities, normal ROM Neuro: no focal neuro deficits Psych: calm, cooperative, AAO x 3 A/P: 65-year-old male with PMHx including metastatic lung cancer, PE, recurrent C. difficile colitis, anxiety/depression, chronic back pain. Recently admitted for STEMI as well as C. difficile colitis. He returns with a 2 day history of intractable nausea and vomiting with reduced by mouth intake as well as left lower quadrant abdominal pain and nonbloody diarrhea. During past admission, he felt better after a course of treatment with Dificid. Patient has not had chemotherapy in approximately one month. He has had trouble with follow-up. #recurrent C diff colitis - diarrhea improving - last tested positive 01/25/21 - responded well to dificid, and had failed PO vancomycin therapy in past - dificid 200 mg BID x 10 days - zofran prn # Metastatic lung cancer: - patient last seen in oncology clinic on 02/11/21 - plan was to DC prednisone after taper, reports still taking at home - per oncology notes, plan was to start chemotherapy after DC of prednisone - f/u with Dr. Sorto, for further planning as to chemotherapy, prognostication - resume pain regimen #CAP? - sputum cx, respiratory panel WNL - check legionella, strep ag urine - procal elevated - in setting of CDiff - blood cultures NTD #Thrombocytopenia - PLT 48, worsened, appears to be below baseline - in setting of metastatic lung Ca, chemotherapy in past - will avoid DVT chemoppx - no active bleeding - continue to trend #Hx of NSTEMI/Type 2 CO - c/w cardioprotective medications. # Anxiety and depression: -Continue home medications # Hypothyroidism: -Continue levothyroxine. # Hyperlipidemia: -Continue statin #deconditioning/failure to thrive -Ordered PT/OT eval Dispo: pending clinical improvement. VS,Fishbone, I+O VS, Fishbone, I+O Laboratory Tests 03/06/21 10:12 03/07/21 05:53 Vital Signs Date Time Temp Pulse Resp B/P (MAP) Pulse Ox O2 Delivery O2 Flow Rate FiO2 03/07/21 08:00 58 107/58 03/07/21 06:00 97.6 18 98 Room Air I&O- Last 24 Hours up to 6 AM 03/07/21 06:00 Intake Total 2000 ml Output Total 0 ml Balance 2000 ml ANGEL BOLANOS MD Mar 07, 2021 10:48
[2021-03-07 14:00] VITALS: BP 100/50
[2021-03-07] MEDS: ATORVASTATIN 20 MG TAB PO SCH (19:53)
[2021-03-07 20:41] VITALS: BP 103/50
[2021-03-08] MEDS: PERCOCET 5MG/325MG TAB PO PRN ×4 (00:12→19:56)
[2021-03-08] MEDS: ONDANSETRON 4 MG TAB PO PRN ×4 (00:12→19:57)
[2021-03-08 06:00] VITALS: BP 120/60
[2021-03-08 06:00] LABS: HEMATOCRIT 30.7 % (42.0-52.0); HEMOGLOBIN 10.2 g/dl (13.5-17.5); MEAN CORPUSCULAR HEMOGLOBIN 33.6 pg (27.0-33.0); MEAN CORPUSCULAR HGB CONC 33.2 g/dl (32.0-36.5); RED BLOOD COUNT 3.04 10^6/uL (4.30-6.10); WHITE BLOOD COUNT 9.8 10^3/uL (4.0-10.0)
[2021-03-08] MEDS: LEVOTHYROXINE 125MCG TABLET (0.125MG) PO SCH (06:10)
[2021-03-08 06:11] LABS: PLATELET COUNT, AUTOMATED 23 10^3/uL (150-450)
[2021-03-08 06:27] LABS: BLOOD UREA NITROGEN 13 MG/DL (7-18); CALCIUM LEVEL 8.2 MG/DL (8.8-10.2); CARBON DIOXIDE LEVEL 27 MEQ/L (21-32); CHLORIDE LEVEL 110 MEQ/L (98-107); GLOMERULAR FILTRATION RATE > 60.0 (>49); GLUCOSE, FASTING 76 MG/DL (70-100); POTASSIUM SERUM 4.4 MEQ/L (3.5-5.1); SODIUM LEVEL 142 MEQ/L (136-145)
[2021-03-08] MEDS: ESCITALOPRAM OXALATE 10 MG TAB (LEXAPRO) PO SCH (08:19)
[2021-03-08] MEDS: FIDAXOMICIN 200 MG TAB (DIFICID) PO SCH ×2 (08:19→19:55)
[2021-03-08] MEDS: FOLIC ACID 1 MG TAB PO SCH (08:19)
[2021-03-08] MEDS: GABAPENTIN 300 MG CAP PO SCH ×2 (08:19→19:56)
[2021-03-08] MEDS: LACTOBACILLUS ACIDOPHILUS CAP (BACID) PO SCH ×4 (08:19→19:56)
[2021-03-08] MEDS: ASPIRIN 81MG ENTERIC TABLET PO SCH (08:19)
[2021-03-08] MEDS: CARVedilol 12.5 MG TAB PO SCH ×2 (08:20→19:56)
[2021-03-08] MEDS: POLYVINYL ALCOHOL OPHTH SOLN 15 ML(LIQUITEARS) OU SCH ×3 (08:23→19:57)
--- NOTE | 2021-03-08 13:34 | IPNPDOC ---
Text Note Date of Service The patient was seen on 03/08/21. NOTE Subjective: Patient seen at bedside. No acute overnight events reported. No new medical complaints this morning. PHYSICAL EXAMINATION: VITAL SIGNS: please see below General: NAD, comfortable HEENT: NC/AT, EOMI Respiratory: lungs CTA b/l CVS: RRR, normal S1, S2, no murmurs Abdo: non tender. Nondistended Extremities: no edema, pulses 2+ MSK: no joint deformities, normal ROM Neuro: no focal neuro deficits Psych: calm, cooperative, AAO x 3 A/P: 65-year-old male with PMHx including metastatic lung cancer, PE, recurrent C. difficile colitis, anxiety/depression, chronic back pain. Recently admitted for STEMI as well as C. difficile colitis. He returns with a 2 day history of intractable nausea and vomiting with reduced by mouth intake as well as left lower quadrant abdominal pain and nonbloody diarrhea. During past admission, he felt better after a course of treatment with Dificid. Patient has not had chemotherapy in approximately one month. He has had trouble with follow-up. #recurrent C diff colitis - diarrhea improving - last tested positive 01/25/21 - responded well to dificid, and had failed PO vancomycin therapy in past - dificid 200 mg BID x 10 days - zofran prn # Metastatic lung cancer: - patient last seen in oncology clinic on 02/11/21 - plan was to DC prednisone after taper, reports still taking at home - per oncology notes, plan was to start chemotherapy after DC of prednisone - f/u with Dr. Sorto, for further planning as to chemotherapy, prognostication - resume pain regimen #CAP? - sputum cx, respiratory panel WNL - check legionella, strep ag urine - procal elevated - in setting of CDiff - blood cultures NTD #Thrombocytopenia - trending down , - discussed with Heme, continue to monitor, likely due to chemo, appears to be stabilizing - in setting of metastatic lung Ca, chemotherapy in past - will avoid DVT chemoppx - no active bleeding #Hx of NSTEMI/Type 2 UT - c/w cardioprotective medications. # Anxiety and depression: -Continue home medications # Hypothyroidism: -Continue levothyroxine. # Hyperlipidemia: -Continue statin #deconditioning/failure to thrive -Ordered PT/OT eval Dispo: pending clinical improvement, will need rehab at [facility] VS,[place], I+O VS, Fishbone, I+O Laboratory Tests 03/08/21 05:42 Vital Signs Date Time Temp Pulse Resp B/P (MAP) Pulse Ox O2 Delivery O2 Flow Rate FiO2 03/08/21 13:12 19 03/08/21 08:20 68 114/64 03/08/21 06:11 Room Air 03/08/21 06:00 97.8 95 I&O- Last 24 Hours up to 6 AM 03/08/21 06:00 Intake Total 2220 ml Output Total 0 ml Balance 2220 ml ANGEL BOLANOS MD Mar 08, 2021 13:34
[2021-03-08 14:00] VITALS: BP 98/52
[2021-03-08 18:40] VITALS: BP 108/60
[2021-03-08] MEDS: ATORVASTATIN 20 MG TAB PO SCH (19:55)
[2021-03-08 22:00] VITALS: BP 113/59
[2021-03-09] MEDS: ONDANSETRON 4 MG TAB PO PRN ×3 (02:32→14:59)
[2021-03-09] MEDS: PERCOCET 5MG/325MG TAB PO PRN ×4 (02:32→21:15)
[2021-03-09 04:35] VITALS: BP 110/60
[2021-03-09 06:01] LABS: HEMATOCRIT 30.2 % (42.0-52.0); HEMOGLOBIN 10.1 g/dl (13.5-17.5); MEAN CORPUSCULAR HEMOGLOBIN 33.7 pg (27.0-33.0); MEAN CORPUSCULAR HGB CONC 33.4 g/dl (32.0-36.5); MEAN CORPUSCULAR VOLUME 100.7 fl (80.0-96.0); WHITE BLOOD COUNT 12.3 10^3/uL (4.0-10.0)
[2021-03-09 06:03] LABS: PLATELET COUNT, AUTOMATED 25 10^3/uL (150-450)
[2021-03-09] MEDS: LEVOTHYROXINE 125MCG TABLET (0.125MG) PO SCH (06:12)
[2021-03-09 06:16] LABS: BLOOD UREA NITROGEN 12 MG/DL (7-18); CALCIUM LEVEL 8.1 MG/DL (8.8-10.2); CARBON DIOXIDE LEVEL 27 MEQ/L (21-32); CHLORIDE LEVEL 106 MEQ/L (98-107); CREATININE FOR GFR 0.61 MG/DL (0.70-1.30); GLOMERULAR FILTRATION RATE > 60.0 (>49); GLUCOSE, FASTING 73 MG/DL (70-100); POTASSIUM SERUM 4.4 MEQ/L (3.5-5.1); SODIUM LEVEL 138 MEQ/L (136-145)
[2021-03-09] MEDS: ASPIRIN 81MG ENTERIC TABLET PO SCH (08:34)
[2021-03-09] MEDS: LACTOBACILLUS ACIDOPHILUS CAP (BACID) PO SCH ×4 (08:34→20:21)
[2021-03-09] MEDS: ESCITALOPRAM OXALATE 10 MG TAB (LEXAPRO) PO SCH (08:34)
[2021-03-09] MEDS: GABAPENTIN 300 MG CAP PO SCH ×2 (08:34→20:22)
[2021-03-09] MEDS: FOLIC ACID 1 MG TAB PO SCH (08:34)
[2021-03-09] MEDS: FIDAXOMICIN 200 MG TAB (DIFICID) PO SCH ×2 (08:34→20:22)
[2021-03-09] MEDS: POLYVINYL ALCOHOL OPHTH SOLN 15 ML(LIQUITEARS) OU SCH ×3 (08:35→20:23)
[2021-03-09] MEDS: CARVedilol 12.5 MG TAB PO SCH ×2 (08:35→20:22)
[2021-03-09] MEDS ORDERED: HumaLOG INSULIN (NovoLOG) PER UNIT SC ONE (11:00)
--- NOTE | 2021-03-09 13:05 | IPNPDOC ---
Subjective Date Seen The patient was seen on 03/09/21. Subjective Chief Complaint/HPI Mr. Moore is a 65 year old male with chronic back pain and metastatic lung cancer who is here with recurrent C.diff diarrhea. Today, he is doing better. No diarrhea, but still has some mild abdominal tenderness. Denies chest pain or dyspnea. Patient lives independently at home and shops for his own groceries. Physical therapy worked with patient. Patient will need rehab. ARU screen placed today. Objective Physical Examination General Exam: Positive: Alert, Cooperative Eye Exam: Negative: Sclera icteric ENT Exam: Positive: Atraumatic Neck Exam: Positive: Supple Chest Exam: Positive: Other (Coarse breathing sounds) Heart Exam: Positive: Rate Normal, Regular Rhythm Abdomen Exam: Positive: Normal bowel sounds, Soft, Tenderness Extremity Exam: Negative: Edema Neuro Exam: Positive: Normal Speech Psych Exam: Positive: Mental status NL, Mood NL Assessment /Plan Assessment Mr. Moore is a 65 year old male with chronic back pain and metastatic lung cancer who is here with recurrent C.diff diarrhea. C.diff diarrhea resolved. Patient was completely independent and shopping on own. Patient worked with physical therapy. Recommending rehab. ARU screen ordered. Plan/VTE VTE Prophylaxis Ordered?: Yes Plan 1. Recurring C. diff colitis -Patient denies diarrhea -Improved with Dificid -Continue with Dificid for 10 days -Currently day 6 2. Metastatic lung cancer -Patient following with oncology, last seen on 02/11/21 -Patient to follow up with Dr. Sorto for planning for chemotherapy and prognostication -Continue pain regimen 3. Thrombocytopenia -Most likely due to chemo therapy -Monitor at this time -Avoid chemical ppx for DVT 4. History of NSTEMI/IA type 2 -Continue aspirin, atorvastatin, carvedilol 5. Anxiety and depression -Continue Lexapro 6. Hypothyroidism -Continue levothyroxine 7. Hyperlipidemia -Continue atorvastatin 8. Deconditioning/failure to thrive -ARU screen placed 9. DVT ppx -No chemical ppx due to thrombocytopenia -SCD and TEDs Disposition: Pending ARU screen VS, I&O, 24H, Fishbone Vital Signs/I&O Vital Signs Date Time Temp Pulse Resp B/P (MAP) Pulse Ox O2 Delivery O2 Flow Rate FiO2 03/09/21 09:10 16 Room Air 03/09/21 08:35 62 127/54 8/10/21 04:35 97.4 96 I&O- Last 24 Hours up to 6 AM 03/09/21 06:00 Intake Total 1100 ml Output Total 150 ml Balance 950 ml Laboratory Data 24H LABS Laboratory Tests 2 03/09/21 05:39: Nucleated Red Blood Cells % (auto) 0.0, Anion Gap 5L, Glomerular Filtration Rate > 60.0, Calcium Level 8.1L CBC/BMP Laboratory Tests 03/09/21 05:39 Microbiology Microbiology 03/04/21 Gram Stain - Final, Complete 03/04/21 Sputum Culture - Final, Complete 03/04/21 Respiratory Virus Panel (PCR) ([facility]) - Final, Complete 03/04/21 Gastrointestinal Tract Panel (PCR) - Final, Complete Clostridium Difficile A/B 03/03/21 Blood Culture - Final, Complete NO GROWTH AFTER 5 DAYS 03/03/21 Blood Culture - Final, Complete NO GROWTH AFTER 5 DAYS MAL BEYER DO Mar 09, 2021 12:56
[2021-03-09 14:00] VITALS: BP 102/52
[2021-03-09] MEDS: ATORVASTATIN 20 MG TAB PO SCH (20:22)
[2021-03-09 22:00] VITALS: BP 102/62
[2021-03-10] MEDS: PERCOCET 5MG/325MG TAB PO PRN ×3 (03:35→17:59)
[2021-03-10] MEDS: LEVOTHYROXINE 125MCG TABLET (0.125MG) PO SCH (05:28)
[2021-03-10 06:00] VITALS: BP 101/59
[2021-03-10 06:06] LABS: HEMOGLOBIN 10.2 g/dl (13.5-17.5); MEAN CORPUSCULAR HEMOGLOBIN 33.4 pg (27.0-33.0); MEAN CORPUSCULAR HGB CONC 32.9 g/dl (32.0-36.5); MEAN CORPUSCULAR VOLUME 101.6 fl (80.0-96.0); RED BLOOD COUNT 3.05 10^6/uL (4.30-6.10); WHITE BLOOD COUNT 11.2 10^3/uL (4.0-10.0)
[2021-03-10 06:07] LABS: PLATELET COUNT, AUTOMATED 25 10^3/uL (150-450)
[2021-03-10 06:34] LABS: BLOOD UREA NITROGEN 17 MG/DL (7-18); CALCIUM LEVEL 7.9 MG/DL (8.8-10.2); CARBON DIOXIDE LEVEL 26 MEQ/L (21-32); CHLORIDE LEVEL 105 MEQ/L (98-107); CREATININE FOR GFR 0.64 MG/DL (0.70-1.30); GLOMERULAR FILTRATION RATE > 60.0 (>49); GLUCOSE, FASTING 80 MG/DL (70-100); POTASSIUM SERUM 4.2 MEQ/L (3.5-5.1); SODIUM LEVEL 136 MEQ/L (136-145)
[2021-03-10] MEDS: LACTOBACILLUS ACIDOPHILUS CAP (BACID) PO SCH ×4 (08:23→22:00)
[2021-03-10] MEDS: FOLIC ACID 1 MG TAB PO SCH (08:25)
[2021-03-10] MEDS: ESCITALOPRAM OXALATE 10 MG TAB (LEXAPRO) PO SCH (08:25)
[2021-03-10] MEDS: GABAPENTIN 300 MG CAP PO SCH ×2 (08:25→22:00)
[2021-03-10] MEDS: FIDAXOMICIN 200 MG TAB (DIFICID) PO SCH ×2 (08:25→22:00)
[2021-03-10] MEDS: ASPIRIN 81MG ENTERIC TABLET PO SCH (08:25)
[2021-03-10] MEDS: POLYVINYL ALCOHOL OPHTH SOLN 15 ML(LIQUITEARS) OU SCH ×3 (08:26→22:01)
[2021-03-10] MEDS: CARVedilol 12.5 MG TAB PO SCH ×2 (08:26→22:01)
--- NOTE | 2021-03-10 13:48 | IPNPDOC ---
Subjective Date Seen The patient was seen on 03/10/21. Subjective Chief Complaint/HPI Mr. Moore is a 65 year old male with chronic back pain and metastatic lung cancer who is here with recurrent C.diff diarrhea. Today he tells me he had a solid BM. Denies chest pain or worsening dyspnea. He still has some abdominal tenderness. ARU not able to accept patient. PFS looking into subacute rehab Objective Physical Examination General Exam: Positive: Alert, Cooperative Eye Exam: Negative: Sclera icteric ENT Exam: Positive: Atraumatic Neck Exam: Positive: Supple Chest Exam: Positive: Other (Coarse breathing sounds) Heart Exam: Positive: Rate Normal, Regular Rhythm Abdomen Exam: Positive: Normal bowel sounds, Soft, Tenderness Extremity Exam: Negative: Edema Neuro Exam: Positive: Normal Speech Psych Exam: Positive: Mental status NL, Mood NL Assessment /Plan Assessment Mr. Moore is a 65 year old male with chronic back pain and metastatic lung cance r who is here with recurrent C.diff diarrhea. C.diff diarrhea resolved. Patient was completely independent and shopping on own. Patient worked with physical therapy. Recommending rehab. ARU not able to accept patient. PFS looking into subacute rehab. Plan/VTE VTE Prophylaxis Ordered?: Yes Plan 1. Recurring C. diff colitis -Patient denies diarrhea -Improved with Dificid -Continue with Dificid for 10 days -Currently day 7 2. Metastatic lung cancer -Patient following with oncology, last seen on 02/11/21 -Patient to follow up with Dr. Sorto for planning for chemotherapy and prognostication -Continue pain regimen 3. Thrombocytopenia -Most likely due to chemo therapy -Monitor at this time -Avoid chemical ppx for DVT 4. History of NSTEMI/AK type 2 -Continue aspirin, atorvastatin, carvedilol 5. Anxiety and depression -Continue Lexapro 6. Hypothyroidism -Continue levothyroxine 7. Hyperlipidemia -Continue atorvastatin 8. Deconditioning/failure to thrive -ARU unable to take patient -PFS looking into subacute rehab 9. DVT ppx -No chemical ppx due to thrombocytopenia -SCD and TEDs Disposition: Pending subacute rehab VS, I&O, 24H, Fishbone Vital Signs/I&O Vital Signs Date Time Temp Pulse Resp B/P (MAP) Pulse Ox O2 Delivery O2 Flow Rate FiO2 03/10/21 10:23 17 03/10/21 08:26 70 97/52 03/10/21 06:00 97.5 96 Room Air I&O- Last 24 Hours up to 6 AM 03/10/21 05:59 Intake Total 860 ml Output Total 0 ml Balance 860 ml Laboratory Data 24H LABS Laboratory Tests 2 03/10/21 05:33: Nucleated Red Blood Cells % (auto) 0.0, Immature Platelet Fraction 14.5H, Anion Gap 5L, Glomerular Filtration Rate > 60.0, Calcium Level 7.9L CBC/BMP Laboratory Tests 03/10/21 05:33 Microbiology Microbiology 03/04/21 Gram Stain - Final, Complete 03/04/21 Sputum Culture - Final, Complete 03/04/21 Respiratory Virus Panel (PCR) ([facility]) - Final, Complete 03/04/21 Gastrointestinal Tract Panel (PCR) - Final, Complete Clostridium Difficile A/B 03/03/21 Blood Culture - Final, Complete NO GROWTH AFTER 5 DAYS 03/03/21 Blood Culture - Final, Complete NO GROWTH AFTER 5 DAYS MAL BEYER DO Mar 10, 2021 13:48
[2021-03-10 14:00] VITALS: BP 95/46
[2021-03-10 22:00] VITALS: BP 110/53
[2021-03-10] MEDS: ATORVASTATIN 20 MG TAB PO SCH (22:00)
[2021-03-11] MEDS: PERCOCET 5MG/325MG TAB PO PRN ×4 (00:55→22:47)
[2021-03-11] MEDS: LEVOTHYROXINE 125MCG TABLET (0.125MG) PO SCH (05:33)
[2021-03-11 06:00] VITALS: BP 134/72
[2021-03-11 06:00] LABS: HEMATOCRIT 31.3 % (42.0-52.0); HEMOGLOBIN 10.2 g/dl (13.5-17.5); MEAN CORPUSCULAR HEMOGLOBIN 33.3 pg (27.0-33.0); MEAN CORPUSCULAR HGB CONC 32.6 g/dl (32.0-36.5); MEAN CORPUSCULAR VOLUME 102.3 fl (80.0-96.0); RED BLOOD COUNT 3.06 10^6/uL (4.30-6.10); WHITE BLOOD COUNT 10.9 10^3/uL (4.0-10.0)
[2021-03-11 06:02] LABS: PLATELET COUNT, AUTOMATED 26 10^3/uL (150-450)
[2021-03-11 06:27] LABS: BLOOD UREA NITROGEN 15 MG/DL (7-18); CALCIUM LEVEL 8.3 MG/DL (8.8-10.2); CARBON DIOXIDE LEVEL 29 MEQ/L (21-32); CHLORIDE LEVEL 106 MEQ/L (98-107); CREATININE FOR GFR 0.68 MG/DL (0.70-1.30); GLOMERULAR FILTRATION RATE > 60.0 (>49); GLUCOSE, FASTING 81 MG/DL (70-100); POTASSIUM SERUM 5.1 MEQ/L (3.5-5.1); SODIUM LEVEL 138 MEQ/L (136-145)
[2021-03-11] MEDS: FOLIC ACID 1 MG TAB PO SCH (09:10)
[2021-03-11] MEDS: ASPIRIN 81MG ENTERIC TABLET PO SCH (09:10)
[2021-03-11] MEDS: FIDAXOMICIN 200 MG TAB (DIFICID) PO SCH ×2 (09:10→21:46)
[2021-03-11] MEDS: GABAPENTIN 300 MG CAP PO SCH ×2 (09:10→21:46)
[2021-03-11] MEDS: ESCITALOPRAM OXALATE 10 MG TAB (LEXAPRO) PO SCH (09:10)
[2021-03-11] MEDS: LACTOBACILLUS ACIDOPHILUS CAP (BACID) PO SCH ×4 (09:10→21:46)
[2021-03-11] MEDS: POLYVINYL ALCOHOL OPHTH SOLN 15 ML(LIQUITEARS) OU SCH ×3 (09:11→21:46)
[2021-03-11] MEDS: CARVedilol 12.5 MG TAB PO SCH ×2 (09:11→21:00)
--- NOTE | 2021-03-11 10:19 | IPNPDOC ---
Subjective Date Seen The patient was seen on 03/11/21. Subjective Chief Complaint/HPI Mr. Moore is a 65 year old male with chronic back pain and metastatic lung cancer who is here with recurrent C.diff diarrhea. He tells me he feels better. Denies chest pain or dyspnea. Abdominal tenderness improved. PFS looking into subacute rehab. Otherwise, I touched base with Dr. Sorto about patient's low platelets. Suspecting that this may be from either Dificid or C.diff. She said we can continue the Dificid and just monitor for the time being. Did not recommend steroids at this time. No heparin at this time. Patient will need to follow up with oncology outpatient afterwards. Objective Physical Examination General Exam: Positive: Alert, Cooperative Eye Exam: Negative: Sclera icteric ENT Exam: Positive: Atraumatic Neck Exam: Positive: Supple Chest Exam: Positive: Other (Coarse breathing sounds) Heart Exam: Positive: Rate Normal, Regular Rhythm Abdomen Exam: Positive: Normal bowel sounds, Soft, Tenderness Extremity Exam: Negative: Edema Neuro Exam: Positive: Normal Speech Psych Exam: Positive: Mental status NL, Mood NL Assessment /Plan Assessment Mr. Moore is a 65 year old male with chronic back pain and metastatic lung cancer who is here with recurrent C.diff diarrhea. C.diff diarrhea resolved. Patient was completely independent and shopping on own. Patient worked with physical therapy. Recommending rehab. ARU not able to accept patient. PFS looking into subacute rehab. Plan/VTE VTE Prophylaxis Ordered?: Yes Plan 1. Recurring C. diff colitis -Patient denies diarrhea -Improved with Dificid -Continue with Dificid for 10 days -Currently day 8 2. Metastatic lung cancer -Patient following with oncology, last seen on 02/11/21 -Patient to follow up with Dr. Sorto for planning for chemotherapy and prognostication -Continue pain regimen 3. Thrombocytopenia -Most likely due to chemo therapy vs Dificid vs C.diff -Monitor at this time -Avoid chemical ppx for DVT 4. History of NSTEMI/[place] type 2 -Continue aspirin, atorvastatin, carvedilol 5. Anxiety and depression -Continue Lexapro 6. Hypothyroidism -Continue levothyroxine 7. Hyperlipidemia -Continue atorvastatin 8. Deconditioning/failure to thrive -ARU unable to take patient -PFS looking into subacute rehab 9. DVT ppx -No chemical ppx due to thrombocytopenia -SCD and TEDs Disposition: Pending subacute rehab VS, I&O, 24H, Fishbone Vital Signs/I&O Vital Signs Date Time Temp Pulse Resp B/P (MAP) Pulse Ox O2 Delivery O2 Flow Rate FiO2 03/11/21 09:11 20 03/11/21 09:11 61 126/62 03/11/21 06:00 97.2 97 Room Air I&O- Last 24 Hours up to 6 AM 03/11/21 06:00 Intake Total 1290 ml Balance 1290 ml Laboratory Data 24H LABS Laboratory Tests 2 03/11/21 05:49: Nucleated Red Blood Cells % (auto) 0.0, Immature Platelet Fraction 13.9H, Anion Gap 3L, Glomerular Filtration Rate > 60.0, Calcium Level 8.3L, Thyroid Stimulating Hormone (TSH) 32.700H CBC/BMP Laboratory Tests 03/11/21 05:49 Microbiology Microbiology 03/04/21 Gram Stain - Final, Complete 03/04/21 Sputum Culture - Final, Complete 03/04/21 Respiratory Virus Panel (PCR) ([facility]) - Final, Complete 03/04/21 Gastrointestinal Tract Panel (PCR) - Final, Complete Clostridium Difficile A/B 03/03/21 Blood Culture - Final, Complete NO GROWTH AFTER 5 DAYS 03/03/21 Blood Culture - Final, Complete NO GROWTH AFTER 5 DAYS MAL BEYER DO Mar 11, 2021 10:19
[2021-03-11] MEDS: CETIRIZINE (ZyrTEC) 10 MG TAB PO SCH (10:22)
[2021-03-11 12:12] LABS: TOTAL 25(OH) VITAMIN D 19.5 NG/ML (30.0-100.0)
[2021-03-11 13:08] LABS: BODY FLUID CULTURE Not indicated. (.); LEGIONELLA ANTIGEN URINE Negative (Negative); ORGANISM ID Not indicated. (.); SPECIMEN SOURCE Urine (.); URINE STREP PNEUMONIAE ANTIGEN Negative (Negative)
[2021-03-11 13:44] LABS: BLOOD UREA NITROGEN 16 MG/DL (7-18); CALCIUM LEVEL 8.5 MG/DL (8.8-10.2); CARBON DIOXIDE LEVEL 31 MEQ/L (21-32); CHLORIDE LEVEL 105 MEQ/L (98-107); CREATININE FOR GFR 0.59 MG/DL (0.70-1.30); GLOMERULAR FILTRATION RATE > 60.0 (>49); GLUCOSE, FASTING 82 MG/DL (70-100); POTASSIUM SERUM 4.9 MEQ/L (3.5-5.1); SODIUM LEVEL 140 MEQ/L (136-145)
[2021-03-11 14:00] VITALS: BP 110/48
[2021-03-11 14:00] LABS: VITAMIN B12 LEVEL 1002 PG/ML (247-911)
[2021-03-11 18:00] VITALS: BP 110/48
[2021-03-11] MEDS: ATORVASTATIN 20 MG TAB PO SCH (21:46)
[2021-03-12 06:00] VITALS: BP 139/67
[2021-03-12 06:06] LABS: HEMATOCRIT 31.9 % (42.0-52.0); HEMOGLOBIN 10.4 g/dl (13.5-17.5); MEAN CORPUSCULAR HEMOGLOBIN 33.3 pg (27.0-33.0); MEAN CORPUSCULAR HGB CONC 32.6 g/dl (32.0-36.5); MEAN CORPUSCULAR VOLUME 102.2 fl (80.0-96.0); RED BLOOD COUNT 3.12 10^6/uL (4.30-6.10); WHITE BLOOD COUNT 9.5 10^3/uL (4.0-10.0)
[2021-03-12 06:08] LABS: PLATELET COUNT, AUTOMATED 31 10^3/uL (150-450)
[2021-03-12] MEDS: LEVOTHYROXINE 125MCG TABLET (0.125MG) PO SCH (06:22)
[2021-03-12] MEDS: PERCOCET 5MG/325MG TAB PO PRN (06:22)
[2021-03-12 06:30] LABS: BLOOD UREA NITROGEN 17 MG/DL (7-18); CALCIUM LEVEL 8.3 MG/DL (8.8-10.2); CARBON DIOXIDE LEVEL 29 MEQ/L (21-32); CHLORIDE LEVEL 107 MEQ/L (98-107); CREATININE FOR GFR 0.71 MG/DL (0.70-1.30); GLOMERULAR FILTRATION RATE > 60.0 (>49); GLUCOSE, FASTING 85 MG/DL (70-100); SODIUM LEVEL 139 MEQ/L (136-145)
[2021-03-12] MEDS ORDERED: FIDA200TA PO (09:20)
[2021-03-12] MEDS: ESCITALOPRAM OXALATE 10 MG TAB (LEXAPRO) PO SCH (09:35)
[2021-03-12] MEDS: FIDAXOMICIN 200 MG TAB (DIFICID) PO SCH (09:35)
[2021-03-12] MEDS: ASPIRIN 81MG ENTERIC TABLET PO SCH (09:35)
[2021-03-12] MEDS: FOLIC ACID 1 MG TAB PO SCH (09:35)
[2021-03-12] MEDS: GABAPENTIN 300 MG CAP PO SCH (09:35)
[2021-03-12] MEDS: POLYVINYL ALCOHOL OPHTH SOLN 15 ML(LIQUITEARS) OU SCH (09:35)
[2021-03-12] MEDS: CETIRIZINE (ZyrTEC) 10 MG TAB PO SCH (09:35)
[2021-03-12] MEDS: LACTOBACILLUS ACIDOPHILUS CAP (BACID) PO SCH ×2 (09:36→12:42)
[2021-03-12 09:38] VITALS: BP 113/60
[2021-03-12] MEDS: CARVedilol 12.5 MG TAB PO SCH (09:38)
[2021-03-12] MEDS ORDERED: LEVO150T7 PO (10:58)
--- NOTE | 2021-03-12 16:57 | DS.PDOC ---
Discharge Summary General Date of Admission Mar 04, 2021 at 10:29 Date of Discharge Mar 12, 2021 Discharge Summary PROCEDURES PERFORMED DURING STAY: None ADMITTING DIAGNOSES: 1. Recurrent C.diff diarrhea 2. Metastatic lung cancer 3. Thrombocytopenia 4. Hypothyroidism 5. Anxiety and depression 6. Hyperlipidemia 7. Deconditioning, failure to thrive DISCHARGE DIAGNOSES: 1. Recurrent C.diff diarrhea 2. Metastatic lung cancer 3. Thrombocytopenia 4. Hypothyroidism 5. Anxiety and depression 6. Hyperlipidemia 7. Deconditioning, failure to thrive COMPLICATIONS/CHIEF COMPLAINT: [place] Diarrhea, Failure To Thrive,. HISTORY OF PRESENT ILLNESS: Copied from admitting attending's H&P " Mr. Moore is a pleasant 65-year-old male with a past medical history of metastatic lung cancer, pulmonary embolism, recurrent C. difficile colitis, anxiety, depression, chronic back pain. Recently had admitted for an STEMI as well as C. difficile colitis. He returns with a 2 day history of intractable nausea and vomiting with reduced by mouth intake as well as left lower quadrant abdominal pain and nonbloody diarrhea. He also complains of productive cough for past week with subjective fevers and chills. During past admission, he felt better after a course of treatment with Dificid. He lives alone, uses a walker to ambulate. Denies any recent falling. Patient has not had chemotherapy in approximately one month. She has had trouble with follow-up. She found to have leukocytosis of 16.1. Hemoglobin 11.7. Platelets 48. CT abdomen and pelvis with IV contrast showing progressive metastatic disease to the liver without evidence for colitis. Given patient's history of recurrent C. difficile colitis. Will be started on Dificid admitted to hospitalist service for the management of failure to thrive as well as reduced by mouth intake. " HOSPITAL COURSE: On admission, there was concern for PNA, but CXR was negative for acute process. Sputum culture only grew normal geovanna. Patient's Zosyn was discontinued as it would make his C.diff diarrhea worse. Since this is recurrent C.diff, patient was put on Dificid. Patient responded and did well with Dificid. At the end of hospitalization, he was having solid bowel movements and abdominal pain was greatly improved. Otherwise, patient did have thrombocytopenia. I discussed this with patient's process controls technician/oncologist, Dr. Sorto. Dr. Sorto suspected that it is from either patient's C.diff infection or the Dificid. Dr. Sorto was okay with continuing the Dificid. She did not recommend steroids, but recommended monitoring for the time being. Patient has been fatigued and physical therapy was working with patient. Initially, patient would require rehab. Patient did not qualify for ARU, so we were pending subacute rehab. I check a TSH, Free T4, and Free T3. TSH was 32.7, Free T4 was 0.8, and Free T3 was 1. I increased patient's levothyroxine from 125mcg to 150mcg. As patient C.diff improved, patient started to do better with physical therapy. Today, patient felt much better. Denies chest pain or dyspnea. Abdominal pain was minimal. He cleared physical therapy and felt ready for home. Patient was subsequently discharged home with home health. DISCHARGE MEDICATIONS: Please see below. ALLERGIES: Please see below. PHYSICAL EXAMINATION ON DISCHARGE: VITAL SIGNS: Please see below. GENERAL: Comfortable, in no apparent distress. HEENT: Sclera clear. NECK: Supple. RESPIRATORY: Lungs clear to auscultation bilaterally. CARDIOVASCULAR: Regular rate and rhythm. ABDOMEN: Soft. Normal bowel sounds. MUSCLE SKELETAL: No pitting edema bilaterally. PSYCHOLOGICAL: Normal mood and affect LABORATORY DATA: Please see below. IMAGING: Radiologist interpretation CT abd/pelvis with IV contrast only 1. Progressive metastatic disease to the liver. 2. There is diffuse pancreatic atrophy. 3. Nonobstructive calculi lower pole left kidney. 4. There is a small amount of free intraperitoneal fluid present. 5. Moderate diverticulosis is present in the distal colon. No diverticulitis. 6. Mild prostatic hyperplasia. 7. Persistent dilatation and wall thickening of the distal esophagus. CXR No acute pulmonary disease. PROGNOSIS: Good ACTIVITY: As tolerated. DIET: As tolerated DISCHARGE PLAN: Home with home health services DISPOSITION: Home Health Service. DISCHARGE INSTRUCTIONS: 1. Follow up with PCP in 1 week 2. Follow up with oncology/hematology, Dr. Sorto in 1 week 3. Have CBC drawn in 5 days 4. Take Dificid to completion (2 more days for a total 10 day treatment) 5. I increased your levothyroxine from 125mcg to 150mcg ITEMS TO FOLLOWUP ON ON OUTPATIENT: 1. Recheck TSH 2. Follow platelet levels DISCHARGE CONDITION: Stable. Total time spent on discharge planning, discharge summary, and medication reconciliation: 45 minutes Vital Signs/I&Os Vital Signs Date Time Temp Pulse Resp B/P (MAP) Pulse Ox O2 Delivery O2 Flow Rate FiO2 03/12/21 09:38 66 113/60 03/12/21 07:00 16 03/12/21 06:00 98.0 96 Room Air I&O- Last 24 Hours up to 6 AM 03/12/21 06:00 Intake Total 160 ml Output Total 0 ml Balance 160 ml Laboratory Data Labs 24H Laboratory Tests 2 03/12/21 05:55: Nucleated Red Blood Cells % (auto) 0.0, Immature Platelet Fraction 13.0H, Anion Gap 3L, Glomerular Filtration Rate > 60.0, Calcium Level 8.3L CBC/BMP Laboratory Tests 03/12/21 05:55 Microbiology Microbiology 03/04/21 Gram Stain - Final, Complete 03/04/21 Sputum Culture - Final, Complete 03/04/21 Respiratory Virus Panel (PCR) (STACE[facility]) - Final, Complete 03/04/21 Gastrointestinal Tract Panel (PCR) - Final, Complete Clostridium Difficile A/B 03/03/21 Blood Culture - Final, Complete NO GROWTH AFTER 5 DAYS 03/03/21 Blood Culture - Final, Complete NO GROWTH AFTER 5 DAYS Discharge Medications Scheduled Aspirin (Aspirin EC) 81 Mg Tablet.dr, 81 MG PO DAILY, (Reported) Atorvastatin Calcium (Atorvastatin Calcium) 40 Mg Tablet, 40 MG PO QHS, (Reported) Bimatoprost (Lumigan) 0.01% 2.5ML Drops, 1 DROP OU QHS, (Reported) Calcium Carbonate (Calcium) 600 Mg Tablet, 600 MG PO QPM, (Reported) TAKES AROUND DINNERTIME Carvedilol (Carvedilol) 12.5 Mg Tablet, 12.5 MG PO BID, (Reported) Escitalopram Oxalate (Lexapro) 20 Mg Tablet, 20 MG PO DAILY, (Reported) Fidaxomicin (Dificid) 200 Mg Tablet, 200 MG PO BID Folic Acid (Folic Acid) 0.4 Mg Tablet, 400 MCG PO DAILY, (Reported) Gabapentin (Gabapentin) 300 Mg Capsule, 300 MG PO BID, (Reported) L.acidoph/L.bulg/B.bif/S.therm (Bacid Caplet) 1 Each Tablet, 1 TAB PO ACHS, (Reported) Levothyroxine Sodium (Levothyroxine Sodium) 150 Mcg Tablet, 150 MCG PO DAILY@0600 Pimecrolimus (Pimecrolimus) 30 Gm Cream..g., 1 DOSE TOP BID, (Reported) APPLY TO AFFECTED AREAS ON LEGS, BACK, SHOULDERS, AND ARMS Scheduled PRN Albuterol Sulfate (Albuterol Sulfate Hfa) 8.5 Gm Hfa.aer.ad, 2 PUFF INH Q4H PRN for SOB/WHEEZING, (Reported) Ondansetron HCl (Ondansetron HCl) 8 Mg Tablet, 8 MG PO Q12HP PRN for NAUSEA OR VOMITING Oxycodone HCl/Acetaminophen (Oxycodone-Acetaminophen 10-325) 1 Each Tablet, 1 TAB PO QID PRN for PAIN, (Reported) Prochlorperazine Maleate (Prochlorperazine Maleate) 10 Mg Tablet, 10 MG PO Q6H PRN for NAUSEA OR VOMITING, (Reported) Allergies Coded Allergies: pembrolizumab (Verified Allergy, Intermediate, RASH, 07/29/20) MAL BEYER DO Mar 12, 2021 16:08
[2021-03-13] MEDS ORDERED: LEVOTHYROXINE 150MCG TABLET (0.15MG) PO SCH (06:00)
== END 2021-03-12 13:07 | disposition home health service (06) | DRG 372 ==
LOC: M ED 14:56 → EDBD 14:56 → M ED INP 14:57 → ENRESERV 23:24 → M MSPAV 23:59 → OBSVTOIN 03-04 10:29
PROVIDERS: ADMIT Family Medicine; ATTEND Internal Medicine
DX: A04.71 Enterocolitis due to Clostridium difficile, recurrent (principal); C34.90 Malignant neoplasm of unspecified part of unspecified bronchus or lung; C79.51 Secondary malignant neoplasm of bone; D69.6 Thrombocytopenia, unspecified; F41.9 Anxiety disorder, unspecified; F32.9 Major depressive disorder, single episode, unspecified; E03.9 Hypothyroidism, unspecified; R62.7 Adult failure to thrive; E78.5 Hyperlipidemia, unspecified; Z86.711 Personal history of pulmonary embolism; N20.0 Calculus of kidney; Z76.82 Awaiting organ transplant status; Z79.899 Other long term (current) drug therapy; Z88.8 Allergy status to other drugs, medicaments and biological substances; Z87.891 Personal history of nicotine dependence; K57.30 Diverticulosis of large intestine without perforation or abscess without bleeding; I25.2 Old myocardial infarction

== ENCOUNTER 2021-03-25 10:18 | Inpatient (IN) | payer MEDICARE ==
[~2021-03-25] VITALS: Ht 172.7 cm; Wt 74.6 kg
[~2021-03-25 10:18] MED LIST changes: +BACITAB PO; +LEVO150T7 PO
[2021-03-25] MEDS ORDERED: NS 1,000 ML IV ONE (14:15)
[2021-03-25] MEDS ORDERED: ISOVUE-370 76% 100ML VIAL As Ordered ONE (14:49)
[2021-03-25] MEDS ORDERED: MORPHINE 4 MG/ML 1ML VIAL/SYRINGE (J2270) IV ONE (14:50)
[2021-03-25 14:52] LABS: BASO # 0.1 10^3/uL (0.0-0.2); BASO % 0.6 % (0.0-1.0); EOS % 10.2 % (0.0-3.0); HEMATOCRIT 32.6 % (42.0-52.0); HEMOGLOBIN 10.6 g/dl (13.5-17.5); LYMPH # 0.7 10^3/uL (1.5-5.0); LYMPH % 3.3 % (24.0-44.0); MEAN CORPUSCULAR HEMOGLOBIN 35.1 pg (27.0-33.0); MEAN CORPUSCULAR HGB CONC 32.5 g/dl (32.0-36.5); MEAN CORPUSCULAR VOLUME 107.9 fl (80.0-96.0); MONO % 12.4 % (2.0-8.0); NEUTROPHILS # 14.4 10^3/uL (1.5-8.5); NEUTROPHILS % 72.2 % (36.0-66.0); RED BLOOD COUNT 3.02 10^6/uL (4.30-6.10)
[2021-03-25 15:16] LABS: ALT/SGPT 27 U/L (12-78); CPK CREATINE PHOSPHOKINASE 38 U/L (39-308)
[2021-03-25 15:17] LABS: ALBUMIN 2.8 GM/DL (3.2-5.2); BILIRUBIN,DIRECT 0.5 MG/DL (0.0-0.2); BILIRUBIN,TOTAL 0.9 MG/DL (0.2-1.0); CK-MB VALUE MASS < 1.0 NG/ML (<3.6); LIPASE 18 U/L (73-393); MB/CK RELATIVE INDEX 2.63 (< OR =4); TOTAL PROTEIN 6.7 GM/DL (6.4-8.2); TROPONIN I < 0.02 NG/ML (< 0.10)
--- NOTE | 2021-03-25 15:32 | REP ---
INDICATION: chest pain, sob, h/o lung ca with mets and PE COMPARISON: 12/29/2020 TECHNIQUE: Axial contrast enhanced images from the thoracic inlet to the upper abdomen using pulmonary embolus technique with multiplanar re-formations. 75 ml Isovue 370 intravenous contrast material administered without complication. This CT examination was performed using the following dose reduction techniques: Automated exposure control, adjustment of mA and/or kv according to the patient's size, and use of iterative reconstruction technique. FINDINGS: Patient is noted to be status post right lobectomy. Satisfactory enhancement of the residual pulmonary vasculature is achieved and no filling defects are identified to suggest pulmonary embolus. Thoracic aorta demonstrates atherosclerotic changes without aneurysm or dissection. Heart is normal in size with small pericardial effusion unchanged. Lung barone demonstrate postsurgical changes to the right hemithorax including small right basilar effusion and chronic scarring. Left hemithorax is well aerated and clear. No acute pulmonary parenchymal consolidation, suspicious nodule or mass. Tracheobronchial tree is relatively normal. There appears to be elements of soft tissue in the right hilum up to 13 mm which appears to be increased from prior examination and may reflect pathologic lymph nodes or residual tumor. Musculoskeletal structures demonstrate sclerotic metastatic lesions within multiple thoracic vertebral bodies and right 9th rib similar to prior examination. Metastatic liver lesions again noted. IMPRESSION: 1. No evidence for pulmonary embolus. 2. Soft tissue in the right hilum slightly increased from prior examination and concerning for enlarging pathologic lymph nodes or residual tumor. 3. Stable osseous metastatic lesions. Hepatic metastases again noted. <Electronically signed by Naveen Maldonado > 03/25/21 [id number]
--- NOTE | 2021-03-25 15:38 | REP ---
INDICATION: diffuse abd pain/TTP, h/o cdiff. COMPARISON: 03/03/2021 TECHNIQUE: Axial contrast-enhanced images from the lung bases to the pubic symphysis using 100 cc Isovue 370 intravenous contrast material. Coronal and sagittal reformations obtained. This CT examination was performed using the following dose reduction techniques: Automated exposure control, adjustment of mA and/or kv according to the patient's size, and the use of iterative reconstruction technique. FINDINGS: Liver demonstrates innumerable enhancing metastatic lesions not significantly changed from prior examination. Spleen, pancreas, gallbladder, bilateral adrenal glands and kidneys are stable and grossly normal. The enteric system is without obstruction or obvious acute process. A moderate amount of ascites is now identified extending into the pelvis which is increased from prior examination and nonspecific. Pelvis demonstrates normal bladder and age-appropriate prostate/seminal vesicles. No free air. No intraperitoneal or retroperitoneal adenopathy. Abdominal aorta and vasculature demonstrate atherosclerotic changes without aneurysm or dissection. Musculoskeletal structures demonstrate stable degenerative changes and osseous metastatic foci. IMPRESSION: 1. With the exception of new moderate ascites, above-mentioned findings including hepatic and osseous metastatic lesions remain essentially unchanged. 2. No obvious acute bowel process. <Electronically signed by Naveen Maldonado > 03/25/21 [id number]
[2021-03-25 15:40] LABS: PLATELET COUNT, AUTOMATED 82 10^3/uL (150-450); WHITE BLOOD COUNT 19.9 10^3/uL (4.0-10.0)
[2021-03-25 15:41] LABS: MONO # 2.5 10^3/uL (0.0-0.8)
[2021-03-25] MEDS: NS 1,000 ML IV SCH (17:15)
[2021-03-25] MEDS ORDERED: ACETAMINOPHEN TAB 650MG DOSE (2X325MG) PO PRN (17:30)
--- NOTE | 2021-03-25 18:08 | HPEPDOC ---
[facility] Medical History & Physical Date of Admission Mar 25, 2021 Date of Service: Mar 25, 2021 History and Physical CHIEF COMPLAINT: Abdominal pain HISTORY OF PRESENT ILLNESS: Patient is a 65-year-old man presenting with abdominal pain for the last 3 days. He states that the pain is constant and tender to touch and is diffuse. Patient has a history of C. difficile and was recently treated with fidaxomicin and probiotics. Up to yesterday he was having solid bowel movements. He states that he had one episode of diarrhea which was watery and foul-smelling yesterday. He states that he uses marijuana for abdomi nal pain which usually takes care of it; yesterday when he did vaporized marijuana but it did not help, making him concerned thus coming to the ED. While in the ED, he states that he is feeling feverish, and chilly; prior to ED, he states that he did not feel feverish. He also noted that he has a dull ache in his chest which he noticed in the past couple of days. PAST MEDICAL HISTORY: 1. Recurrent C. difficile 2. Metastatic lung cancer 3. Hyperlipidemia PAST SURGICAL HISTORY: 1. Carpal tunnel in 1989 2. Lower lobectomy 3. Kidney stone removal and stent placement 2017 SOCIAL HISTORY: Marital status: Tobacco use: Denies any tobacco product as he has quit smoking 10 years ago ETOH: Denies Illicit drug use: Vaporizers marijuana (has a medical card from [place]) IV drug use: Denies any FAMILY HISTORY: Reviewed and noncontributory ALLERGIES: Please see below. REVIEW OF SYSTEMS: CONSTITUTIONAL: + Fever, chills, unintentional weight loss 30 lbs over the past couple months HEENT: Denies headaches, changes in vision, changes in hearing CARDIOVASCULAR: + Dull ache in his chest RESPIRATORY: Denies shortness of breath, wheezing GASTROINTESTINAL: +Abdominal pain, diarrhea GENITOURINARY: Denies dysuria SKIN: Denies new lesions MUSCULOSKELETAL: Some leg swelling HOME MEDICATIONS: Please see below. PHYSICAL EXAMINATION: VITAL SIGNS: See below GENERAL APPEARANCE: Resting in bed, in no acute distress PSYCH: Appropriate mood, appropriate affect HEENT: Head normocephalic atraumatic, mucous membranes moist CARDIOVASCULAR: Regular rate and rhythm, no murmurs appreciated LUNGS: Clear to auscultation bilaterally; no wheezing, rales, rhonchi ABDOMEN: Mildly distended abdomen; diffuse tenderness to palpation, most tender in the right lower quadrant; no rebound tenderness EXTREMITIES: No pitting edema bilaterally; 2+ dorsalis pedis palpated; sensation intact bilaterally; ecchymosis bilateral hands NEURO: Cranial nerves II-XII grossly intact LABORATORY DATA: See below. IMAGING: CT abdomen and pelvis with IV contrast: "IMPRESSION: 1. With the exception of new moderate ascites, above-mentioned findings including hepatic and osseous metastatic lesions remain essentially unchanged. 2. No obvious acute bowel process." CT angio chest: "IMPRESSION: 1. No evidence for pulmonary embolus. 2. Soft tissue in the right hilum slightly increased from prior examination and concerning for enlarging pathologic lymph nodes or residual tumor. 3. Stable osseous metastatic lesions. Hepatic metastases again noted." MICROBIOLOGY: Please see below. ASSESSMENT: 65-year-old man presenting with abdominal pain, watery foul-smelling stools and dull ache in chest concerning for recurrent C. difficile and chest pain. PLAN: Abdominal pain - likely 2/2 Recurrent C. difficile - Patient has recurrent C. difficile (diagnosed 01/18) which at that time has failed PO vancomycin, was hospitalized 01/25 and was sent home on fidaxomicin which he completed; was hospitalized again 03/04 and was given fidaxomicin at that time as well. - Will obtain a stool culture for confirmation of C. difficile - Will recheck lactic acid - Start on fidaxomicin for 10 days Abdominal pain - Tylenol for pain control; IV morphine 2 mg every 2 for breakthrough pain levels 7-10 Chest pain - Will place patient on remote telemetry for 48 hours - Will trend troponins - Continue home medication of aspirin Metastatic Lung cancer (stage IV) - Continue to follow up with Dr. Sorto - Continue home pain medications of oxycodone/acetaminophen Hyperlipidemia -Continue home medication atorvastatin VTE prophylaxis - Lovenox 40 daily Vital Signs Vital Signs Date Time Temp Pulse Resp B/P (MAP) Pulse Ox O2 Delivery O2 Flow Rate FiO2 03/25/21 15:35 20 03/25/21 13:47 96.6 03/25/21 10:19 91 142/66 (91) 99 Room Air Laboratory Data Labs 24H Laboratory Tests 2 03/25/21 14:37: Immature Granulocyte % (Auto) 1.3, Neutrophils (%) (Auto) 72.2H, Lymphocytes (%) (Auto) 3.3L, Monocytes (%) (Auto) 12.4H, Eosinophils (%) (Auto) 10.2H, Basophils (%) (Auto) 0.6, Neutrophils # (Auto) 14.4H, Lymphocytes # (Auto) 0.7L, Monocytes # (Auto) 2.5H, Eosinophils # (Auto) 2.0H, Basophils # (Auto) 0.1, Nucleated Red Blood Cells % (auto) 0.0, Immature Platelet Fraction 8.1, POC Glucose (Misc Panel) 97, POC Sodium (Misc Panel) 140, POC Potassium (Misc Panel) 4.2, POC Chloride (Misc Panel) 102, POC Total CO2 (Misc Panel) 24.0, POC Blood Urea Nitrogen (Misc Panel 22, POC Ionized Calcium (Misc Panel) 4.2L, POC Creatinine (Misc Panel) 0.7, POC Hematocrit (Misc Panel) 33.0L, Total Bilirubin 0.9, Direct Bilirubin 0.5H, Aspartate Amino Transf (AST/SGOT) 53H, Alanine Aminotransferase (ALT/SGPT) 27, Alkaline Phosphatase 407H, Total Creatine Kinase 38L, Creatine Kinase MB < 1.0, Creatine Kinase MB Relative Index 2.63, Troponin I < 0.02, Total Protein 6.7, Albumin 2.8L, Albumin/Globulin Ratio 0.7, Lipase 18L 03/25/21 14:45: POC Lactate (Misc Panel) 3.25*H CBC/BMP Laboratory Tests 03/25/21 14:37 Microbiology Microbiology 03/25/21 Blood Culture, Received Pending Home Medications Scheduled Aspirin (Aspirin EC) 81 Mg Tablet.dr, 81 MG PO DAILY Atorvastatin Calcium (Atorvastatin Calcium) 40 Mg Tablet, 40 MG PO QHS Bimatoprost (Lumigan) 0.01% 2.5ML Drops, 1 DROP OU QHS Calcium Carbonate (Calcium) 600 Mg Tablet, 600 MG PO QPM TAKES AROUND DINNERTIME Carvedilol (Carvedilol) 3.125 Mg Tablet, 3.125 MG PO BID Escitalopram Oxalate (Lexapro) 20 Mg Tablet, 20 MG PO DAILY Folic Acid (Folic Acid) 0.4 Mg Tablet, 400 MCG PO DAILY Gabapentin (Gabapentin) 300 Mg Capsule, 300 MG PO BID L.acidoph/L.bulg/B.bif/S.therm (Bacid Caplet) 1 Each Tablet, 1 TAB PO ACHS Levothyroxine Sodium (Levothyroxine) 150 Mcg Capsule, 150 MCG PO DAILY Lisinopril (Lisinopril) 10 Mg Tablet, 10 MG PO DAILY Scheduled PRN Albuterol Sulfate (Albuterol Sulfate Hfa) 8.5 Gm Hfa.aer.ad, 2 PUFF INH Q4H PRN for SHORTNESS OF BREATH Ondansetron HCl (Ondansetron HCl) 8 Mg Tablet, 8 MG PO Q12HP PRN for NAUSEA OR VOMITING Oxycodone HCl/Acetaminophen (Oxycodone-Acetaminophen 10-325) 1 Each Tablet, 1 TAB PO QID PRN for PAIN Prochlorperazine Maleate (Prochlorperazine Maleate) 10 Mg Tablet, 10 MG PO Q6H PRN for NAUSEA OR VOMITING Allergies Coded Allergies: pembrolizumab (Verified Allergy, Intermediate, RASH, 07/29/20) A-FIB/CHADSVASC A-FIB History Current/History of A-Fib/PAF?: No GME ATTESTATION GME ATTESTATION My faculty preceptor for this patient encounter was physically present during the encounter and was fully available. All aspects of the patient interview, examination, medical decision making process, and medical care plan development were reviewed and approved by the faculty preceptor. The faculty preceptor is aware and concurs with the plan as stated in the body of this note and will attest to such by his/her cosignature. ATTENDING NOTE I, Puneet Rowe, have independently examined this patient and performed my own physical exam, as well as reviewed the documentation and edited where necessary. I have discussed in detail with the resident / student the findings and plan of treatment as documented by the resident / student and edited their note. I agree with their findings and treatment plan and have edited their documentation. I will continue to follow the patient during this hospital stay. Verna Burns DO Mar 25, 2021 17:34 PUNEET ROWE MD Mar 27, 2021 14:45
[2021-03-25 19:05] LABS: INR 1.43; PROTHROMBIN TIME 17.9 SECONDS (12.7-14.5)
--- NOTE | 2021-03-25 19:07 | ECGEPIP ---
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
[2021-03-25 19:18] LABS: BLOOD UREA NITROGEN 17 MG/DL (7-18); CALCIUM LEVEL 7.3 MG/DL (8.8-10.2); CARBON DIOXIDE LEVEL 24 MEQ/L (21-32); CHLORIDE LEVEL 108 MEQ/L (98-107); CREATININE FOR GFR 0.62 MG/DL (0.70-1.30); GLOMERULAR FILTRATION RATE > 60.0 (>49); GLUCOSE, FASTING 84 MG/DL (70-100); POTASSIUM SERUM 4.1 MEQ/L (3.5-5.1); SODIUM LEVEL 139 MEQ/L (136-145)
[2021-03-25] MEDS ORDERED: NS 500 ML IV STA (19:40)
[2021-03-25] MEDS ORDERED: LISI10TA22 PO (21:23)
[2021-03-25] MEDS ORDERED: CARV3.12 PO (21:23)
[2021-03-25] MEDS ORDERED: LEVO150C PO (21:23)
[2021-03-25] MEDS ORDERED: HOME MED LIST COMPLETE! XX SCH (21:25)
[2021-03-25 22:49] VITALS: BP 127/47
[2021-03-25] MEDS ORDERED: ALBUTEROL 90 MCG/ACT 8GM HFA INHALER INH PRN (23:25)
[2021-03-26] MEDS: CARVedilol 3.125 MG TAB PO SCH ×3 (00:45→20:25)
[2021-03-26] MEDS: LACTOBACILLUS ACIDOPHILUS CAP (BACID) PO SCH ×5 (00:45→20:20)
[2021-03-26] MEDS: FIDAXOMICIN 200 MG TAB (DIFICID) PO SCH ×3 (00:45→20:20)
[2021-03-26] MEDS: ATORVASTATIN 20 MG TAB PO SCH ×2 (00:45→20:25)
[2021-03-26] MEDS: GABAPENTIN 300 MG CAP PO SCH ×3 (00:46→20:20)
[2021-03-26] MEDS: NS 1,000 ML IV SCH ×3 (00:46→20:29)
[2021-03-26] MEDS: PERCOCET 5MG/325MG TAB PO PRN ×3 (00:48→15:30)
[2021-03-26] MEDS: MORPHINE 2 MG/ML 1ML VIAL (J2270) IV PRN ×3 (01:26→20:38)
[2021-03-26 02:42] LABS: HEMATOCRIT 27.4 % (42.0-52.0); MEAN CORPUSCULAR HEMOGLOBIN 34.6 pg (27.0-33.0); MEAN CORPUSCULAR HGB CONC 32.8 g/dl (32.0-36.5); MEAN CORPUSCULAR VOLUME 105.4 fl (80.0-96.0); WHITE BLOOD COUNT 17.8 10^3/uL (4.0-10.0)
[2021-03-26 02:43] LABS: PLATELET COUNT, AUTOMATED 65 10^3/uL (150-450)
[2021-03-26 03:14] LABS: BLOOD UREA NITROGEN 16 MG/DL (7-18); CALCIUM LEVEL 6.8 MG/DL (8.8-10.2); CARBON DIOXIDE LEVEL 22 MEQ/L (21-32); CHLORIDE LEVEL 105 MEQ/L (98-107); CREATININE FOR GFR 0.54 MG/DL (0.70-1.30); GLOMERULAR FILTRATION RATE > 60.0 (>49); GLUCOSE, FASTING 84 MG/DL (70-100); POTASSIUM SERUM 3.4 MEQ/L (3.5-5.1); SODIUM LEVEL 139 MEQ/L (136-145)
[2021-03-26] MEDS ORDERED: POTASSIUM CHLORIDE 10% LIQ 20 MEQ/15 ML UDC PO ONE (04:00)
[2021-03-26] MEDS ORDERED: POTASSIUM CHLORIDE 10 MEQ SR TABLET PO ONE (04:00)
[2021-03-26] MEDS: LEVOTHYROXINE 150MCG TABLET (0.15MG) PO SCH (05:19)
[2021-03-26 06:00] VITALS: BP 114/55
[2021-03-26] MEDS: ENOXAPARIN 40MG/0.4ML SYRINGE (J1650 PER 10MG) SC SCH (08:55)
[2021-03-26] MEDS: FOLIC ACID 1 MG TAB PO SCH (08:56)
[2021-03-26] MEDS: ESCITALOPRAM OXALATE 10 MG TAB (LEXAPRO) PO SCH (08:56)
[2021-03-26] MEDS: ASPIRIN 81MG ENTERIC TABLET PO SCH (08:57)
--- NOTE | 2021-03-26 09:06 | ECGEPIP ---
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
[2021-03-26 12:08] LABS: CLOSTRIDIUM DIFFICILE PCR NEGATIVE (NEGATIVE)
--- NOTE | 2021-03-26 13:53 | REP ---
INDICATION: r/o pneumonia . COMPARISON: Comparison portable chest x-ray March 03, 2021. TECHNIQUE: Portable upright AP chest radiograph. FINDINGS: Right hemidiaphragm remains somewhat elevated. There are old healed rib fractures on the right. Cardiomegaly is again observed unchanged. Left pleural angles are sharp. No infiltrate is seen. Pulmonary vasculature is not increased. EKG monitoring electrodes are seen. IMPRESSION: Cardiomegaly. Chronic changes right base and right ribcage. Otherwise no acute disease. <Electronically signed by Wilber Ba > 03/26/21 [id number]
[2021-03-26 14:00] VITALS: BP 96/51
--- NOTE | 2021-03-26 14:07 | IPNPDOC ---
Date Seen The patient was seen on 03/26/21. Progress Note SUBJECTIVE: Patient is a 65-year-old male with abdominal pain with a history of recurrent C. difficile. Patient states that the abdominal pain has gotten better after pain medication however it is not resolved. Also states that it still feels like C. difficile. Went to the restroom 3 times before noon and his bowel movements were brown but watery. Today, he was lying in bed trying to get some sleep as he is feeling weak and fatigued. OBJECTIVE PHYSICAL EXAMINATION: VITAL SIGNS: Please see below. GENERAL: Lying comfortably in bed resting HEENT: Head normocephalic atraumatic CARDIOVASCULAR: Regular rate and rhythm, no murmurs appreciated RESPIRATORY: Clear to auscultation bilaterally; no wheezing, rales, rhonchi ABDOMINAL: Mildly distended abdomen; tender to palpation in the left upper quadrant EXTREMITIES: No pitting edema bilaterally LABORATORY DATA, IMAGING STUDIES, MICROBIOLOGY: Please see below. DVT prophylaxis ordered?: Yes; Lovenox 40mg daily ASSESSMENT AND PLAN: This is a 65-year-old man presenting with abdominal pain, watery foul-smelling stools concerning for recurrent C. difficile PROBLEMS: Abdominal pain w/ diarrhea suggestive of C. difficile - Patient has recurrent C. difficile (diagnosed 01/18) which at that time has failed PO vancomycin, was hospitalized 01/25 and was sent home on fidaxomicin which he completed; was hospitalized again 03/04 and was given fidaxomicin at that time as well. - 2 stool cultures showed negative cultures - Elevated lactic acid - downtrended - c/w fidaxomicin for 10 days (day #2) as clinical presentation is still suggestive for C. difficile - Tylenol for pain control; IV morphine 2 mg every 2 for breakthrough pain levels 7-10 - Will obtain a CXR, UA, complete abdominal ultrasound to r/o any other infectious etiologies or any other possible factors contributing to his symptoms Chest pain - c/w remote telemetry for 48 hours - Troponins negative - c/w home medication of aspirin Metastatic Lung cancer (stage IV) - c/w to follow up with Dr. Sorto (outpatient) - c/w home pain medications of oxycodone/acetaminophen Hyperlipidemia - c/w home medication atorvastatin VTE prophylaxis - Lovenox 40mg daily DISPOSITION: Pending clinical improvement VS, I&O, 24H, Fishbone Vital Signs/I&O Vital Signs Date Time Temp Pulse Resp B/P (MAP) Pulse Ox O2 Delivery O2 Flow Rate FiO2 03/26/21 13:10 16 03/26/21 08:57 69 03/26/21 08:56 132/53 03/26/21 06:00 97.7 97 Room Air I&O- Last 24 Hours up to 6 AM 03/26/21 06:00 Intake Total 900 ml Output Total 410 ml Balance 490 ml Laboratory Data 24H LABS Laboratory Tests 2 03/25/21 14:37: Immature Granulocyte % (Auto) 1.3, Neutrophils (%) (Auto) 72.2H, Lymphocytes (%) (Auto) 3.3L, Monocytes (%) (Auto) 12.4H, Eosinophils (%) (Auto) 10.2H, Basophils (%) (Auto) 0.6, Neutrophils # (Auto) 14.4H, Lymphocytes # (Auto) 0.7L, Monocytes # (Auto) 2.5H, Eosinophils # (Auto) 2.0H, Basophils # (Auto) 0.1, Nucleated Red Blood Cells % (auto) 0.0, Immature Platelet Fraction 8.1, POC Glucose (Misc Panel) 97, POC Sodium (Misc Panel) 140, POC Potassium (Misc Panel) 4.2, POC Chloride (Misc Panel) 102, POC Total CO2 (Misc Panel) 24.0, POC Blood Urea Nitrogen (Misc Panel 22, POC Ionized Calcium (Misc Panel) 4.2L, POC Creatinine (Misc Panel) 0.7, POC Hematocrit (Misc Panel) 33.0L, Total Bilirubin 0.9, Direct Bilirubin 0.5H, Aspartate Amino Transf (AST/SGOT) 53H, Alanine Aminotransferase (ALT/SGPT) 27, Alkaline Phosphatase 407H, Total Creatine Kinase 38L, Creatine Kinase MB < 1.0, Creatine Kinase MB Relative Index 2.63, Troponin I < 0.02, Total Protein 6.7, Albumin 2.8L, Albumin/Globulin Ratio 0.7, Lipase 18L 03/25/21 14:45: POC Lactate (Misc Panel) 3.25*H 03/25/21 18:39: Prothrombin Time 17.9H, Prothromb Time International Ratio 1.43, Anion Gap 7L, Glomerular Filtration Rate > 60.0, Lactic Acid Level 2.2*H, Calcium Level 7.3L 03/25/21 20:32: Troponin I 0.02 03/25/21 23:10: Lactic Acid Followup at 4 Hours 1.7 03/26/21 02:08: Nucleated Red Blood Cells % (auto) 0.0, Anion Gap 12, Glomerular Filtration Rate > 60.0, Calcium Level 6.8L, Troponin I 0.03# 03/26/21 10:11: Clostridium difficile 027-NAP1-B1 PRESUMPTIVE NEGATIVE, Clostridium difficile Toxin (PCR) NEGATIVE CBC/BMP Laboratory Tests 03/25/21 14:37 03/25/21 18:39 03/26/21 02:08 Microbiology Microbiology 03/26/21 Gastrointestinal Tract Panel (PCR) - Final, Complete 03/25/21 Respiratory Virus Panel (PCR) ([facility]) - Final, Complete 03/25/21 Blood Culture, Received Pending 03/25/21 Blood Culture, Received Pending GME ATTESTATION GME ATTESTATION My faculty preceptor for this patient encounter was physically present during the encounter and was fully available. All aspects of the patient interview, examination, medical decision making process, and medical care plan development were reviewed and approved by the faculty preceptor. The faculty preceptor is aware and concurs with the plan as stated in the body of this note and will attest to such by his/her cosignature. ATTENDING NOTE I, Puneet Rowe, have independently examined this patient and performed my own physical exam, as well as reviewed the documentation and edited where necessary. I have discussed in detail with the resident / student the findings and plan of treatment as documented by the resident / student and edited their note. I agree with their findings and treatment plan and have edited their documentation. I will continue to follow the patient during this hospital stay. Verna Burns DO Mar 26, 2021 14:07 PUNEET ROWE MD Mar 26, 2021 15:09
[2021-03-26] MEDS: CALCIUM CARBONATE 500 MG CHEW U/D PO SCH (18:00)
--- NOTE | 2021-03-26 20:08 | REP ---
INDICATION: please eval for any abnormalities (pt has hx of C.diff) COMPARISON: 02/25/2021 TECHNIQUE: Real time B-mode howard scale ultrasound examination using curved array transducer. FINDINGS: Liver again demonstrates heterogeneous echotexture with innumerable lesions consistent with known metastatic disease-largest of which is identified in the right lobe measuring 3.2 cm diameter. Spleen and visualized pancreas appear grossly normal. The gallbladder is moderately distended but without significant wall thickening or pericholecystic fluid and no sonographic Khan sign was elicited. No biliary ductal dilatation is appreciated and the common bile duct measures 3.3 mm diameter. The bilateral kidneys are normal in reniform shape without hydronephrosis or obvious abnormality. Right kidney measures 11.7 x 4.2 x 5.2 cm. Left kidney measures 11.8 x 5.5 x 6.2 cm. Limited evaluation of the abdominal aorta due to overlying bowel gas without obvious significant abnormality identified. Small/moderate amount of free fluid noted in the right upper quadrant. IMPRESSION: 1. Known diffuse hepatic metastasis. 2. Small to moderate amount of ascites. <Electronically signed by Naveen Maldonado > 03/26/212004
[2021-03-26 22:00] VITALS: BP 117/53
[2021-03-27] MEDS: PERCOCET 5MG/325MG TAB PO PRN ×4 (01:17→22:27)
[2021-03-27 06:00] VITALS: BP 120/82
[2021-03-27] MEDS: LEVOTHYROXINE 150MCG TABLET (0.15MG) PO SCH (06:11)
[2021-03-27] MEDS: MORPHINE 2 MG/ML 1ML VIAL (J2270) IV PRN (06:11)
[2021-03-27] MEDS: NS 1,000 ML IV SCH (06:12)
[2021-03-27 06:22] LABS: HEMATOCRIT 26.9 % (42.0-52.0); HEMOGLOBIN 8.9 g/dl (13.5-17.5); MEAN CORPUSCULAR HEMOGLOBIN 35.2 pg (27.0-33.0); MEAN CORPUSCULAR HGB CONC 33.1 g/dl (32.0-36.5); MEAN CORPUSCULAR VOLUME 106.3 fl (80.0-96.0); RED BLOOD COUNT 2.53 10^6/uL (4.30-6.10); WHITE BLOOD COUNT 16.2 10^3/uL (4.0-10.0)
[2021-03-27 06:23] LABS: PLATELET COUNT, AUTOMATED 57 10^3/uL (150-450)
[2021-03-27 06:36] LABS: BLOOD UREA NITROGEN 11 MG/DL (7-18); CALCIUM LEVEL 6.2 MG/DL (8.8-10.2); CARBON DIOXIDE LEVEL 24 MEQ/L (21-32); CHLORIDE LEVEL 114 MEQ/L (98-107); CREATININE FOR GFR 0.47 MG/DL (0.70-1.30); GLOMERULAR FILTRATION RATE > 60.0 (>49); GLUCOSE, FASTING 69 MG/DL (70-100); POTASSIUM SERUM 3.5 MEQ/L (3.5-5.1); SODIUM LEVEL 142 MEQ/L (136-145)
[2021-03-27] MEDS: ENOXAPARIN 40MG/0.4ML SYRINGE (J1650 PER 10MG) SC SCH (09:00)
[2021-03-27] MEDS: D5W/0.45% SODIUM CHLORIDE 1,000 ML IV SCH ×2 (09:12→18:03)
[2021-03-27] MEDS: ASPIRIN 81MG ENTERIC TABLET PO SCH (09:15)
[2021-03-27] MEDS: LACTOBACILLUS ACIDOPHILUS CAP (BACID) PO SCH ×4 (09:15→21:01)
[2021-03-27] MEDS: FIDAXOMICIN 200 MG TAB (DIFICID) PO SCH ×2 (09:15→21:01)
[2021-03-27] MEDS: GABAPENTIN 300 MG CAP PO SCH ×2 (09:15→21:01)
[2021-03-27] MEDS: FOLIC ACID 1 MG TAB PO SCH (09:16)
[2021-03-27] MEDS: ESCITALOPRAM OXALATE 10 MG TAB (LEXAPRO) PO SCH (09:16)
[2021-03-27] MEDS: CARVedilol 3.125 MG TAB PO SCH ×2 (09:18→21:00)
[2021-03-27 11:08] LABS: LIPASE 18 U/L (73-393)
[2021-03-27] MEDS: GASTROGRAFIN SOLUTION 30ML PO SCH ×2 (11:14→11:15)
--- NOTE | 2021-03-27 11:59 | IPNPDOC ---
Date Seen The patient was seen on 03/27/21. Progress Note SUBJECTIVE: Patient is a 65-year-old male with abdominal pain with a history of recurrent C. difficile. Patient was lying comfortably in bed with no acute complaints. He states that the abdominal pain is about the same as yesterday but is improved with pain medication. He still states that his symptoms still feels like C. diff. Yesterday he had 5 bowel movements which were brown and watery. This morning, he had one bowel movement which was also brown and watery. Although he says that the BM are starting to look a little more solid. He is still feeling fatigued and weak. He is very thankful he is still here and that he would like to thank everyone taking care of him and trying to get to the bottom of his abdominal pain. OBJECTIVE PHYSICAL EXAMINATION: VITAL SIGNS: Please see below. GENERAL: Lying comfortably in bed resting HEENT: Head normocephalic atraumatic CARDIOVASCULAR: Regular rate and rhythm, no murmurs appreciated RESPIRATORY: Clear to auscultation bilaterally; no wheezing, rales, rhonchi ABDOMINAL: Mildly distended abdomen; mild diffuse tenderness to palpation EXTREMITIES: No pitting edema bilaterally LABORATORY DATA, IMAGING STUDIES, MICROBIOLOGY: Please see below. DVT prophylaxis ordered?: Yes; TEDs and Sequentials ASSESSMENT AND PLAN: This is a 65-year-old man presenting with abdominal pain, watery foul-smelling stools and dull ache in chest concerning for recurrent C. difficile PROBLEMS: Abdominal pain w/ diarrhea suggestive of C. difficile - Patient has recurrent C. difficile (diagnosed 01/18) which at that time has failed PO vancomycin, was hospitalized 01/25 and was sent home on fidaxomicin which he completed; was hospitalized again 03/04 and was given fidaxomicin at that time as well. - 2 stool cultures showed negative cultures - Elevated lactic acid - downtrended - c/w fidaxomicin for 10 days (day #3) as clinical presentation is still suggestive for C. difficile - Tylenol for pain control; IV morphine 2 mg every 2 for breakthrough pain levels 7-10 - CXR neg, UA neg, US abdomen neg - Will obtain a CT abdomen/pelvis with IV and oral contrast to r/o any other infectious etiologies or any other pathology contributing to his symptoms - Will likely consult ID on Reza Hypocalcemia - Corrected calcium for Albumin will be calculated - Will supplement as required Macrocytic anemia - Hg with slight decline - possibly 2/2 hemodilution - No evidence of bleeding - Will continue to follow trend Chronic thrombocytopenia - No evidence of bleeding - Will DC Lovenox - Will continue to follow trend Chest pain - c/w remote telemetry for 48 hours - Troponins negative - c/w home medication of aspirin Metastatic Lung cancer (stage IV) - c/w to follow up with Dr. Sorto (outpatient) - c/w home pain medications of oxycodone/acetaminophen Hyperlipidemia - c/w home medication atorvastatin VTE prophylaxis - TEDs and Sequentials DISPOSITION: - Pending clinical improvement VS, I&O, 24H, Fishbone Vital Signs/I&O Vital Signs Date Time Temp Pulse Resp B/P (MAP) Pulse Ox O2 Delivery O2 Flow Rate FiO2 03/27/21 09:19 124/56 03/27/21 09:18 79 03/27/21 09:16 16 03/27/21 06:21 96 Room Air 03/27/21 06:00 97.3 I&O- Last 24 Hours up to 6 AM 03/27/21 05:59 Intake Total 2900 ml Output Total 350 ml Balance 2550 ml Laboratory Data 24H LABS Laboratory Tests 2 03/26/21 10:11: Clostridium difficile 027-NAP1-B1 PRESUMPTIVE NEGATIVE, Clostridium difficile Toxin (PCR) NEGATIVE 03/27/21 05:35: Nucleated Red Blood Cells % (auto) 0.0, Immature Platelet Fraction 8.5, Anion Gap 4L, Glomerular Filtration Rate > 60.0, Calcium Level 6.2L 03/27/21 09:00: Urine Color YELLOW, Urine Appearance CLEAR, Urine pH 6.0, Urine Specific [place] 1.020, Urine Protein NEGATIVE, Urine Glucose (UA) NEGATIVE, Urine Ketones NEGATIVE, Urine Blood NEGATIVE, Urine Nitrite NEGATIVE, Urine Bilirubin NEGATIVE, Urine Urobilinogen 0.2, Urine Leukocyte Esterase NEGATIVE, Urine WBC (Auto) 3, Urine RBC (Auto) 0, Urine Hyaline Casts (Auto) 0, Urine Bacteria (Auto) NEGATIVE, Urine Squamous Epithelial Cells 0, Urine Mucus (Auto) SMALL, Urine Sperm (Auto) 03/27/21 09:10: Whole Blood Ionized Calcium 3.8L, Albumin 2.2#L CBC/BMP Laboratory Tests 8/28/21 05:35 Microbiology Microbiology 03/26/21 Gastrointestinal Tract Panel (PCR) - Final, Complete 03/25/21 Respiratory Virus Panel (PCR) ([facility]) - Final, Complete 03/25/21 Blood Culture - Preliminary, Resulted No growth after 24 hours . All specim... 03/25/21 Blood Culture - Preliminary, Resulted No growth after 24 hours . All specim... GME ATTESTATION GME ATTESTATION My faculty preceptor for this patient encounter was physically present during the encounter and was fully available. All aspects of the patient interview, examination, medical decision making process, and medical care plan development were reviewed and approved by the faculty preceptor. The faculty preceptor is aware and concurs with the plan as stated in the body of this note and will attest to such by his/her cosignature. ATTENDING NOTE I, Puneet Rowe, have independently examined this patient and performed my own physical exam, as well as reviewed the documentation and edited where necessary. I have discussed in detail with the resident / student the findings and plan of treatment as documented by the resident / student and edited their note. I agree with their findings and treatment plan and have edited their documentation. I will continue to follow the patient during this hospital stay. Verna Burns DO Mar 27, 2021 10:24 PUNEET ROWE MD Mar 27, 2021 13:13
[2021-03-27] MEDS ORDERED: ISOVUE-370 76% 100ML VIAL As Ordered ONE (12:46)
--- NOTE | 2021-03-27 13:14 | REP ---
INDICATION: abdominal pain with no improvement. COMPARISON: 03/25/2021, 03/03/2021 TECHNIQUE: Axial contrast-enhanced images from the lung bases to the pubic symphysis using oral and 100 cc Isovue 370 intravenous contrast material. Coronal and sagittal reformations obtained. This CT examination was performed using the following dose reduction techniques: Automated exposure control, adjustment of mA and/or kv according to the patient's size, and the use of iterative reconstruction technique. FINDINGS: There has been essentially no change from recent prior examination dated 03/25/2021. The liver again demonstrates innumerable metastatic lesions and a moderate amount of ascites is again noted throughout the abdomen and pelvis. Spleen, pancreas, gallbladder, bilateral adrenal glands and kidneys appear essentially normal/stable. Incidental small nonobstructing left renal calculi measuring up to 3 mm again noted. The enteric system is without obstruction or obvious acute inflammatory process. Sigmoid diverticula noted without evidence for diverticulitis. Pelvis demonstrates collapsed bladder and age-appropriate prostate/seminal vesicles. Small fat containing left inguinal hernia noted. No free air. Atherosclerotic changes to the aorta and vasculature without aneurysm or dissection. Musculoskeletal structures demonstrate degenerative changes and few scattered osseous metastatic foci cannot definitively be excluded. IMPRESSION: 1. No change from recent prior examination. 2. Hepatic metastatic disease and moderate ascites again noted. 3. No further new acute process appreciated. <Electronically signed by Naveen Maldonado > 03/27/21 [id number]
[2021-03-27 14:00] VITALS: BP 127/62
[2021-03-27] MEDS: DICYCLOMINE 10 MG CAP PO PRN (15:49)
[2021-03-27] MEDS: CALCIUM CARBONATE 500 MG CHEW U/D PO SCH (18:04)
[2021-03-27] MEDS: ATORVASTATIN 20 MG TAB PO SCH (21:01)
[2021-03-27 22:00] VITALS: BP 125/56
[2021-03-28] MEDS: D5W/0.45% SODIUM CHLORIDE 1,000 ML IV SCH ×2 (03:47→12:09)
[2021-03-28] MEDS: LEVOTHYROXINE 150MCG TABLET (0.15MG) PO SCH (05:51)
[2021-03-28] MEDS: PERCOCET 5MG/325MG TAB PO PRN ×3 (05:52→20:07)
[2021-03-28] MEDS: DICYCLOMINE 10 MG CAP PO PRN (05:55)
[2021-03-28 06:32] LABS: HEMATOCRIT 28.7 % (42.0-52.0); HEMOGLOBIN 9.4 g/dl (13.5-17.5); MEAN CORPUSCULAR HEMOGLOBIN 34.8 pg (27.0-33.0); MEAN CORPUSCULAR HGB CONC 32.8 g/dl (32.0-36.5); MEAN CORPUSCULAR VOLUME 106.3 fl (80.0-96.0); WHITE BLOOD COUNT 15.5 10^3/uL (4.0-10.0)
[2021-03-28 06:33] VITALS: BP 127/83
[2021-03-28 06:34] LABS: PLATELET COUNT, AUTOMATED 44 10^3/uL (150-450)
[2021-03-28 06:49] LABS: BLOOD UREA NITROGEN 8 MG/DL (7-18); CALCIUM LEVEL 6.2 MG/DL (8.8-10.2); CARBON DIOXIDE LEVEL 22 MEQ/L (21-32); CHLORIDE LEVEL 111 MEQ/L (98-107); CREATININE FOR GFR 0.53 MG/DL (0.70-1.30); GLOMERULAR FILTRATION RATE > 60.0 (>49); GLUCOSE, FASTING 96 MG/DL (70-100); POTASSIUM SERUM 3.4 MEQ/L (3.5-5.1); SODIUM LEVEL 141 MEQ/L (136-145)
[2021-03-28] MEDS ORDERED: POTASSIUM CHLORIDE 10 MEQ SR TABLET PO ONE (07:10)
[2021-03-28] MEDS: ESCITALOPRAM OXALATE 10 MG TAB (LEXAPRO) PO SCH (09:30)
[2021-03-28] MEDS: FOLIC ACID 1 MG TAB PO SCH (09:30)
[2021-03-28] MEDS: LACTOBACILLUS ACIDOPHILUS CAP (BACID) PO SCH ×4 (09:30→20:07)
[2021-03-28] MEDS: ASPIRIN 81MG ENTERIC TABLET PO SCH (09:31)
[2021-03-28] MEDS: GABAPENTIN 300 MG CAP PO SCH ×2 (09:31→20:06)
[2021-03-28] MEDS: FIDAXOMICIN 200 MG TAB (DIFICID) PO SCH ×2 (09:31→20:07)
[2021-03-28] MEDS: CARVedilol 3.125 MG TAB PO SCH ×2 (09:32→20:06)
--- NOTE | 2021-03-28 10:09 | IPNPDOC ---
Text Note Date of Service The patient was seen on 03/28/21. NOTE Subjective: Patient is a 65-year-old male with a PMHx of Recurrent C. Diff, Metastatic lung CA (mets to bone / liver, on Chemotherapy / Immunotherapy), HTN, Hypothyroidism, DLP, Neuropathy, Depression, presented to the emergency room with complaints of abdominal pain and diarrhea. Patient reported that he was recently treated for C. difficile and had completed Fidaxomicin. A few days after patient was beginning to experience worsening abdominal pain and diarrhea. He presented to the ER with concerns of recurrent C. difficile patient was admitted to the hospital service for further evaluation and treatment. Workup has revealed no evidence of C. diff on GI panel / C. diff PCR. Patient was seen and examined at the bedside. Patient denies any nausea, vomiting. Does report some abdominal discomfort. Denies any chest pain, shortness breath, palpitations. Reports that his diarrhea is doing better, but persists. Objective: Vitals (See below) General: Lying in bed, appears comfortable, AAOx3 HEENT: NC, AT CVS: +S1S2 Lungs: Fair air entry b/l, no wheezing, rales or rhonchi Abdomen: Soft, mild distention, tenderness appreciated at left upper quadrant Extremities: - Edema, - Calf tenderness Imaging: CT abdomen / pelvis 03/25: 1. With the exception of new moderate ascites, above-mentioned findings including hepatic and osseous metastatic lesions remain essentially unchanged. 2. No obvious acute bowel process. CTA chest 03/25: 1. No evidence for pulmonary embolus. 2. Soft tissue in the right hilum slightly increased from prior examination and concerning for enlarging pathologic lymph nodes or residual tumor. 3. Stable osseous metastatic lesions. Hepatic metastases again noted. CXR 03/26: Cardiomegaly. Chronic changes right base and right ribcage. Otherwise no acute disease. Abdomen US 03/26: 1. Known diffuse hepatic metastasis. 2. Small to moderate amount of ascites. CT abdomen / pelvis 03/27: 1. No change from recent prior examination. 2. Hepatic metastatic disease and moderate ascites again noted. 3. No further new acute process appreciated. Assessment and plan: Abdominal pain - possibly 2/2 C. difficile given history, possibly 2/2 IBS - Patient still reports diarrhea, however frequency of bowel movements has decre ased - Patient remains hemodynamically stable and afebrile - Physical still reveals some abdominal discomfort around left upper quadrant - Leukocytosis, improving - s/p Lactic acidosis - GI panel 03/26: Negative / C. diff PCR 03/26: Negative - c/w Fidaxomicin (Day #4) / Probiotics - c/w Supportive care with Bentyl / Tylenol / Percocet / Morphine - Will add stool bulking agents - Will have ID consult tomorrow s/p Lactic acidosis Hypokalemia - Will supplement Hypocalcemia - Corrected calcium still [id number] - Will supplement Macrocytic anemia - Hg remains stable - No evidence of bleeding Chronic thrombocytopenia - No evidence of bleeding - s/p Lovenox - Will continue to follow trend HTN - BP well controlled - c/w Lisinopril and Carvedilol s/p Chest pain - c/w remote telemetry for 48 hours - Troponins negative x3 - c/w ASA Metastatic Lung cancer (stage IV) - c/w to follow up with Dr. Sorto (outpatient) - c/w home pain medications of oxycodone/acetaminophen DLP - c/w Atorvastatin Hypothyroidism - c/w Levothyroxine Neuropathy - c/w Gabapentin Depression - c/w Escitalopram DVT prophylaxis - c/w TEDs/Sequentials Disposition: - Pending clinical improvement VS,Tamiko, I+O VS, Tamiko, I+O Laboratory Tests 03/28/21 05:50 Vital Signs Date Time Temp Pulse Resp B/P (MAP) Pulse Ox O2 Delivery O2 Flow Rate FiO2 03/28/21 09:32 122/51 03/28/21 09:32 70 03/28/21 06:33 98.3 21 96 Room Air I&O- Last 24 Hours up to 6 AM 03/28/21 06:00 Intake Total 3180 ml Output Total 350 ml Balance 2830 ml TRIP ROWE MD Mar 28, 2021 10:09
[2021-03-28] MEDS ORDERED: CALCIUM GLUCONATE 1,000 MG in D5W MINI-BAG PLUS 100 ML IV ONE (11:00)
[2021-03-28] MEDS ORDERED: CALCIUM GLUCONATE 1,000 MG in D5W MINI-BAG PLUS 100 ML IV SCH (11:00)
[2021-03-28] MEDS: FIBER-CON 625 MG TAB PO SCH ×2 (12:08→20:07)
[2021-03-28] MEDS: METAMUCIL (PSYLLIUM) PACKET PO SCH ×2 (12:08→20:07)
[2021-03-28 14:00] VITALS: BP 119/50
[2021-03-28] MEDS: ONDANSETRON 4MG/2ML VIAL IV PRN (16:09)
[2021-03-28 16:21] LABS: C REACTIVE PROTEIN QUANTITATIV 9.62 MG/DL (0.00-0.30)
[2021-03-28] MEDS: CALCIUM CARBONATE 500 MG CHEW U/D PO SCH (17:40)
[2021-03-28] MEDS: ATORVASTATIN 20 MG TAB PO SCH (20:06)
[2021-03-28 22:00] VITALS: BP 129/63
[2021-03-29] MEDS: PERCOCET 5MG/325MG TAB PO PRN ×4 (03:26→23:58)
[2021-03-29] MEDS: ONDANSETRON 4MG/2ML VIAL IV PRN (03:26)
[2021-03-29] MEDS: LEVOTHYROXINE 150MCG TABLET (0.15MG) PO SCH (05:21)
[2021-03-29 06:00] VITALS: BP 102/50
[2021-03-29] MEDS: LACTOBACILLUS ACIDOPHILUS CAP (BACID) PO SCH ×4 (07:30→19:46)
[2021-03-29 07:54] LABS: HEMATOCRIT 28.9 % (42.0-52.0); HEMOGLOBIN 9.4 g/dl (13.5-17.5); MEAN CORPUSCULAR HEMOGLOBIN 34.9 pg (27.0-33.0); MEAN CORPUSCULAR HGB CONC 32.5 g/dl (32.0-36.5); MEAN CORPUSCULAR VOLUME 107.4 fl (80.0-96.0); RED BLOOD COUNT 2.69 10^6/uL (4.30-6.10); WHITE BLOOD COUNT 17.1 10^3/uL (4.0-10.0)
[2021-03-29 07:59] LABS: PLATELET COUNT, AUTOMATED 43 10^3/uL (150-450)
[2021-03-29] MEDS ORDERED: POTASSIUM CHLORIDE 10 MEQ SR TABLET PO ONE (08:00)
[2021-03-29 08:19] LABS: BLOOD UREA NITROGEN 8 MG/DL (7-18); C REACTIVE PROTEIN QUANTITATIV 6.78 MG/DL (0.00-0.30); CALCIUM LEVEL 6.4 MG/DL (8.8-10.2); CARBON DIOXIDE LEVEL 22 MEQ/L (21-32); CHLORIDE LEVEL 112 MEQ/L (98-107); CREATININE FOR GFR 0.57 MG/DL (0.70-1.30); GLOMERULAR FILTRATION RATE > 60.0 (>49); GLUCOSE, FASTING 67 MG/DL (70-100); POTASSIUM SERUM 4.3 MEQ/L (3.5-5.1); SODIUM LEVEL 139 MEQ/L (136-145)
[2021-03-29] MEDS ORDERED: ONDANSETRON 4 MG TAB PO PRN (08:25)
[2021-03-29] MEDS ORDERED: D5W/0.45% SODIUM CHLORIDE 1,000 ML IV SCH (08:45)
[2021-03-29] MEDS: ONDANSETRON 4MG/2ML VIAL IV SCH ×3 (09:00→19:46)
[2021-03-29] MEDS: FIDAXOMICIN 200 MG TAB (DIFICID) PO SCH ×4 (09:00→19:45)
[2021-03-29] MEDS ORDERED: CALCIUM GLUCONATE 1,000 MG in D5W MINI-BAG PLUS 100 ML IV ONE (09:00)
[2021-03-29] MEDS: METAMUCIL (PSYLLIUM) PACKET PO SCH ×2 (09:00→19:45)
[2021-03-29 09:25] LABS: MAGNESIUM LEVEL 1.6 MG/DL (1.8-2.4)
[2021-03-29 09:42] LABS: PTH INTACT 219.3 PG/ML (18.5-88.0); TOTAL 25(OH) VITAMIN D 14.6 NG/ML (30.0-100.0)
[2021-03-29] MEDS ORDERED: METOCLOPRAMIDE INJ 10MG/2ML VIAL (J2765 PER 1) IV ONE (10:00)
[2021-03-29] MEDS ORDERED: MAG SULF 1GM/100ML (MAG RUN) 1 GM in IV 1 EA IV ONE ×2 (10:25→13:00)
[2021-03-29 11:00] VITALS: BP 113/46
[2021-03-29] MEDS: CARVedilol 3.125 MG TAB PO SCH (11:00)
--- NOTE | 2021-03-29 11:01 | IPNPDOC ---
Date Seen The patient was seen on 03/29/21. Progress Note SUBJECTIVE: Patient is a 65-year-old male with a PMHx of Recurrent C. Diff, Metastatic lung CA, HTN, Hypothyroidism, DLP, Neuropathy and Depression, presented to ED with abdominal pain and diarrhea. Patient has recurrent C. difficile (diagnosed 01/18) which at that time has failed PO vancomycin, was hospitalized 01/25 and was sent home on fidaxomicin which he completed; was hospitalized again 03/04 and was given fidaxomicin at that time as well. Patient was seen lying in bed. He states that yesterday he started to feel nauseous and was dry heaving. He is still having "abdominal soreness" and discomfort. Diarrhea is starting to become more formed but is still having diarrhea a couple of times a day. He is still feeling fatigues and weak. OBJECTIVE PHYSICAL EXAMINATION: VITAL SIGNS: Please see below. GENERAL: Lying comfortably in bed resting HEENT: Head normocephalic atraumatic CARDIOVASCULAR: Regular rate and rhythm, no murmurs appreciated RESPIRATORY: Clear to auscultation bilaterally; no wheezing, rales, rhonchi ABDOMINAL: Mildly distended abdomen; tenderness to palpation on the RLQ and LLQ LABORATORY DATA, IMAGING STUDIES, MICROBIOLOGY: Please see below. DVT prophylaxis ordered?: Yes; TEDs and Sequentials ASSESSMENT AND PLAN: This is a 65-year-old man presenting with abdominal pain, watery foul-smelling stools and dull ache in chest concerning for recurrent C. difficile PROBLEMS: Abdominal pain w/ diarrhea suggestive of C. difficile - Elevated lactic acid - downtrended - GI panel 03/26: Neg and C. diff PCR 03/26: Neg - Elevated lactic acid - downtrended - Uptrended WBC today - c/w fidaxomicin for 10 days (day #5) and probiotics - Tylenol for pain control; IV morphine 2 mg every 2 for breakthrough pain levels 7-10 - CXR neg, UA neg, US abdomen neg, CT abdomen/pelvis with IV/PO contrast neg - Consulted ID - Will obtain a diagnostic paracentesis for his ascites Nausea - c/w Zofran and Reglan as needed Hypocalcemia - Will supplement as required Hypomagnesemia - Start 2 Mag runs - Will reevaluate in tomorrow's labs Macrocytic anemia w/ no evidence of bleeding - Hg with slight decline - possibly 2/2 hemodilution - Continue to follow trend Chronic thrombocytopenia w/ no evidence of bleeding - Lovenox discontinued - Continue to follow trend Chest pain - d/c remote telemetry - pt has been in sinus rhythm - Troponins negative - c/w home medication of aspirin Metastatic Lung cancer (stage IV) - c/w to follow up with Dr. Sorto (outpatient) - c/w home pain medications of oxycodone/acetaminophen Hyperlipidemia - c/w home medication atorvastatin VTE prophylaxis - TEDs and Sequentials DISPOSITION: Pending clinical improvement VS, I&O, 24H, Fishbone Vital Signs/I&O Vital Signs Date Time Temp Pulse Resp B/P (MAP) Pulse Ox O2 Delivery O2 Flow Rate FiO2 03/29/21 06:00 98.2 65 18 102/50 (67) 96 Room Air I&O- Last 24 Hours up to 6 AM 03/29/21 06:00 Intake Total 1780 ml Output Total 0 ml Balance 1780 ml Laboratory Data 24H LABS Laboratory Tests 2 03/29/21 06:42: Nucleated Red Blood Cells % (auto) 0.0, Immature Platelet Fraction 11.4H, Anion Gap 5L, Glomerular Filtration Rate > 60.0, Calcium Level 6.4L, Magnesium Level 1.6L, C-Reactive Protein, Quantitative 6.78H, 25-Hydroxy Vitamin D Total 14.6L, Parathyroid Hormone (Intact) 219.3H CBC/BMP Laboratory Tests 03/29/21 06:42 Microbiology Microbiology 03/26/21 Gastrointestinal Tract Panel (PCR) - Final, Complete 03/25/21 Respiratory Virus Panel (PCR) ([facility]) - Final, Complete 03/25/21 Blood Culture - Preliminary, Resulted No Growth after 72 hours. All specime... 03/25/21 Blood Culture - Preliminary, Resulted No Growth after 72 hours. All specime... GME ATTESTATION GME ATTESTATION My faculty preceptor for this patient encounter was physically present during the encounter and was fully available. All aspects of the patient interview, examination, medical decision making process, and medical care plan development were reviewed and approved by the faculty preceptor. The faculty preceptor is aware and concurs with the plan as stated in the body of this note and will attest to such by his/her cosignature. ATTENDING NOTE I, Puneet Rowe, have independently examined this patient and performed my own physical exam, as well as reviewed the documentation and edited where necessary. I have discussed in detail with the resident / student the findings and plan of treatment as documented by the resident / student and edited their note. I agree with their findings and treatment plan and have edited their documentation. I will continue to follow the patient during this hospital stay. Verna Burns DO Mar 29, 2021 11:00 PUNEET ROWE MD Mar 29, 2021 12:56
[2021-03-29] MEDS: GABAPENTIN 300 MG CAP PO SCH ×2 (11:02→21:00)
[2021-03-29] MEDS: ASPIRIN 81MG ENTERIC TABLET PO SCH (11:02)
[2021-03-29] MEDS: FOLIC ACID 1 MG TAB PO SCH (11:02)
[2021-03-29] MEDS: FIBER-CON 625 MG TAB PO SCH ×2 (11:02→19:45)
[2021-03-29] MEDS: ESCITALOPRAM OXALATE 10 MG TAB (LEXAPRO) PO SCH (11:03)
[2021-03-29] MEDS: DICYCLOMINE 10 MG CAP PO PRN (13:17)
[2021-03-29 14:00] VITALS: BP 90/42
[2021-03-29] MEDS ORDERED: NS 1,000 ML IV ONE (14:10)
[2021-03-29] MEDS ORDERED: SODIUM BICARBONATE 8.4% INJ 50MEQ 50 ML VIAL As Ordered ONE (16:04)
[2021-03-29] MEDS: CALCIUM CARBONATE 500 MG CHEW U/D PO SCH (17:33)
[2021-03-29 18:05] LABS: APPEARANCE, BODY FLUID HAZY (CLEAR); ASCITES FL COLOR YELLOW (COLORLESS); SOURCE, BODY FLUID ASCITES
[2021-03-29 19:05] LABS: SPEC. GRAVITY BODY FLUIDS 1.019 (NOT ESTABLISHED)
[2021-03-29 19:16] LABS: SOURCE, BODY FLUID ALBUMIN ASCITES; SOURCE, BODY FLUID GLUCOSE ASCITES; SOURCE, BODY FLUID TOT PROTEIN ASCITES; TOTAL PROTEIN, BODY FLUID 2.6 G/DL (NOT ESTABLISHED)
--- NOTE | 2021-03-29 19:33 | REP ---
INDICATION: metastatic ascites The patient has a history of ascites COMPARISON: None. TECHNIQUE: The procedure was performed by CASPER Steward, under the direct supervision of Dr. Gaffney The risks and benefits of the procedure were explained to the patient and an informed consent was obtained both verbally and written. Directly prior to the start of the procedure a formal time-out was completed in the procedure room. The largest pocket of fluid was localized in the left flank using ultrasound guidance. The skin was prepped and draped in a sterile fashion. Eleven ML of buffered lidocaine was used as a local anesthetic. An 8-Icelandic multi side-hole catheter was inserted using trocar technique. FINDINGS: 1250 mL of clear yellow ascites was removed and sent to the laboratory for further analysis. The patient tolerated the procedure well and there were no immediate complications. After the appropriate amount of monitored convalescence, the patient was discharged from the department. IMPRESSION: Ultrasound-guided paracentesis with removal 1250 mL of clear yellow ascites. <Electronically signed by Mihaela Thakkar > 03/29/21 1712 <Electronically signed by Marshall Gaffney > 03/29/21 1930
[2021-03-29] MEDS: ATORVASTATIN 20 MG TAB PO SCH (19:46)
[2021-03-29] MEDS ORDERED: cefTRIAXone SOD 1 GM in D5W MINI-BAG PLUS 50 ML IV SCH (20:00)
[2021-03-29 22:00] VITALS: BP 99/60
[2021-03-30] MEDS: ONDANSETRON 4MG/2ML VIAL IV SCH ×4 (04:03→20:28)
[2021-03-30 05:37] VITALS: BP 136/63
[2021-03-30 05:48] LABS: HEMATOCRIT 32.9 % (42.0-52.0); HEMOGLOBIN 10.6 g/dl (13.5-17.5); MEAN CORPUSCULAR HEMOGLOBIN 34.8 pg (27.0-33.0); MEAN CORPUSCULAR HGB CONC 32.2 g/dl (32.0-36.5); MEAN CORPUSCULAR VOLUME 107.9 fl (80.0-96.0); RED BLOOD COUNT 3.05 10^6/uL (4.30-6.10); WHITE BLOOD COUNT 18.8 10^3/uL (4.0-10.0)
[2021-03-30 05:51] LABS: PLATELET COUNT, AUTOMATED 42 10^3/uL (150-450)
[2021-03-30 06:16] LABS: BLOOD UREA NITROGEN 11 MG/DL (7-18); C REACTIVE PROTEIN QUANTITATIV 9.12 MG/DL (0.00-0.30); CALCIUM LEVEL 6.7 MG/DL (8.8-10.2); CARBON DIOXIDE LEVEL 22 MEQ/L (21-32); CHLORIDE LEVEL 113 MEQ/L (98-107); CREATININE FOR GFR 0.68 MG/DL (0.70-1.30); GLOMERULAR FILTRATION RATE > 60.0 (>49); GLUCOSE, FASTING 70 MG/DL (70-100); MAGNESIUM LEVEL 2.1 MG/DL (1.8-2.4); POTASSIUM SERUM 4.4 MEQ/L (3.5-5.1); SODIUM LEVEL 140 MEQ/L (136-145)
[2021-03-30] MEDS: LEVOTHYROXINE 150MCG TABLET (0.15MG) PO SCH (06:39)
[2021-03-30] MEDS: PERCOCET 5MG/325MG TAB PO PRN ×3 (06:39→19:03)
[2021-03-30] MEDS: LACTOBACILLUS ACIDOPHILUS CAP (BACID) PO SCH ×4 (06:39→20:29)
--- NOTE | 2021-03-30 08:00 | CR ---
CONSULTATION DATE: 03/29/2021 REASON FOR CONSULTATION: Recurrent diarrhea. HISTORY OF PRESENT ILLNESS: Mr. Moore is a 65-year-old gentleman with a history of metastatic lung cancer to the vertebrae, pleura, liver, pulmonary embolism and recent myocardial infarction. The patient was hospitalized on January 18 with C. difficile and Pseudomonas diarrhea. He had negative blood cultures. The patient was initially treated with vancomycin and then switched to Dificid. He was hospitalized again on January 25 to January 27, treated with Dificid. He had recurrent C. difficile on 03/03 and was hospitalized on March 12. He was treated with a ten day course of fidaxomicin with complete resolution of his diarrhea. He had a temperature of 102.6 on previous admission. He also received two doses of IV Zosyn. The patient's last chemotherapy was February 11. He received carboplatin, pemetrexed and he had finished six cycles. He also had recently received radiation to his back for mets to the vertebrae from September 28 to October 02. The patient is admitted again on March 25 with diarrhea, feeling feverish and dull ache in his chest and abdomen. He states his diarrhea stopped just like as he has C. difficile but this time his GI panel was negative. PAST MEDICAL HISTORY: 1. Metastatic lung cancer to bone, pleura, liver. He received six cycles of pemetrexed and carboplatin last 02/11. Radiation to the back for mets. 2. Hyperlipidemia. 3. Recurrent C. difficile colitis, December,, February,. PAST SURGICAL HISTORY: 1. Carpal tunnel in 1989. 2. Lower lung lobectomy. 3. Kidney stone and stent placement, 2017. SOCIAL HISTORY: She is . He lives alone. He is independent. He drives himself. He is not a DNR. HE IS A FULL CODE. He has medical marijuana which he vaporizes. No IV drug use. FAMILY HISTORY: Nonrevealing. ALLERGIES: PEMBROLIZUMAB. MEDICATIONS: 1. Ceftriaxone 1 gm IV q.12 hours. 2. Fidaxomicin 200 mg p.o. b.i.d. 3. Zofran 4 mg IV q.6 hours. 4. FiberCon one tablet p.o. b.i.d. 5. Dicyclomine 10 mg q.8 p.r.n. 6. Folic acid 1 mg p.o. daily. 7. TUMS 500 mg p.o. daily. 8. Lexapro 20 mg p.o. daily. 9. Aspirin 81 mg p.o. daily. 10. Levothyroxine 150 mcg daily. 11. Percocet two tabs q.6 p.r.n. 12. Probiotics one tablet p.o. a.c. and h.s. 13. Gabapentin 300 mg p.o. b.i.d. 14. Atorvastatin 40 mg p.o. q.h.s. 15. Tylenol p.r.n. 16. Morphine 2 mg IV q.6 p.r.n. LABORATORY DATA: White count was 19.9 on admission, today was 17.1, hemoglobin 9.4, hematocrit 28.9, platelets 43. Sodium 139, potassium 4.3, chloride 112, bicarb 22, BUN 8, creatinine 0.57, glucose 67, lactic acid 1.5, calcium 6.4, magnesium 6.4, magnesium 1.60, CRP 6.78, vitamin D 14, PTH 219, albumin 2.2. Ascitic fluid was drained today, 1200 mL of serous drainage. He had a total white count of 276 with 84% lymphocytes and 16% PMN, total protein 2.6, albumin 1.2, glucose 90. C. diff was negative on 03/26. PHYSICAL EXAMINATION: Vital Signs: Temperature is 98.2. The patient has been afebrile throughout this admission. Pulse 65, respirations 18, blood pressure 90/42, O2 sat 95% on room air. Heart: Normal S1, S2, no murmurs, rubs or gallops. Lungs: Diminished at the bases but clear, no wheezes, rales or rhonchi. Abdomen: Distended, soft, mildly tender in the lower quadrants but much better compared to admission, states he is feeling better since paracentesis was done. Extremities: Trace edema bilaterally. HEENT: The oropharynx is clear with no lesions. Back: Mild thoracic tenderness. IMPRESSION: This is a 65-year-old gentleman with metastatic lung cancer to bone, liver, pleura who is admitted with recurrent diarrhea. His C. difficile was negative this admission but he had two positive C. diffs, one on January 20 and one on March 04. The patient could have post-C. difficile irritable bowel syndrome which occur in 25% of patients and therefore have persistent diarrhea which could be treated with Lomotil. His C. diff could was falsely negative because of prior treatment although this is less likely but the patient is convinced the stools smell like C. difficile. The patient has persistent leukocytosis which is probably related to metastatic lung cancer to the liver. He has been on fidaxomicin since admission with slight improvement in his bowel movement. PLAN: Continue fidaxomicin in spite of a negative C. diff because the most likelihood is he has either recurrent C. diff or irritable bowel syndrome previous C. diff. I will treat him with a tapering schedule as an outpatient. He will receive a dose of IV Zinplava at 10 mg per kilo. The patient is a FULL CODE and not a DNR. All of this is not realistic so it will need to be further discussed at a later time. Do not treat his peritoneal fluid. He does not have an infectious process. He has had elevated cell count but it is predominantly lymphocytic in nature and he does not have any PMNs and therefore unlikely to be infectious. This is probably a malignant peritoneal fluid. Discontinue airborne isolation. The patient does not have tuberculosis.
[2021-03-30] MEDS: METAMUCIL (PSYLLIUM) PACKET PO SCH ×2 (08:46→20:29)
[2021-03-30] MEDS: FIDAXOMICIN 200 MG TAB (DIFICID) PO SCH ×2 (08:47→20:28)
[2021-03-30] MEDS: GABAPENTIN 300 MG CAP PO SCH ×2 (08:47→20:29)
[2021-03-30] MEDS: ASPIRIN 81MG ENTERIC TABLET PO SCH (08:47)
[2021-03-30] MEDS: ESCITALOPRAM OXALATE 10 MG TAB (LEXAPRO) PO SCH (08:47)
[2021-03-30] MEDS: FIBER-CON 625 MG TAB PO SCH ×2 (08:47→20:28)
[2021-03-30] MEDS: FOLIC ACID 1 MG TAB PO SCH (08:48)
--- NOTE | 2021-03-30 09:21 | IPNPDOC ---
Date Seen The patient was seen on 03/30/21. Progress Note SUBJECTIVE: Patient is a 65-year-old male with a PMHx of Recurrent C. Diff, Metastatic lung CA, HTN, Hypothyroidism, DLP, Neuropathy and Depression, presented to ED with abdominal pain and diarrhea. Patient has recurrent C. difficile (diagnosed 01/18) which at that time has failed PO vancomycin, was hospitalized 01/25 and was sent home on fidaxomicin which he completed; was hospitalized again 03/04 and was given fidaxomicin at that time as well. Patient was seen sitting up in bed eating his breakfast. He states that he feel like he can breath better after the paracentesis. He also states that he has had one "pebbled" stool and that his stool is starting to get formed. He feels less weak and fatigued. OBJECTIVE PHYSICAL EXAMINATION: VITAL SIGNS: Please see below. GENERAL: sitting up; in no acute distress HEENT: Head normocephalic atraumatic CARDIOVASCULAR: Regular rate and rhythm, no murmurs appreciated RESPIRATORY: Clear to auscultation bilaterally; no wheezing, rales, rhonchi ABDOMINAL: Mildly distended abdomen; Left side gauze with Tegaderm covering the site of paracentesis EXTREMITIES: No edema noted b/l lower extremities LABORATORY DATA, IMAGING STUDIES, MICROBIOLOGY: Please see below. ASSESSMENT AND PLAN: his is a 65-year-old man presenting with abdominal pain, watery foul-smelling stools and dull ache in chest concerning for recurrent C. difficile. PROBLEMS: Abdominal pain w/ diarrhea suggestive of C. difficile - Elevated lactic acid - downtrended - GI panel 03/26: Neg and C. diff PCR 03/26: Neg - Uptrending WBC to 18.8; althought pt is afebrile - c/w fidaxomicin for 10 days (day #6) and probiotics - Tylenol for pain control; IV morphine 2 mg every 2 for breakthrough pain levels 7-10 - CXR neg, UA neg, US abdomen neg, CT abdomen/pelvis with IV/PO contrast neg - Consulted ID; we appreciate their assistance; will continue with the fidaxomicin as pt may have recurrent C. diff or irritable bowel syndrome pr evious C. diff; as per ID he does not have an infectious process; will f/u with ID outpatient for IV Zinplava - Diagnostic paracentesis: WBC 276; Mononuclear 84; PMN 16 - pt was given one dose of Rocephin as SBP prophylaxis - d/c as there is no infectious process Nausea - c/w Zofran and Reglan as needed Hypocalcemia - will supplement as as needed Hypokalemia - after supplementation; uptrended to 4.4 Hypomagnesemia - after supplementation; uptrended to 2.1 Macrocytic anemia w/ no evidence of bleeding - Hg with slight decline - possibly 2/2 hemodilution - increased after stopping fluids - Will continue to trend Chronic thrombocytopenia w/ no evidence of bleeding - Lovenox discontinued - Will continue to trend Chest pain - resolved - d/c remote telemetry - pt has been in sinus rhythm - c/w home medication of aspirin Metastatic Lung cancer (stage IV) - c/w to follow up with Dr. Sorto (outpatient) - c/w home pain medications of oxycodone/acetaminophen Hyperlipidemia - c/w home medication atorvastatin VTE prophylaxis - TEDs and Sequentials DISPOSITION: pending clinical improvement VS, I&O, 24H, Fishbone Vital Signs/I&O Vital Signs Date Time Temp Pulse Resp B/P (MAP) Pulse Ox O2 Delivery O2 Flow Rate FiO2 03/30/21 08:46 18 Room Air 03/30/21 06:39 95 03/30/21 05:37 97.8 68 136/63 (87) I&O- Last 24 Hours up to 6 AM 03/30/21 06:00 Intake Total 2630 ml Output Total 0 ml Balance 2630 ml Laboratory Data 24H LABS Laboratory Tests 2 03/29/21 14:00: Bedside Glucose (Misc Panel) 101 03/29/21 14:35: Lactic Acid Level 1.5 03/29/21 16:30: Body Fluid Source ASCITES, Body Fluid Color YELLOW, Body Fluid Appearance HAZY, Body Fluid Specific [place] 1.019, Body Fluid WBC (Auto) 276H, Body Fluid RBC (Auto) < 2, Body Fluid Mononuclear Cells % Auto 84.0H, Fluid Polymorphonuclear Cell % Auto 16.0H, Body Fluid Glucose Source ASCITES, Body Fluid Glucose 90, Body Fluid Protein Source ASCITES, Body Fluid Total Protein 2.6, Body Fluid Albumin Source ASCITES, Body Fluid Albumin 1.2 03/30/21 05:29: Nucleated Red Blood Cells % (auto) 0.0, Anion Gap 5L, Glomerular Filtration Rate > 60.0, Calcium Level 6.7L, Magnesium Level 2.1, C-Reactive Protein, Quantitative 9.12H CBC/BMP Laboratory Tests 03/30/21 05:29 Microbiology Microbiology 03/29/21 Acid Fast Stain, Received Pending 03/29/21 Mycobacterial Culture, Received Pending 03/29/21 Fungal Smear, Received Pending 03/29/21 Fungal Culture, Received Pending 03/29/21 Gram Stain - Final, Resulted 03/29/21 Body Fluid Culture, Resulted Pending 03/26/21 Gastrointestinal Tract Panel (PCR) - Final, Complete 03/25/21 Respiratory Virus Panel (PCR) ([facility]) - Final, Complete 03/25/21 Blood Culture - Preliminary, Resulted No Growth after 72 hours. All specime... 03/25/21 Blood Culture - Preliminary, Resulted No Growth after 72 hours. All specime... GME ATTESTATION GME ATTESTATION My faculty preceptor for this patient encounter was physically present during the encounter and was fully available. All aspects of the patient interview, examination, medical decision making process, and medical care plan development were reviewed and approved by the faculty preceptor. The faculty preceptor is aware and concurs with the plan as stated in the body of this note and will attest to such by his/her cosignature. ATTENDING NOTE Attending Attestation: I saw and evaluated the patient. I agree with the finding and the plan of care as documented in the residents note. Verna Burns DO Mar 30, 2021 09:21 ANGEL BOLANOS MD Mar 31, 2021 06:15
[2021-03-30 14:00] VITALS: BP 128/68
[2021-03-30] MEDS: CALCIUM CARBONATE 500 MG CHEW U/D PO SCH (19:02)
[2021-03-30] MEDS: ATORVASTATIN 20 MG TAB PO SCH (20:29)
[2021-03-30 22:22] VITALS: BP 106/60
[2021-03-31] MEDS: ONDANSETRON 4MG/2ML VIAL IV SCH ×4 (03:03→21:50)
[2021-03-31] MEDS: PERCOCET 5MG/325MG TAB PO PRN ×3 (03:03→18:33)
[2021-03-31] MEDS: LEVOTHYROXINE 150MCG TABLET (0.15MG) PO SCH (06:09)
[2021-03-31 06:41] LABS: BASO # 0.1 10^3/uL (0.0-0.2); BASO % 0.7 % (0.0-1.0); EOS # 2.7 10^3/uL (0.0-0.5); EOS % 14.8 % (0.0-3.0); HEMATOCRIT 28.9 % (42.0-52.0); HEMOGLOBIN 9.4 g/dl (13.5-17.5); LYMPH # 0.6 10^3/uL (1.5-5.0); LYMPH % 3.4 % (24.0-44.0); MEAN CORPUSCULAR HEMOGLOBIN 34.7 pg (27.0-33.0); MEAN CORPUSCULAR HGB CONC 32.5 g/dl (32.0-36.5); MEAN CORPUSCULAR VOLUME 106.6 fl (80.0-96.0); MONO # 1.8 10^3/uL (0.0-0.8); MONO % 9.6 % (2.0-8.0); NEUTROPHILS # 12.9 10^3/uL (1.5-8.5); NEUTROPHILS % 70.2 % (36.0-66.0); PLATELET COUNT, AUTOMATED 38 10^3/uL (150-450); RED BLOOD COUNT 2.71 10^6/uL (4.30-6.10); WHITE BLOOD COUNT 18.3 10^3/uL (4.0-10.0)
[2021-03-31 06:42] LABS: BLOOD UREA NITROGEN 12 MG/DL (7-18); C REACTIVE PROTEIN QUANTITATIV 7.27 MG/DL (0.00-0.30); CARBON DIOXIDE LEVEL 22 MEQ/L (21-32); CHLORIDE LEVEL 113 MEQ/L (98-107); CREATININE FOR GFR 0.55 MG/DL (0.70-1.30); GLOMERULAR FILTRATION RATE > 60.0 (>49); GLUCOSE, FASTING 86 MG/DL (70-100); POTASSIUM SERUM 4.3 MEQ/L (3.5-5.1); SODIUM LEVEL 139 MEQ/L (136-145)
[2021-03-31 07:06] VITALS: BP 115/40
[2021-03-31] MEDS: METAMUCIL (PSYLLIUM) PACKET PO SCH ×2 (08:29→21:50)
[2021-03-31] MEDS: ASPIRIN 81MG ENTERIC TABLET PO SCH (08:30)
[2021-03-31] MEDS: ESCITALOPRAM OXALATE 10 MG TAB (LEXAPRO) PO SCH (08:30)
[2021-03-31] MEDS: LACTOBACILLUS ACIDOPHILUS CAP (BACID) PO SCH ×4 (08:30→21:50)
[2021-03-31] MEDS: FOLIC ACID 1 MG TAB PO SCH (08:30)
[2021-03-31] MEDS: FIDAXOMICIN 200 MG TAB (DIFICID) PO SCH ×2 (08:30→21:50)
[2021-03-31] MEDS: GABAPENTIN 300 MG CAP PO SCH ×2 (08:30→21:50)
[2021-03-31] MEDS: FIBER-CON 625 MG TAB PO SCH ×2 (08:30→21:50)
--- NOTE | 2021-03-31 09:38 | IPNPDOC ---
Date Seen The patient was seen on 03/31/21. Progress Note SUBJECTIVE: Patient is a 65-year-old male with a PMHx of Recurrent C. Diff, Metastatic lung CA, HTN, Hypothyroidism, HLD, Neuropathy and Depression, presented to ED with abdominal pain and diarrhea. Patient has recurrent C. difficile (diagnosed 01/18) which at that time has failed PO vancomycin, was hospitalized 01/25 and was sent home on fidaxomicin which he completed; was hospitalized again 03/04 and was given fidaxomicin at that time as well. Patient was seen lying comfortably in bed. His bowel movements are becoming more solid and "pebbled"; he states that he is not really having "watery" diarrhea. Still feeling weak as he has had nothing to eat but liquids. He says that he would love to have some solid food. Discussed again with patient what his code status was; patient is still a full code. Patient was informed of outpatient follow-ups with oncology and ID after discharge. OBJECTIVE PHYSICAL EXAMINATION: VITAL SIGNS: Please see below. GENERAL: Lying comfortably in bed; no acute distress HEENT: Head normocephalic atraumatic; moist mucous membranes CARDIOVASCULAR: Regular rate and rhythm; no murmurs appreciated RESPIRATORY: Clear to auscultation bilaterally; no wheezing, rales, rhonchi ABDOMINAL: Rounded abdomen; normoactive bowel sounds, some soreness to palpation EXTREMITIES: No edema noted bilaterally lower extremities LABORATORY DATA, IMAGING STUDIES, MICROBIOLOGY: Please see below. CT abdomen/pelvis w/ IV contrast 03/25: "1. With the exception of new moderate ascites, above-mentioned findings including hepatic and osseous metastatic lesions remain essentially unchanged. 2. No obvious acute bowel process." CTA 03/25: "1. No evidence for pulmonary embolus. 2. Soft tissue in the right hilum slightly increased from prior examination and concerning for enlarging pathologic lymph nodes or residual tumor. 3. Stable osseous metastatic lesions. Hepatic metastases again noted." CXR 03/26: "1. No evidence for pulmonary embolus. 2. Soft tissue in the right hilum slightly increased from prior examination and concerning for enlarging pathologic lymph nodes or residual tumor. 3. Stable osseous metastatic lesions. Hepatic metastases again noted." Ultrasound abdomen 03/26: "1. Known diffuse hepatic metastasis. 2. Small to moderate amount of ascites." CT abdomen/pelvis with PO and IV contrast 03/27: "1. No change from recent prior examination. 2. Hepatic metastatic disease and moderate ascites again noted. 3. No further new acute process appreciated." Diagnostic paracentesis 03/29: "Ultrasound-guided paracentesis with removal 1250 mL of clear yellow ascites." DVT prophylaxis ordered?: Yes; TEDs and Sequentials ASSESSMENT AND PLAN: This is a 65-year-old man presenting with abdominal pain, watery foul-smelling stools and dull ache in chest concerning for recurrent C. difficile. PROBLEMS: Abdominal pain w/ diarrhea 2/2 to recurrent C. diff or irritable bowel syndrome from previous C. diff - GI panel 03/26: Neg and C. diff PCR 03/26: Neg - Slight downtrended WBC to 18.8 -> 18.3; pt is afebrile - Downtrending CRP 9.12 -> 7.27 - c/w fidaxomicin for 10 days (day #7) and probiotics - Tylenol for pain control; IV morphine 2 mg every 2 for breakthrough pain levels 7-10 - CXR neg, UA neg, US abdomen neg, CT abdomen/pelvis with IV/PO contrast neg - Consulted ID; appreciate their assistance in the care of this patient; will continue with the fidaxomicin as pt may have recurrent C. diff or irritable bowel syndrome previous C. diff; as per ID he does not have an infectious process; will f/u with ID outpatient for IV Zinplava - Diagnostic paracentesis: WBC 276; Mononuclear 84; PMN 16 - pt was given one dose of Rocephin as SBP prophylaxis - d/c as there is no infectious process Nausea - c/w Zofran and Reglan as needed Hypocalcemia - will supplement as as needed Hypokalemia - will supplement as needed Hypomagnesemia -will supplement as needed Macrocytic anemia w/ no evidence of bleeding - Hg with slight decline - possibly 2/2 hemodilution - increased after stopping fluids - Will continue to trend Chronic thrombocytopenia w/ no evidence of bleeding - Lovenox discontinued - Will continue to trend Chest pain - resolved - d/c remote telemetry - pt has been in sinus rhythm - c/w home medication of aspirin Metastatic Lung cancer (stage IV) - c/w to follow up with Dr. Sorto (outpatient) - c/w home pain medications of oxycodone/acetaminophen Hyperlipidemia - c/w home medication atorvastatin VTE prophylaxis - TEDs and Sequentials DISPOSITION: pending clinical improvement VS, I&O, 24H, Fishbone Vital Signs/I&O Vital Signs Date Time Temp Pulse Resp B/P (MAP) Pulse Ox O2 Delivery O2 Flow Rate FiO2 03/31/21 07:06 97.9 80 18 115/40 (65) 94 Room Air I&O- Last 24 Hours up to 6 AM 03/31/21 05:59 Intake Total 1020 ml Output Total 300 ml Balance 720 ml Laboratory Data 24H LABS Laboratory Tests 2 03/31/21 05:36: Immature Granulocyte % (Auto) 1.3, Neutrophils (%) (Auto) 70.2H, Lymphocytes (%) (Auto) 3.4L, Monocytes (%) (Auto) 9.6H, Eosinophils (%) (Auto) 14.8H, Basophils (%) (Auto) 0.7, Neutrophils # (Auto) 12.9H, Lymphocytes # (Auto) 0.6L, Monocytes # (Auto) 1.8H, Eosinophils # (Auto) 2.7H, Basophils # (Auto) 0.1, Nucleated Red Blood Cells % (auto) 0.0, Immature Platelet Fraction 11.1H, Anion Gap 4L, Glomerular Filtration Rate > 60.0, Calcium Level 7.0L, C-Reactive Protein, Quantitative 7.27H CBC/BMP Laboratory Tests 03/31/21 05:36 Microbiology Microbiology 03/29/21 Acid Fast Stain, Received Pending 03/29/21 Mycobacterial Culture, Received Pending 03/29/21 Fungal Smear, Received Pending 03/29/21 Fungal Culture, Received Pending 03/29/21 Gram Stain - Final, Resulted 03/29/21 Body Fluid Culture, Resulted Pending 03/26/21 Gastrointestinal Tract Panel (PCR) - Final, Complete 03/25/21 Respiratory Virus Panel (PCR) ([facility]) - Final, Complete 03/25/21 Blood Culture - Final, Complete NO GROWTH AFTER 5 DAYS 03/25/21 Blood Culture - Final, Complete NO GROWTH AFTER 5 DAYS GME ATTESTATION GME ATTESTATION My faculty preceptor for this patient encounter was physically present during the encounter and was fully available. All aspects of the patient interview, examination, medical decision making process, and medical care plan development were reviewed and approved by the faculty preceptor. The faculty preceptor is aware and concurs with the plan as stated in the body of this note and will attest to such by his/her cosignature. ATTENDING NOTE Attending Attestation: I saw and evaluated the patient. I agree with the finding and the plan of care as documented in the residents note. Verna Burns DO Mar 31, 2021 09:03 ANGEL BOLANOS MD Apr 01, 2021 06:33
[2021-03-31 14:00] VITALS: BP 102/48
[2021-03-31] MEDS: CALCIUM CARBONATE 500 MG CHEW U/D PO SCH (18:33)
[2021-03-31] MEDS: DICYCLOMINE 10 MG CAP PO PRN (18:34)
[2021-03-31] MEDS: ATORVASTATIN 20 MG TAB PO SCH (21:50)
[2021-03-31 22:00] VITALS: BP 106/56
[2021-04-01] MEDS: ONDANSETRON 4MG/2ML VIAL IV SCH ×4 (04:05→20:19)
[2021-04-01] MEDS: PERCOCET 5MG/325MG TAB PO PRN ×3 (04:05→17:34)
[2021-04-01] MEDS: LEVOTHYROXINE 150MCG TABLET (0.15MG) PO SCH (05:34)
[2021-04-01 06:00] VITALS: BP 138/64
[2021-04-01 06:47] LABS: HEMATOCRIT 28.3 % (42.0-52.0); HEMOGLOBIN 9.3 g/dl (13.5-17.5); MEAN CORPUSCULAR HEMOGLOBIN 35.1 pg (27.0-33.0); MEAN CORPUSCULAR HGB CONC 32.9 g/dl (32.0-36.5); MEAN CORPUSCULAR VOLUME 106.8 fl (80.0-96.0); RED BLOOD COUNT 2.65 10^6/uL (4.30-6.10); WHITE BLOOD COUNT 17.3 10^3/uL (4.0-10.0)
[2021-04-01 06:51] LABS: PLATELET COUNT, AUTOMATED 32 10^3/uL (150-450)
[2021-04-01 07:16] LABS: BLOOD UREA NITROGEN 11 MG/DL (7-18); C REACTIVE PROTEIN QUANTITATIV 6.89 MG/DL (0.00-0.30); CALCIUM LEVEL 7.1 MG/DL (8.8-10.2); CARBON DIOXIDE LEVEL 22 MEQ/L (21-32); CHLORIDE LEVEL 113 MEQ/L (98-107); GLOMERULAR FILTRATION RATE > 60.0 (>49); GLUCOSE, FASTING 73 MG/DL (70-100); POTASSIUM SERUM 4.4 MEQ/L (3.5-5.1); SODIUM LEVEL 141 MEQ/L (136-145)
[2021-04-01] MEDS: FIDAXOMICIN 200 MG TAB (DIFICID) PO SCH ×2 (09:00→20:16)
[2021-04-01] MEDS: METAMUCIL (PSYLLIUM) PACKET PO SCH ×2 (09:00→20:16)
[2021-04-01] MEDS: FIBER-CON 625 MG TAB PO SCH ×2 (09:01→20:16)
[2021-04-01] MEDS: GABAPENTIN 300 MG CAP PO SCH ×2 (09:01→20:19)
[2021-04-01] MEDS: ESCITALOPRAM OXALATE 10 MG TAB (LEXAPRO) PO SCH (09:01)
[2021-04-01] MEDS: ASPIRIN 81MG ENTERIC TABLET PO SCH (09:01)
[2021-04-01] MEDS: LACTOBACILLUS ACIDOPHILUS CAP (BACID) PO SCH ×4 (09:01→20:16)
[2021-04-01] MEDS: FOLIC ACID 1 MG TAB PO SCH (09:01)
--- NOTE | 2021-04-01 10:11 | IPN ---
PROGRESS NOTE DATE: 03/30/2021 SUBJECTIVE: Mr. Moore feels a little better today. He states his abdominal pain has diminished since the thoracentesis. He has had less bowel movements as well. He has had no fevers or chills. He is currently day #6 of p.o. Fidaxomicin. His diarrhea is a little better. OBJECTIVE: Heart is normal S1 and S2, distant. No murmurs. Lungs with diminished breath sounds at the bases. Abdomen is obese, soft and distended with some ascites, mildly tender in the lower quadrants. Extremities with no edema. LABORATORY DATA: On 03/30: Sodium 140, potassium 4.4, chloride 113, bicarbonate 22, BUN 11, creatinine 0.68, glucose 70, calcium 6.7, magnesium 2.1, CRP 9.12. White count 18.8, hemoglobin 10.6, hematocrit 32.9, platelets 42. GI panel was negative on 03/26. Ascitic fluid culture is so far negative. AFB smear and culture and fungal smear and culture are pending. Peritoneal fluid had only 276 white cells with predominate lymphocytes of 84%. This is not suggestive of infectious process, possibly malignancy. IMPRESSION: 1. Abdominal pain with diarrhea in a patient with two previous episodes of C. Difficile, currently his GI panel and C. Diff were negative but the patient is on Fidaxomicin for a total of 10 days and he will be tapered off Fidaxomicin to prevent recurrence and given a dose of IV Zinplava as an outpatient. 2. Ascites, status post paracentesis with no infectious process suggested by the peritoneal fluid. Cytology pending. Abdominal pain improved after paracentesis. 3. Anemia with leukocytosis and thrombocytopenia, the thrombocytopenia started somewhere around September and I am wondering if this is related to his malignancy, not sure if the patient has cirrhosis. He definitely has metastatic cancer to lungs, liver, bones and his code status needs to be addressed by Oncology. Please consult Oncology regarding thrombocytopenia. He sees Dr. Sorto.
--- NOTE | 2021-04-01 15:26 | IPNPDOC ---
Date Seen The patient was seen on 04/01/21. Progress Note SUBJECTIVE: Patient is a 65-year-old male with a PMHx of Recurrent C. Diff, Metastatic lung CA, HTN, Hypothyroidism, HLD, Neuropathy and Depression, presented to ED with abdominal pain and diarrhea. Patient has recurrent C. difficile (diagnosed 01/18) which at that time has failed PO vancomycin, was hospitalized 01/25 and was sent home on fidaxomicin which he completed; was hospitalized again 03/04 and was given fidaxomicin at that time as well. Patient was seen sitting up in bed with no acute complaints. He states that his bowel movements are mostly solid. He is still feeling a little weak and would love to have some "real food". Says that his abdomen feels little sore but pain has definitely decreased. OBJECTIVE PHYSICAL EXAMINATION: VITAL SIGNS: Please see below. GENERAL: Sitting comfortably in bed; no acute distress HEENT: Head normocephalic atraumatic; moist mucus membranes CARDIOVASCULAR: Regular rate and rhythm; no murmurs appreciated RESPIRATORY: Clear to auscultation bilaterally; no wheezing, rales or rhonchi ABDOMINAL: Rounded abdomen; normoactive bowel sounds, some soreness to palpation EXTREMITIES: No edema noted bilateral lower extremities LABORATORY DATA, IMAGING STUDIES, MICROBIOLOGY: Please see below. CT abdomen/pelvis w/ IV contrast 03/25: "1. With the exception of new moderate ascites, above-mentioned findings including hepatic and osseous metastatic lesions remain essentially unchanged. 2. No obvious acute bowel process." CTA 03/25: "1. No evidence for pulmonary embolus. 2. Soft tissue in the right hilum slightly increased from prior examination and concerning for enlarging pathologic lymph nodes or residual tumor. 3. Stable osseous metastatic lesions. Hepatic metastases again noted." CXR 03/26: "1. No evidence for pulmonary embolus. 2. Soft tissue in the right hilum slightly increased from prior examination and concerning for enlarging pathologic lymph nodes or residual tumor. 3. Stable osseous metastatic lesions. Hepatic metastases again noted." Ultrasound abdomen 03/26: "1. Known diffuse hepatic metastasis. 2. Small to moderate amount of ascites." CT abdomen/pelvis with PO and IV contrast 03/27: "1. No change from recent prior examination. 2. Hepatic metastatic disease and moderate ascites again noted. 3. No further new acute process appreciated." Diagnostic paracentesis 03/29: "Ultrasound-guided paracentesis with removal 1250 mL of clear yellow ascites." DVT prophylaxis ordered?: Yes; TEDs and Sequentials ASSESSMENT AND PLAN: This is a 65-year-old man presenting with abdominal pain, watery foul-smelling stools and dull ache in chest concerning for recurrent C. difficile. PROBLEMS: Abdominal pain w/ diarrhea 2/2 to recurrent C. diff or irritable bowel syndrome from previous C. diff - GI panel 03/26: Neg and C. diff PCR 03/26: Neg - Downtrended WBC to 18.8 -> 18.3 -> 17.3; pt is afebrile - Downtrending CRP 9.12 -> 7.27 -> 6.89 - c/w fidaxomicin for 10 days (day #8) and probiotics - Tylenol for pain control; IV morphine 2 mg every 2 hours for breakthrough pain levels 7-10 - Consulted ID; appreciate their assistance in the care of this patient; will continue with the fidaxomicin as pt may have recurrent C. diff or irritable bowel syndrome previous C. diff; as per ID he does not have an infectious process; will f/u with ID outpatient for IV Zinplava - Diagnostic paracentesis: WBC 276; Mononuclear 84; PMN 16 - pt was given one dose of Rocephin as SBP prophylaxis - d/c as there is no infectious process - Ascites Fluid: Staphylococcus warneri; likely contaminant (skin bacteria) Anemia with leukocytosis and thrombocytopenia - Consulted heme/onc; we appreciate their participation in the care of this patient - f/u on bone marrow biopsy and peripheral smear - Lovenox discontinued Nausea - c/w Zofran and Reglan as needed Hypocalcemia - will supplement as as needed Hypokalemia - will supplement as needed Hypomagnesemia -will supplement as needed Chest pain - resolved - d/c remote telemetry - pt has been in sinus rhythm - c/w home medication of aspirin Metastatic Lung cancer (stage IV) - c/w to follow up with Dr. Sorto (outpatient) - c/w home pain medications of oxycodone/acetaminophen Hyperlipidemia - c/w home medication atorvastatin VTE prophylaxis - TEDs and Sequentials DISPOSITION: ALC VS, I&O, 24H, Fishbone Vital Signs/I&O Vital Signs Date Time Temp Pulse Resp B/P (MAP) Pulse Ox O2 Delivery O2 Flow Rate FiO2 04/01/21 06:00 98.2 70 18 138/64 (88) 97 Room Air I&O- Last 24 Hours up to 6 AM 04/01/21 06:00 Intake Total 1500 ml Output Total 0 ml Balance 1500 ml Laboratory Data 24H LABS Laboratory Tests 2 04/01/21 05:52: Nucleated Red Blood Cells % (auto) 0.0, Immature Platelet Fraction 13.8H, Anion Gap 6L, Glomerular Filtration Rate > 60.0, Calcium Level 7.1L, C-Reactive Protein, Quantitative 6.89H CBC/BMP Laboratory Tests 04/01/21 05:52 Microbiology Microbiology 03/29/21 Acid Fast Stain, Received Pending 03/29/21 Mycobacterial Culture, Received Pending 03/29/21 Fungal Smear, Received Pending 03/29/21 Fungal Culture, Received Pending 03/29/21 Gram Stain - Final, Resulted 03/29/21 Body Fluid Culture, Resulted Pending 03/26/21 Gastrointestinal Tract Panel (PCR) - Final, Complete 03/25/21 Respiratory Virus Panel (PCR) (STACEY) - Final, Complete 03/25/21 Blood Culture - Final, Complete NO GROWTH AFTER 5 DAYS 03/25/21 Blood Culture - Final, Complete NO GROWTH AFTER 5 DAYS GME ATTESTATION GME ATTESTATION My faculty preceptor for this patient encounter was physically present during the encounter and was fully available. All aspects of the patient interview, examination, medical decision making process, and medical care plan development were reviewed and approved by the faculty preceptor. The faculty preceptor is aware and concurs with the plan as stated in the body of this note and will attest to such by his/her cosignature. ATTENDING NOTE Attending Attestation: I saw and evaluated the patient. I agree with the finding and the plan of care as documented in the residents note. Verna Burns DO Apr 01, 2021 09:18 ANGEL BOLANOS MD Apr 02, 2021 08:27
[2021-04-01 15:39] LABS: ALT/SGPT 43 U/L (12-78); BILIRUBIN,DIRECT 0.3 MG/DL (0.0-0.2); BILIRUBIN,TOTAL 0.6 MG/DL (0.2-1.0)
[2021-04-01 15:53] LABS: TOTAL PROTEIN 4.6 GM/DL (6.4-8.2)
[2021-04-01] MEDS: CALCIUM CARBONATE 500 MG CHEW U/D PO SCH (17:34)
[2021-04-01] MEDS: ATORVASTATIN 20 MG TAB PO SCH (20:16)
[2021-04-01 22:00] VITALS: BP 130/72
[2021-04-02] MEDS: PERCOCET 5MG/325MG TAB PO PRN ×4 (00:30→23:14)
[2021-04-02] MEDS: ONDANSETRON 4MG/2ML VIAL IV SCH ×4 (04:01→21:05)
[2021-04-02] MEDS: DICYCLOMINE 10 MG CAP PO PRN ×2 (05:12→15:37)
[2021-04-02] MEDS: LEVOTHYROXINE 150MCG TABLET (0.15MG) PO SCH (05:12)
[2021-04-02 07:00] LABS: BASO # 0.1 10^3/uL (0.0-0.2); BASO % 0.7 % (0.0-1.0); EOS # 2.5 10^3/uL (0.0-0.5); EOS % 15.2 % (0.0-3.0); HEMATOCRIT 28.8 % (42.0-52.0); HEMOGLOBIN 9.4 g/dl (13.5-17.5); LYMPH # 0.6 10^3/uL (1.5-5.0); LYMPH % 3.9 % (24.0-44.0); MEAN CORPUSCULAR HEMOGLOBIN 35.2 pg (27.0-33.0); MEAN CORPUSCULAR HGB CONC 32.6 g/dl (32.0-36.5); MEAN CORPUSCULAR VOLUME 107.9 fl (80.0-96.0); MONO # 1.6 10^3/uL (0.0-0.8); MONO % 9.7 % (2.0-8.0); NEUTROPHILS # 11.2 10^3/uL (1.5-8.5); NEUTROPHILS % 69.2 % (36.0-66.0); RED BLOOD COUNT 2.67 10^6/uL (4.30-6.10)
[2021-04-02 07:17] LABS: BLOOD UREA NITROGEN 13 MG/DL (7-18); C REACTIVE PROTEIN QUANTITATIV 6.73 MG/DL (0.00-0.30); CALCIUM LEVEL 7.4 MG/DL (8.8-10.2); CARBON DIOXIDE LEVEL 25 MEQ/L (21-32); CHLORIDE LEVEL 111 MEQ/L (98-107); GLOMERULAR FILTRATION RATE > 60.0 (>49); GLUCOSE, FASTING 87 MG/DL (70-100); POTASSIUM SERUM 4.4 MEQ/L (3.5-5.1); SODIUM LEVEL 139 MEQ/L (136-145)
[2021-04-02 07:31] LABS: PLATELET COUNT, AUTOMATED 35 10^3/uL (150-450); WHITE BLOOD COUNT 16.2 10^3/uL (4.0-10.0)
[2021-04-02] MEDS: LACTOBACILLUS ACIDOPHILUS CAP (BACID) PO SCH ×4 (09:02→21:05)
[2021-04-02] MEDS: ESCITALOPRAM OXALATE 10 MG TAB (LEXAPRO) PO SCH (09:02)
[2021-04-02] MEDS: FIBER-CON 625 MG TAB PO SCH ×2 (09:02→21:06)
[2021-04-02] MEDS: FIDAXOMICIN 200 MG TAB (DIFICID) PO SCH ×2 (09:02→21:05)
[2021-04-02] MEDS: ASPIRIN 81MG ENTERIC TABLET PO SCH (09:02)
[2021-04-02] MEDS: GABAPENTIN 300 MG CAP PO SCH ×2 (09:03→21:05)
[2021-04-02] MEDS: FOLIC ACID 1 MG TAB PO SCH (09:03)
[2021-04-02] MEDS: METAMUCIL (PSYLLIUM) PACKET PO SCH ×2 (09:04→21:00)
[2021-04-02] MEDS: guaiFENesin ER 600 MG TAB PO SCH ×2 (12:47→21:05)
[2021-04-02 14:00] VITALS: BP 109/56
--- NOTE | 2021-04-02 16:35 | IPN ---
PROGRESS NOTE DATE: 04/02/2021 Mr. Moore seems to be doing a little better today. He is in good spirits. He states his only concern now is his cough, which is productive of yellow phlegm. He states he has slightly increased shortness of breath. No nausea, vomiting. Diarrhea has markedly improved. He states he had only two bowel movements yesterday, which had some formed stools. His appetite has improved. PHYSICAL EXAMINATION: HEART: Normal S1, S2. No murmurs appreciated. LUNGS: Clear. No wheezes, rales, or rhonchi. Right thoracotomy, well healed. ABDOMEN: Soft, distended with slight tenderness in the right lower and left lower quadrant areas but no guarding. EXTREMITIES: Trace pretibial edema with no rashes, no calf tenderness. NEUROLOGIC: Normal. Motor strength is normal. LABORATORY DATA: White count is 16.2, hemoglobin 9.4, hematocrit 28.8, platelets 35, 69% neutrophils, 4%. Lymphocytes, 10% monocytes. Sodium 139, potassium 4.4, chloride 111, bicarbonate 25, BUN 13, creatinine 0.6, glucose 87, calcium 7.4. CRP 6.73. Procalcitonin 0.92. Ascites fluid culture had few Staphylococcus warneri. I suspect this is a contaminant. This is very unlikely that it is two pathogen with a total of 44 PMNs and acidic fluid. Also fluid was not sent for cytology to see if he has a malignant peritoneal fluid. PLAN: Continue fidaxomycin. He is currently day #8/10, following which I would. Suggest tapering him on a schedule of 200 mg daily for 5 days, 200 mg every other day for 10 days, and then every third day for 10 days. Patient also should receive intravenous (IV) Zinplava at a dose of 10 mg/kg, which is 800 mg infusion, based on his body weight. Suggest repeat paracentesis. Sent fluid for cell count and culture as well as cytology. I would not treat this Staphylococcus warneri, as it is most likely a contaminant.
--- NOTE | 2021-04-02 16:48 | CR.PDOC ---
General Date of Consultation: Apr 02, 2021 Referring Provider: Verna Burns DO Primary Care Physician: RODRIGO PARK PA-C Attending Physician: ANGEL BOLANOS MD Consultation REASON FOR CONSULTATION: Leukocytosis, anemia, thrombocytopenia and metastatic lung cancer HISTORY OF PRESENT ILLNESS: 65-year-old with metastatic lung cancer. Most recent treatment 12/22/2020 carbo platin pemetrexed chemotherapy. Last imaging study showed disease progression and plan was to start docetaxel/ramucirumab. However the patient has been in hospital 03/03/2021 for diarrhea abdominal pain and treated for recurrent C. difficile colitis. He is currently readmitted since 03/25/2021 for abdominal pain with diarrhea. Currently on fidaxomicin. CT abdomen pelvis 03/03/2021 showed progressive metastatic disease to liver. CT abdomen pelvis 03/27/2021 showed moderate ascites and hepatic metastatic disease. Underwent paracentesis 03/29/2021 with drainage of 1250 cc clear yellow ascites. Leukocytosis ongoing since 12/2020. Thrombocytopenia also ongoing since September 2020 but currently worsening. The patient also has macrocytic anemia. ALLERGIES: Please see below. HOME MEDICATIONS: Please see below. PAST MEDICAL HISTORY: Hyperlipidemia. Depression. Hypothyroidism. Nephrolithiasis with stenting and basketing of kidney stones. Pulmonary embolism January 2018 status post lung surgery setting. Metastatic lung cancer. FAMILY HISTORY: No family history of cancer as per patient. SOCIAL HISTORY: Former smoker, quit in 2004, having smoked since 15 years old up to 2 ppd Denies alcohol use. On disability since 2012 for spinal stenosis. 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 . Lives by himself. 1 grown daughter. REVIEW OF SYSTEMS: CONSTITUTIONAL: Weight loss. Generalized fatigue. HEENT: Negative. CARDIOVASCULAR: No chest pain. RESPIRATORY: Chronic cough. Shortness of breath on exertion. GENITOURINARY: Denies dysuria, frequency, incontinence. MUSCULOSKELETAL: Back pain chronic. GASTROINTESTINAL: Diarrhea. SKIN: History of skin rash. NEUROLOGICAL: Weakness. PSYCHIATRIC: Mood stable ENDOCRINE: No heat intolerance. No cold intolerance. HEMATOLOGIC/LYMPHATIC: Bruising. PHYSICAL EXAMINATION: VITAL SIGNS: Please see below. GENERAL APPEARANCE: Seated comfortably in bed not in distress. Communicative. Answered questions appropriately. HEENT: Slightly pale conjunctive anicteric. RESPIRATORY: Fair air entry. No rales rhonchi no wheeze. CARDIOVASCULAR: S1-S2 regular ABDOMEN: Soft, nontender, no guarding. Positive bowel sounds EXTREMITIES: No pedal edema. No cyanosis NEUROLOGICAL: Alert, oriented x3 PSYCHIATRIC: Mood normal LABORATORY DATA: Please see below. ASSESSMENT/PLAN: Metastatic lung cancer more recently on carboplatin/pemetrexed chemotherapy. Waiting to start docetaxel/ramucirumab but currently on treatment for C. difficile colitis. Also has been deconditioned and feels weak and fatigued. Leukocytosis, anemia, thrombocytopenia likely related to ongoing infection. Leukocytosis ongoing since 12/2020. Thrombocytopenia also ongoing since September 2020 but currently worsening. Anemia ongoing since 01/2020. Peripheral smear review 04/01/2021 showed leukocytosis with shift to left, no blasts noted, macrocytic anemia, anisocytosis increased, poikilocytosis minimal. Thrombocytopenia. With concern for an underlying hematological condition, I have recommended a bone marrow aspiration and biopsy. Transfusion support as needed for significant thrombocytopenia and anemia but for now continue monitoring blood counts. Thank you for informing me of Mr. Morales Moore's admission. Vital Signs/I&O Vital Signs Date Time Temp Pulse Resp B/P (MAP) Pulse Ox O2 Delivery O2 Flow Rate FiO2 04/02/21 09:33 16 Room Air 04/02/21 01:00 95 04/01/21 22:00 98.1 78 130/72 (91) I&O- Last 24 Hours up to 6 AM 04/02/21 06:00 Intake Total 720 ml Balance 720 ml Laboratory Data Labs 24H Laboratory Tests 2 04/02/21 06:04: Immature Granulocyte % (Auto) 1.3, Neutrophils (%) (Auto) 69.2H, Lymphocytes (%) (Auto) 3.9L, Monocytes (%) (Auto) 9.7H, Eosinophils (%) (Auto) 15.2H, Basophils (%) (Auto) 0.7, Neutrophils # (Auto) 11.2H, Lymphocytes # (Auto) 0.6L, Monocytes # (Auto) 1.6H, Eosinophils # (Auto) 2.5H, Basophils # (Auto) 0.1, Nucleated Red Blood Cells % (auto) 0.0, Immature Platelet Fraction 13.7H, Anion Gap 3L, Glomerular Filtration Rate > 60.0, Calcium Level 7.4L, C-Reactive Protein, Quantitative 6.73H CBC/BMP Laboratory Tests 04/02/21 06:04 Microbiology Microbiology 03/29/21 Acid Fast Stain, Received Pending 03/29/21 Mycobacterial Culture, Received Pending 03/29/21 Fungal Smear, Received Pending 03/29/21 Fungal Culture, Received Pending 03/29/21 Gram Stain - Final, Complete 03/29/21 Body Fluid Culture - Final, Complete Staphylococcus Warneri 03/26/21 Gastrointestinal Tract Panel (PCR) - Final, Complete 03/25/21 Respiratory Virus Panel (PCR) (STACEY) - Final, Complete 03/25/21 Blood Culture - Final, Complete NO GROWTH AFTER 5 DAYS 03/25/21 Blood Culture - Final, Complete NO GROWTH AFTER 5 DAYS Allergies Coded Allergies: pembrolizumab (Verified Allergy, Intermediate, RASH, 07/29/20) Home Medications Scheduled Aspirin (Aspirin EC) 81 Mg Tablet.dr, 81 MG PO DAILY, (Reported) Atorvastatin Calcium (Atorvastatin Calcium) 40 Mg Tablet, 40 MG PO QHS, (Repo rted) Bimatoprost (Lumigan) 0.01% 2.5ML Drops, 1 DROP OU QHS, (Reported) Calcium Carbonate (Calcium) 600 Mg Tablet, 600 MG PO QPM, (Reported) TAKES AROUND DINNERTIME Carvedilol (Carvedilol) 3.125 Mg Tablet, 3.125 MG PO BID, (Reported) Escitalopram Oxalate (Lexapro) 20 Mg Tablet, 20 MG PO DAILY, (Reported) Folic Acid (Folic Acid) 0.4 Mg Tablet, 400 MCG PO DAILY, (Reported) Gabapentin (Gabapentin) 300 Mg Capsule, 300 MG PO BID, (Reported) L.acidoph/L.bulg/B.bif/S.therm (Bacid Caplet) 1 Each Tablet, 1 TAB PO ACHS, (Reported) Levothyroxine Sodium (Levothyroxine) 150 Mcg Capsule, 150 MCG PO DAILY, (Reported) Lisinopril (Lisinopril) 10 Mg Tablet, 10 MG PO DAILY, (Reported) Scheduled PRN Albuterol Sulfate (Albuterol Sulfate Hfa) 8.5 Gm Hfa.aer.ad, 2 PUFF INH Q4H PRN for SHORTNESS OF BREATH, (Reported) Ondansetron HCl (Ondansetron HCl) 8 Mg Tablet, 8 MG PO Q12HP PRN for NAUSEA OR VOMITING, #30 Oxycodone HCl/Acetaminophen (Oxycodone-Acetaminophen 10-325) 1 Each Tablet, 1 TAB PO QID PRN for PAIN, (Reported) Prochlorperazine Maleate (Prochlorperazine Maleate) 10 Mg Tablet, 10 MG PO Q6H PRN for NAUSEA OR VOMITING, (Reported) SKYE GARCES MD [facility] Apr 02, 2021 13:08
--- NOTE | 2021-04-02 16:55 | REP ---
INDICATION: cough. COMPARISON: Comparison chest x-ray March 26, 2021. TECHNIQUE: Two views.. FINDINGS: Right hemidiaphragm remains elevated and there is volume loss in the right lower hemithorax. Surgical clips are seen in the right paramediastinal region. Cardiomegaly is observed unchanged. The left pleural angles are sharp. Pulmonary vasculature is not increased. There are degenerative changes in the thoracic spine. IMPRESSION: Post thoracotomy changes with volume loss right hemithorax. Cardiomegaly. Otherwise no acute disease. No infiltrate seen. <Electronically signed by Wilber Ba > 04/02/21 2060
[2021-04-02] MEDS: CALCIUM CARBONATE 500 MG CHEW U/D PO SCH (18:13)
[2021-04-02] MEDS: ATORVASTATIN 20 MG TAB PO SCH (21:06)
[2021-04-02 22:00] VITALS: BP 106/46
[2021-04-03] MEDS: ONDANSETRON 4MG/2ML VIAL IV SCH ×4 (03:17→22:11)
[2021-04-03 06:00] VITALS: BP 107/47
[2021-04-03 06:08] LABS: BASO # 0.1 10^3/uL (0.0-0.2); BASO % 0.7 % (0.0-1.0); EOS # 2.4 10^3/uL (0.0-0.5); EOS % 14.3 % (0.0-3.0); HEMATOCRIT 30.2 % (42.0-52.0); HEMOGLOBIN 9.8 g/dl (13.5-17.5); LYMPH # 0.7 10^3/uL (1.5-5.0); LYMPH % 4.3 % (24.0-44.0); MEAN CORPUSCULAR HGB CONC 32.5 g/dl (32.0-36.5); MEAN CORPUSCULAR VOLUME 107.9 fl (80.0-96.0); MONO % 9.2 % (2.0-8.0); NEUTROPHILS # 11.7 10^3/uL (1.5-8.5); NEUTROPHILS % 70.1 % (36.0-66.0)
[2021-04-03] MEDS: LEVOTHYROXINE 150MCG TABLET (0.15MG) PO SCH (06:24)
[2021-04-03] MEDS: PERCOCET 5MG/325MG TAB PO PRN ×3 (06:25→22:17)
[2021-04-03 07:29] LABS: WHITE BLOOD COUNT 16.7 10^3/uL (4.0-10.0)
[2021-04-03 07:30] LABS: MONO # 1.5 10^3/uL (0.0-0.8); PLATELET COUNT, AUTOMATED 35 10^3/uL (150-450)
[2021-04-03] MEDS: FIBER-CON 625 MG TAB PO SCH ×2 (09:20→22:12)
[2021-04-03] MEDS: guaiFENesin ER 600 MG TAB PO SCH ×2 (09:20→22:11)
[2021-04-03] MEDS: LACTOBACILLUS ACIDOPHILUS CAP (BACID) PO SCH ×4 (09:20→22:11)
[2021-04-03] MEDS: GABAPENTIN 300 MG CAP PO SCH ×2 (09:20→22:11)
[2021-04-03] MEDS: FIDAXOMICIN 200 MG TAB (DIFICID) PO SCH ×2 (09:20→22:10)
[2021-04-03] MEDS: FOLIC ACID 1 MG TAB PO SCH (09:20)
[2021-04-03] MEDS: ASPIRIN 81MG ENTERIC TABLET PO SCH (09:20)
[2021-04-03] MEDS: METAMUCIL (PSYLLIUM) PACKET PO SCH ×2 (09:21→21:00)
[2021-04-03] MEDS: ESCITALOPRAM OXALATE 10 MG TAB (LEXAPRO) PO SCH (09:21)
[2021-04-03 14:00] VITALS: BP_SYST 102; BP_SYST 108; BP_DIAS 45; BP_DIAS 73
[2021-04-03] MEDS: CALCIUM CARBONATE 500 MG CHEW U/D PO SCH (18:19)
[2021-04-03 22:00] VITALS: BP 105/50
[2021-04-03] MEDS: ATORVASTATIN 20 MG TAB PO SCH (22:10)
[2021-04-04] MEDS: ONDANSETRON 4MG/2ML VIAL IV SCH ×4 (04:07→21:00)
[2021-04-04] MEDS: LEVOTHYROXINE 150MCG TABLET (0.15MG) PO SCH (05:45)
[2021-04-04] MEDS: PERCOCET 5MG/325MG TAB PO PRN ×3 (05:45→21:01)
[2021-04-04 06:00] VITALS: BP 110/56
[2021-04-04] MEDS: ASPIRIN 81MG ENTERIC TABLET PO SCH (08:57)
[2021-04-04] MEDS: FIBER-CON 625 MG TAB PO SCH ×2 (08:57→21:00)
[2021-04-04] MEDS: LACTOBACILLUS ACIDOPHILUS CAP (BACID) PO SCH ×4 (08:57→21:00)
[2021-04-04] MEDS: GABAPENTIN 300 MG CAP PO SCH ×2 (08:57→21:00)
[2021-04-04] MEDS: FIDAXOMICIN 200 MG TAB (DIFICID) PO SCH (08:57)
[2021-04-04] MEDS: ESCITALOPRAM OXALATE 10 MG TAB (LEXAPRO) PO SCH (08:57)
[2021-04-04] MEDS: FOLIC ACID 1 MG TAB PO SCH (08:58)
[2021-04-04] MEDS: guaiFENesin ER 600 MG TAB PO SCH ×2 (08:58→21:00)
[2021-04-04] MEDS: METAMUCIL (PSYLLIUM) PACKET PO SCH ×2 (09:01→21:00)
[2021-04-04 14:00] VITALS: BP 116/64
[2021-04-04] MEDS: CALCIUM CARBONATE 500 MG CHEW U/D PO SCH (16:51)
[2021-04-04] MEDS: ATORVASTATIN 20 MG TAB PO SCH (21:00)
[2021-04-04 22:00] VITALS: BP 103/55
[2021-04-05] MEDS: ONDANSETRON 4MG/2ML VIAL IV SCH ×4 (04:23→21:05)
[2021-04-05] MEDS: PERCOCET 5MG/325MG TAB PO PRN ×4 (04:30→23:17)
[2021-04-05] MEDS: LEVOTHYROXINE 150MCG TABLET (0.15MG) PO SCH (05:36)
[2021-04-05 06:00] VITALS: BP 127/86
[2021-04-05] MEDS: METAMUCIL (PSYLLIUM) PACKET PO SCH ×2 (09:00→21:05)
[2021-04-05] MEDS: FIBER-CON 625 MG TAB PO SCH ×2 (09:21→21:06)
[2021-04-05] MEDS: ESCITALOPRAM OXALATE 10 MG TAB (LEXAPRO) PO SCH (09:21)
[2021-04-05] MEDS: ASPIRIN 81MG ENTERIC TABLET PO SCH (09:21)
[2021-04-05] MEDS: GABAPENTIN 300 MG CAP PO SCH ×2 (09:21→21:06)
[2021-04-05] MEDS: LACTOBACILLUS ACIDOPHILUS CAP (BACID) PO SCH ×4 (09:21→21:06)
[2021-04-05] MEDS: FIDAXOMICIN 200 MG TAB (DIFICID) PO SCH (09:21)
[2021-04-05] MEDS: guaiFENesin ER 600 MG TAB PO SCH ×2 (09:21→21:06)
[2021-04-05] MEDS: FOLIC ACID 1 MG TAB PO SCH (09:22)
[2021-04-05] MEDS: DICYCLOMINE 10 MG CAP PO PRN (15:12)
[2021-04-05] MEDS: CALCIUM CARBONATE 500 MG CHEW U/D PO SCH (17:34)
[2021-04-05] MEDS: ATORVASTATIN 20 MG TAB PO SCH (21:06)
[2021-04-06] MEDS: ONDANSETRON 4MG/2ML VIAL IV SCH ×4 (04:27→21:21)
[2021-04-06 06:00] VITALS: BP 117/60
[2021-04-06] MEDS: LEVOTHYROXINE 150MCG TABLET (0.15MG) PO SCH (06:05)
[2021-04-06] MEDS: FIDAXOMICIN 200 MG TAB (DIFICID) PO SCH (08:19)
[2021-04-06] MEDS: FIBER-CON 625 MG TAB PO SCH (08:19)
[2021-04-06] MEDS: LACTOBACILLUS ACIDOPHILUS CAP (BACID) PO SCH ×4 (08:19→21:21)
[2021-04-06] MEDS: ASPIRIN 81MG ENTERIC TABLET PO SCH (08:20)
[2021-04-06] MEDS: ESCITALOPRAM OXALATE 10 MG TAB (LEXAPRO) PO SCH (08:20)
[2021-04-06] MEDS: GABAPENTIN 300 MG CAP PO SCH ×2 (08:20→21:21)
[2021-04-06] MEDS: METAMUCIL (PSYLLIUM) PACKET PO SCH (08:20)
[2021-04-06] MEDS: PERCOCET 5MG/325MG TAB PO PRN ×3 (08:20→22:58)
[2021-04-06] MEDS: guaiFENesin ER 600 MG TAB PO SCH ×2 (08:20→21:21)
[2021-04-06] MEDS: FOLIC ACID 1 MG TAB PO SCH (08:20)
--- NOTE | 2021-04-06 10:07 | IPNPDOC ---
Text Note Date of Service The patient was seen on 04/06/21. NOTE Subjective: Patient is a 65-year-old male with a PMHx of Recurrent C. Diff, Metastatic lung CA (mets to bone / liver, on Chemotherapy / Immunotherapy), HTN, Hypothyroidism, DLP, Neuropathy, Depression, presented to the emergency room with complaints of abdominal pain and diarrhea. Patient reported that he was recently treated for C. difficile and had completed Fidaxomicin. A few days after patient was beginning to experience worsening abdominal pain and diarrhea. He presented to the ER with concerns of recurrent C. difficile patient was admitted to the hospital service for further evaluation and treatment. Workup has revealed no evidence of C. diff on GI panel / C. diff PCR. Patient was seen and examined at the bedside. Patient does not express any nausea or vomiting. Denies any diarrhea. In fact is constipated. Denies any chest pain, short of breath, palpitations. Reports abdominal discomfort. Objective: Vitals (See below) General: Patient is lying in bed, appears to be comfortable without any acute distress, is awake and alert, oriented 3 HEENT: Normocephalic and atraumatic CVS: +S1S2 Lungs: Air entry appears to be fair bilaterally without any evidence of crackles, wheezing or rhonchi Abdomen: Soft, distended, tenderness appreciated diffusely Extremities: Lower extremities are without any significant edema Imaging: CT abdomen / pelvis 03/25: 1. With the exception of new moderate ascites, above-mentioned findings including hepatic and osseous metastatic lesions remain essentially unchanged. 2. No obvious acute bowel process. CTA chest 03/25: 1. No evidence for pulmonary embolus. 2. Soft tissue in the right hilum slightly increased from prior examination and concerning for enlarging pathologic lymph nodes or residual tumor. 3. Stable osseous metastatic lesions. Hepatic metastases again noted. CXR 03/26: Cardiomegaly. Chronic changes right base and right ribcage. Otherwise no acute disease. Abdomen US 03/26: 1. Known diffuse hepatic metastasis. 2. Small to moderate amount of ascites. CT abdomen / pelvis 03/27: 1. No change from recent prior examination. 2. Hepatic metastatic disease and moderate ascites again noted. 3. No further new acute process appreciated. Paracentesis US 03/29: Ultrasound-guided paracentesis with removal 1250 mL of clear yellow ascites. CXR 04/02: Post thoracotomy changes with volume loss right hemithorax. Cardiomegaly. Otherwise no acute disease. No infiltrate seen. Assessment and plan: Abdominal pain - possibly 2/2 C. difficile given history, possibly 2/2 IBS - Patient reports constipation, no bowel movements in 2 days - Patient remains hemodynamically stable and afebrile - Physical still reveals some abdominal discomfort around left upper quadrant - Leukocytosis, improving - s/p Lactic acidosis - GI panel 03/26: Negative / C. diff PCR 03/26: Negative - c/w Fidaxomicin (Completed 10 days full course; now on taper) / Probiotics - c/w Supportive care with Bentyl / Tylenol / Percocet / Morphine - Will DC stool bulking agents - ID on consultation Ascites - s/p Paracentesis and removal of 1250 cc of fluid - Fluid culture 03/29: Staph Warneri - likely 2/2 contaminant - Will attempt additional paracentesis today - ID on consultation; no antibiotics indicated at this time s/p Lactic acidosis s/p Hypokalemia - Will check AM labs s/p Hypocalcemia - Will check AM labs Macrocytic anemia - Hg remains stable - No evidence of bleeding Chronic thrombocytopenia - No evidence of bleeding - s/p Lovenox - Will continue to follow trend HTN - BP well controlled - c/w Lisinopril and Carvedilol s/p Chest pain - No further chest pain reported - Troponins negative x3 - c/w ASA Metastatic Lung cancer (stage IV) - c/w home pain medications of oxycodone/acetaminophen - Dr. Sorto on consultation; appreciate their input DLP - c/w Atorvastatin Hypothyroidism - c/w Levothyroxine Neuropathy - c/w Gabapentin Depression - c/w Escitalopram DVT prophylaxis - c/w TEDs/Sequentials Disposition: - Pending clinical improvement - Paracentesis today - c/w ALC status VS,Fishbone, I+O VS, Fishbone, I+O Vital Signs Date Time Temp Pulse Resp B/P (MAP) Pulse Ox O2 Delivery O2 Flow Rate FiO2 04/06/21 09:36 18 Room Air 04/06/21 06:00 98.2 87 117/60 (79) 98 I&O- Last 24 Hours up to 6 AM 04/06/21 06:00 Intake Total 1680 ml Output Total 0 ml Balance 1680 ml ROWE,VIJESH MD Apr 06, 2021 10:07
[2021-04-06 11:33] LABS: BASO # 0.2 10^3/uL (0.0-0.2); BASO % 0.6 % (0.0-1.0); EOS % 12.7 % (0.0-3.0); HEMATOCRIT 29.5 % (42.0-52.0); HEMOGLOBIN 9.5 g/dl (13.5-17.5); LYMPH # 0.7 10^3/uL (1.5-5.0); LYMPH % 2.9 % (24.0-44.0); MEAN CORPUSCULAR HEMOGLOBIN 35.6 pg (27.0-33.0); MEAN CORPUSCULAR HGB CONC 32.2 g/dl (32.0-36.5); MEAN CORPUSCULAR VOLUME 110.5 fl (80.0-96.0); MONO % 7.5 % (2.0-8.0); NEUTROPHILS # 17.5 10^3/uL (1.5-8.5); NEUTROPHILS % 75.4 % (36.0-66.0); RED BLOOD COUNT 2.67 10^6/uL (4.30-6.10)
[2021-04-06 11:34] LABS: PLATELET COUNT, AUTOMATED 35 10^3/uL (150-450); WHITE BLOOD COUNT 23.3 10^3/uL (4.0-10.0)
[2021-04-06 11:35] LABS: MONO # 1.8 10^3/uL (0.0-0.8)
[2021-04-06 11:36] LABS: BLOOD UREA NITROGEN 16 MG/DL (7-18); CALCIUM LEVEL 7.7 MG/DL (8.8-10.2); CARBON DIOXIDE LEVEL 21 MEQ/L (21-32); CHLORIDE LEVEL 110 MEQ/L (98-107); CREATININE FOR GFR 0.52 MG/DL (0.70-1.30); GLOMERULAR FILTRATION RATE > 60.0 (>49); GLUCOSE, FASTING 69 MG/DL (70-100); MAGNESIUM LEVEL 1.6 MG/DL (1.8-2.4); POTASSIUM SERUM 4.6 MEQ/L (3.5-5.1); SODIUM LEVEL 139 MEQ/L (136-145)
[2021-04-06 14:32] LABS: C REACTIVE PROTEIN QUANTITATIV 7.38 MG/DL (0.00-0.30)
[2021-04-06] MEDS: MAG SULF 1GM/100ML (MAG RUN) 1 GM in IV 1 EA IV SCH ×2 (14:49→16:11)
[2021-04-06] MEDS: CALCIUM CARBONATE 500 MG CHEW U/D PO SCH (16:11)
--- NOTE | 2021-04-06 16:56 | REP ---
INDICATION: Abdominal distension. COMPARISON: None. TECHNIQUE: The procedure was performed under the direct supervision of Dr. Gaffney. The risks and benefits of the procedure were explained to the patient and informed consent was obtained. The largest pocket of fluid was localized in the right upper quadrant using ultrasound guidance. The skin was prepped and draped in a sterile fashion. Seven of 1% lidocaine was used as a local anesthetic. Using ultrasound guidance an 8-Peruvian multi side-hole catheter was inserted using trocar technique.1700 mL of yellow fluid was withdrawn and discarded. Estimated blood loss: Less than 1 mL The patient tolerated the procedure well and there were no immediate complications. After the appropriate amount of monitored convalescence, the patient was discharged from the department. FINDINGS: None IMPRESSION: Ultrasound-guided paracentesis [id number] mL of yellow fluid. <Electronically signed by Benji Moore > 04/06/21 1647 <Electronically signed by Marshall Gaffney > 04/06/21 1656
[2021-04-06] MEDS: ATORVASTATIN 20 MG TAB PO SCH (21:21)
[2021-04-07] MEDS: ONDANSETRON 4MG/2ML VIAL IV SCH ×4 (03:43→20:43)
[2021-04-07 06:00] VITALS: BP 111/64
[2021-04-07 06:17] LABS: BASO # 0.1 10^3/uL (0.0-0.2); BASO % 0.7 % (0.0-1.0); EOS # 2.8 10^3/uL (0.0-0.5); EOS % 14.2 % (0.0-3.0); HEMATOCRIT 26.3 % (42.0-52.0); HEMOGLOBIN 8.8 g/dl (13.5-17.5); LYMPH # 0.6 10^3/uL (1.5-5.0); LYMPH % 3.2 % (24.0-44.0); MEAN CORPUSCULAR HEMOGLOBIN 35.8 pg (27.0-33.0); MEAN CORPUSCULAR HGB CONC 33.5 g/dl (32.0-36.5); MEAN CORPUSCULAR VOLUME 106.9 fl (80.0-96.0); MONO # 1.7 10^3/uL (0.0-0.8); MONO % 8.7 % (2.0-8.0); NEUTROPHILS % 72.1 % (36.0-66.0); RED BLOOD COUNT 2.46 10^6/uL (4.30-6.10)
[2021-04-07 06:23] LABS: WHITE BLOOD COUNT 19.4 10^3/uL (4.0-10.0)
[2021-04-07 06:24] LABS: PLATELET COUNT, AUTOMATED 34 10^3/uL (150-450)
[2021-04-07 06:25] LABS: BLOOD UREA NITROGEN 18 MG/DL (7-18); CALCIUM LEVEL 7.9 MG/DL (8.8-10.2); CARBON DIOXIDE LEVEL 28 MEQ/L (21-32); CHLORIDE LEVEL 108 MEQ/L (98-107); CREATININE FOR GFR 0.63 MG/DL (0.70-1.30); GLOMERULAR FILTRATION RATE > 60.0 (>49); GLUCOSE, FASTING 83 MG/DL (70-100); MAGNESIUM LEVEL 2.1 MG/DL (1.8-2.4); POTASSIUM SERUM 4.4 MEQ/L (3.5-5.1); SODIUM LEVEL 139 MEQ/L (136-145)
[2021-04-07] MEDS: LEVOTHYROXINE 150MCG TABLET (0.15MG) PO SCH (06:35)
[2021-04-07] MEDS: PERCOCET 5MG/325MG TAB PO PRN ×3 (06:36→23:47)
--- NOTE | 2021-04-07 07:35 | IPN ---
PROGRESS NOTE DATE: 04/06/2021 SUBJECTIVE: Mr. Moore had a lot of complaints today with abdominal pain and decreased appetite. He was also complaining of not being able to take a deep breath because of increased abdominal girth. He had a paracentesis which removed 1700 ml peritoneal fluid which improved his symptoms. I saw him after the paracentesis and he was willing to try some Ensure. He has not had a bowel movement since yesterday and it was small and had a good consistency. He is taking Percocet two tablets every 6 hours which is probably also making him constipated. He denies any nausea or vomiting. He has no chest pain. He has mild shortness of breath due to the ascites. LABORATORY DATA: White count was 23.3, hemoglobin 9.5, hematocrit 29.5, platelets 35, 75% neutrophils, 3% lymphocytes, 7% monocytes. Sodium is 139, potassium is 4.6, chloride is 110, bicarbonate is 21, BUN 16, creatinine is 0.52, glucose is 69. Calcium is 7.7. Magnesium is 1.6. Procalcitonin was 0.92 on 04/01. AFB smear on culture sent on 03/29 are still pending. Ascites fluid grew staphylococcus warneri but with a cell count that was total PMN of less than 50 which is not consistent with infectious peritonitis. OBJECTIVE: VITAL SIGNS: Temperature is 98.1, pulse 79, respirations are 20, O2 sat 97%, blood pressure is 117/70. HEART: Normal S1 and S2. No murmurs. LUNGS: Clear. No wheezes, rales or rhonchi, diminished at the bases. ABDOMEN: Distended, soft, mildly tender in the lower quadrants, slightly tense. EXTREMITIES: Plus 1 ankle edema bilaterally. IMPRESSION: 1. Metastatic lung cancer to liver, bone. Patient is awaiting new chemotherapy with Docetaxel and Ramucirumab. 2. Leukocytosis, worsening. Patient had repeat paracentesis to rule out infectious peritonitis but the peritoneal fluid was not sent for analysis. Patient will need repeat peritoneal fluid sent tomorrow to rule out infectious process. 3. C. Difficile colitis, the diarrhea has completely resolved so this is unlikely the cause of his leukocytosis. He is currently on Fidaxomicin 200 mg daily tapering dose since 04/06. Metamucil has been held. PLAN: Plan is to decrease his Percocet to avoid constipation. Repeat peritoneal fluid analysis tomorrow and send for cell count, cytology to rule out peritoneal carcinomatosis and culture, aerobic and anaerobic. His thrombocytopenia could not be explained based on sepsis and infectious process, will discuss the case with Dr. Sorto tomorrow after we obtain peritoneal fluid analysis. The case has been discussed with Dr. Conroy. JAZZY
[2021-04-07] MEDS: ESCITALOPRAM OXALATE 10 MG TAB (LEXAPRO) PO SCH (09:22)
[2021-04-07] MEDS: LACTOBACILLUS ACIDOPHILUS CAP (BACID) PO SCH ×4 (09:22→20:42)
[2021-04-07] MEDS: FIDAXOMICIN 200 MG TAB (DIFICID) PO SCH (09:22)
[2021-04-07] MEDS: ASPIRIN 81MG ENTERIC TABLET PO SCH (09:22)
[2021-04-07] MEDS: FOLIC ACID 1 MG TAB PO SCH (09:22)
[2021-04-07] MEDS: GABAPENTIN 300 MG CAP PO SCH ×2 (09:23→20:43)
[2021-04-07] MEDS: guaiFENesin ER 600 MG TAB PO SCH ×2 (09:23→20:42)
[2021-04-07] MEDS ORDERED: SODIUM BICARBONATE 8.4% INJ 50MEQ 50 ML VIAL As Ordered ONE (10:55)
[2021-04-07 11:44] LABS: SPEC. GRAVITY BODY FLUIDS 1.016 (NOT ESTABLISHED)
[2021-04-07 11:57] LABS: ASCITES FL COLOR YELLOW (COLORLESS); SOURCE, BODY FLUID ASCITES
[2021-04-07 11:58] LABS: APPEARANCE, BODY FLUID HAZY (CLEAR)
[2021-04-07 12:39] LABS: SOURCE, BODY FLUID ALBUMIN ASCITES; SOURCE, BODY FLUID GLUCOSE ASCITES; SOURCE, BODY FLUID TOT PROTEIN ASCITES; TOTAL PROTEIN, BODY FLUID 2.1 G/DL (NOT ESTABLISHED)
[2021-04-07] MEDS ORDERED: BISACODYL 10 MG SUPP PR ONE (16:15)
--- NOTE | 2021-04-07 16:28 | REP ---
INDICATION: Send fluid for analysis The patient has a history of ascites COMPARISON: None. TECHNIQUE: The procedure was performed by CASPER Steward, under the direct supervision of Dr. Gaffney The risks and benefits of the procedure were explained to the patient and an informed consent was obtained both verbally and written. Directly prior to the start of the procedure a formal time-out was completed in the procedure room. The largest pocket of fluid was localized in the right flank using ultrasound guidance. The skin was prepped and draped in a sterile fashion. Eleven ML of buffered lidocaine was used as a local anesthetic. An 8-Frisian multi side-hole catheter was inserted using trocar technique. FINDINGS: 1200 mL of red-tinged ascites was withdrawn and sent to the laboratory for further analysis. The patient tolerated the procedure well and there were no immediate complications. After the appropriate amount of monitored convalescence, the patient was discharged from the department. IMPRESSION: Ultrasound-guided paracentesis with removal of 1200 mL of red-tinged ascites. <Electronically signed by Mihaela Thakkar > 04/07/21 1346 <Electronically signed by Marshall Gaffney > 04/07/21 [id number]
--- NOTE | 2021-04-07 18:01 | REPVR ---
PROCEDURE INFORMATION: Exam: CT Abdomen And Pelvis Without Contrast Exam date and time: 04/07/2021 4:58 PM Age: 65 years old Clinical indication: Other: Abd pain; Additional info: Ab pain TECHNIQUE: Imaging protocol: Computed tomography of the abdomen and pelvis without contrast. Radiation optimization: All CT scans at this facility use at least one of these dose optimization techniques: automated exposure control; mA and/or kV adjustment per patient size (includes targeted exams where dose is matched to clinical indication); or iterative reconstruction. COMPARISON: CT ABD/PEL W/IV ORAL CONTRAS 03/27/2021 12:49 PM FINDINGS: Limitations: Evaluation of the solid and vascular structures is somewhat limited by lack of IV contrast. Lungs: There are again operative changes of the lower right lung. Pleural spaces: There is again a very small left pleural effusion. Some right basilar pleural thickening is again present. Heart: There is again a very small pericardial effusion. Liver: The liver is again diffusely infiltrated with hypodense lesions most compatible with metastases, grossly stable in size and number. Gallbladder and bile ducts: No gallstones are evident, but ultrasound would be more sensitive. No gross biliary ductal dilatation. Pancreas: The pancreas is again somewhat atrophic. Spleen: Grossly unremarkable. Adrenal glands: Grossly unremarkable. Kidneys and ureters: The right kidney contains a 2 mm nonobstructing stone, and the left contains a few nonobstructing stones measuring up to 3 mm. There is no hydronephrosis or ureteral calculus on either side, and the kidneys appear otherwise grossly unremarkable. Stomach and bowel: The unopacified small bowel is not significantly distended to suggest obstruction. There is again mild descending and moderate sigmoid colonic diverticulosis. Appendix: The partially visualized appendix appears to be normal in caliber. Intraperitoneal space: There is no free air. There is similar small to moderate ascites. Mild generalized mesenteric edema and thickening with potential nodularity appears mildly progressive. Vasculature: Coronary artery calcifications are again present. The abdominal aorta is nonaneurysmal. Atherosclerotic vascular calcifications are again present. Lymph nodes: No gross pathologic lymphadenopathy. Urinary bladder: Grossly unremarkable. Reproductive: There are again coarse calcifications in the prostate. Bones/joints: Some chronic right rib fractures are again present. Degenerative changes again involve the spine, sacroiliac joints and hips. The bones again appear osteopenic. Osseous metastatic foci, including the L2 vertebral body, appear unchanged. Soft tissues: Unremarkable. IMPRESSION: 1. Nonobstructing bilateral nephrolithiasis without hydronephrosis or ureteral calculus. 2. Evidence of metastatic disease to the liver and bones, as on 03/27/2021. 3. Similar ascites with mildly progressive but mild generalized mesenteric edema and thickening with potential nodularity, could be infectious, inflammatory and/or neoplastic. 4. Persistent very small left pleural effusion and right basilar pleural thickening. 5. Persistent very small pericardial effusion. Electronically signed by: Delvis Cm On 04/07/2021 18:01:24 PM
[2021-04-07] MEDS: CALCIUM CARBONATE 500 MG CHEW U/D PO SCH (19:05)
[2021-04-07] MEDS: ATORVASTATIN 20 MG TAB PO SCH (20:42)
[2021-04-08] MEDS: ONDANSETRON 4MG/2ML VIAL IV SCH ×2 (02:54→08:49)
[2021-04-08] MEDS: LEVOTHYROXINE 150MCG TABLET (0.15MG) PO SCH (05:41)
[2021-04-08 06:00] VITALS: BP 116/64
[2021-04-08 06:43] LABS: BASO # 0.1 10^3/uL (0.0-0.2); BASO % 0.6 % (0.0-1.0); EOS % 16.5 % (0.0-3.0); HEMATOCRIT 28.8 % (42.0-52.0); HEMOGLOBIN 9.4 g/dl (13.5-17.5); LYMPH # 0.7 10^3/uL (1.5-5.0); LYMPH % 3.8 % (24.0-44.0); MEAN CORPUSCULAR HEMOGLOBIN 35.9 pg (27.0-33.0); MEAN CORPUSCULAR HGB CONC 32.6 g/dl (32.0-36.5); MEAN CORPUSCULAR VOLUME 109.9 fl (80.0-96.0); MONO # 1.8 10^3/uL (0.0-0.8); MONO % 9.6 % (2.0-8.0); NEUTROPHILS # 12.4 10^3/uL (1.5-8.5); NEUTROPHILS % 68.3 % (36.0-66.0); RED BLOOD COUNT 2.62 10^6/uL (4.30-6.10)
[2021-04-08 07:08] LABS: BLOOD UREA NITROGEN 17 MG/DL (7-18); C REACTIVE PROTEIN QUANTITATIV 7.78 MG/DL (0.00-0.30); CALCIUM LEVEL 7.9 MG/DL (8.8-10.2); CARBON DIOXIDE LEVEL 28 MEQ/L (21-32); CHLORIDE LEVEL 108 MEQ/L (98-107); CREATININE FOR GFR 0.59 MG/DL (0.70-1.30); GLOMERULAR FILTRATION RATE > 60.0 (>49); GLUCOSE, FASTING 82 MG/DL (70-100); MAGNESIUM LEVEL 1.9 MG/DL (1.8-2.4); PLATELET COUNT, AUTOMATED 33 10^3/uL (150-450); POTASSIUM SERUM 4.4 MEQ/L (3.5-5.1); SODIUM LEVEL 139 MEQ/L (136-145); WHITE BLOOD COUNT 18.1 10^3/uL (4.0-10.0)
[2021-04-08] MEDS ORDERED: FIDA200TA PO (07:19)
[2021-04-08] MEDS ORDERED: DICY1CAP8 PO (07:19)
[2021-04-08] MEDS: FOLIC ACID 1 MG TAB PO SCH (08:49)
[2021-04-08] MEDS: ASPIRIN 81MG ENTERIC TABLET PO SCH (08:49)
[2021-04-08] MEDS: guaiFENesin ER 600 MG TAB PO SCH (08:49)
[2021-04-08] MEDS: LACTOBACILLUS ACIDOPHILUS CAP (BACID) PO SCH (08:49)
[2021-04-08] MEDS: GABAPENTIN 300 MG CAP PO SCH (08:49)
[2021-04-08] MEDS: FIDAXOMICIN 200 MG TAB (DIFICID) PO SCH (08:50)
[2021-04-08] MEDS: ESCITALOPRAM OXALATE 10 MG TAB (LEXAPRO) PO SCH (08:50)
[2021-04-08] MEDS: PERCOCET 5MG/325MG TAB PO PRN (08:51)
--- NOTE | 2021-04-08 11:29 | DS.PDOC ---
Discharge Summary General Date of Admission Mar 25, 2021 at 17:23 Date of Discharge 04/08/2021 Discharge Summary PROCEDURES PERFORMED DURING STAY: [None]. ADMITTING DIAGNOSES / DISCHARGE DIAGNOSES: Abdominal pain - possibly 2/2 C. difficile given history, possibly 2/2 IBS, possibly 2/2 malignancy Ascites s/p Lactic acidosis s/p Hypokalemia s/p Hypocalcemia Macrocytic anemia Chronic thrombocytopenia HTN s/p Chest pain Metastatic Lung cancer (stage IV) DLP Hypothyroidism Neuropathy Depression DVT prophylaxis COMPLICATIONS/CHIEF COMPLAINT: Diarrhea. HISTORY OF PRESENT ILLNESS: Patient is a 65-year-old male with a PMHx of Recurrent C. Diff, Metastatic lung CA (mets to bone / liver, on Chemotherapy / Immunotherapy), HTN, Hypothyroidism, DLP, Neuropathy, Depression, presented to the emergency room with complaints of abdominal pain and diarrhea. Patient reported that he was recently treated for C. difficile and had completed Fidaxomicin. A few days after patient was beginning to experience worsening abdominal pain and diarrhea. He presented to the ER with concerns of recurrent C. difficile patient was admitted to the hospital service for further evaluation and treatment. Workup has revealed no evidence of C. diff on GI panel / C. diff PCR. Patient was seen and examined at the bedside this morning patient was up ambulating to the bathroom washing his face. He denied any chest pain, shortness of breath or palpitations. Has had a bowel movement this morning. Formed stool was seen in the toilet. Patient reports some abdominal discomfort, but has had some improvement over the last 3 days. HOSPITAL COURSE: Abdominal pain - possibly 2/2 C. difficile given history, possibly 2/2 IBS, possibly 2/2 malignancy - Patient continues to have formed bowel movements - Patient remains hemodynamically stable and afebrile - Physical still reveals some abdominal tenderness - Leukocytosis / CRP remained stable - s/p Lactic acidosis - GI panel 03/26: Negative / C. diff PCR 03/26: Negative - c/w Fidaxomicin (Completed 10 days full course; now on taper) / Probiotics - c/w Supportive care with Bentyl / Tylenol / Percocet - s/p stool bulking agents - ID on consultation; will have outpatient follow-up within the next 7 days - Will have outpatient follow-up with gastric urology within the next 7 days Ascites - s/p Paracentesis 03/29 and removal of 1250 cc of fluid - s/p Paracentesis 04/06 and removal of 1700 cc of fluid - Fluid culture 03/29: Staph Warneri - likely 2/2 contaminant - Fluid analysis on 04/07; insistent with prior; cytology was sent for evaluation of any malignancy - remains pending - ID on consultation; no antibiotics indicated at this time - Will have outpatient follow-up with infectious disease and oncology within the next 7 days s/p Lactic acidosis s/p Hypokalemia s/p Hypocalcemia Macrocytic anemia - Hg remains stable - No evidence of bleeding Chronic thrombocytopenia - No evidence of bleeding - s/p Lovenox - Will continue to follow trend HTN - BP well controlled - c/w Lisinopril and Carvedilol s/p Chest pain - No further chest pain reported - Troponins negative x3 - c/w ASA Metastatic Lung cancer (stage IV) - c/w home pain medications of oxycodone/acetaminophen - Dr. Sorto on consultation; appreciate their input - Will have outpatient follow-up within the next 7 days DLP - c/w Atorvastatin Hypothyroidism - c/w Levothyroxine Neuropathy - c/w Gabapentin Depression - c/w Escitalopram DVT prophylaxis - c/w TEDs/Sequentials DISCHARGE MEDICATIONS: Please see below. ALLERGIES: Please see below. PHYSICAL EXAMINATION ON DISCHARGE: Vitals (See below) General: Patient was seen ambulating in the room, sat back down in bed, appears comfortable, not in any acute distress, oriented to person, place, time HEENT: AT, [place] CVS: +S1S2 Lungs: Air entry appears to be fair bilaterally without any auscultated evidence of crackles, wheezing or rhonchi Abdomen: Remains soft, mild tenderness diffusely Extremities: No evidence of significant edema LABORATORY DATA: Please see below. IMAGING: CT abdomen / pelvis 03/25: 1. With the exception of new moderate ascites, above-mentioned findings including hepatic and osseous metastatic lesions remain essentially unchanged. 2. No obvious acute bowel process. CTA chest 03/25: 1. No evidence for pulmonary embolus. 2. Soft tissue in the right hilum slightly increased from prior examination and concerning for enlarging pathologic lymph nodes or residual tumor. 3. Stable osseous metastatic lesions. Hepatic metastases again noted. CXR 03/26: Cardiomegaly. Chronic changes right base and right ribcage. Otherwise no acute disease. Abdomen US 03/26: 1. Known diffuse hepatic metastasis. 2. Small to moderate amount of ascites. CT abdomen / pelvis 03/27: 1. No change from recent prior examination. 2. Hepatic metastatic disease and moderate ascites again noted. 3. No further new acute process appreciated. Paracentesis US 03/29: Ultrasound-guided paracentesis with removal 1250 mL of clear yellow ascites. CXR 04/02: Post thoracotomy changes with volume loss right hemithorax. Cardiomegaly. Oth erwise no acute disease. No infiltrate seen. CT abdomen / pelvis 04/07: 1. Nonobstructing bilateral nephrolithiasis without hydronephrosis or ureteral calculus. 2. Evidence of metastatic disease to the liver and bones, as on 03/27/2021. 3. Similar ascites with mildly progressive but mild generalized mesenteric edema and thickening with potential nodularity, could be infectious, inflammatory and/or neoplastic. 4. Persistent very small left pleural effusion and right basilar pleural thickening. 5. Persistent very small pericardial effusion. ACTIVITY: [As tolerated]. DISCHARGE PLAN: Follow-up with primary care provider, infectious disease, gastroenterology and oncology within the next 7 days Remain compliant with treatment plan and medications Return to the ER if you experience any problems DISPOSITION: [facility] area rehabilitation DISCHARGE CONDITION: [Stable]. TIME SPENT ON DISCHARGE: 35 minutes. Vital Signs/I&Os Vital Signs Date Time Temp Pulse Resp B/P (MAP) Pulse Ox O2 Delivery O2 Flow Rate FiO2 04/08/21 08:51 18 04/08/21 06:00 97.3 86 116/64 (81) 96 Room Air I&O- Last 24 Hours up to 6 AM 04/08/21 05:59 Intake Total 600 ml Output Total 1200 ml Balance -600 ml Laboratory Data Labs 24H Laboratory Tests 2 04/07/21 15:17: Coronavirus (COVID-19)(PCR) NEGATIVE 04/08/21 06:05: Immature Granulocyte % (Auto) 1.2, Neutrophils (%) (Auto) 68.3H, Lymphocytes (%) (Auto) 3.8L, Monocytes (%) (Auto) 9.6H, Eosinophils (%) (Auto) 16.5H, Basophils (%) (Auto) 0.6, Neutrophils # (Auto) 12.4H, Lymphocytes # (Auto) 0.7L, Monocytes # (Auto) 1.8H, Eosinophils # (Auto) 3.0H, Basophils # (Auto) 0.1, Nucleated Red Blood Cells % (auto) 0.0, Immature Platelet Fraction 13.8H, Anion Gap 3L, Glomerular Filtration Rate > 60.0, Calcium Level 7.9L, Magnesium Level 1.9, C-Reactive Protein, Quantitative 7.78H CBC/BMP Laboratory Tests 04/08/21 06:05 Microbiology Microbiology 04/07/21 Acid Fast Stain, Received Pending 04/07/21 Mycobacterial Culture, Received Pending 04/07/21 Fungal Smear, Received Pending 04/07/21 Fungal Culture, Received Pending 04/07/21 Gram Stain - Final, Resulted 04/07/21 Body Fluid Culture, Resulted Pending 03/29/21 Acid Fast Stain, Received Pending 03/29/21 Mycobacterial Culture, Received Pending 03/29/21 Fungal Smear, Received Pending 03/29/21 Fungal Culture, Received Pending 03/29/21 Gram Stain - Final, Complete 03/29/21 Body Fluid Culture - Final, Complete Staphylococcus Warneri Discharge Medications Scheduled Aspirin (Aspirin EC) 81 Mg Tablet.dr, 81 MG PO DAILY, (Reported) Atorvastatin Calcium (Atorvastatin Calcium) 40 Mg Tablet, 40 MG PO QHS, (Reported) Bimatoprost (Lumigan) 0.01% 2.5ML Drops, 1 DROP OU QHS, (Reported) Calcium Carbonate (Calcium) 600 Mg Tablet, 600 MG PO QPM, (Reported) TAKES AROUND DINNERTIME Escitalopram Oxalate (Lexapro) 20 Mg Tablet, 20 MG PO DAILY, (Reported) Fidaxomicin (Dificid) 200 Mg Tablet, 200 MG PO ASDIRECTED 1 every 2 days x 10 days 1 every 3 days x 10 days Folic Acid (Folic Acid) 0.4 Mg Tablet, 400 MCG PO DAILY, (Reported) Gabapentin (Gabapentin) 300 Mg Capsule, 300 MG PO BID, (Reported) L.acidoph/L.bulg/B.bif/S.therm (Bacid Caplet) 1 Each Tablet, 1 TAB PO ACHS, (Reported) Levothyroxine Sodium (Levothyroxine) 150 Mcg Capsule, 150 MCG PO DAILY, (Reported) Scheduled PRN Albuterol Sulfate (Albuterol Sulfate Hfa) 8.5 Gm Hfa.aer.ad, 2 PUFF INH Q4H PRN for SHORTNESS OF BREATH, (Reported) Dicyclomine HCl (Dicyclomine HCl) 10 Mg Capsule, 10 MG PO Q8HP PRN for abdominal spasms Ondansetron HCl (Ondansetron HCl) 8 Mg Tablet, 8 MG PO Q12HP PRN for NAUSEA OR VOMITING Oxycodone HCl/Acetaminophen (Oxycodone-Acetaminophen 10-325) 1 Each Tablet, 1 TAB PO QID PRN for PAIN, (Reported) Prochlorperazine Maleate (Prochlorperazine Maleate) 10 Mg Tablet, 10 MG PO Q6H PRN for NAUSEA OR VOMITING, (Reported) Allergies Coded Allergies: pembrolizumab (Verified Allergy, Intermediate, RASH, 07/29/20) TRIP ROWE MD Apr 08, 2021 11:29
[2021-04-10] MEDS ORDERED: FIDAXOMICIN 200 MG TAB (DIFICID) PO SCH (09:00)
[2021-04-21] MEDS ORDERED: FIDAXOMICIN 200 MG TAB (DIFICID) PO SCH (09:00)
== END 2021-04-08 09:15 | DRG 372 ==
LOC: M ED 10:18 → M ED INP 17:23 → M MSPAV 22:27
PROVIDERS: ADMIT Internal Medicine; ATTEND Internal Medicine
PROC: 0W9G3ZX Drainage of Peritoneal Cavity, Percutaneous Approach, Diagnostic (ICD-10-PCS; principal; 2021-03-29 16:00)
PROC: 0W9G3ZX Drainage of Peritoneal Cavity, Percutaneous Approach, Diagnostic (ICD-10-PCS; 2021-04-06)
PROC: 0W9G3ZX Drainage of Peritoneal Cavity, Percutaneous Approach, Diagnostic (ICD-10-PCS; 2021-04-07)
DX: A04.71 Enterocolitis due to Clostridium difficile, recurrent (principal); C34.90 Malignant neoplasm of unspecified part of unspecified bronchus or lung; C78.7 Secondary malignant neoplasm of liver and intrahepatic bile duct; C79.51 Secondary malignant neoplasm of bone; R18.8 Other ascites; E87.2 Acidosis; C78.2 Secondary malignant neoplasm of pleura; E83.51 Hypocalcemia; D69.6 Thrombocytopenia, unspecified; E03.9 Hypothyroidism, unspecified; E87.6 Hypokalemia; I10 Essential (primary) hypertension; G62.9 Polyneuropathy, unspecified; D53.9 Nutritional anemia, unspecified; Z92.21 Personal history of antineoplastic chemotherapy; F32.9 Major depressive disorder, single episode, unspecified; Z79.82 Long term (current) use of aspirin; Z79.899 Other long term (current) drug therapy; Z88.8 Allergy status to other drugs, medicaments and biological substances; Z87.442 Personal history of urinary calculi; E78.5 Hyperlipidemia, unspecified; Z87.891 Personal history of nicotine dependence; E83.42 Hypomagnesemia

== ENCOUNTER 2021-04-09 16:43 | Outpatient (CLI) | payer MEDICARE ==
[~2021-04-09] VITALS: Ht 172.7 cm; Wt 79.5 kg
[~2021-04-09 16:43] MED LIST changes: +BEZLOTOXUMAB 800 MG in NS 100 ML IV ONE; +CARV3.12 PO; +DICY1CAP8 PO; +LEVO150C PO
[2021-04-09 17:00] VITALS: BP 141/65
[2021-04-09 19:00] VITALS: BP 128/88
== END 2021-04-09 18:50 | disposition home or self-care (01) ==
LOC: M INFU 16:43
PROVIDERS: ATTEND Internal Medicine
DX: R19.7 Diarrhea, unspecified (principal)
CPT/HCPCS: 96365; J0565

== ENCOUNTER 2021-04-16 14:33 | Inpatient (IN) | payer MEDICARE ==
[~2021-04-16] VITALS: Ht 172.7 cm; Wt 77.4 kg
[~2021-04-16 14:33] MED LIST changes: -BEZLOTOXUMAB 800 MG in NS 100 ML IV ONE
[2021-04-16] MEDS ORDERED: ONDANSETRON 4MG/2ML VIAL IV ONE (15:45)
[2021-04-16] MEDS ORDERED: MORPHINE 2 MG/ML 1ML VIAL (J2270) IV ONE (15:45)
[2021-04-16 16:05] LABS: BASO # 0.1 10^3/uL (0.0-0.2); BASO % 0.4 % (0.0-1.0); EOS # 2.1 10^3/uL (0.0-0.5); EOS % 7.5 % (0.0-3.0); HEMATOCRIT 31.8 % (42.0-52.0); HEMOGLOBIN 10.6 g/dl (13.5-17.5); LYMPH # 0.6 10^3/uL (1.5-5.0); LYMPH % 2.3 % (24.0-44.0); MEAN CORPUSCULAR HEMOGLOBIN 37.1 pg (27.0-33.0); MEAN CORPUSCULAR HGB CONC 33.3 g/dl (32.0-36.5); MEAN CORPUSCULAR VOLUME 111.2 fl (80.0-96.0); MONO # 2.5 10^3/uL (0.0-0.8); MONO % 8.9 % (2.0-8.0); NEUTROPHILS # 22.1 10^3/uL (1.5-8.5); NEUTROPHILS % 79.7 % (36.0-66.0); RED BLOOD COUNT 2.86 10^6/uL (4.30-6.10); WHITE BLOOD COUNT 27.7 10^3/uL (4.0-10.0)
[2021-04-16] MEDS ORDERED: SODIUM BICARBONATE 8.4% INJ 50MEQ 50 ML VIAL As Ordered ONE (16:13)
[2021-04-16 16:17] LABS: PLATELET COUNT, AUTOMATED 9 10^3/uL (150-450)
[2021-04-16 16:23] LABS: INR 1.3; PROTHROMBIN TIME 16.6 SECONDS (12.7-14.5)
[2021-04-16 16:24] LABS: PARTIAL THROMBOPLASTIN TIME 41.9 SECONDS (25.9-37.0)
[2021-04-16 16:29] LABS: ALT/SGPT 37 U/L (12-78); AMYLASE 23 U/L (25-115); BILIRUBIN,DIRECT 0.4 MG/DL (0.0-0.2); BILIRUBIN,TOTAL 0.7 MG/DL (0.2-1.0); CK-MB VALUE MASS < 1.0 NG/ML (<3.6); CPK CREATINE PHOSPHOKINASE 34 U/L (39-308); LIPASE 17 U/L (73-393); MB/CK RELATIVE INDEX 2.94 (< OR =4); TROPONIN I < 0.02 NG/ML (< 0.10)
[2021-04-16 16:54] LABS: RSV AMPLIFICATION NEGATIVE (NEGATIVE)
[2021-04-16 16:56] LABS: BLOOD UREA NITROGEN 24 MG/DL (7-18); CALCIUM LEVEL 7.9 MG/DL (8.8-10.2); CARBON DIOXIDE LEVEL 25 MEQ/L (21-32); CHLORIDE LEVEL 105 MEQ/L (98-107); GLOMERULAR FILTRATION RATE > 60.0 (>49); GLUCOSE, FASTING 126 MG/DL (70-100); POTASSIUM SERUM 4.2 MEQ/L (3.5-5.1); SODIUM LEVEL 138 MEQ/L (136-145)
[2021-04-16] MEDS ORDERED: DICY10CA13 PO (17:05)
[2021-04-16] MEDS ORDERED: HOME MED LIST COMPLETE! XX SCH (17:10)
[2021-04-16] MEDS ORDERED: ISOVUE-370 76% 100ML VIAL As Ordered ONE (17:15)
[2021-04-16] MEDS ORDERED: PIPERACILLIN/TAZOBACTAM SOD 3.375 GM in D5W MINI-BAG PLUS 50 ML IV ONE (17:50)
--- NOTE | 2021-04-16 17:53 | REPVR ---
PROCEDURE INFORMATION: Exam: CTA Chest With Contrast Exam date and time: 04/16/2021 5:00 PM Age: 65 years old Clinical indication: Other: Elev wbc; Additional info: Elev wbc, abdl pain; 19/0.8 . . . . . 04/15/21 labs TECHNIQUE: Imaging protocol: Computed tomographic angiography of the chest with contrast. 3D rendering (Not supervised by radiologist): MIP and/or 3D reconstructed images were created by the technologist. Radiation optimization: All CT scans at this facility use at least one of these dose optimization techniques: automated exposure control; mA and/or kV adjustment per patient size (includes targeted exams where dose is matched to clinical indication); or iterative reconstruction. Contrast material: ISOVUE 370; Contrast volume: 100 ml; Contrast route: INTRAVENOUS (IV); COMPARISON: CT ANGIO CHEST 03/25/2021 3:01 PM FINDINGS: Pulmonary arteries: Abnormal intraluminal filling defects are seen within left upper lobe and left lower lobe segmental pulmonary arterial branches without extension into the main left pulmonary artery. Right main pulmonary artery enhances normally, with normal appearance of the right upper lobe segmental branches. Patient has undergone an apparent partial right lung resection with absence of the right lower lobe . Aorta: Thoracic aorta is ectatic and atherosclerotic. No focal aneurysm or dissection. Lungs: Lungs demonstrate centrilobular emphysema changes and mild medial paramediastinal pleural scarring. No focal airspace process or central endobronchial lesion. Pleural spaces: Small layering bilateral pleural effusions. Heart: No overt cardiac enlargement or abnormal volume of pericardial fluid. Normal RV/LV ratio Lymph nodes: Small, nonspecific mediastinal and hilar nodes are present. Intraperitoneal space: Progressive hepatic metastases appear worse even in the short interim, and there is Rosita hepatic free fluid now present. Bones/joints: Osteoblastic skeletal metastases in the spine and ribs are present, similar to the recent prior CT Soft tissues: Unremarkable. IMPRESSION: 1. Acute appearing pulmonary emboli involving left upper lobe and left lower lobe pulmonary arterial segments without extension into the main pulmonary artery and with no evidence of right heart strain. 2. Partial right lung resection with small pleural effusions, and progressive hepatic metastases and probably malignant ascites, worse since the recent prior CT. 3. Short term stability of osteoblastic metastases Electronically signed by: Chad Escobar On 04/16/2021 17:53:45 PM
--- NOTE | 2021-04-16 17:59 | REPVR ---
PROCEDURE INFORMATION: Exam: CT Abdomen And Pelvis With Contrast Exam date and time: 04/16/2021 5:00 PM Age: 65 years old Clinical indication: Other: Elev wbc; Prior surgery; Additional info: Elev wbc, abdl pain; 19/0.8 . . . . . 04/15/21 labs TECHNIQUE: Imaging protocol: Computed tomography of the abdomen and pelvis with contrast. Radiation optimization: All CT scans at this facility use at least one of these dose optimization techniques: automated exposure control; mA and/or kV adjustment per patient size (includes targeted exams where dose is matched to clinical indication); or iterative reconstruction. Contrast material: ISOVUE 370; Contrast volume: 100 ml; Contrast route: INTRAVENOUS (IV); COMPARISON: CT ABD PELVIS W/O CONTRAST 04/07/2021 4:56 PM FINDINGS: Liver: Liver demonstrates multiple peripherally enhancing lesions consistent with metastatic disease. These may be slightly more extensive over the short interim. Worsening perihepatic and diffuse abdominal fluid which may be malignant ascites. Underlying nodular contour of the liver suggests cirrhosis. Gallbladder and bile ducts: Gallbladder is present and shows no evidence of gallstone. Pancreas: Pancreas appears normal. No focal mass or peripancreatic inflammation. Spleen: Spleen appears homogeneous without focal mass. Adrenal glands: Adrenal glands are normal in appearance. Kidneys and ureters: Kidneys are unremarkable aside from a nonobstructing lower pole left renal stone. Stomach and bowel: No evidence of small bowel obstruction. Diverticular changes are present within the colon without inflammation. Appendix: Appendix is not seen. No RLQ inflammation to suggest appendicitis. Intraperitoneal space: No pneumoperitoneum. Vasculature: Atherosclerotic change present in the aorta, without aneurysm. Main portal and splenic veins enhance normally. Lymph nodes: . No enlarged lymph nodes. Urinary bladder: Urinary bladder appears normal. Reproductive: No overt enlargement of the prostate gland. Bones/joints: Stable skeletal metastases in the lower right ribs, L2 vertebral body and possibly in the parasymphyseal pelvis. Soft tissues: No a mental or mesenteric soft tissue mass. IMPRESSION: 1. Large volume abdominal and pelvic ascites which has progressed in the interim, likely malignant, given the multiple hepatic metastases, which may be mildly progressive over the interim. 2. Colonic diverticulosis without active inflammation. 3. Stable skeletal metastases Electronically signed by: Chad Escobar On 04/16/2021 17:58:56 PM
[2021-04-16] MEDS ORDERED: MAALOX 30 ML SUSP *UDC PO PRN (19:35)
[2021-04-16] MEDS ORDERED: MOM 30ML SUSPENSION UDC PO PRN (19:35)
[2021-04-16] MEDS ORDERED: CEFOTAXIME SOD 2 GM in D5W MINI-BAG PLUS 50 ML IV SCH (19:40)
--- NOTE | 2021-04-16 20:01 | HPEPDOC ---
[facility] Medical History & Physical Date of Admission Apr 16, 2021 Date of Service: Apr 16, 2021 History and Physical CHIEF COMPLAINT: Abdominal pain HISTORY OF PRESENT ILLNESS: Mr. Moore is a pleasant 65-year-old male with a history of metastatic lung adenocarcinoma with mets to spine and liver as well as PE, coronary artery disease, anemia, hypothyroidism. Patient was recently admitted to [facility] for recurrent C. difficile colitis for which she is had numerous hospitalizations. Patient was discharged to [facility] rehab center however developed worsening abdominal pain, was found to have leukocytosis and was started on Levaquin for SBP. He has received 3 paracentesis in the last 2 weeks. He was transferred here from [facility] for management of peritonitis. Patient complains of abdominal distention and diffuse abdominal pain as well as having approximately 4-5 episodes of watery diarrhea in the past 24 hours. Patient found to have leukocytosis of approximately 28,000. His lactic acid of 3.3. CT imaging of the chest showing a pulmonary embolism, CT abdomen is showing progression of metastatic disease as well as large volume ascites. Finally patient is found to have a thrombocytopenia platelet count of 9. Patient will be admitted to hospitalist service for the management of thrombocytopenia pulmonary embolism and peritonitis. He started on empiric Zosyn. PAST MEDICAL HISTORY: Recurrent C. difficile colitis Metastatic lung adenocarcinoma with metastasis to the thoracic spine and ribs status post lung resection and radiation and ongoing chemotherapy last 2 weeks ago. History of pulmonary embolism after lung resection completed a six-month course of eliquis Anxiety and depression Anemia secondary to chemotherapy Hypothyroidism Chronic back pain PAST SURGICAL HISTORY: Carpal tunnel release Right cataract surgery Spine biopsy 2019 Kidney stone removal and stent placement 2017 SOCIAL HISTORY: Denies alcohol use Denies tobacco use currently endorses quitting smoking more than 10 years ago Denies illicit drug use other than occasional cannabis use FAMILY HISTORY: Reviewed with patient does not provide pertinent history. ALLERGIES: Please see below. REVIEW OF SYSTEMS: 10 point ROS conducted, relevant findings are noted in HPI. HOME MEDICATIONS: Please see below. PHYSICAL EXAMINATION: VITAL SIGNS: please see below General: Pale ill-appearing male HEENT: PERRLA, EOMI, sclerae clear Neck: supple, normal ROM, no JVD Respiratory: lungs CTAB, no wheeze, no rales, no crackles CVS: RRR, normal S1, S2, no murmurs Abdo: Grossly distended abdomen tenderness in the left lower and right lower quadrant, no guarding however 8/10 pain to palpation. Extremities: no edema, pulses 2+ MSK: no joint deformities, normal ROM Neuro: no focal neuro deficits, moving all 4 extremities, CN2-12 intact. Strength 5/5 in all 4 extremities. No nystagmus. Psych: calm, cooperative, AAO x 3 LABORATORY DATA: See below. IMAGING: CTA chest (04/16/21): IMPRESSION: 1. Acute appearing pulmonary emboli involving left upper lobe and left lower lobe pulmonary arterial segments without extension into the main pulmonary artery and with no evidence of right heart strain. 2. Partial right lung resection with small pleural effusions, and progressive hepatic metastases and probably malignant ascites, worse since the recent prior CT. 3. Short term stability of osteoblastic metastases CT abdo pelvis w IV contrast (04/16/21): IMPRESSION: 1. Large volume abdominal and pelvic ascites which has progressed in the interim, likely malignant, given the multiple hepatic metastases, which may be mildly progressive over the interim. 2. Colonic diverticulosis without active inflammation. 3. Stable skeletal metastases MICROBIOLOGY: Please see below. ASSESSMENT:natalia Moore is a pleasant 65-year-old male with a history of metastatic lung adenocarcinoma with mets to spine and liver as well as PE, coronary artery disease, anemia, hypothyroidism. Patient was recently admitted to [facility] for recurrent C. difficile colitis for which she is had numerous hospitalizations. Patient was discharged to [facility] rehab center however developed worsening abdominal pain, was found to have leukocytosis and was started on Levaquin for SBP. He has received 3 paracentesis in the last 2 weeks. He was transferred here from [facility] rehab for management of peritonitis. Patient complains of abdominal distention and diffuse abdominal pain as well as having approximately 4-5 episodes of watery diarrhea in the past 24 hours. Patient found to have leukocytosis of approximately 28,000. His lactic acid of 3.3. CT imaging of the chest showing a pulmonary embolism, CT abdomen is showing progression of metastatic disease as well as large volume ascites. Finally patient is found to have a thrombocytopenia platelet count of 9. Patient will be admitted to hospitalist service for the management of thrombocytopenia pulmonary embolism and peritonitis. He started on empiric Zosyn. . PLAN: #Spontaneous bacterial peritonitis -Patient has large volume ascites secondary to liver metastases from primary lung adenocarcinoma -Received 3 paracentesis in the past 2 weeks -Diagnosed with SBP at [facility] rehab started on Levaquin prior to transfer here. -Patient has a white count of 20,000. Blood culture sent. Patient started on empiric Zosyn. -We are unable to obtain paracentesis due to the patient's low platelet count. -We will treat empirically. Once platelets reach appropriate levels will attempt to proceed with paracentesis. #Acute pulmonary embolism -Patient has a history of pulmonary embolism and completed 6 months of Eliquis. -Patient is not hypoxic at this time -Patient is a platelet count of 9 -Pathology consult was placed. Discussed with Dr. Garcia. -Plan for now is to administer 2 units of a pheresis platelets. Once platelet count reaches above 50,000, to start heparin GGT. #Metastatic lung adenocarcinoma -Follows with Dr. Sorto -At this stage prognosis is poor -Patient is now DNR/DNI. #Thrombocytopenia -Platelet count 9, below baseline unless admission of 32. -Florentin with Dr. Garcia, transfused 2 units of a pheresis platelets. -Monitor platelet count. -Hematology consult placed will see patient in the morning. -Thrombocytopenia possibly precipitated by acute infection i.e. peritonitis. #Diarrhea/history of recurrent C. difficile colitis -Has had 4-5 loose bowel movements in the past 24 hours -We will check C. difficile PCR. -Placed on contact precautions #Hx of NSTEMI/Type 2 MD - c/w cardioprotective medications. # Anxiety and depression: -Continue home medications # Hypothyroidism: -Continue levothyroxine. # Hyperlipidemia: -Continue statin #deconditioning/failure to thrive -Ordered PT/OT eval CODE STATUS: Discussed with patient regarding poor prognosis. Dr. Gaffney signed MOLST form indicating DNR/DNI status. Patient does not wish to have chest compressions nor does he wish to be intubated. Vital Signs Vital Signs Date Time Temp Pulse Resp B/P (MAP) Pulse Ox O2 Delivery O2 Flow Rate FiO2 04/16/21 19:18 99.1 04/16/21 17:33 94 145/93 (110) 90 04/16/21 16:00 18 Laboratory Data Labs 24H Laboratory Tests 2 04/16/21 15:30: Immature Granulocyte % (Auto) 1.2, Neutrophils (%) (Auto) 79.7H, Lymphocytes (%) (Auto) 2.3L, Monocytes (%) (Auto) 8.9H, Eosinophils (%) (Auto) 7.5H, Basophils (%) (Auto) 0.4, Neutrophils # (Auto) 22.1H, Lymphocytes # (Auto) 0.6L, Monocytes # (Auto) 2.5H, Eosinophils # (Auto) 2.1H, Basophils # (Auto) 0.1, Nucleated Red Blood Cells % (auto) 0.0, Prothrombin Time 16.6H, Prothromb Time International Ratio 1.30, Activated Partial Thromboplast Time 41.9H, Anion Gap 8, Glomerular Filtration Rate > 60.0, Lactic Acid Level 3.3*H, Calcium Level 7.9L, Total Bilirubin 0.7, Direct Bilirubin 0.4H, Aspartate Amino Transf (AST/SGOT) 82H, Alanine Aminotransferase (ALT/SGPT) 37, Alkaline Phosphatase 800H, Total Creatine Kinase 34L, Creatine Kinase MB < 1.0, Creatine Kinase MB Relative Index 2.94, Troponin I < 0.02, Total Protein 5.0L, Albumin 2.0L, Albumin/Globulin Ratio 0.7, Amylase Level 23L, Lipase 17L 04/16/21 15:38: Urine Color YELLOW, Urine Appearance HAZY, Urine pH 5.0, Urine Specific [place] 1.043, Urine Protein 1+H, Urine Glucose (UA) NEGATIVE, Urine Ketones NEGATIVE, Urine Blood NEGATIVE, Urine Nitrite NEGATIVE, Urine Bilirubin NEGATIVE, Urine Urobilinogen 0.2, Urine Leukocyte Esterase NEGATIVE, Urine WBC (Auto) 2, Urine RBC (Auto) 0, Urine Hyaline Casts (Auto) 5, Urine Bacteria (Auto) NEGATIVE, Urine Squamous Epithelial Cells 0, Urine Sperm (Auto) , Coronavirus (COVID- 19)(PCR) NEGATIVE, Influenza Type A (RT-PCR) NEGATIVE, Influenza Type B (RT-PCR) NEGATIVE, Respiratory Syncytial Virus (PCR) NEGATIVE CBC/BMP Laboratory Tests 04/16/21 15:30 Microbiology Microbiology 04/16/21 Blood Culture, Received Pending 04/16/21 Blood Culture, Received Pending Home Medications Scheduled Aspirin (Aspirin EC) 81 Mg Tablet.dr, 81 MG PO QHS Atorvastatin Calcium (Atorvastatin Calcium) 40 Mg Tablet, 40 MG PO QHS Bimatoprost (Lumigan) 0.01% 2.5ML Drops, 1 DROP OU QHS Calcium Carbonate (Calcium) 600 Mg Tablet, 600 MG PO QPM TAKES AROUND DINNERTIME Escitalopram Oxalate (Lexapro) 20 Mg Tablet, 20 MG PO DAILY Folic Acid (Folic Acid) 0.4 Mg Tablet, 400 MCG PO DAILY Gabapentin (Gabapentin) 300 Mg Capsule, 300 MG PO BID L.acidoph/L.bulg/B.bif/S.therm (Bacid Caplet) 1 Each Tablet, 1 TAB PO ACHS Levothyroxine Sodium (Levothyroxine) 150 Mcg Capsule, 150 MCG PO DAILY Scheduled PRN Albuterol Sulfate (Albuterol Sulfate Hfa) 8.5 Gm Hfa.aer.ad, 2 PUFF INH Q4H PRN for SHORTNESS OF BREATH Dicyclomine HCl (Dicyclomine HCl) 10 Mg Capsule, 10 MG PO TID PRN for ABDMINAL SPASMS Ondansetron HCl (Ondansetron HCl) 8 Mg Tablet, 8 MG PO Q12HP PRN for NAUSEA OR VOMITING Oxycodone HCl/Acetaminophen (Oxycodone-Acetaminophen 10-325) 1 Each Tablet, 1 TAB PO QID PRN for PAIN Prochlorperazine Maleate (Prochlorperazine Maleate) 10 Mg Tablet, 10 MG PO Q6H PRN for NAUSEA OR VOMITING Allergies Coded Allergies: pembrolizumab (Verified Allergy, Intermediate, RASH, 07/29/20) JASON FIGUEREDO MD Apr 16, 2021 20:01
[2021-04-16 22:50] VITALS: BP 121/58
[2021-04-16] MEDS: GABAPENTIN 300 MG CAP PO SCH (23:27)
[2021-04-16] MEDS: LACTOBACILLUS ACIDOPHILUS CAP (BACID) PO SCH (23:27)
[2021-04-16] MEDS: ATORVASTATIN 20 MG TAB PO SCH (23:27)
[2021-04-16] MEDS: PIPERACILLIN/TAZOBACTAM SOD 4.5 GM in D5W MINI-BAG PLUS 50 ML IV SCH (23:29)
[2021-04-17] VITALS (16 sets, daily range): BP systolic 82–130; BP diastolic 45–62
[2021-04-17] MEDS: LATANOPROST 0.005% OPHTH SOLN 2.5 ML OU SCH ×2 (00:51→20:22)
[2021-04-17] MEDS: DICYCLOMINE 10 MG CAP PO PRN ×2 (01:04→10:22)
[2021-04-17] MEDS: ACETAMINOPHEN TAB 650MG DOSE (2X325MG) PO PRN ×2 (02:13→10:23)
[2021-04-17 03:30] LABS: BASO # 0.1 10^3/uL (0.0-0.2); BASO % 0.4 % (0.0-1.0); EOS # 2.3 10^3/uL (0.0-0.5); EOS % 8.7 % (0.0-3.0); HEMATOCRIT 27.2 % (42.0-52.0); LYMPH # 0.6 10^3/uL (1.5-5.0); LYMPH % 2.2 % (24.0-44.0); MEAN CORPUSCULAR HGB CONC 33.1 g/dl (32.0-36.5); MEAN CORPUSCULAR VOLUME 111.9 fl (80.0-96.0); MONO # 2.7 10^3/uL (0.0-0.8); MONO % 10.2 % (2.0-8.0); NEUTROPHILS # 20.1 10^3/uL (1.5-8.5); NEUTROPHILS % 77.3 % (36.0-66.0); RED BLOOD COUNT 2.43 10^6/uL (4.30-6.10)
[2021-04-17 03:56] LABS: PLATELET COUNT, AUTOMATED 42 10^3/uL (150-450)
[2021-04-17 04:07] LABS: ALBUMIN 1.7 GM/DL (3.2-5.2); ALT/SGPT 33 U/L (12-78); BILIRUBIN,TOTAL 0.9 MG/DL (0.2-1.0); BLOOD UREA NITROGEN 22 MG/DL (7-18); CALCIUM LEVEL 7.6 MG/DL (8.8-10.2); CARBON DIOXIDE LEVEL 27 MEQ/L (21-32); CHLORIDE LEVEL 104 MEQ/L (98-107); CREATININE FOR GFR 0.81 MG/DL (0.70-1.30); GLOMERULAR FILTRATION RATE > 60.0 (>49); GLUCOSE, FASTING 102 MG/DL (70-100); MAGNESIUM LEVEL 1.9 MG/DL (1.8-2.4); SODIUM LEVEL 138 MEQ/L (136-145); TOTAL PROTEIN 4.7 GM/DL (6.4-8.2)
[2021-04-17] MEDS: PIPERACILLIN/TAZOBACTAM SOD 4.5 GM in D5W MINI-BAG PLUS 50 ML IV SCH ×4 (04:48→20:21)
--- NOTE | 2021-04-17 05:18 | ECGEPIP ---
[facility] - ED Test Date: 2021-04-16 Pat Name: ROLAND SMITH Department: Room: - Gender: Male Cancer Registry Coordinator: ED : 1955 Requested By: Meghan Bains Order Number: [id number] Reading MD: Margarito Estrella Measurements Intervals [place] Rate: 99 P: 60 MT: 130 QRS: -2 QRSD: 72 T: 56 QT: 358 QTc: 459 Interpretive Statements Normal sinus rhythm Low voltage QRS POOR R WAVE PROGRESSION SIMILAR TO 03/26/21 Electronically Signed on 04-17-2021 5:18:40 EDT by Margarito Estrella
[2021-04-17] MEDS: LEVOTHYROXINE 150MCG TABLET (0.15MG) PO SCH (06:21)
[2021-04-17 07:24] LABS: PLATELET COUNT, AUTOMATED 45 10^3/uL (150-450)
[2021-04-17] MEDS ORDERED: NS 500 ML IV ONE (07:45)
--- NOTE | 2021-04-17 09:09 | REP ---
INDICATION: r/o dvt. COMPARISON: None. TECHNIQUE: Multiple ultrasonographic images of the deep venous structures of the bilateral lower extremity were obtained from the inguinal ligament to the ankle. Venous compression techniques, color doppler imaging, and augmentation techniques were also obtained where appropriate. As per the ACR guidelines the anterior tibial vein can not be effectively evaluated. Only compression techniques in the calf on the peroneal and posterior tibial veins was attempted/performed. FINDINGS: On the left: There is no abnormal echogenic material seen within any of the visualized deep venous structures that would suggest acute thrombosis. Coaptation is unremarkable throughout. Doppler interrogation shows an expected response to respiratory variability and augmentation in the thigh. Compression techniques in the calf or were unobtainable. The color flow images show what appears to be a normal vascular pattern throughout the thigh. On the right: Abnormal echogenic material is seen in the distal popliteal vein. Respiratory variability and augmentation is nearly absent. The liao of the popliteal vein are non coaptable. IMPRESSION: There is no ultrasonographic evidence of deep venous thrombosis involving any of the visualized deep venous structures of the left lower extremity as described above. Due to technical parameters calf vein DVT can not be ruled out. There is evidence of DVT on the right as described above. <Electronically signed by Wyatt Chavez > 04/17/21 [id number]
[2021-04-17] MEDS: LACTOBACILLUS ACIDOPHILUS CAP (BACID) PO SCH ×4 (10:15→20:20)
[2021-04-17] MEDS: FOLIC ACID 1 MG TAB PO SCH (10:15)
[2021-04-17] MEDS: ESCITALOPRAM OXALATE 10 MG TAB (LEXAPRO) PO SCH (10:16)
[2021-04-17] MEDS: GABAPENTIN 300 MG CAP PO SCH ×2 (10:16→20:21)
[2021-04-17] MEDS ORDERED: FIDAXOMICIN 200 MG TAB (DIFICID) PO SCH (11:45)
--- NOTE | 2021-04-17 11:45 | IPNPDOC ---
Date Seen The patient was seen on 04/17/21. Progress Note SUBJECTIVE: Patient was seen examined at bedside. Complaining of diffuse abdominal pain. Abdomen is distended with fluid shifts. Patient denies any chest pain palpitation shortness of breath. No evidence for bleeding overnight. Patient was transfused 2 units of a pheresis platelets increased to 45. Patient is still under under the bo for starting anticoagulation. OBJECTIVE PHYSICAL EXAMINATION: VITAL SIGNS: please see below General: Pale ill-appearing male HEENT: PERRLA, EOMI, sclerae clear Neck: supple, normal ROM, no JVD Respiratory: lungs CTAB, no wheeze, no rales, no crackles CVS: RRR, normal S1, S2, no murmurs Abdo: Grossly distended abdomen tenderness in the left lower and right lower quadrant, no guarding however 8/10 pain to palpation. Extremities: no edema, pulses 2+ MSK: no joint deformities, normal ROM Neuro: no focal neuro deficits, moving all 4 extremities, CN2-12 intact. Strength 5/5 in all 4 extremities. No nystagmus. Psych: calm, cooperative, AAO x 3 LABORATORY DATA, IMAGING STUDIES, MICROBIOLOGY: Please see below. DVT prophylaxis ordered?: Mechanical only at this time ASSESSMENT AND PLAN: Oscar is a pleasant 65-year-old male with a history of meta static lung adenocarcinoma with mets to spine and liver as well as PE, coronary artery disease, anemia, hypothyroidism. Patient was recently admitted to [facility] for recurrent C. difficile colitis for which she is had numerous hospitalizations. Patient was discharged to [facility] rehab center however developed worsening abdominal pain, was found to have leukocytosis and was started on Levaquin for SBP. He has received 3 paracentesis in the last 2 weeks. He was transferred here from [facility] rehab for management of peritonitis. Patient complains of abdominal distention and diffuse abdominal pain as well as having approximately 4-5 episodes of watery diarrhea in the past 24 hours. Patient found to have leukocytosis of approximately 28,000. His lactic acid of 3.3. CT imaging of the chest showing a pulmonary embolism, CT abdomen is showing progression of metastatic disease as well as large volume ascites. Finally patient is found to have a thrombocytopenia platelet count of 9. Patient will be admitted to hospitalist service for the management of thrombocytopenia pulmonary embolism and peritonitis. He started on empiric Zosyn. PROBLEMS: #Spontaneous bacterial peritonitis -Patient has large volume ascites secondary to liver metastases from primary lung adenocarcinoma -Received 3 paracentesis in the past 2 weeks -Diagnosed with SBP at [facility] rehab started on Levaquin prior to transfer here. -[place] [address]. Blood culture sent. Patient started on empiric Zosyn. -White count decreased to 26,000. Zosyn day 2. -PLT improved from 9 to 74. If remains stable, consult IR for paracentesis on 04/19/21 #Acute pulmonary embolism -Patient has a history of pulmonary embolism and completed 6 months of Eliquis. -Patient is not hypoxic at this time, no SOB -Pathology consult was placed. Discussed with Dr. Garcia. -PLT 9 on admission. S/p 3 units apharesis PLTS. Increased to 74 - start heparin ggt. Following Dr. Garcia recommendations. - Goal PTT between 60-70. - daily CBC - D dimer daily for stability of PE - once platelet count stabilized, patient may be transitioned to lovenox or eliquis. #Metastatic lung adenocarcinoma -Follows with Dr. Sorto -At this stage prognosis is poor -Patient is now DNR/DNI #Thrombocytopenia -Platelet count 9, below baseline unless admission of 32. -Discussed with Dr. Garcia, transfused 2 units of a pheresis platelets. -Platelet count increased to 74 after 3 units of apheresis PLTS. -No signs and symptoms of bleeding overnight -Thrombocytopenia possibly precipitated by acute infection i.e. peritonitis. - monitor CBC daily. #Diarrhea/history of recurrent C. difficile colitis -Has had 4-5 loose bowel movements in the past 24 hours -GI panel negative. No C diff - DC empiric dificid./ #Hx of NSTEMI/Type 2 [place] - c/w cardioprotective medications. # Anxiety and depression: -Continue home medications # Hypothyroidism: -Continue levothyroxine # Hyperlipidemia: -Continue statin #deconditioning/failure to thrive -Ordered PT/OT eval CODE STATUS: Discussed with patient regarding poor prognosis. Dr. Gaffney signed MOLST form indicating DNR/DNI status. Patient does not wish to have chest compressions nor does he wish to be intubated. VS, I&O, 24H, Fishbone Vital Signs/I&O Vital Signs Date Time Temp Pulse Resp B/P (MAP) Pulse Ox O2 Delivery O2 Flow Rate FiO2 04/17/21 05:31 97.1 92 18 99/52 93 Room Air I&O- Last 24 Hours up to 6 AM 04/17/21 06:00 Intake Total 857 ml Balance 857 ml Laboratory Data 24H LABS Laboratory Tests 2 04/16/21 15:30: Immature Granulocyte % (Auto) 1.2, Neutrophils (%) (Auto) 79.7H, Lymphocytes (%) (Auto) 2.3L, Monocytes (%) (Auto) 8.9H, Eosinophils (%) (Auto) 7.5H, Basophils (%) (Auto) 0.4, Neutrophils # (Auto) 22.1H, Lymphocytes # (Auto) 0.6L, Monocytes # (Auto) 2.5H, Eosinophils # (Auto) 2.1H, Basophils # (Auto) 0.1, Nucleated Red Blood Cells % (auto) 0.0, Immature Platelet Fraction 22.2H, Prothrombin Time 16. 6H, Prothromb Time International Ratio 1.30, Activated Partial Thromboplast Time 41.9H, Anion Gap 8, Glomerular Filtration Rate > 60.0, Lactic Acid Level 3.3*H, Calcium Level 7.9L, Total Bilirubin 0.7, Direct Bilirubin 0.4H, Aspartate Amino Transf (AST/SGOT) 82H, Alanine Aminotransferase (ALT/SGPT) 37, Alkaline Phosphatase 800H, Total Creatine Kinase 34L, Creatine Kinase MB < 1.0, Creatine Kinase MB Relative Index 2.94, Troponin I < 0.02, Total Protein 5.0L, Albumin 2.0L, Albumin/Globulin Ratio 0.7, Amylase Level 23L, Lipase 17L 04/16/21 15:38: Urine Color YELLOW, Urine Appearance HAZY, Urine pH 5.0, Urine Specific [place] 1.043, Urine Protein 1+H, Urine Glucose (UA) NEGATIVE, Urine Ketones NEGATIVE, Urine Blood NEGATIVE, Urine Nitrite NEGATIVE, Urine Bilirubin NEGATIVE, Urine Urobilinogen 0.2, Urine Leukocyte Esterase NEGATIVE, Urine WBC (Auto) 2, Urine RBC (Auto) 0, Urine Hyaline Casts (Auto) 5, Urine Bacteria (Auto) NEGATIVE, Urine Squamous Epithelial Cells 0, Urine Sperm (Auto) , Coronavirus (COVID- 19)(PCR) NEGATIVE, Influenza Type A (RT-PCR) NEGATIVE, Influenza Type B (RT-PCR) NEGATIVE, Respiratory Syncytial Virus (PCR) NEGATIVE 04/16/21 22:12: Lactic Acid Followup at 4 Hours 2.5*H 04/17/21 03:11: Immature Granulocyte % (Auto) 1.2, Neutrophils (%) (Auto) 77.3H, Lymphocytes (%) (Auto) 2.2L, Monocytes (%) (Auto) 10.2H, Eosinophils (%) (Auto) 8.7H, Basophils (%) (Auto) 0.4, Neutrophils # (Auto) 20.1H, Lymphocytes # (Auto) 0.6L, Monocytes # (Auto) 2.7H, Eosinophils # (Auto) 2.3H, Basophils # (Auto) 0.1, Nucleated Red Blood Cells % (auto) 0.0, Anion Gap 7L, Glomerular Filtration Rate > 60.0, Calcium Level 7.6L, Total Bilirubin 0.9, Aspartate Amino Transf (AST/SGOT) 65H, Alanine Aminotransferase (ALT/SGPT) 33, Alkaline Phosphatase 686H, Total Protein 4.7L, Albumin 1.7L, Albumin/Globulin Ratio 0.6, Magnesium Level 1.9 CBC/BMP Laboratory Tests 04/16/21 15:30 04/17/21 03:11 04/17/21 06:58 Microbiology Microbiology 04/16/21 Blood Culture, Received Pending 04/16/21 Blood Culture, Received Pending JASON FIGUEREDO MD Apr 17, 2021 11:45
[2021-04-17] MEDS: NORCO, ANEXSIA 5/325MG TABLET (HYDROcodone/ACETAMINOPHEN) PO PRN ×2 (14:16→20:21)
[2021-04-17] MEDS: ALBUTEROL 90 MCG/ACT 8GM HFA INHALER INH PRN ×2 (14:29→20:39)
[2021-04-17 14:40] LABS: CLOSTRIDIUM DIFFICILE PCR NEGATIVE (NEGATIVE)
--- NOTE | 2021-04-17 16:54 | MEDONCENPD ---
Date/Time of Encounter Date of Encounter: Apr 17, 2021 Time of Encounter: 16:00 Encounter Reason for consultation: Pulmonary embolism with thrombocytopenia with stage IV non-small cell lung carcinoma History of present illness: I had the pleasure of seeing Mr. Morales Moore in consultation for thrombocytopenia and pulmonary embolism. As you know Mr. Moore is a 65 years old white gentleman who is a known case of metastatic non-small cell lung carcinoma and was treated with chemotherapy with carboplatin and pemetrexed in November 2020. There was progression of disease and patient was supposed to start docetaxel and ramucirumab. Patient recently admitted on 03 March 2021 for C. difficile diarrhea and was treated but diarrhea did not subside. Patient was seen by infectious disease attending Dr. Colunga and patient was transferred to [facility] and was given treatment for C. difficile diarrhea as outpatient. Patient was found to be distressed with shortness of breath yesterday and was brought to emergency room. CT scan of the chest on 04/16/2021 revealed acute appearing pulmonary emboli involving left upper lobe and left lower lobe pulmonary arterial segments without extension into main pulmonary artery and there is no evidence of right heart strain. Patient was also found to have small pleural effusion and progressive hepatic metastases and malignant ascites worse since her previous CT scan. CT of the abdomen and pelvis done 04/16/2021 showed large volume abdominal and pelvic ascites progressed in the interim likely malignant given the multiple hepatic meta stasis. Patient was found to have platelet count of 9 so patient is being seen for possibility of starting anticoagulation for pulmonary embolism After discussing with Dr. Mistry yesterday patient has been given 2 units of pheresed platelets and patient platelet count came up to 45,000. Patient has not been started with heparin yet. He is getting another unit of platelets and then will be started on heparin. Patient currently is very sick although stable compared to yesterday. He still has abdominal distention and massive ascites with abdominal tenderness. He is denying any nosebleed or gum bleed. Since he has used albuterol inhalers his breathing is improved. He does not have headache dizziness or blackouts. Denies any melena although he has uncontrolled diarrhea and is found to be C. difficile toxins negative. He has been on Percocet in rehab center and currently he is off of Percocet and complains of pain and withdrawal symptoms. PAST MEDICAL HISTORY: Hyperlipidemia. Depression. Hypothyroidism. Nephrolithiasis with stenting and basketing of kidney stones. Pulmonary embolism January 2018 status post lung surgery setting. Metastatic lung cancer. FAMILY HISTORY: No family history of cancer as per patient. SOCIAL HISTORY: Former smoker, quit in 2004, having smoked since 15 years old up to 2 ppd Denies alcohol use. On disability since 2012 for spinal stenosis. 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 . Lives by himself. 1 grown daughter REVIEW OF SYSTEMS: CONSTITUTIONAL: Weight loss. Generalized fatigue. Generalized pains HEENT: Negative. CARDIOVASCULAR: No chest pain. RESPIRATORY: Chronic cough. Shortness of breath on exertion. GENITOURINARY: Denies dysuria, frequency, incontinence. MUSCULOSKELETAL: Back pain chronic. GASTROINTESTINAL: Diarrhea. SKIN: History of skin rash. NEUROLOGICAL: Weakness. PSYCHIATRIC: Mood stable ENDOCRINE: No heat intolerance. No cold intolerance. HEMATOLOGIC/LYMPHATIC: Bruising. PHYSICAL EXAMINATION: VITAL SIGNS: Please see below. GENERAL APPEARANCE: Lying in bed not in distress. Communicative. Answered questions appropriately. HEENT: Slightly pale conjunctive anicteric. RESPIRATORY: Fair air entry. No rales rhonchi no wheeze. CARDIOVASCULAR: S1-S2 regular ABDOMEN: Distended with ascites generalized tenderness EXTREMITIES: Minimal pedal edema with bruising on the arms NEUROLOGICAL: Alert, oriented x3 no focal motor deficit PSYCHIATRIC: Seems depressed Labs 04/16/21 15:30 04/17/21 03:11 04/17/21 06:58 Assessment and suggestions: Mr. Moore is a 65 years old white gentleman who has metastatic non-small cell lung carcinoma and currently admitted with shortness of breath and was found to have thrombocytopenia and pulmonary embolism. I discussed this case with Dr. Luke. Patient has received 2 units of platelets and third unit is in progress. Following is suggested. #1. Patient is not bleeding and he may be started on heparin. PTT should be kept between 60 and 70. #2. Daily CBC needs to be done in keeping platelet count around 50 or above. #3. D-dimer should be followed daily for stability of PE #4. Once platelet count stabilizes patient may be started on Lovenox or Eliquis. JEEVAN BERMUDEZ MD Apr 17, 2021 16:54
[2021-04-17] MEDS: MORPHINE 2 MG/ML 1ML VIAL (J2270) IV PRN (18:00)
[2021-04-17 19:39] LABS: BASO # 0.1 10^3/uL (0.0-0.2); BASO % 0.4 % (0.0-1.0); EOS # 2.1 10^3/uL (0.0-0.5); EOS % 8.7 % (0.0-3.0); HEMATOCRIT 26.6 % (42.0-52.0); HEMOGLOBIN 8.6 g/dl (13.5-17.5); LYMPH # 0.5 10^3/uL (1.5-5.0); MEAN CORPUSCULAR HEMOGLOBIN 36.4 pg (27.0-33.0); MEAN CORPUSCULAR HGB CONC 32.3 g/dl (32.0-36.5); MEAN CORPUSCULAR VOLUME 112.7 fl (80.0-96.0); MONO # 2.3 10^3/uL (0.0-0.8); MONO % 9.4 % (2.0-8.0); NEUTROPHILS # 19.2 10^3/uL (1.5-8.5); NEUTROPHILS % 78.5 % (36.0-66.0); RED BLOOD COUNT 2.36 10^6/uL (4.30-6.10); WHITE BLOOD COUNT 24.5 10^3/uL (4.0-10.0)
[2021-04-17 20:14] LABS: PLATELET COUNT, AUTOMATED 74 10^3/uL (150-450)
[2021-04-17] MEDS: ATORVASTATIN 20 MG TAB PO SCH (20:21)
[2021-04-17] MEDS ORDERED: HEPARIN SOD (PORCINE) 5000UNITS/ML 1ML VIAL/SYRINGE IV PRN (20:50)
[2021-04-17] MEDS: HEPARIN DRIP 25,000 UNITS in IV 1 EA IV SCH (22:38)
[2021-04-18] VITALS (13 sets, daily range): BP systolic 104–143; BP diastolic 54–63
[2021-04-18] MEDS: ALBUTEROL 90 MCG/ACT 8GM HFA INHALER INH PRN ×5 (01:22→23:09)
[2021-04-18] MEDS: PIPERACILLIN/TAZOBACTAM SOD 4.5 GM in D5W MINI-BAG PLUS 50 ML IV SCH ×4 (03:58→20:16)
[2021-04-18 05:27] LABS: BASO # 0.1 10^3/uL (0.0-0.2); BASO % 0.4 % (0.0-1.0); EOS # 2.5 10^3/uL (0.0-0.5); EOS % 12.1 % (0.0-3.0); HEMATOCRIT 23.6 % (42.0-52.0); HEMOGLOBIN 7.8 g/dl (13.5-17.5); LYMPH # 0.5 10^3/uL (1.5-5.0); LYMPH % 2.5 % (24.0-44.0); MEAN CORPUSCULAR HEMOGLOBIN 36.6 pg (27.0-33.0); MEAN CORPUSCULAR HGB CONC 33.1 g/dl (32.0-36.5); MEAN CORPUSCULAR VOLUME 110.8 fl (80.0-96.0); MONO # 1.8 10^3/uL (0.0-0.8); MONO % 8.7 % (2.0-8.0); NEUTROPHILS # 15.4 10^3/uL (1.5-8.5); NEUTROPHILS % 75.2 % (36.0-66.0); RED BLOOD COUNT 2.13 10^6/uL (4.30-6.10); WHITE BLOOD COUNT 20.5 10^3/uL (4.0-10.0)
[2021-04-18 05:29] LABS: PLATELET COUNT, AUTOMATED 51 10^3/uL (150-450)
[2021-04-18] MEDS: LEVOTHYROXINE 150MCG TABLET (0.15MG) PO SCH (05:37)
[2021-04-18] MEDS ORDERED: NS 500 ML IV ONE (07:55)
[2021-04-18 08:16] LABS: ALBUMIN 2.2 GM/DL (3.2-5.2); ALT/SGPT 28 U/L (12-78); BILIRUBIN,TOTAL 0.8 MG/DL (0.2-1.0); BLOOD UREA NITROGEN 20 MG/DL (7-18); CALCIUM LEVEL 7.4 MG/DL (8.8-10.2); CARBON DIOXIDE LEVEL 27 MEQ/L (21-32); CHLORIDE LEVEL 106 MEQ/L (98-107); GLOMERULAR FILTRATION RATE > 60.0 (>49); GLUCOSE, FASTING 110 MG/DL (70-100); MAGNESIUM LEVEL 1.9 MG/DL (1.8-2.4); POTASSIUM SERUM 3.5 MEQ/L (3.5-5.1); SODIUM LEVEL 142 MEQ/L (136-145)
[2021-04-18] MEDS: ESCITALOPRAM OXALATE 10 MG TAB (LEXAPRO) PO SCH (08:40)
[2021-04-18] MEDS: FOLIC ACID 1 MG TAB PO SCH (08:40)
[2021-04-18] MEDS: GABAPENTIN 300 MG CAP PO SCH ×2 (08:40→20:15)
[2021-04-18] MEDS ORDERED: FLUBLOK(EGG FREE)(QUAD)INFLUENZA VACC 0.5ML SYRINGE 18YRS & OLDER IM SCH (09:00)
[2021-04-18] MEDS: MORPHINE 2 MG/ML 1ML VIAL (J2270) IV PRN (09:02)
[2021-04-18] MEDS: LACTOBACILLUS ACIDOPHILUS CAP (BACID) PO SCH ×4 (10:00→20:14)
[2021-04-18] MEDS ORDERED: MORPHINE 4 MG/ML 1ML VIAL/SYRINGE (J2270) IV PRN (10:55)
[2021-04-18] MEDS ORDERED: ISOVUE-370 76% 100ML VIAL As Ordered ONE (11:51)
--- NOTE | 2021-04-18 14:13 | REPVR ---
PROCEDURE INFORMATION: Exam: CTA Abdomen and Pelvis With Contrast Exam date and time: 04/18/2021 12:00 PM Age: 65 years old Clinical indication: Abdominal pain; Other: Elevated la, severe abdo pain. R/O mesenteric ischemia TECHNIQUE: Imaging protocol: Computed tomographic angiography of the abdomen and pelvis with contrast material. 3D rendering (Not supervised by radiologist): MIP and 3D reconstructed images were created by the technologist. Radiation optimization: All CT scans at this facility use at least one of these dose optimization techniques: automated exposure control; mA and/or kV adjustment per patient size (includes targeted exams where dose is matched to clinical indication); or iterative reconstruction. Contrast material: ISOVUE 370; Contrast volume: 100 ml; Contrast route: INTRAVENOUS (IV); COMPARISON: CT ABD/PEL W/IV CONTRAST ONLY 04/16/2021 5:20 PM FINDINGS: Lungs: Left posterior pulmonary partial passive atelectasis. Pleural spaces: Small left pleural effusion. Minimal right pleural effusion. Aorta: Moderate aortic atherosclerotic calcification without aneurysm. Celiac trunk and mesenteric arteries: The celiac artery and SMA are patent with no stenosis. The BRITT is somewhat small caliber but patent (series 4 and 4, images 17-19). Renal arteries: Bilateral single renal arteries, no hemodynamically significant stenosis identified. Right iliac arteries: Less than 50% right common and external iliac artery stenosis. Left iliac arteries: 50-69% left common iliac artery stenosis. 50-69% proximal left external iliac artery stenosis. Other arteries: Atherosclerotic calcifications are present involving the LCx coronary artery. Other veins: Calcified phleboliths are present in the lower pelvis bilaterally. Liver: Multiple intrahepatic masses redemonstrated, largest single lesion 3.8 cm, stable. Gallbladder and bile ducts: The gallbladder is partially contracted. No extrahepatic biliary ductal dilatation or calculus. Pancreas: Severe pancreatic atrophy. Spleen: Unremarkable. No splenomegaly. Adrenal glands: Unremarkable. No mass. Kidneys and ureters: Left renal lower pole 3.0 mm calyceal calculus. No hydronephrosis/obstructive uropathy. Focal left renal cortical scarring. Stomach and bowel: Interval increase in mild distal transverse and descending colonic wall thickening. Sigmoid and descending colonic diverticula are present without evidence of diverticulitis. Appendix: No evidence of appendicitis. Intraperitoneal space: Large volume abdominal and pelvic ascites, stable. Lymph nodes: Unremarkable. No enlarged lymph nodes. Urinary bladder: Excreted contrast is present in the urinary bladder. Reproductive: The prostate gland demonstrates nonspecific parenchymal calcifications. Bones/joints: Bilateral mild lower lumbar facet primary osteoarthritis. Anterior bridging right sacroiliac joint marginal osteophytes. Destructive lesions posterior right 9th rib, left pubic symphysis, lateral left 5th rib. Sclerotic focus right L2 vertebral body measuring 13 mm, anterior right 6th rib Soft tissues: Bilateral inguinal hernias are present containing only intra-abdominal fat on the left, and a small amount of the margin of the urinary bladder on the right. IMPRESSION: 1. No abdominal aortic aneurysm or dissection identified. 2. Multiple intrahepatic masses consistent with metastatic disease, stable. 3. Interval increase in mild distal transverse and descending colonic wall thickening. The finding is consistent with mild nonspecific colitis, including ischemic colitis. Clinical correlation with the patient's specific symptomatology is recommended. 4. Large volume abdominal and pelvic ascites, stable. 5. 50-69% left common iliac artery stenosis. 6. 50-69% proximal left external iliac artery stenosis. 7. Left renal calyceal lithiasis. 8. Focal left renal cortical scarring. 9. Bilateral inguinal hernias. 10. Osseous metastatic disease. 11. Diverticulosis. 12. Chronic calcific prostatitis. 13. Small left pleural effusion, mild interval increase. 14. Minimal right pleural effusion, stable. 15. Coronary atherosclerosis. Electronically signed by: Neville Pacheco On 04/18/2021 14:13:46 PM
--- NOTE | 2021-04-18 18:40 | IPNPDOC ---
Date Seen The patient was seen on 04/18/21. Progress Note SUBJECTIVE: Patient was seen examined at bedside. Complaining of diffuse abdominal pain. Abdomen is distended with fluid shifts. Patient denies any chest pain palpitation shortness of breath. No evidence for bleeding overnight. Patient was transfused 2 units of a pheresis platelets increased to 45. Patient is still under under the bo for starting anticoagulation. OBJECTIVE PHYSICAL EXAMINATION: VITAL SIGNS: please see below General: Pale ill-appearing male HEENT: PERRLA, EOMI, sclerae clear Neck: supple, normal ROM, no JVD Respiratory: lungs CTAB, no wheeze, no rales, no crackles CVS: RRR, normal S1, S2, no murmurs Abdo: Grossly distended abdomen tenderness in the left lower and right lower quadrant, no guarding however 8/10 pain to palpation. Extremities: no edema, pulses 2+ MSK: no joint deformities, normal ROM Neuro: no focal neuro deficits, moving all 4 extremities, CN2-12 intact. Strength 5/5 in all 4 extremities. No nystagmus. Psych: calm, cooperative, AAO x 3 LABORATORY DATA, IMAGING STUDIES, MICROBIOLOGY: Please see below. CTA abdomen pelvis (04/18/21): IMPRESSION: 1. No abdominal aortic aneurysm or dissection identified. 2. Multiple intrahepatic masses consistent with metastatic disease, stable. 3. Interval increase in mild distal transverse and descending colonic wall thickening. The finding is consistent with mild nonspecific colitis, including ischemic colitis. Clinical correlation with the patient's specific symptomatology is recommended. 4. Large volume abdominal and pelvic ascites, stable. 5. 50-69% left common iliac artery stenosis. 6. 50-69% proximal left external iliac artery stenosis. 7. Left renal calyceal lithiasis. 8. Focal left renal cortical scarring. 9. Bilateral inguinal hernias. 10. Osseous metastatic disease. 11. Diverticulosis. 12. Chronic calcific prostatitis. 13. Small left pleural effusion, mild interval increase. 14. Minimal right pleural effusion, stable. 15. Coronary atherosclerosis. DVT prophylaxis ordered?: Mechanical only at this time ASSESSMENT AND PLAN: Oscar is a pleasant 65-year-old male with a history of metastatic lung adenocarcinoma with mets to spine and liver as well as PE, coronary artery disease, anemia, hypothyroidism. Patient was recently admitted to [facility] for recurrent C. difficile colitis for which she is had numerous hospitalizations. Patient was discharged to [facility] rehab center however developed worsening abdominal pain, was found to have leukocytosis and was started on Levaquin for SBP. He has received 3 paracentesis in the last 2 weeks. [facility] was [facility] management of peritonitis. Patient complains of abdominal distention and diffuse abdominal pain as well as having approximately 4-5 episodes of watery diarrhea in the past 24 hours. Patient found to have leukocytosis of approximately 28,000. His lactic acid of 3.3. CT imaging of the chest showing a pulmonary embolism, CT abdomen is showing progression of metastatic disease as well as large volume ascites. Finally patient is found to have a thrombocytopenia platelet count of 9. Patient will be admitted to hospitalist service for the management of thrombocytopenia pulmonary embolism and peritonitis. He started on empiric Zo syn. PROBLEMS: #Spontaneous bacterial peritonitis -Patient has large volume ascites secondary to liver metastases from primary lung adenocarcinoma -Received 3 paracentesis in the past 2 weeks -Diagnosed with SBP at [facility] started on Levaquin prior to transfer here. -[place] [address]. Blood culture sent. Patient started on empiric Zosyn. -White count decreased to 20.5 Zosyn day 3 -PLT improved from 9 to 74. If remains stable, consult IR for paracentesis on 04/19/21 #Acute pulmonary embolism - Patient has a history of pulmonary embolism and completed 6 months of Eliquis. - Patient is not hypoxic at this time, no SOB - Pathology consult was placed. Discussed with Dr. Garcia. - PLT 9 on admission. S/p 3 units apharesis PLTS. Increased to 74 - start heparin ggt. Following Dr. Garcia recommendations. - Goal PTT between 60-70. - daily CBC - D dimer daily for stability of PE - once platelet count stabilized, patient may be transitioned to lovenox or eliquis. #Abdominal pain: - likely 2/2 severe ascites, vs colitis - LA 2.4. CTA showing nonspecific colitis - may resemble ischemic colitis - patient is presently on heparin ggt - will re-assess pain after paracentesis #Metastatic lung adenocarcinoma -Follows with Dr. Sorto -At this stage prognosis is poor -Patient is now DNR/DNI #Thrombocytopenia -Platelet count 9, below baseline unless admission of 32. -Discussed with Dr. Garcia, transfused 2 units of a pheresis platelets. -Platelet count increased to 74 after 3 units of apheresis PLTS. -No signs and symptoms of bleeding overnight -Thrombocytopenia possibly precipitated by acute infection i.e. peritonitis. - monitor CBC daily. #Diarrhea/history of recurrent C. difficile colitis -Has had 4-5 loose bowel movements in the past 24 hours -GI panel negative. No C diff - DC empiric dificid. #Hx of NSTEMI/Type 2 GA - c/w cardioprotective medications. # Anxiety and depression: -Continue home medications # Hypothyroidism: -Continue levothyroxine # Hyperlipidemia: -Continue statin #deconditioning/failure to thrive -Ordered PT/OT eval CODE STATUS: Discussed with patient regarding poor prognosis. Dr. Gaffney signed MOLST form indicating DNR/DNI status. Patient does not wish to have chest compressions nor does he wish to be intubated. VS, I&O, 24H, Fishbone Vital Signs/I&O Vital Signs Date Time Temp Pulse Resp B/P (MAP) Pulse Ox O2 Delivery O2 Flow Rate FiO2 04/18/21 18:09 99.4 95 22 125/61 96 Room Air I&O- Last 24 Hours up to 6 AM 04/18/21 06:00 Intake Total 704.0 ml Output Total 320 ml Balance 384.0 ml Laboratory Data 24H LABS Laboratory Tests 2 04/17/21 19:07: Immature Granulocyte % (Auto) 1.0, Neutrophils (%) (Auto) 78.5H, Lymphocytes (%) (Auto) 2.0L, Monocytes (%) (Auto) 9.4H, Eosinophils (%) (Auto) 8.7H, Basophils (%) (Auto) 0.4, Neutrophils # (Auto) 19.2H, Lymphocytes # (Auto) 0.5L, Monocytes # (Auto) 2.3H, Eosinophils # (Auto) 2.1H, Basophils # (Auto) 0.1, Nucleated Red Blood Cells % (auto) 0.0, Immature Platelet Fraction 4.5 04/17/21 21:36: Activated Partial Thromboplast Time 44.1H, Lactic Acid Level 3.3*H 04/18/21 02:19: Lactic Acid Followup at 4 Hours 3.4*H 04/18/21 05:14: Immature Granulocyte % (Auto) 1.1, Neutrophils (%) (Auto) 75.2H, Lymphocytes (%) (Auto) 2.5L, Monocytes (%) (Auto) 8.7H, Eosinophils (%) (Auto) 12.1H, Basophils (%) (Auto) 0.4, Neutrophils # (Auto) 15.4H, Lymphocytes # (Auto) 0.5L, Monocytes # (Auto) 1.8H, Eosinophils # (Auto) 2.5H, Basophils # (Auto) 0.1, Nucleated Red Blood Cells % (auto) 0.1H, Activated Partial Thromboplast Time 179.8*H, Lactic Acid Level 3.0*H, Anion Gap 9, Glomerular Filtration Rate > 60.0, Calcium Level 7.4L, Magnesium Level 1.9, Total Bilirubin 0.8, Aspartate Amino Transf (AST/SGOT) 52H, Alanine Aminotransferase (ALT/SGPT) 28, Alkaline Phosphatase 507H, Total Protein 5.0L, Albumin 2.2#L, Albumin/Globulin Ratio 0.8 04/18/21 09:35: Lactic Acid Followup at 4 Hours 2.4*H 04/18/21 13:34: Activated Partial Thromboplast Time 82.1H CBC/BMP Laboratory Tests 04/17/21 19:07 04/18/21 05:14 Microbiology Microbiology 04/18/21 Stool Occult Blood (STACEY) - Final, Complete 04/17/21 Gastrointestinal Tract Panel (PCR) - Final, Complete 04/16/21 Blood Culture - Preliminary, Resulted No Growth after 48 hours. All Specime... 04/16/21 Blood Culture - Preliminary, Resulted No Growth after 48 hours. All Specime... JASON FIGUEREDO MD Apr 18, 2021 18:40
[2021-04-18] MEDS ORDERED: FUROSEMIDE 20MG/2ML VIAL (J1940) IV ONE (19:00)
[2021-04-18] MEDS: ATORVASTATIN 20 MG TAB PO SCH (20:15)
[2021-04-18] MEDS: LATANOPROST 0.005% OPHTH SOLN 2.5 ML OU SCH (20:16)
[2021-04-18 21:13] LABS: BASO # 0.1 10^3/uL (0.0-0.2); BASO % 0.5 % (0.0-1.0); EOS # 1.4 10^3/uL (0.0-0.5); EOS % 6.8 % (0.0-3.0); HEMATOCRIT 36.8 % (42.0-52.0); LYMPH # 0.6 10^3/uL (1.5-5.0); LYMPH % 2.8 % (24.0-44.0); MEAN CORPUSCULAR HEMOGLOBIN 35.2 pg (27.0-33.0); MEAN CORPUSCULAR HGB CONC 34.5 g/dl (32.0-36.5); MEAN CORPUSCULAR VOLUME 101.9 fl (80.0-96.0); MONO # 2.4 10^3/uL (0.0-0.8); MONO % 11.2 % (2.0-8.0); NEUTROPHILS # 16.5 10^3/uL (1.5-8.5); NEUTROPHILS % 77.5 % (36.0-66.0); RED BLOOD COUNT 3.61 10^6/uL (4.30-6.10); WHITE BLOOD COUNT 21.3 10^3/uL (4.0-10.0)
[2021-04-18 21:35] LABS: HEMOGLOBIN 12.7 g/dl (13.5-17.5); PLATELET COUNT, AUTOMATED 40 10^3/uL (150-450)
[2021-04-19] VITALS (7 sets, daily range): BP systolic 118–150; BP diastolic 55–73
[2021-04-19] MEDS: PIPERACILLIN/TAZOBACTAM SOD 4.5 GM in D5W MINI-BAG PLUS 50 ML IV SCH ×4 (02:55→20:18)
[2021-04-19 03:49] LABS: BASO # 0.1 10^3/uL (0.0-0.2); BASO % 0.5 % (0.0-1.0); EOS # 1.1 10^3/uL (0.0-0.5); EOS % 5.5 % (0.0-3.0); HEMATOCRIT 34.2 % (42.0-52.0); HEMOGLOBIN 11.8 g/dl (13.5-17.5); LYMPH # 0.6 10^3/uL (1.5-5.0); MEAN CORPUSCULAR HEMOGLOBIN 34.8 pg (27.0-33.0); MEAN CORPUSCULAR HGB CONC 34.5 g/dl (32.0-36.5); MEAN CORPUSCULAR VOLUME 100.9 fl (80.0-96.0); MONO # 2.1 10^3/uL (0.0-0.8); MONO % 10.3 % (2.0-8.0); NEUTROPHILS % 79.3 % (36.0-66.0); PLATELET COUNT, AUTOMATED 32 10^3/uL (150-450); RED BLOOD COUNT 3.39 10^6/uL (4.30-6.10); WHITE BLOOD COUNT 20.2 10^3/uL (4.0-10.0)
[2021-04-19 04:10] LABS: ALBUMIN 2.2 GM/DL (3.2-5.2); ALT/SGPT 23 U/L (12-78); BILIRUBIN,TOTAL 1.1 MG/DL (0.2-1.0); BLOOD UREA NITROGEN 16 MG/DL (7-18); CALCIUM LEVEL 7.5 MG/DL (8.8-10.2); CARBON DIOXIDE LEVEL 27 MEQ/L (21-32); CHLORIDE LEVEL 107 MEQ/L (98-107); CREATININE FOR GFR 0.81 MG/DL (0.70-1.30); GLOMERULAR FILTRATION RATE > 60.0 (>49); GLUCOSE, FASTING 99 MG/DL (70-100); MAGNESIUM LEVEL 1.7 MG/DL (1.8-2.4); POTASSIUM SERUM 3.4 MEQ/L (3.5-5.1); SODIUM LEVEL 143 MEQ/L (136-145); TOTAL PROTEIN 5.2 GM/DL (6.4-8.2)
[2021-04-19] MEDS: LEVOTHYROXINE 150MCG TABLET (0.15MG) PO SCH (05:18)
[2021-04-19] MEDS: HEPARIN DRIP 25,000 UNITS in IV 1 EA IV SCH (05:51)
[2021-04-19] MEDS: ALBUTEROL 90 MCG/ACT 8GM HFA INHALER INH PRN ×2 (06:23→11:06)
[2021-04-19] MEDS ORDERED: POTASSIUM CHLORIDE 10MEQ SR TABLET PO ONE (08:00)
[2021-04-19] MEDS: LACTOBACILLUS ACIDOPHILUS CAP (BACID) PO SCH ×4 (08:07→20:21)
[2021-04-19] MEDS: ESCITALOPRAM OXALATE 10 MG TAB (LEXAPRO) PO SCH (08:07)
[2021-04-19] MEDS: FOLIC ACID 1 MG TAB PO SCH (08:07)
[2021-04-19] MEDS: GABAPENTIN 300 MG CAP PO SCH ×2 (08:07→20:21)
[2021-04-19] MEDS: MAG SULF 1GM/100ML (MAG RUN) 1 GM in IV 1 EA IV SCH ×2 (08:08→09:53)
[2021-04-19] MEDS: PERCOCET 5MG/325MG TAB PO PRN ×3 (08:09→20:24)
[2021-04-19] MEDS: methylPREDNISolone 125MG 2ML VIAL IV SCH ×2 (10:21→18:01)
--- NOTE | 2021-04-19 11:25 | IPNPDOC ---
Date Seen The patient was seen on 04/19/21. Progress Note SUBJECTIVE: Patient was seen examined at bedside. Complaining of diffuse abdominal pain. Abdomen is distended with fluid shifts. Patient denies any chest pain palpitation shortness of breath. She is presently on a heparin infusion. Platelets down trended to 32. Hemoglobin is appropriate at 11.8. Patient is due for paracentesis today on 04/19/2021 OBJECTIVE PHYSICAL EXAMINATION: VITAL SIGNS: please see below General: Pale ill-appearing male HEENT: PERRLA, EOMI, sclerae clear Neck: supple, normal ROM, no JVD Respiratory: lungs CTAB, no wheeze, no rales, no crackles CVS: RRR, normal S1, S2, no murmurs Abdo: Grossly distended abdomen tenderness in the left lower and right lower quadrant, no guarding however 8/10 pain to palpation. Extremities: no edema, pulses 2+ MSK: no joint deformities, normal ROM Neuro: no focal neuro deficits, moving all 4 extremities, CN2-12 intact. Strength 5/5 in all 4 extremities. No nystagmus. Psych: calm, cooperative, AAO x 3 LABORATORY DATA, IMAGING STUDIES, MICROBIOLOGY: Please see below. CTA abdomen pelvis (04/18/21): IMPRESSION: 1. No abdominal aortic aneurysm or dissection identified. 2. Multiple intrahepatic masses consistent with metastatic disease, stable. 3. Interval increase in mild distal transverse and descending colonic wall thickening. The finding is consistent with mild nonspecific colitis, including ischemic colitis. Clinical correlation with the patient's specific symptomatology is recommended. 4. Large volume abdominal and pelvic ascites, stable. 5. 50-69% left common iliac artery stenosis. 6. 50-69% proximal left external iliac artery stenosis. 7. Left renal calyceal lithiasis. 8. Focal left renal cortical scarring. 9. Bilateral inguinal hernias. 10. Osseous metastatic disease. 11. Diverticulosis. 12. Chronic calcific prostatitis. 13. Small left pleural effusion, mild interval increase. 14. Minimal right pleural effusion, stable. 15. Coronary atherosclerosis. DVT prophylaxis ordered?: Mechanical only at this time ASSESSMENT AND PLAN: Oscar is a pleasant 65-year-old male with a history of metastatic lung adenocarcinoma with mets to spine and liver as well as PE, coronary artery disease, anemia, hypothyroidism. Patient was recently admitted to [facility] for recurrent C. difficile colitis for which she is had numerous hospitalizations. Patient was discharged to [facility] center however developed worsening abdominal pain, was found to have leukocytosis and was started on Levaquin for SBP. He has received 3 paracentesis in the last 2 weeks. He was transferred here from [facility] for management of peritonitis. Patient complains of abdominal distention and diffuse abdominal pain as well as having approximately 4-5 episodes of watery diarrhea in the past 24 hours. Patient found to have leukocytosis of approximately 28,000. His lactic acid of 3.3. CT imaging of the chest showing a pulmonary embolism, CT abdomen is showing progression of metastatic disease as well as large volume ascites. Finally patient is found to have a thrombocytopenia platelet count of 9. Patient will be admitted to hospitalist service for the management of thrombocytopenia pulmonary embolism and peritonitis. He started on empiric Zosyn. PROBLEMS: #Spontaneous bacterial peritonitis -Patient has large volume ascites secondary to liver metastases from primary lung adenocarcinoma -Received 3 paracentesis in the past 2 weeks -Diagnosed with SBP at [facility] started on Levaquin prior to transfer here. -[place] [address]. Blood culture sent. Patient started on empiric Zosyn. -White count decreased to 20.5 Zosyn day 3 #Acute pulmonary embolism - Patient has a history of pulmonary embolism and completed 6 months of Eliquis. - Pathology consult was placed. Discussed with Dr. Garcia. - PLT 9 on admission. S/p 3 units apharesis PLTS. Increased to 74 - start heparin ggt. Following Dr. Garcia recommendations. - Goal PTT between 60-70. - Hemoglobin 12.8 stable. - Platelets trended down to 32. #Abdominal pain: - likely 2/2 severe ascites, vs colitis. Pain is stable. - LA 2.4. CTA showing nonspecific colitis - may resemble ischemic colitis - patient is presently on heparin ggt - will re-assess pain after paracentesis #Metastatic lung adenocarcinoma -Follows with Dr. 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 -Hematology has been consulted, Dr. Garcia. -Platelet has received 3 total units of apheresis plts -No signs and symptoms of bleeding overnight -Platelets trended down from 74-32. -Dr. Garcia recommending starting treatment for ITP. Start Solu-Medrol 60 mg IV every 8 -Ordered fourth unit of pheresis platelets prior to paracentesis. #Diarrhea/history of recurrent C. difficile colitis -Has had 4-5 loose bowel movements in the past 24 hours -GI panel negative. No C diff - DC empiric dificid. #Hx of NSTEMI/Type 2 PR - c/w cardioprotective medications. # Anxiety and depression: -Continue home medications # Hypothyroidism: -Continue levothyroxine # Hyperlipidemia: -Continue statin #deconditioning/failure to thrive -Ordered PT/OT eval CODE STATUS: Discussed with patient regarding poor prognosis. Dr. Gaffney signed MOLST form indicating DNR/DNI status. Patient does not wish to have chest compressions nor does he wish to be intubated. VS, I&O, 24H, Fishbone Vital Signs/I&O Vital Signs Date Time Temp Pulse Resp B/P (MAP) Pulse Ox O2 Delivery O2 Flow Rate FiO2 04/19/21 09:15 20 04/19/21 08:00 98.3 95 137/73 (94) 94 Room Air I&O- Last 24 Hours up to 6 AM 04/19/21 06:00 Intake Total 3024 ml Output Total 450 ml Balance 2574 ml Laboratory Data 24H LABS Laboratory Tests 2 04/18/21 13:34: Activated Partial Thromboplast Time 82.1H 04/18/21 21:02: Activated Partial Thromboplast Time 61.3H, Immature Granulocyte % (Auto) 1.2, Neutrophils (%) (Auto) 77.5H, Lymphocytes (%) (Auto) 2.8L, Monocytes (%) (Auto) 11.2H, Eosinophils (%) (Auto) 6.8H, Basophils (%) (Auto) 0.5, Neutrophils # (Auto) 16.5H, Lymphocytes # (Auto) 0.6L, Monocytes # (Auto) 2.4H, Eosinophils # (Auto) 1.4H, Basophils # (Auto) 0.1, Nucleated Red Blood Cells % (auto) 0.1H, Immature Platelet Fraction 7.4 04/19/21 03:29: Immature Granulocyte % (Auto) 1.4, Neutrophils (%) (Auto) 79.3H, Lymphocytes (%) (Auto) 3.0L, Monocytes (%) (Auto) 10.3H, Eosinophils (%) (Auto) 5.5H, Basophils (%) (Auto) 0.5, Neutrophils # (Auto) 16.0H, Lymphocytes # (Auto) 0.6L, Monocytes # (Auto) 2.1H, Eosinophils # (Auto) 1.1H, Basophils # (Auto) 0.1, Nucleated Red Blood Cells % (auto) 0.0, D-Dimer, Quantitative > 4000H, Anion Gap 9, Glomerular Filtration Rate > 60.0, Calcium Level 7.5L, Magnesium Level 1.7L, Total Biliru bin 1.1H, Aspartate Amino Transf (AST/SGOT) 50H, Alanine Aminotransferase (ALT/SGPT) 23, Alkaline Phosphatase 505H, Total Protein 5.2L, Albumin 2.2L, Albumin/Globulin Ratio 0.7 04/19/21 03:34: Activated Partial Thromboplast Time 63.2H CBC/BMP Laboratory Tests 04/18/21 21:02 04/19/21 03:29 Microbiology Microbiology 04/18/21 Stool Occult Blood (STACEY) - Final, Complete 04/17/21 Gastrointestinal Tract Panel (PCR) - Final, Complete 04/16/21 Blood Culture - Preliminary, Resulted No Growth after 48 hours. All Specime... 04/16/21 Blood Culture - Preliminary, Resulted No Growth after 48 hours. All Specime... JASON FIGUEREDO MD Apr 19, 2021 11:25
[2021-04-19 15:36] LABS: HEMATOCRIT 37.2 % (42.0-52.0); HEMOGLOBIN 12.6 g/dl (13.5-17.5); MEAN CORPUSCULAR HEMOGLOBIN 34.7 pg (27.0-33.0); MEAN CORPUSCULAR HGB CONC 33.9 g/dl (32.0-36.5); MEAN CORPUSCULAR VOLUME 102.5 fl (80.0-96.0); RED BLOOD COUNT 3.63 10^6/uL (4.30-6.10); WHITE BLOOD COUNT 21.5 10^3/uL (4.0-10.0)
[2021-04-19 15:38] LABS: PLATELET COUNT, AUTOMATED 52 10^3/uL (150-450)
[2021-04-19] MEDS ORDERED: SODIUM BICARBONATE 8.4% INJ 50MEQ 50 ML VIAL As Ordered ONE (16:02)
--- NOTE | 2021-04-19 18:05 | REP ---
INDICATION: ascites The patient has a history of ascites COMPARISON: None. TECHNIQUE: The procedure was performed by CASPER Steward, under the direct supervision of Dr. Ba The risks and benefits of the procedure were explained to the patient and an informed consent was obtained both verbally and written. Directly prior to the start of the procedure a formal time-out was completed in the procedure room. The largest pocket of fluid was localized in the left flank using ultrasound guidance. The skin was prepped and draped in a sterile fashion. Eleven ML of buffered lidocaine was used as a local anesthetic. An 8-Ukrainian multi side-hole catheter was inserted using trocar technique. FINDINGS: 4200 mL of yellow ascites was removed in total, 1300 mL was sent to the laboratory for further analysis, and the rest was discarded. The patient tolerated the procedure well and there were no immediate complications. After the appropriate amount of monitored convalescence, the patient was discharged from the department. IMPRESSION: Ultrasound-guided paracentesis with removal of 4200 mL of yellow ascites. <Electronically signed by Mihaela Thakkar > 04/19/21 [id number] <Electronically signed by Wilber Ba > 04/19/21 1800
[2021-04-19 18:37] LABS: SPEC. GRAVITY BODY FLUIDS 1.018 (NOT ESTABLISHED)
[2021-04-19 18:46] LABS: SOURCE, BODY FLUID ASCITES
[2021-04-19 18:47] LABS: APPEARANCE, BODY FLUID HAZY (CLEAR); ASCITES FL COLOR YELLOW (COLORLESS)
[2021-04-19] MEDS: DICYCLOMINE 10 MG CAP PO PRN (18:55)
[2021-04-19 19:07] LABS: SOURCE, BODY FLUID ALBUMIN ASCITES; SOURCE, BODY FLUID GLUCOSE ASCITES; SOURCE, BODY FLUID TOT PROTEIN ASCITES; TOTAL PROTEIN, BODY FLUID 2.5 G/DL (NOT ESTABLISHED)
[2021-04-19] MEDS: ATORVASTATIN 20 MG TAB PO SCH (20:21)
[2021-04-19] MEDS: LATANOPROST 0.005% OPHTH SOLN 2.5 ML OU SCH (20:25)
[2021-04-20] VITALS: BP 116/59
[2021-04-20] MEDS: methylPREDNISolone 125MG 2ML VIAL IV SCH ×2 (01:12→08:13)
[2021-04-20] MEDS: PIPERACILLIN/TAZOBACTAM SOD 4.5 GM in D5W MINI-BAG PLUS 50 ML IV SCH ×2 (03:23→08:14)
[2021-04-20 04:00] VITALS: BP 133/59
[2021-04-20] MEDS: LEVOTHYROXINE 150MCG TABLET (0.15MG) PO SCH (05:47)
[2021-04-20 06:24] LABS: BASO % 0.1 % (0.0-1.0); D-DIMER QUANT 3836.23 ng/ml (<500); EOS % 0.1 % (0.0-3.0); HEMATOCRIT 33.5 % (42.0-52.0); HEMOGLOBIN 11.4 g/dl (13.5-17.5); LYMPH # 0.3 10^3/uL (1.5-5.0); LYMPH % 1.6 % (24.0-44.0); MEAN CORPUSCULAR HEMOGLOBIN 34.9 pg (27.0-33.0); MEAN CORPUSCULAR VOLUME 102.4 fl (80.0-96.0); MONO # 0.8 10^3/uL (0.0-0.8); MONO % 3.5 % (2.0-8.0); NEUTROPHILS # 20.3 10^3/uL (1.5-8.5); NEUTROPHILS % 93.5 % (36.0-66.0); RED BLOOD COUNT 3.27 10^6/uL (4.30-6.10); WHITE BLOOD COUNT 21.7 10^3/uL (4.0-10.0)
[2021-04-20 06:25] LABS: PLATELET COUNT, AUTOMATED 32 10^3/uL (150-450)
[2021-04-20 06:40] LABS: ALBUMIN 1.9 GM/DL (3.2-5.2); ALT/SGPT 18 U/L (12-78); BILIRUBIN,TOTAL 0.8 MG/DL (0.2-1.0); BLOOD UREA NITROGEN 22 MG/DL (7-18); CARBON DIOXIDE LEVEL 27 MEQ/L (21-32); CHLORIDE LEVEL 106 MEQ/L (98-107); CREATININE FOR GFR 0.82 MG/DL (0.70-1.30); GLOMERULAR FILTRATION RATE > 60.0 (>49); GLUCOSE, FASTING 137 MG/DL (70-100); MAGNESIUM LEVEL 2.5 MG/DL (1.8-2.4); POTASSIUM SERUM 3.5 MEQ/L (3.5-5.1); SODIUM LEVEL 140 MEQ/L (136-145); TOTAL PROTEIN 4.6 GM/DL (6.4-8.2)
[2021-04-20 06:50] LABS: PARTIAL THROMBOPLASTIN TIME 69.3 SECONDS (25.9-37.0)
[2021-04-20 07:41] VITALS: BP 134/67
[2021-04-20] MEDS: FOLIC ACID 1 MG TAB PO SCH (08:13)
[2021-04-20] MEDS: LACTOBACILLUS ACIDOPHILUS CAP (BACID) PO SCH ×4 (08:13→21:03)
[2021-04-20] MEDS: ESCITALOPRAM OXALATE 10 MG TAB (LEXAPRO) PO SCH (08:13)
[2021-04-20] MEDS: GABAPENTIN 300 MG CAP PO SCH ×2 (08:13→21:04)
[2021-04-20] MEDS: PERCOCET 5MG/325MG TAB PO PRN ×3 (08:44→23:47)
[2021-04-20] MEDS ORDERED: MORPHINE 10MG/0.5ML ORAL CONCENTRATE SOLUTION U/D SL PRN (10:05)
[2021-04-20] MEDS ORDERED: SCOPOLAMINE 1MG TRANSDERMAL PATCH TOP PRN (10:05)
[2021-04-20] MEDS: ALBUTEROL 90 MCG/ACT 8GM HFA INHALER INH PRN (10:58)
--- NOTE | 2021-04-20 12:42 | IPNPDOC ---
Text Note Date of Service The patient was seen on 04/20/21. NOTE SUBJECTIVE: Mr. Moore is a 65 year old male with a history of stage IV metastatic NSCLC (started chemo 11/2020), recurrent ascites, recurrent C. Difficile/diarrhea, PE (Dx 2018; completed 6 months Eliquis), hypothyroidism, HTN, hyperlipidemia, neuropathy and depression who presents with improved intermittent abdominal spasms, generalized weakness and chronic SOB. Patient states that paracentesis performed on 04/19/21 has relieved some of his SOB and abdominal pressure. Of note, patient discussed with attending hospitalist options for hospice and/or palliative care - - collaborative decision made to switch to comfort measures only status after discussion. A new MOLST form was completed to reflect this decision. ROS CONSTITUTIONAL: Generalized fatigue. Denies fever, chills. HEENT: Denies DOVER, epistaxis, bleeding gums, dysphagia. CV: Denies CP, palpitations. RESP: Chronic SOB, previous cough resolved. Denies hemoptysis. GI: Intermittent spastic abdominal pains, loose stool with improved control of bowels. Denies N/V, hematemesis, hematochezia. : Denies dysuria, pyuria, change in urinary frequency, hematuria. MSK: Generalized weakness, improved mobility with less assistance. OBJECTIVE PHYSICAL EXAMINATION: General: Patient appears older than stated age, in NAD, sitting comfortably in a chair. HEENT: PERRLA, EOMI, sclerae clear, mucus membranes moist. Neck: No apparent restriction in motion, no JVD, no lymphadenopathy. Respiratory: Lungs CTAB, no wheeze, no rales, no crackles. CVS: RRR, normal S1, S2, no murmurs, +2 radial pulses bilaterally. Abdomen: Non-tender to palpation, firm, BS present, neatly dressed paracentesis site with no drainage in LLQ. Extremities: No edema, bilateral REGIONAL OPERATIONS MANAGER and DPA pulses 2+, non-tender to palpation BLE. Skin: Bruising noted on bilateral upper extremities. Neuro: No obvious focal neuro deficits, 5/5 strength in all 4 extremities, CN II-XII grossly intact. Psych: Calm, mood is stable. IMAGING: US Guided Paracentesis 04/19/21 IMPRESSION: "Ultrasound-guided paracentesis with removal of 4200 mL of yellow ascites." CT Angiography Abd/Pelv w contrast 04/18/21 IMPRESSION: "1. No abdominal aortic aneurysm or dissection identified. 2. Multiple intrahepatic masses consistent with metastatic disease, stable. 3. Interval increase in mild distal transverse and descending colonic wall thickening. The finding is consistent with mild nonspecific colitis, including ischemic colitis. Clinical correlation with the patient's specific symptomatology is recommended. 4. Large volume abdominal and pelvic ascites, stable. 5. 50-69% left common iliac artery stenosis. 6. 50-69% proximal left external iliac artery stenosis. 7. Left renal calyceal lithiasis. 8. Focal left renal cortical scarring. 9. Bilateral inguinal hernias. 10. Osseous metastatic disease. 11. Diverticulosis. 12. Chronic calcific prostatitis. 13. Small left pleural effusion, mild interval increase. 14. Minimal right pleural effusion, stable. 15. Coronary atherosclerosis." Vascular US BLE Doppler 04/17/21 FINDINGS: "On the left: There is no abnormal echogenic material seen within any of the visualized deep venous structures that would suggest acute thrombosis. Coaptation is unremarkable throughout. Doppler interrogation shows an expected response to respiratory variability and augmentation in the thigh. Compression techniques in the calf or were unobtainable. The color flow images show what appears to be a normal vascular pattern throughout the thigh. On the right: Abnormal echogenic material is seen in the distal popliteal vein. Respiratory variability and augmentation is nearly absent. The liao of the popliteal vein are non coaptable." CT Angiography Chest w/ contrast 04/16/21 IMPRESSION: "1. Acute appearing pulmonary emboli involving left upper lobe and left lower lobe pulmonary arterial segments without extension into the main pulmonary artery and with no evidence of right heart strain. 2. Partial right lung resection with small pleural effusions, and progressive hepatic metastases and probably malignant ascites, worse since the recent prior CT. 3. Short term stability of osteoblastic metastases CT ABD/PELV W CONTRAST 04/16/21 IMPRESSION: "Large volume abdominal and pelvic ascites which has progressed in the interim, likely malignant, given the multiple hepatic metastases, which may be mildly progressive over the interim. Colonic diverticulosis without active inflammation. Stable skeletal metastases." ASSESSMENT AND PLAN Mr. Moore is a 65 year old male with a history of stage IV metastatic NSCLC, recurrent ascites, recurrent C. Difficile/diarrhea, PE (Dx 2018; completed 6 months Eliquis), hypothyroidism, HTN, hyperlipidemia, neuropathy and depression who presents with intermittent abdominal pain and thrombocytopenia concerning for ascites 2/2 metastatic disease, acute PE, RLE DVT and ITP. # Ascites 2/2 metastatic disease - Paracentesis 04/19/21 removed 4200mL from abdomen; fluid analysis shows source is unlikely infectious with calculated ascitic absolute PMN count of 72. - Previous ascites cytology report from 04/09/21 showed atypical cells positive for malignancy. - WBC at 21.7, blood cx negative, ascites fluid cx pending. - Discontinued Zosyn. - Cipro PO 500mg BID x2d ordered. - Patient states improved abdominal pain. - IV Morphine and Percocet discontinued; SL Morphine 2mg ordered. - May require pleurX catheter placement in the future due to recurrent ascites pending patient disposition; patient is awaiting transition to hospice care and can schedule catheter placement once situated. # Acute provoked PE - Likely secondary to hypercoagulable state from metastatic disease - Hx of PE that was diagnosed in 2018; completed 6 months of Eliquis. - BLE US Doppler shows possible RLE DVT in distal popliteal vein. - Plt count 32, PTT 69.3 - IV Heparin gtt d/c. - Eliquis 5mg BID ordered; consistent with oncology recommendations. - We thank oncology for continued care and recommendations. # Stage IV metastatic NSCLC - Patient is DNR/DNI and elected after collaborative discussion to be made comfort measures only with eventual transition to hospice care. - Patient is followed by oncology and started dual chemotherapy treatments in November 2020; we greatly appreciated oncology for continued care. 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 - Will discontinue steroid medications as patient will be going to hospice care and may increase risk of infection. # Diarrhea - Frequency of loose stools has improved. - Patient has a hx of recurrent C Diff. - GI panel, stool cx and C Diff negative. - Cipro 500mg BID x2d ordered. # Hx of Type 2 IL/anxiety/depression/hypothyroidism/hyperlipidemia - Continue home medications. # Goals of care - Patient extensively discussed with attending hospitalist physician regarding transition to hospice care; hospice consult ordered. - Patient has also been made an alternate level of care status along with EQUALIZING SAW OPERATOR. - New MOLST form completed today reflecting decision for comfort measures only status. - Patient has also been made an alternate level of care status along with EQUALIZING SAW OPERATOR. - Ativan, Scopolamine, SL Morphine ordered as part of comfort measures only status. DVT prophylaxis: Switched to Eliquis from heparin drip on 04/20 in setting of acute PE. Disposition: [facility] and EQUALIZING SAW OPERATOR status pending hospice placement. Credits: DUNG Zhou, contributed in obtaining interval history, physical exam, and documentation of assessment and plan. VS,Fishbone, I+O VS, Fishbone, I+O Laboratory Tests 04/19/21 14:48 04/20/21 05:33 Vital Signs Date Time Temp Pulse Resp B/P (MAP) Pulse Ox O2 Delivery O2 Flow Rate FiO2 04/20/21 08:44 18 04/20/21 07:41 96.8 65 134/67 (89) 96 Room Air I&O- Last 24 Hours up to 6 AM 04/20/21 06:00 Intake Total 1695 ml Output Total 250 ml Balance 1445 ml GME ATTESTATION GME ATTESTATION My faculty preceptor for this patient encounter was physically present during the encounter and was fully available. All aspects of the patient interview, examination, medical decision making process, and medical care plan development were reviewed and approved by the faculty preceptor. The faculty preceptor is aware and concurs with the plan as stated in the body of this note and will attest to such by his/her cosignature. ATTENDING NOTE I, Puneet Conroy, have independently examined this patient and performed my own physical exam, as well as reviewed the documentation and edited where necessary. I have discussed in detail with the resident / student the findings and plan of treatment as documented by the resident / student and edited their note. I agree with their findings and treatment plan and have edited their documentation. I will continue to follow the patient during this hospital stay. Subjective: Patient was seen and examined at the bedside. Patient denies any chest pain, shortness breath or palpitations. Reports that his abdominal pain has had improvement. Denies any significant diarrhea. 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 Sterling for likely placement of pleurex catheter for recurrent ascites 2/2 malignancy - Will transition to [facility] status; plan for transition to Hospice house vs. NH with EQUALIZING SAW OPERATOR status LYN CASTILLO OMS-3 Apr 20, 2021 12:42 PUNEET CONROY MD Apr 20, 2021 13:40 KAI LÓPEZ D.O. Apr 20, 2021 14:44
[2021-04-20] MEDS: APIXABAN 5 MG TAB (ELIQUIS) PO SCH ×2 (13:02→21:03)
[2021-04-20] MEDS ORDERED: predniSONE 20 MG TAB PO ONE (16:05)
[2021-04-20] MEDS: CIPROFLOXACIN 500MG TABLET PO SCH (18:14)
[2021-04-20] MEDS: LATANOPROST 0.005% OPHTH SOLN 2.5 ML OU SCH (21:04)
[2021-04-20] MEDS: ATORVASTATIN 20 MG TAB PO SCH (21:04)
[2021-04-21] MEDS: LEVOTHYROXINE 150MCG TABLET (0.15MG) PO SCH (05:51)
[2021-04-21] MEDS: CIPROFLOXACIN 500MG TABLET PO SCH ×2 (05:51→17:35)
[2021-04-21] MEDS: PERCOCET 5MG/325MG TAB PO PRN ×4 (05:51→19:45)
[2021-04-21] MEDS: ESCITALOPRAM OXALATE 10 MG TAB (LEXAPRO) PO SCH (07:33)
[2021-04-21] MEDS: GABAPENTIN 300 MG CAP PO SCH ×2 (07:33→19:45)
[2021-04-21] MEDS: FOLIC ACID 1 MG TAB PO SCH (07:34)
[2021-04-21] MEDS: LACTOBACILLUS ACIDOPHILUS CAP (BACID) PO SCH ×4 (07:34→19:45)
[2021-04-21] MEDS: DICYCLOMINE 10 MG CAP PO PRN ×2 (07:34→19:45)
[2021-04-21] MEDS ORDERED: predniSONE 20 MG TAB PO SCH (09:00)
[2021-04-21] MEDS: MORPHINE 2 MG/ML 1ML VIAL (J2270) IV PRN ×3 (09:45→22:05)
--- NOTE | 2021-04-21 13:06 | REP ---
INDICATION: Evaluate for ascites. COMPARISON: None. TECHNIQUE: Real-time sonographic evaluation of all 4 quadrants in search of ascites. FINDINGS: There is only a trace amount of free fluid seen in the left upper quadrant and a mild amount of fluid seen in the right lower quadrant IMPRESSION: Minimal free fluid seen as described above. <Electronically signed by Wyatt Chavez > 04/21/21 [id number]
[2021-04-21] MEDS ORDERED: SODIUM BICARBONATE 8.4% INJ 50MEQ 50 ML VIAL As Ordered ONE (13:13)
[2021-04-21 13:55] VITALS: BP 111/58
--- NOTE | 2021-04-21 16:01 | REP ---
INDICATION: ascites The patient has a history of ascites COMPARISON: None. TECHNIQUE: The procedure was performed by CASPER Steward, under the direct supervision of Dr. Ba The risks and benefits of the procedure were explained to the patient and an informed consent was obtained both verbally and written. Directly prior to the start of the procedure a formal time-out was completed in the procedure room. The largest pocket of fluid was localized in the right flank using ultrasound guidance. The skin was prepped and draped in a sterile fashion. Eleven ML of buffered lidocaine was used as a local anesthetic. An 8-Wolof multi side-hole catheter was inserted using trocar technique. FINDINGS: 1700 mL of yellow ascites was removed and discarded. The patient tolerated the procedure well and there were no immediate complications. After the appropriate amount of monitored convalescence, the patient was discharged from the department. IMPRESSION: Ultrasound-guided paracentesis with removal of 1700 mL of yellow ascites. <Electronically signed by Mihaela Thakkar > 04/21/21 1523 <Electronically signed by Wilber Ba > 04/21/21 1554
[2021-04-21] MEDS: ATORVASTATIN 20 MG TAB PO SCH (19:45)
[2021-04-21] MEDS: LORazepam 1 MG TAB PO PRN (20:23)
[2021-04-21] MEDS ORDERED: IPRATROPIUM 0.5MG/ALBUTEROL 2.5MG INH SOL UD 3ML (DUONEB) NEB PRN (20:30)
[2021-04-21] MEDS: LATANOPROST 0.005% OPHTH SOLN 2.5 ML OU SCH (21:00)
[2021-04-22] MEDS: CIPROFLOXACIN 500MG TABLET PO SCH (06:44)
[2021-04-22] MEDS: LORazepam 1 MG TAB PO PRN ×3 (06:44→18:40)
[2021-04-22] MEDS: LEVOTHYROXINE 150MCG TABLET (0.15MG) PO SCH (06:44)
[2021-04-22] MEDS: LACTOBACILLUS ACIDOPHILUS CAP (BACID) PO SCH ×4 (06:44→21:00)
[2021-04-22] MEDS: PERCOCET 5MG/325MG TAB PO PRN ×3 (06:45→18:40)
[2021-04-22] MEDS: MORPHINE 2 MG/ML 1ML VIAL (J2270) IV PRN ×2 (08:05→18:40)
[2021-04-22] MEDS: ESCITALOPRAM OXALATE 10 MG TAB (LEXAPRO) PO SCH (08:05)
[2021-04-22] MEDS: FOLIC ACID 1 MG TAB PO SCH (08:05)
[2021-04-22] MEDS: GABAPENTIN 300 MG CAP PO SCH ×2 (08:05→21:00)
[2021-04-22] MEDS ORDERED: HYOS125TA PO (13:24)
[2021-04-22] MEDS ORDERED: MORP1SOL5 PO (13:24)
[2021-04-22] MEDS ORDERED: ATIV1TAB10 PO (13:24)
[2021-04-22] MEDS: LATANOPROST 0.005% OPHTH SOLN 2.5 ML OU SCH (21:00)
[2021-04-22] MEDS: ATORVASTATIN 20 MG TAB PO SCH (21:00)
[2021-04-23] MEDS: MORPHINE 2 MG/ML 1ML VIAL (J2270) IV PRN (02:13)
[2021-04-23] MEDS: LORazepam 1 MG TAB PO PRN (02:21)
[2021-04-23] MEDS: PERCOCET 5MG/325MG TAB PO PRN (02:22)
[2021-04-23] MEDS: LEVOTHYROXINE 150MCG TABLET (0.15MG) PO SCH (05:44)
[2021-04-23] MEDS: LACTOBACILLUS ACIDOPHILUS CAP (BACID) PO SCH (07:30)
[2021-04-23] MEDS: ESCITALOPRAM OXALATE 10 MG TAB (LEXAPRO) PO SCH (08:26)
[2021-04-23] MEDS: GABAPENTIN 300 MG CAP PO SCH (08:26)
[2021-04-23] MEDS: FOLIC ACID 1 MG TAB PO SCH (08:27)
[2021-04-23] MEDS ORDERED: MORPHINE 10MG/0.5ML ORAL CONCENTRATE SOLUTION U/D SL PRN (08:55)
[2021-04-23] MEDS ORDERED: HYOS125TA PO (09:54)
[2021-04-23] MEDS ORDERED: ATIV1TAB10 PO (09:54)
[2021-04-23] MEDS ORDERED: MORP1SOL5 PO (09:54)
--- NOTE | 2021-04-23 13:56 | DS.PDOC ---
Discharge Summary General Date of Admission Apr 16, 2021 at 19:32 Date of Discharge 04/23/2021 Discharge Summary PROCEDURES PERFORMED DURING STAY: Paracentesis ADMITTING DIAGNOSES / DISCHARGE DIAGNOSES: Spontaneous bacterial peritonitis Acute pulmonary embolism Metastatic lung adenocarcinoma Thrombocytopenia Diarrhea/history of recurrent C. difficile colitis Hx of NSTEMI/Type 2 DC Anxiety and depression Hypothyroidism Hyperlipidemia Deconditioning/failure to thrive DVT prophylaxis COMPLICATIONS/CHIEF COMPLAINT: Abdominal pain HISTORY OF PRESENT ILLNESS / HOSPITAL COURSE: Mr. Moore is a 65 year old male with a history of stage IV metastatic NSCLC (started chemo 11/2020), recurrent ascites, recurrent C. Difficile/diarrhea, PE (Dx 2018; completed 6 months Eliquis), hypothyroidism, HTN, hyperlipidemia, neuropathy and depression who presents with improved intermittent abdominal spasms, generalized weakness and chronic SOB. Patient was in the process of being treated for suspected SBP. Patient was admitted to hospital service for further evaluation and treatment. Initially, patient was suspected of having SBP and paracentesis was eventually performed. In patient's prior admission, he had paracentesis completed that revealed no significant evidence of SBP. However, it did reveal evidence of malignancy within the peritoneum. ID was on consultation at that point. Throughout this hospital course patient has received 2 paracentesis with large volume removal. Ultimately patient decided to proceed with comfort measures.. He has completed a MOLST form to reflect DNR/DNI and comfort measures. Patient was ultimately transitioned to hospice house on 04/23.. There was a discussion about whether a peritoneal catheter should be placed. However, patient will not be able to be medically optimized for said procedure. Discussed with patient about this challenge, and at this point, will continue with comfort via medications alone. DISCHARGE MEDICATIONS: Please see below. ALLERGIES: Please see below. PHYSICAL EXAMINATION ON DISCHARGE: VITAL SIGNS: Please see below. GENERAL: Sitting up in bed, fatigued, appears comfortable, AAOx3 Full exam not completed LABORATORY DATA: Please see below. PROGNOSIS: Poor DISPOSITION: Hospice House TIME SPENT ON DISCHARGE: 25 minutes. Vital Signs/I&Os Vital Signs Date Time Temp Pulse Resp B/P (MAP) Pulse Ox O2 Delivery O2 Flow Rate FiO2 04/23/21 10:05 14 04/23/21 09:00 3.0 04/21/21 17:46 Room Air 04/21/21 13:55 76 95 04/21/21 13:00 97.3 04/20/21 07:41 134/67 (89) I&O- Last 24 Hours up to 6 AM 04/23/21 06:00 Intake Total 900 ml Output Total 0 ml Balance 900 ml Microbiology Microbiology 04/19/21 Acid Fast Stain, Received Pending 04/19/21 Mycobacterial Culture, Received Pending 04/19/21 Fungal Smear, Received Pending 04/19/21 Fungal Culture, Received Pending 04/19/21 Gram Stain - Final, Complete 04/19/21 Body Fluid Culture - Final, Complete Staphylococcus Hominis Ssp Jose 04/18/21 Stool Occult Blood (STACEY) - Final, Complete 04/17/21 Gastrointestinal Tract Panel (PCR) - Final, Complete 04/16/21 Blood Culture - Final, Complete NO GROWTH AFTER 5 DAYS 04/16/21 Blood Culture - Final, Complete NO GROWTH AFTER 5 DAYS Discharge Medications Scheduled Bimatoprost (Lumigan) 0.01% 2.5ML Drops, 1 DROP OU QHS, (Reported) Calcium Carbonate (Calcium) 600 Mg Tablet, 600 MG PO QPM, (Reported) TAKES AROUND DINNERTIME Escitalopram Oxalate (Lexapro) 20 Mg Tablet, 20 MG PO DAILY, (Reported) Gabapentin (Gabapentin) 300 Mg Capsule, 300 MG PO BID, (Reported) L.acidoph/L.bulg/B.bif/S.therm (Bacid Caplet) 1 Each Tablet, 1 TAB PO ACHS, (Reported) Scheduled PRN Dicyclomine HCl (Dicyclomine HCl) 10 Mg Capsule, 10 MG PO TID PRN for ABDMINAL SPASMS, (Reported) Hyoscyamine Sulfate (Hyoscyamine Sulfate) 0.125 Mg Tab.subl, 0.125 MG PO Q4HP PRN for TERMINAL SECRETIONS Use sublingually if unable to swallow. Lorazepam (Ativan) 0.5 Mg Tablet, 0.5 MG PO Q4HP PRN for ANXIETY/AGITATION Use sublingually if unable to swallow. Morphine Sulfate (Morphine Sulfate) 100 Mg/5 Ml Solution, 0.25-1 ML PO Q2H PRN for PAIN OR DYSPNEA Use sublingually if unable to swallow. Ondansetron HCl (Ondansetron HCl) 8 Mg Tablet, 8 MG PO Q12HP PRN for NAUSEA OR VOMITING Oxycodone HCl/Acetaminophen (Oxycodone-Acetaminophen 10-325) 1 Each Tablet, 1 TAB PO QID PRN for PAIN, (Reported) Prochlorperazine Maleate (Prochlorperazine Maleate) 10 Mg Tablet, 10 MG PO Q6H PRN for NAUSEA OR VOMITING, (Reported) Allergies Coded Allergies: pembrolizumab (Verified Allergy, Intermediate, RASH, 07/29/20) TRIP ROWE MD Apr 23, 2021 13:56
== END 2021-04-23 10:10 | disposition hospice, inpatient (51) | DRG 176 ==
LOC: M ED 14:33 → M ED INP 19:32 → M PCU 22:39 → M MS5PR 04-21 10:26
PROVIDERS: ADMIT Family Medicine; ATTEND Internal Medicine
PROC: 30233R1 Transfusion of Nonautologous Platelets into Peripheral Vein, Percutaneous Approach (ICD-10-PCS; 2021-04-17)
PROC: 30233N1 Transfusion of Nonautologous Red Blood Cells into Peripheral Vein, Percutaneous Approach (ICD-10-PCS; 2021-04-18)
PROC: 0W9G3ZZ Drainage of Peritoneal Cavity, Percutaneous Approach (ICD-10-PCS; principal; 2021-04-19 16:00)
PROC: 0W9G3ZZ Drainage of Peritoneal Cavity, Percutaneous Approach (ICD-10-PCS; 2021-04-21)
DX: I26.99 Other pulmonary embolism without acute cor pulmonale (principal); C78.7 Secondary malignant neoplasm of liver and intrahepatic bile duct; R18.0 Malignant ascites; C34.90 Malignant neoplasm of unspecified part of unspecified bronchus or lung; C79.51 Secondary malignant neoplasm of bone; D69.3 Immune thrombocytopenic purpura; E03.9 Hypothyroidism, unspecified; E78.5 Hyperlipidemia, unspecified; F41.9 Anxiety disorder, unspecified; F32.9 Major depressive disorder, single episode, unspecified; I25.2 Old myocardial infarction; Z92.21 Personal history of antineoplastic chemotherapy; I10 Essential (primary) hypertension; G62.9 Polyneuropathy, unspecified; Z51.5 Encounter for palliative care; Z79.899 Other long term (current) drug therapy; Z88.8 Allergy status to other drugs, medicaments and biological substances; Z87.442 Personal history of urinary calculi; Z98.41 Cataract extraction status, right eye; Z87.891 Personal history of nicotine dependence; K57.30 Diverticulosis of large intestine without perforation or abscess without bleeding; R19.7 Diarrhea, unspecified